=== PATIENT | male | born 1960 | race African-American/Black ===

== ENCOUNTER 2019-07-12 12:25 | Inpatient (IN) ==
[2019-07-12] MEDS ORDERED: NITROGLYCERIN 2% OINTMENT 30GM TUBE EXT STA (12:46)
[2019-07-12] MEDS ORDERED: ONDANSETRON INJ 2 MG/ML 2 ML VIAL IV STA (12:47)
[2019-07-12 12:57] LABS: Basophils # (auto) 0.01 K/uL (0-0.2); Basophils % (auto) 0.1 %; Eosinophils # (auto) 0.53 K/uL (0-0.5); Eosinophils % (auto) 6.2 %; Hematocrit (blood only) 38.7 % (42-52); Hemoglobin 12.6 g/dL (14.0-18.0); Immature Granulocytes # (auto) 0.02 K/uL (0.00-0.02); Immature Granulocytes % (auto) 0.2 %; Lymphocytes # (auto) 0.74 K/uL (1.2-3.4); Lymphocytes % (auto) 8.6 %; Mean Corpuscular Hemoglobin 26.5 pg (25-34); Mean Corpuscular Hgb Conc 32.6 g/dL (32-36); Mean Corpuscular Volume 81.5 fL (80-100); Monocytes # (auto) 0.36 K/uL (0.11-0.59); Monocytes % (auto) 4.2 %; Neutrophils # (auto) 6.94 K/uL (1.4-6.5); Neutrophils % (auto) 80.7 %; Platelet Count 187 K/uL (130-400); Red Blood Count 4.75 M/uL (4.7-6.1)
[2019-07-12] MEDS ORDERED: SODIUM CHLORIDE 0.9% 500 ML IV SCH (13:00)
--- NOTE | 2019-07-12 13:01 | XRay Report ---
SINGLE VIEW CHEST CLINICAL HISTORY: Atypical chest pain. FINDINGS: An AP, portable, semierect chest radiograph is obtained. No prior studies are available for comparison at the time of dictation. The examination is degraded by portable technique and patient r otation. The heart is enlarged. The pulmonary vasculature is noncongested. There is elevation of the right hemidiaphragm. No airspace consolidation or large pleural effusion is identified. No pneumothor ax is seen. The bony thorax is grossly intact. IMPRESSION: Cardiomegaly with no acute cardiopulmonary abnormality. ACT 112: Negative or not required by law. Electronically signed by: Iker Liu M.D. 07/12/2019 12:59 PM
[2019-07-12 13:07] LABS: Partial Thromboplastin Time 28.1 Seconds (21.0-31.0); Prothrombin Time 10.7 Seconds (9.0-12.0)
[2019-07-12 13:14] LABS: Albumin Level 3.5 gm/dl (3.4-5.0); BUN Creatinine Ratio 12.9 (10-20); Calcium 8.1 mg/dl (8.5-10.1); Creatinine Clr Calc Pharmacy 34.4 ml/min; Est GFR (African American) 23.2; Magnesium 2.2 mg/dl (1.8-2.4); Potassium 4.6 mmol/L (3.5-5.1)
[2019-07-12 13:19] LABS: Albumin Globulin Ratio 0.8 (0.9-2); Bilirubin,Total 0.4 mg/dl (0.2-1); Globulin 4.3 gm/dl (2.5-4.0); Total Protein 7.8 gm/dl (6.4-8.2); Troponin I 0.04 ng/ml (0-0.045)
[2019-07-12] MEDS ORDERED: SODIUM CHLORIDE 0.9% 1000ML 500 ML IV ONE (13:59)
[2019-07-12] MEDS ORDERED: DiphenhydrAMINE HCL 50 MG/ML VIAL IV STA (14:05)
--- NOTE | 2019-07-12 15:07 | History & Physical Report ---
Date of Service July 12, 2019 Assessment & Plan (1) Chest pain, precordial: - Concern for cardiac source due to history of myocardial infarctions; EKG showed T wave changes, Trop was 0.040. - Admit to telemetry for close monitoring. - Trend trop q6hr x 3; repeat EKG daily x 2. - Continue home ASA, Metoprolol, Amlodipine as prescribed; not currently on statin agent. - Limited 2D echo to evaluate for wall motion abnormalities. - Will need cardiology consult pending cardiac work up; no indication for NPO status after midnight as stress test will not be completed on a Sunday. (2) CAD (coronary artery disease): - H/o NV ~7 yrs ago and ~8-9 yrs ago, treated at [facility] in [place], [place]. - Continue Metoprolol, Amlodipine and ASA as prescribed. - Not currently on statin agent - fasting lipid panel in the AM along with hgb A1C. - Cardiac work up as noted above. (3) STEPHANIE (acute kidney injury): - Creatinine is 3.17 -- baseline renal function is not clear at this time but Cr is likely elevated. - Started LR at 80 cc/hr. - Renal US pending to rule out obstruction. - U/a and urine eosinophils also pending -- consider interstitial nephritis in setting of Bactrim therapy. - Repeat BMP in the morning; will require nephro consult if no improvement. (4) Metabolic acidosis: - Non anion gap metabolic acidosis - likely related to acute renal failure. - Sodium bicarb 650 mg BID. - LR at 80 cc/hr (avoid NS, may worsen metabolic acidosis) - Repeat BMP in the morning. (5) CKD (chronic kidney disease): - Baseline GFR is not available at this time, therefore cannot determine CKD staging. - Renally dose all meds. (6) Rash: - Likely drug induced -- on Bactrim for 10 days, developed rash on day 7 of course. - Discontinued Bactrim therapy; will need to be added to allergy list. - Hydroxyzine 25 mg BID and Zyrtec 10 mg daily. - Consider addition of steroids if indicated. (7) Medication reaction: - As noted above. (8) Otitis media: - Right sided otitis media; treated with Bactrim x 10 days, no improvement -- may be related to viral source. - Will start Azithromycin 250 mg x 4 days, evaluate for improvement. (9) Depression with anxiety: - Continue Paxil as prescribed. (10) Psychiatric diagnosis: - Continue Trazodone 150 mg qhs and Abiliby 10 mg qhs. (11) Hypertension: - Continue Amlodipine 10 mg daily, Metoprolol 25 mg BID. - Holding home HCTZ in setting of STEPHANIE. (12) DVT prophylaxis: - SCDs; Heparin q12hr. Dispo: Med/surg with tele for cardiac work up & treatment of acute renal failure. History of Present Illness Chief Complaint: Chest pain Primary Care Provider: EMILY Cole Mr. Elam is a 59 year old male with past medical history of CAD, CKD, Anxiety/Depression with other unspecified psychiatric disorders who [facility] with an [facility] reaction to Bactrim. He developed nasal congestion and right ear pain ~12 days ago. Pt. started a course of Bactrim PO ~10 days ago. He developed a mild erythematous rash on his arms/legs 3 days ago. Rash was mildly pruritic but he continued Bactrim as prescribed. He woke up this morning with a "bright red rash" and severe pruritus. He was evaluated by the provider at the [facility] and was referred to the ED for further evaluation. Pt. received Benadryl 25 mg IV in the ER but rash has persisted. He developed sternal chest pain following treatment of rash -- describes chest pain as a "pressure" or "someone sitting on my chest". He has a history of two NV's in the past, ~7 years ago and ~8-9 years ago. Both events were treated at [facility] in [place], [place]; he denies placement of stents or CABG and has not had a recent stress test/evaluation by cardiology. Denies radiation of pain to jaw or arm, nausea/vomiting, shortness of breath, LE edema, URI symptoms with exception of ongoing right ear pain, diarrhea or constipation, abd pain, dysuria or hematuria. ER course: Pt. received IV fluids and Benadryl 25 mg IV x 1 dose. Trop was 0.040, EKG showed T wave inversion in inferolateral leads following development of chest pain. Creatinine was 3.17 with associated anion gap metabolic acidosis (baseline renal function is not available at this time). Will admit for further evaluation of cardiac symptoms along with treatment of acute renal failure & allergic reaction. Allergies Allergy/AdvReac Type Severity Reaction Status Date / Time VIK Inhibitors Allergy Severe Rash and Verified 07/12/19 15:56 Itching Cephalosporins Allergy Severe Rash and Verified 07/12/19 15:56 Itching Penicillins Allergy Severe Rash and Verified 07/12/19 15:56 Itching sulfamethoxazole Allergy Severe Rash and Verified 07/12/19 15:56 [From Bactrim] Itching trimethoprim [From Bactrim] Allergy Severe Rash and Verified 07/12/19 15:55 Itching Home Medications Home Medications Medication Instructions Recorded Confirmed Type amlodipine [Norvasc] 10 mg PO DAILY 07/12/19 07/12/19 History aripiprazole [Abilify] 10 mg PO HS 07/12/19 07/12/19 History aspirin [Aspirin Low Dose] 81 mg PO DAILY 07/12/19 07/12/19 History azithromycin [Zithromax] See Rx Instructions .ROUTE .COMPLEX 07/12/19 07/12/19 History hydrochlorothiazide 25 mg PO DAILY 07/12/19 07/12/19 History hydroxyzine HCl 25 mg PO TID 07/12/19 07/12/19 History metoprolol tartrate 25 mg PO BID 07/12/19 07/12/19 History paroxetine HCl [Paxil] 40 mg PO HS 07/12/19 07/12/19 History prednisone 50 mg PO DAILY 07/12/19 07/12/19 History trazodone 150 mg PO HS 07/12/19 07/12/19 History Past Med/Surg History Medical History (Updated 07/12/19 @ 15:29 by Sasha Seo PA-C) CKD (chronic kidney disease) Depression with anxiety Hx of myocardial infarction Hypertension Psychiatric diagnosis Surgical History No pertinent past surgical history Family History Other No significant family history Social History Preferred Language: Bermudian Communication Ability: Effective [employer]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 Beliefs That Will Affect Care: None Current Living Situation: Other Current Living Situation Comment: Residential current occupational status: 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 Other Information That Helps Us Care for You: No Feels Safe at Home: Yes Safety Concerns: Feels Safe At This Time Smoking Status: Never smoker Do You Dip or Chew Tobacco: No ; Second Hand Exposure: No ; Tobacco Cessation Education Requested by Patient: No Hx Alcohol Use: No Hx Substance Use: No Review of Systems Review of Systems: All systems reviewed & are unremarkable except as noted in HPI & below Constitutional: no fever, no chills, no fatigue, no weakness and no anorexia Ear, Nose, Mouth, Throat: + ear pain; no nasal congestion, no nasal discharge, no post nasal drip, no facial pain, no sinus pain/pressure, no sore throat and no dysphagia Respiratory: no cough, no dyspnea, no dyspnea on exertion and no wheezing Cardiovascular: + chest pain; no radiating jaw, neck or arm pain, no palpitations, no lightheadedness, no syncope, no edema and no calf pain Gastrointestinal: no abdominal pain, no nausea, no vomiting, no constipation and no diarrhea/loose stools Genitourinary: no dysuria, no difficulty urinating and no hematuria Musculoskeletal: no back pain and no joint pain Integumentary: + rash, + erythema and + pruritus Physical Exam Physical Exam: General: Resting comfortably HEENT: NC/AT; PERRLA with EOMI; Tornado conjunctiva, MMM. No erythema of posterior pharynx Neck: Supple and nontender Cardiac: RRR Lungs: CTA bilaterally Abdomen: Bowel normoactive X 4; Nontender to palpation Rectal: Deferred : Deferred Back: NO spinous tenderness Extremities: Warm. Mild +1 non pitting bilat LE edema. Neuro: No focal weakness Skin: erythematous maculopapular rash noted on arms and legs. Results & Data Vital Signs (Past 12 Hours) Vital Signs Temp Pulse Resp BP Pulse Ox 07/12/19 14:01 71 20 07/12/19 14:00 70 18 137/84 07/12/19 13:31 67 20 146/85 H 94 07/12/19 13:30 75 27 H 94 07/12/19 13:01 70 24 127/63 91 07/12/19 13:00 71 16 96 07/12/19 12:42 36.8 C 78 20 136/64 96 07/12/19 12:39 71 93 07/12/19 12:34 69 136/64 95 Laboratory Results 07/12/19 07/12/19 07/12/19 Range/Units 12:45 12:45 12:45 WBC 8.60 (4.8-10.8) K/uL RBC 4.75 (4.7-6.1) M/uL Hgb 12.6 L (14.0-18.0) g/dL Hct 38.7 L (42-52) % MCV 81.5 (80-100) fL MCH 26.5 (25-34) pg MCHC 32.6 (32-36) g/dL RDW Std Deviation 51.0 H (36.4-46.3) fL RDW Coeff of Love 17.0 H (11.5-14.5) % Plt Count 187 (130-400) K/uL Immature Gran % (Auto) 0.2 % Neut % (Auto) 80.7 % Lymph % (Auto) 8.6 % Collier % (Auto) 4.2 % Eos % (Auto) 6.2 % Baso % (Auto) 0.1 % Immature Gran # (Auto) 0.02 (0.00-0.02) K/uL Neut # (Auto) 6.94 H (1.4-6.5) K/uL Lymph # (Auto) 0.74 L (1.2-3.4) K/uL Collier # (Auto) 0.36 (0.11-0.59) K/uL Eos # (Auto) 0.53 H (0-0.5) K/uL Baso # (Auto) 0.01 (0-0.2) K/uL PT 10.7 (9.0-12.0) Seconds INR 1.0 (0.9-1.1) APTT 28.1 (21.0-31.0) Seconds PTT Ratio 1.0 Sodium 136 (136-145) mmol/L Potassium 4.6 (3.5-5.1) mmol/L Chloride 109 H (98-107) mmol/L Carbon Dioxide 20 L (21-32) mmol/L Anion Gap 7.0 (3-11) BUN 41 H (7-18) mg/dl Creatinine 3.17 H (0.6-1.4) mg/dl Est Cr Clr Drug Dosing 34.4 ml/min Est GFR ( Amer) 23.2 Est GFR (Non-Af Amer) 20.0 BUN/Creatinine Ratio 12.9 (10-20) Glucose 115 H (70-99) mg/dl Calcium 8.1 L (8.5-10.1) mg/dl Magnesium 2.2 (1.8-2.4) mg/dl Total Bilirubin 0.4 (0.2-1) mg/dl AST 31 (15-37) U/L ALT 38 (12-78) U/L Alkaline Phosphatase 86 (45-117) U/L Troponin I 0.040 (0-0.045) ng/ml Total Protein 7.8 (6.4-8.2) gm/dl Albumin 3.5 (3.4-5.0) gm/dl Globulin 4.3 H (2.5-4.0) gm/dl Albumin/Globulin Ratio 0.8 L (0.9-2) Lipase 75 (73-393) U/L Code Status & VTE Plan Code Status FULL CODE VTE Prophylaxis Plan VTE Prophylaxis will be ordered: Yes Supervising Physician Co-Signing Physician Notes Patient seen and examined with Sasha LEGGETT. I agree with her exam findings, review of systems, assessment and plan. I personally reviewed the lab work and imaging as well. patient presented due to diffuse rash that developed while he was taking Bactrim did not present with chest pain/pressure, but he developed some pressure while here there were some TW inversions in lateral leads at the time of the chest pain, has CAD history also, Cr is 3, unsure of his baseline as there are no prior records - Chest pain, EKG changes will cycle troponin, check 2d echo, repeat EKG in the AM and as needed for pain continue aspirin and metoprolol - likely STEPHANIE on CKD patient knows he has some CKD but he is unaware of his baseline renal function certainly a Cr of 3 could represent an STEPHANIE, differential could be prerenal or perhaps AIN due to Bactrim use will check UA, urine eosinophils give some fluids and repeat BMP in the AM, follow UO - Diffuse drug rash reports history of similar appearing, erythematous, pruritic rash to PCN will continue antihistamine therapy no evidence of oral mucosa involvement so doubt that this is severe reaction PG Care Time/CCT Total # of Minutes Spent Total Time Spent with Patient: Total time spent is greater than 50% in coordination of care (as documented) at patient's floor/unit and/or counseling patient: Coding Level of Care Code 58380 OBS Care - Level 3 Diagnoses Chest pain, precordial R07.2 CAD (coronary artery disease) I25.10 STEPHANIE (acute kidney injury) N17.9 Metabolic acidosis E87.2 CKD (chronic kidney disease) N18.9 Rash R21 Medication reaction T50.905A Encounter type: initial encounter Otitis media H66.90 Depression with anxiety F41.8 Psychiatric diagnosis F99 Hypertension I10 DVT prophylaxis Z29.9 (1) Medication reaction Encounter type: initial encounter Qualified Code(s): T50.905A - Adverse effect of unspecified drugs, medicaments and biological substances, initial encounter
[2019-07-12] MEDS ORDERED: ACETAMINOPHEN 325 MG TAB PO PRN (15:49)
[2019-07-12] MEDS ORDERED: ONDANSETRON INJ 2 MG/ML 2 ML VIAL IV PRN (15:49)
[2019-07-12] MEDS ORDERED: NITROGLYCERIN SL 0.4 MG/TAB TAB SL PRN (15:49)
[2019-07-12] MEDS: LACTATED RINGER'S 1,000 ML IV SCH (16:06)
--- NOTE | 2019-07-12 16:22 | Emergency Department Note ---
Entered by Joseline Browning acting as a scribe for History of Present Illness General Chief complaint: Chest Pain Stated complaint: CHEST TIGHTNESS Time Seen by Provider: 07/12/19 12:38 Source: patient History of Present Illness Onset (ago): hour(s) 6 Location: chest Pain Consistency: + constant Maximum Pain Intensity: 7 Quality: + other (pressure) Exacerbated By: + medication (Benadryl) and + other (standing up) Associated symptoms: + nausea/vomiting (nausea), + rash and + shortness of breath; no diaphoresis The patient is a 59 year old male who presents to the Emergency Room with complaints of constant chest pain starting 6 hours ago. The patient states that when he woke up this morning he started having chest pain that felt like something was sitting on his chest. He states that it is right in the center of his chest, made him short of breath, and nauseous. The patient notes that he has been on Bactrim for 6 days for an ear infection and noticed a rash 3 days ago all over his body. He states that it is itchy so he went to Medical today. He reports that they gave him Benadryl, which didnt help, but notes that it made his chest pain feel worse. He states that he went back to Medical and they sent him here. The patient currently rates his pain as a 6/10 in severity. He notes that standing up makes the pain worse. The patient denies taking any Nitroglycerin, the pain feeling like his previous MIs, the pain radiating anywhere, and becoming diaphoretic. Home Medications Home Medications Medication Instructions Recorded Confirmed Type amlodipine [Norvasc] 10 mg PO DAILY 07/12/19 07/12/19 History aripiprazole [Abilify] 10 mg PO HS 07/12/19 07/12/19 History aspirin [Aspirin Low Dose] 81 mg PO DAILY 07/12/19 07/12/19 History azithromycin [Zithromax] See Rx Instructions .ROUTE .COMPLEX 07/12/19 07/12/19 History hydrochlorothiazide 25 mg PO DAILY 07/12/19 07/12/19 History hydroxyzine HCl 25 mg PO TID 07/12/19 07/12/19 History metoprolol tartrate 25 mg PO BID 07/12/19 07/12/19 History paroxetine HCl [Paxil] 40 mg PO HS 07/12/19 07/12/19 History prednisone 50 mg PO DAILY 07/12/19 07/12/19 History trazodone 150 mg PO HS 07/12/19 07/12/19 History Allergies Allergy/AdvReac Type Severity Reaction Status Date / Time VIK Inhibitors Allergy Severe Rash and Verified 07/12/19 15:56 Itching Cephalosporins Allergy Severe Rash and Verified 07/12/19 15:56 Itching Penicillins Allergy Severe Rash and Verified 07/12/19 15:56 Itching sulfamethoxazole Allergy Severe Rash and Verified 07/12/19 15:56 [From Bactrim] Itching trimethoprim [From Bactrim] Allergy Severe Rash and Verified 07/12/19 15:55 Itching Past Med/Surg History Medical History (Updated 07/12/19 @ 15:29 by Sasha Seo PA-C) CKD (chronic kidney disease) Depression with anxiety Hx of myocardial infarction Hypertension Psychiatric diagnosis Surgical History No pertinent past surgical history Family History Other No significant family history Social History Preferred Language: Amharic Communication Ability: Effective Linux 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 and A total of 10 systems reviewed and were otherwise negative Physical Exam Vital Signs Vital Signs - 24 hr 07/12/19 12:34 07/12/19 12:39 07/12/19 12:42 Temperature 36.8 C Temperature Source Oral Pulse Rate 69 71 78 Pulse Rate from SpO2 Sensor 67 66 Respiratory Rate 20 Respiratory Effort / Characteristics Non-Labored Spontaneous Respiratory Depth Normal Respiratory Pattern Regular Blood Pressure 136/64 136/64 Blood Pressure Mean 71 88 Pulse Oximetry 95 93 96 Oxygen Delivery Method Room Air Sepsis Recent Fever Within 48 Hours No Sepsis New/Unexplained Change in Mental Status No Sepsis Action Taken by Nursing No Action Required 07/12/19 13:00 07/12/19 13:01 07/12/19 13:30 Temperature Temperature Source Pulse Rate 71 70 75 Pulse Rate from SpO2 Sensor 70 73 70 Respiratory Rate 16 24 27 H Respiratory Effort / Characteristics Respiratory Depth Respiratory Pattern Blood Pressure 127/63 Blood Pressure Mean 89 Pulse Oximetry 96 91 94 Oxygen Delivery Method Sepsis Recent Fever Within 48 Hours Sepsis New/Unexplained Change in Mental Status Sepsis Action Taken by Nursing 07/12/19 13:31 07/12/19 14:00 07/12/19 14:01 Temperature Temperature Source Pulse Rate 67 70 71 Pulse Rate from SpO2 Sensor 67 Respiratory Rate 20 18 20 Respiratory Effort / Characteristics Respiratory Depth Respiratory Pattern Blood Pressure 146/85 H 137/84 Blood Pressure Mean 92 96 Pulse Oximetry 94 Oxygen Delivery Method Sepsis Recent Fever Within 48 Hours Sepsis New/Unexplained Change in Mental Status Sepsis Action Taken by Nursing 07/12/19 14:30 07/12/19 14:31 07/12/19 15:00 Temperature Temperature Source Pulse Rate 70 72 69 Pulse Rate from SpO2 Sensor 68 72 68 Respiratory Rate 20 16 22 Respiratory Effort / Characteristics Respiratory Depth Respiratory Pattern Blood Pressure 105/84 121/79 Blood Pressure Mean 97 93 Pulse Oximetry 96 97 95 Oxygen Delivery Method Sepsis Recent Fever Within 48 Hours Sepsis New/Unexplained Change in Mental Status Sepsis Action Taken by Nursing 07/12/19 15:01 Temperature Temperature Source Pulse Rate 61 Pulse Rate from SpO2 Sensor 61 Respiratory Rate 22 Respiratory Effort / Characteristics Respiratory Depth Respiratory Pattern Blood Pressure Blood Pressure Mean Pulse Oximetry 96 Oxygen Delivery Method Sepsis Recent Fever Within 48 Hours Sepsis New/Unexplained Change in Mental Status Sepsis Action Taken by Nursing GENERAL: Patient is in no acute distress. HEENT: No acute trauma, normocephalic atraumatic, mucous membranes moist, no nasal congestion, no scleral icterus. NECK: No stridor, no adenopathy, no meningismus, trachea is midline. LUNGS: Clear to auscultation bilaterally, no wheeze, no rhonchi, breath sounds equal. HEART: 2/6 systolic murmur. Irregular rhythm with a normal rate. CHEST: Some moderate tenderness to the mid sternal chest wall. ABDOMEN: Soft, nontender, bowel sounds positive, no hernias, no peritonitis. EXTREMITIES: No cyanosis, mild pedal edema, full range of motion of all the joints without pain or difficulty, no signs for acute trauma. NEUROLOGIC: Oriented x 3, no acute motor or sensory deficits, no focal weakness. SKIN: Slightly raised diffuse erythematous rash across the chest, back, and upper extremities. Course Course 1242: The patient was evaluated in room C2B. A complete history and physical exam was performed. 1358: I reviewed the patient's past records and his creatinine on 05/22/2019 was 2.06. 1404: I reevaluated the patient and he is feeling better after the Nitroglycerin. He asked from something to help with the itching. I discussed his test results and the treatment plan with him to keep him for a cardiac work up. He verbally agrees and understands. 1409: I discussed the patient's case with Dr. Goldberg [facility] Hospitalist. She will evaluate the patient for further management. Administered Medications Lactated Ringer's (Lr) 1,000 mls @ 80 mls/hr IV .[id number] GINNY Stop: 08/11/19 15:48 Last Admin: 07/12/19 16:06 Dose: 80 mls/hr Documented by: [id number] Discontinued Medications Diphenhydramine HCl (Benadryl) 25 mg IV NOW STA Stop: 07/12/19 14:06 Last Admin: 07/12/19 14:16 Dose: 25 mg Documented by: [id number] Sodium Chloride (Nss) 500 mls @ 999 mls/hr IV .Q31M GINNY Stop: 07/12/19 13:30 Last Infusion: 07/12/19 13:44 Dose: 0 mls/hr Documented by: [id number] Admin: 07/12/19 12:57 Dose: 999 mls/hr Documented by: [id number] Sodium Chloride (Nss 1000ml) 500 mls @ 999 mls/hr IV .Q31M ONE Stop: 07/12/19 14:29 Last Infusion: 07/12/19 14:57 Dose: 0 mls/hr Documented by: [id number] Admin: 07/12/19 14:16 Dose: 999 mls/hr Documented by: [id number] Nitroglycerin (Nitro-Bid 2%) 1 inch EXT NOW STA Stop: 07/12/19 12:47 Last Admin: 07/12/19 12:52 Dose: 1 inch Documented by: [id number] Ondansetron HCl (Zofran) 4 mg IV NOW STA Stop: 07/12/19 12:48 Last Admin: 07/12/19 12:52 Dose: 4 mg Documented by: [id number] Medical Decision Making Differential Diagnosis Differential diagnoses include allergic reaction, KY, angina, aortic dissection, PE, pneumonia, anemia, musculoskeletal pain. Medical Records Attestation: I reviewed the patient's medical records. Home Medications Current Medication List: was personally reviewed by me Laboratory Data Attestation: I reviewed the patient's lab results. Result diagrams: 07/12/19 12:45 07/12/19 12:45 Lab Results 07/12/19 07/12/19 07/12/19 Range/Units 12:45 12:45 12:45 WBC 8.60 (4.8-10.8) K/uL RBC 4.75 (4.7-6.1) M/uL Hgb 12.6 L (14.0-18.0) g/dL Hct 38.7 L (42-52) % MCV 81.5 (80-100) fL MCH 26.5 (25-34) pg MCHC 32.6 (32-36) g/dL RDW Std Deviation 51.0 H (36.4-46.3) fL RDW Coeff of Love 17.0 H (11.5-14.5) % Plt Count 187 (130-400) K/uL Immature Gran % (Auto) 0.2 % Neut % (Auto) 80.7 % Lymph % (Auto) 8.6 % [place] % (Auto) 4.2 % Eos % (Auto) 6.2 % Baso % (Auto) 0.1 % Immature Gran # (Auto) 0.02 (0.00-0.02) K/uL Neut # (Auto) 6.94 H (1.4-6.5) K/uL Lymph # (Auto) 0.74 L (1.2-3.4) K/uL P[place] # (Auto) 0.36 (0.11-0.59) K/uL Eos # (Auto) 0.53 H (0-0.5) K/uL Baso # (Auto) 0.01 (0-0.2) K/uL PT 10.7 (9.0-12.0) Seconds INR 1.0 (0.9-1.1) APTT 28.1 (21.0-31.0) Seconds PTT Ratio 1.0 Sodium 136 (136-145) mmol/L Potassium 4.6 (3.5-5.1) mmol/L Chloride 109 H (98-107) mmol/L Carbon Dioxide 20 L (21-32) mmol/L Anion Gap 7.0 (3-11) BUN 41 H (7-18) mg/dl Creatinine 3.17 H (0.6-1.4) mg/dl Est Cr Clr Drug Dosing 34.4 ml/min Est GFR ( Amer) 23.2 Est GFR (Non-Af Amer) 20.0 BUN/Creatinine Ratio 12.9 (10-20) Glucose 115 H (70-99) mg/dl Calcium 8.1 L (8.5-10.1) mg/dl Magnesium 2.2 (1.8-2.4) mg/dl Total Bilirubin 0.4 (0.2-1) mg/dl AST 31 (15-37) U/L ALT 38 (12-78) U/L Alkaline Phosphatase 86 (45-117) U/L Troponin I 0.040 (0-0.045) ng/ml Total Protein 7.8 (6.4-8.2) gm/dl Albumin 3.5 (3.4-5.0) gm/dl Globulin 4.3 H (2.5-4.0) gm/dl Albumin/Globulin Ratio 0.8 L (0.9-2) Lipase 75 (73-393) U/L Imaging Data Radiologist's Impression: Radiology results as stated below per my review and the radiologist's interpretation: SINGLE VIEW CHEST CLINICAL HISTORY: Atypical chest pain. FINDINGS: An AP, portable, semierect chest radiograph is obtained. No prior studies are available for comparison at the time of dictation. The examination is degraded by portable technique and patient rotation. The heart is enlarged. The pulmonary vasculature is noncongested. There is elevation of the right hemidiaphragm. No airspace consolidation or large pleural effusion is identified. No pneumothorax is seen. The bony thorax is grossly intact. IMPRESSION: Cardiomegaly with no acute cardiopulmonary abnormality. ACT 112: Negative or not required by law. Electronically signed by: Iker Liu M.D. 07/12/2019 12:59 PM ECG Data Attestation: I personally reviewed and interpreted this ECG as follows: Indication: + chest pain Rate (beats per minute): 70 Rhythm: + sinus rhythm ECG ST segments: + T-wave inversions (Lateral); no ST elevation ECG Findings: + PVCs (frequent) and + Other (old septal infarct, QT-c 421) Comparison ECG Date: no prior available Additional Comments: PRE-HOSPITAL EKG: Sinus rhythm at a rate of 64. No ST elevation. No PVCs. Inverted T waves in the inferior and lateral leads. QT-c 95. Blood Pressure Blood Pressure Findings: Elevated blood pressure Blood Pressure Disposition: further management by hospitalist [facility] Narrative There is no leukocytosis. The patient is mildly anemic with a hemoglobin of 12.6. Platelet count was normal. There was no coagulopathy. There was evidence for acute renal injury with a creatinine of 3.17. No liver enzyme elevation. No evidence for pancreatitis. EKG shows a sinus rhythm with PVCs, no evidence for acute [place]. Cardiac enzyme testing x1 does not show any evidence for acute cardiac injury. Chest film does not show pneumonia or CHF. No significant mediastinal widening. The patient received IV saline, he received 2/500 cc boluses. He was given IV Zofran for nausea, Nitropaste 1 inch, 25 mg of IV Benadryl. The patient has a rash, this is likely a reaction to the Bactrim. He also has some renal injury today which may also be from his Bactrim use. He presents today with some chest pain which does seem to be improved after nitroglycerin. He has a known coronary history. I do think a hospital stay for further cardiac work-up is warranted. I did speak to the patient and the guards. I spoke to case management. The on-call hospitalist was consulted. Continuous Cardiac Monitoring: An order was placed for continuous cardiac monitoring. The monitor shows a rate of 69 with sinus rhythm with PVCs. Impression & Plan Chest pain, precordial, STEPHANIE (acute kidney injury), Rash, Medication reaction Discharge Plan Visit Data *Final* Discharge Date/Time: 07/12/19 15:21 Chief Complaint: Chest Pain Stated Complaint: CHEST TIGHTNESS ED Provider: Ikre Abel Discharge Problem: Chest pain, precordial, STEPHANIE (acute kidney injury), Rash, Medication reaction Patient Disposition: Admitted As Inpatient Discharge Instructions Interventions: ED Discharge Assessment Last Done: 07/12/19 15:21 Discharge Problem: Medication reaction Qualifiers: Encounter type: initial encounter Qualified Code(s): T50.905A - Adverse effect of unspecified drugs, medicaments and biological substances, initial encounter The scribe's documentation has been prepared under my direction and personally reviewed by me in its entirety. I confirm that the note above accurately reflects all work, treatment, procedures, and medical decision making performed by me.
[2019-07-12 16:49] LABS: Appearance Urine Clear (Clear); Bacteria Urine Automated Negative (Negative); Bilirubin Urine Negative (Negative); Blood Urine Trace (Negative); Cast Urine Automated 0 /lpf (0-5); Color Urine Yellow; Epithelial Cell Urine Auto 0-5 /lpf (0-5); Glucose Urine UA Negative (Negative); Ketones Urine Negative (Negative); Leukocyte Esterase Urine Negative (Negative); Nitrite Urine Negative (Negative); Protein Urine Negative (Negative); RBC Urine Automated 0-4 /hpf (0-4); Urobilinogen Urine Negative (Negative); WBC Urine Automated 0 /hpf (0-5)
[2019-07-12] MEDS: AZITHROMYCIN 250 MG TAB PO SCH (19:00)
--- NOTE | 2019-07-12 19:00 | Ultrasound Report ---
ULTRASOUND KIDNEYS AND BLADDER CLINICAL HISTORY: Acute renal failure. COMPARISON STUDY: No priors. TECHNIQUE: Real-time, grayscale, and color flow sonography of the kidneys and bladder is performed. I mages are reviewed in the transverse and longitudinal planes. FINDINGS: Kidneys: The kidneys demonstrate cortical atrophy and slightly increased echotexture. The right kidne y measures 9.2 x 4.6 x 3.9 cm and the left kidney measures 7.9 x 5.5 x 4.4 cm. There is no hydroneph rosis. No shadowing renal calculi are identified. A 1.1 cm cyst is noted in the left lower pole. Ther e is no sonographic evidence of contour deforming renal mass lesion. No perinephric fluid is identifi ed. Bladder: The bladder is normal in appearance. Bilateral ureteral jets were seen. IMPRESSION: 1. The kidneys demonstrate cortical atrophy and there is evidence of medical renal disease. 2. No hydronephrosis is seen. 3. The bladder is normal as visualized. ACT 112: Negative or not required by law. Electronically signed by: Iker Liu M.D. 07/12/2019 6:59 PM
[2019-07-12] MEDS: PARoxetine HCL 20 MG TAB PO SCH (20:15)
[2019-07-12] MEDS: TRAZODONE HCL 50 MG TAB PO SCH (20:15)
[2019-07-12] MEDS: ARIPiprazole 10 MG TAB PO SCH (20:15)
[2019-07-12] MEDS: METOPROLOL TARTRATE 25 MG TAB PO SCH (20:16)
[2019-07-12] MEDS: HEPARIN SOD 5,000 UNIT/0.5 ML VIAL SQ SCH (20:16)
[2019-07-12] MEDS: SODIUM BICARBONATE 650 MG TAB PO SCH (20:17)
--- NOTE | 2019-07-12 20:20 | Electrocardiogram Report ---
Test Reason : Blood Pressure : / mmHG Vent. Rate : 070 BPM Atrial Rate : 070 BPM P-R Int : 194 ms QRS Dur : 104 ms QT Int : 390 ms P-R-T Axes : 034 032 218 degrees QTc Int : 421 ms Sinus rhythm with frequent Premature ventricular complexes T wave abnormality, consider inferolateral ischemia Abnormal ECG No previous ECGs available Confirmed by Luc Villegas ([id number]) on 07/12/2019 8:20:45 PM Referred By: Confirmed By:Elian Villegas
[2019-07-13] MEDS: LACTATED RINGER'S 1,000 ML IV SCH ×2 (03:11→15:50)
[2019-07-13 07:11] LABS: Basophils # (auto) 0.02 K/uL (0-0.2); Basophils % (auto) 0.3 %; Eosinophils # (auto) 0.44 K/uL (0-0.5); Eosinophils % (auto) 7.7 %; Hematocrit (blood only) 33.4 % (42-52); Hemoglobin 10.7 g/dL (14.0-18.0); Immature Granulocytes # (auto) 0.01 K/uL (0.00-0.02); Immature Granulocytes % (auto) 0.2 %; Lymphocytes # (auto) 1.15 K/uL (1.2-3.4); Lymphocytes % (auto) 20.1 %; Mean Corpuscular Hemoglobin 26.1 pg (25-34); Mean Corpuscular Volume 81.5 fL (80-100); Mean Platelet Volume 11.2 fL (7.4-10.4); Monocytes # (auto) 0.42 K/uL (0.11-0.59); Monocytes % (auto) 7.3 %; Neutrophils # (auto) 3.69 K/uL (1.4-6.5); Neutrophils % (auto) 64.4 %; Platelet Count 162 K/uL (130-400); RDW Coefficient of Variation 17.2 % (11.5-14.5); RDW Standard Deviation 52.2 fL (36.4-46.3); White Blood Count 5.73 K/uL (4.8-10.8)
[2019-07-13 07:39] LABS: BUN Creatinine Ratio 13.5 (10-20); Creatinine Clr Calc Pharmacy 37.9 ml/min; Est GFR (African American) 26.9; Est GFR (Non-African American) 23.2; Potassium 4.7 mmol/L (3.5-5.1)
[2019-07-13] MEDS: SODIUM BICARBONATE 650 MG TAB PO SCH ×2 (08:57→20:47)
[2019-07-13] MEDS: HEPARIN SOD 5,000 UNIT/0.5 ML VIAL SQ SCH ×2 (08:57→20:51)
[2019-07-13] MEDS: METOPROLOL TARTRATE 25 MG TAB PO SCH ×2 (08:58→20:50)
[2019-07-13] MEDS: CETIRIZINE HCL 10 MG TABLET PO SCH (08:58)
[2019-07-13] MEDS: AMLODIPINE BESYLATE 5 MG TAB PO SCH (08:58)
[2019-07-13] MEDS: ASPIRIN 81 MG ECTAB PO SCH (08:58)
[2019-07-13] MEDS: AZITHROMYCIN 250 MG TAB PO SCH (09:28)
--- NOTE | 2019-07-13 12:18 | Hospitalist Progress Note ---
Date of Service July 13, 2019 Assessment & Plan (1) Chest pain, precordial: - Concern for cardiac source due to history of myocardial infarctions; EKG showed minor T-wave changes, serial troponins negative. - Admitted to telemetry, in NSR on monitor. - Continue home ASA, Metoprolol, Amlodipine as prescribed; not currently on statin agent. - Limited 2D echo: moderate dilation of left atrium, moderate LVH, no wall motion abnormalities detected. - Will complete stress exercise echo on Sunday to evaluate for ischemia. (2) CAD (coronary artery disease): - H/o [place] ~7 yrs ago and ~8-9 yrs ago, treated at [facility] in [place], [place]. - Continue Metoprolol, Amlodipine and ASA as prescribed. - Not currently on statin agent - fasting lipid panel with LDL 57, Chol 118, HDL 41. - Cardiac work up as noted above. (3) STEPHANIE (acute kidney injury): - Creatinine increased to 3.17 on admission, baseline creatinine ~1.9-2.0 per records from [facility]. - Creatinine improved to 2.81; continue LR at 80 cc/hr. - Renal US negative for obstruction. - U/a negative; urine eosinophils pending -- consider interstitial nephritis in setting of Bactrim therapy. - Monitor BMP daily; consider nephro consult. (4) Metabolic acidosis: - Non anion gap metabolic acidosis - likely related to acute renal failure. CO2 improving after sodium bicarb therapy and IV fluids. - Sodium bicarb 650 mg BID. - LR at 80 cc/hr - Monitor BMP daily. (5) CKD (chronic kidney disease): - Baseline GFR is not available at this time, therefore cannot determine CKD staging. - Renally dose all meds. (6) Rash: - Likely drug induced -- on Bactrim for 10 days, developed rash on day 7 of course. - Discontinued Bactrim therapy; will need to be added to allergy list. - Hydroxyzine 25 mg BID and Zyrtec 10 mg daily. - Rash is resolved on exam. (7) Medication reaction: - As noted above. (8) Otitis media: - Right sided otitis media; treated with Bactrim x 10 days, no improvement -- may be related to viral source. - Azithromycin 250 mg x 4 days. (9) Depression with anxiety: - Continue Paxil as prescribed. (10) Psychiatric diagnosis: - Continue Trazodone 150 mg qhs and Abiliby 10 mg qhs. (11) Hypertension: - Continue Amlodipine 10 mg daily, Metoprolol 25 mg BID. - Hold home HCTZ in setting of STEPHANIE. (12) DVT prophylaxis: - SCDs; Heparin q12hr. Dispo: Med/surg with tele; cardiac work up & treatment of acute renal failure. Discharge likely over next 24-48 hours. Subjective Pt. c/o sternal chest pressure, rates pain as a 2/10 on pain scale. Trops negative, EKG with no significant changes this morning. Renal failure improving overall, will continue to monitor. Adequate urine output noted. Rash is resolving, denies pruritus. Review of Systems Review of Systems: All systems reviewed & are unremarkable except as noted in HPI & below Constitutional: no fever, no chills, no fatigue, no weakness and no anorexia Respiratory: no cough, no dyspnea and no dyspnea on exertion Cardiovascular: + chest pain; no radiating jaw, neck or arm pain, no palpitations, no lightheadedness, no syncope and no edema Gastrointestinal: no abdominal pain, no nausea, no vomiting and no constipation Genitourinary: no difficulty urinating and no decreased urination Musculoskeletal: no back pain and no joint pain Integumentary: + rash; no pruritus Physical Exam Physical Exam: General: Resting comfortably HEENT: NC/AT; PERRLA with EOMI; Lorraine conjunctiva, MMM. No erythema of posterior pharynx Neck: Supple and nontender Cardiac: RRR Lungs: CTA bilaterally Abdomen: Bowel normoactive X 4; Nontender to palpation Extremities: Warm. No LE edema noted. Neuro: No focal weakness Skin: erythematous rash now resolved. Results & Data Vital Signs (Past 12 Hours) Vital Signs Temp Pulse Pulse Resp BP BP Pulse Ox 07/13/19 11:36 36.7 C 50 L 20 115/68 93 07/13/19 07:31 36.4 C L 73 18 132/71 94 07/13/19 07:07 45 L 07/13/19 04:25 36.9 C 56 L 20 135/46 L 94 Laboratory Results 07/13/19 07/13/19 07/13/19 Range/Units 06:42 06:42 06:42 WBC (4.8-10.8) K/uL RBC (4.7-6.1) M/uL Hgb (14.0-18.0) g/dL Hct (42-52) % MCV (80-100) fL MCH (25-34) pg MCHC (32-36) g/dL RDW Std Deviation (36.4-46.3) fL RDW Coeff of Love (11.5-14.5) % Plt Count (130-400) K/uL MPV (7.4-10.4) fL Immature Gran % (Auto) % Neut % (Auto) % Lymph % (Auto) % Richardson % (Auto) % Eos % (Auto) % Baso % (Auto) % Immature Gran # (Auto) (0.00-0.02) K/uL Neut # (Auto) (1.4-6.5) K/uL Lymph # (Auto) (1.2-3.4) K/uL Richardson # (Auto) (0.11-0.59) K/uL Eos # (Auto) (0-0.5) K/uL Baso # (Auto) (0-0.2) K/uL PT (9.0-12.0) Seconds INR (0.9-1.1) APTT (21.0-31.0) Seconds PTT Ratio Sodium 139 (136-145) mmol/L Potassium 4.7 (3.5-5.1) mmol/L Chloride 111 H (98-107) mmol/L Carbon Dioxide 21 (21-32) mmol/L Anion Gap 7.0 (3-11) BUN 38 H (7-18) mg/dl Creatinine 2.81 H D (0.6-1.4) mg/dl Est Cr Clr Drug Dosing 37.9 ml/min Est GFR ( Amer) 26.9 Est GFR (Non-Af Amer) 23.2 BUN/Creatinine Ratio 13.5 (10-20) Glucose 104 H (70-99) mg/dl Estimat Average Glucose Pending Hemoglobin A1c Pending Calcium 8.0 L (8.5-10.1) mg/dl Magnesium 2.0 (1.8-2.4) mg/dl Total Bilirubin (0.2-1) mg/dl AST (15-37) U/L ALT (12-78) U/L Alkaline Phosphatase (45-117) U/L Troponin I 0.029 (0-0.045) ng/ml Total Protein (6.4-8.2) gm/dl Albumin (3.4-5.0) gm/dl Globulin (2.5-4.0) gm/dl Albumin/Globulin Ratio (0.9-2) Triglycerides 98 (0-150) mg/dl Cholesterol 118 (0-200) mg/dl LDL Cholesterol, Calc 57 mg/dl VLDL Cholesterol, Calc 20 mg/dl HDL Cholesterol 41 mg/dl Cholesterol/HDL Ratio 3 Lipase (73-393) U/L Urine Color Urine Appearance (Clear) Urine pH (4.5-7.5) Ur Specific [place] (1.000-1.030) Urine Protein (Negative) Urine Glucose (UA) (Negative) Urine Ketones (Negative) Urine Blood (Negative) Urine Nitrite (Negative) Urine Bilirubin (Negative) Urine Urobilinogen (Negative) Ur Leukocyte Esterase (Negative) Urine WBC (Auto) (0-5) /hpf Urine RBC (Auto) (0-4) /hpf U Hyaline Cast (Auto) (0-5) /lpf U Epithel Cells (Auto) (0-5) /lpf Urine Bacteria (Auto) (Negative) 07/13/19 07/13/19 07/12/19 Range/Units 06:42 00:16 18:12 WBC 5.73 (4.8-10.8) K/uL RBC 4.10 L (4.7-6.1) M/uL Hgb 10.7 L (14.0-18.0) g/dL Hct 33.4 L (42-52) % MCV 81.5 (80-100) fL MCH 26.1 (25-34) pg MCHC 32.0 (32-36) g/dL RDW Std Deviation 52.2 H (36.4-46.3) fL RDW Coeff of Love 17.2 H (11.5-14.5) % Plt Count 162 (130-400) K/uL MPV 11.2 H (7.4-10.4) fL Immature Gran % (Auto) 0.2 % Neut % (Auto) 64.4 % Lymph % (Auto) 20.1 % Richardson % (Auto) 7.3 % Eos % (Auto) 7.7 % Baso % (Auto) 0.3 % Immature Gran # (Auto) 0.01 (0.00-0.02) K/uL Neut # (Auto) 3.69 (1.4-6.5) K/uL Lymph # (Auto) 1.15 L (1.2-3.4) K/uL Richardson # (Auto) 0.42 (0.11-0.59) K/uL Eos # (Auto) 0.44 (0-0.5) K/uL Baso # (Auto) 0.02 (0-0.2) K/uL PT (9.0-12.0) Seconds INR (0.9-1.1) APTT (21.0-31.0) Seconds PTT Ratio Sodium (136-145) mmol/L Potassium (3.5-5.1) mmol/L Chloride (98-107) mmol/L Carbon Dioxide (21-32) mmol/L Anion Gap (3-11) BUN (7-18) mg/dl Creatinine (0.6-1.4) mg/dl Est Cr Clr Drug Dosing ml/min Est GFR ( Amer) Est GFR (Non-Af Amer) BUN/Creatinine Ratio (10-20) Glucose (70-99) mg/dl Estimat Average Glucose Hemoglobin A1c Calcium (8.5-10.1) mg/dl Magnesium (1.8-2.4) mg/dl Total Bilirubin (0.2-1) mg/dl AST (15-37) U/L ALT (12-78) U/L Alkaline Phosphatase (45-117) U/L Troponin I 0.040 0.033 (0-0.045) ng/ml Total Protein (6.4-8.2) gm/dl Albumin (3.4-5.0) gm/dl Globulin (2.5-4.0) gm/dl Albumin/Globulin Ratio (0.9-2) Triglycerides (0-150) mg/dl Cholesterol (0-200) mg/dl LDL Cholesterol, Calc mg/dl VLDL Cholesterol, Calc mg/dl HDL Cholesterol mg/dl Cholesterol/HDL Ratio Lipase (73-393) U/L Urine Color Urine Appearance (Clear) Urine pH (4.5-7.5) Ur Specific [place] (1.000-1.030) Urine Protein (Negative) Urine Glucose (UA) (Negative) Urine Ketones (Negative) Urine Blood (Negative) Urine Nitrite (Negative) Urine Bilirubin (Negative) Urine Urobilinogen (Negative) Ur Leukocyte Esterase (Negative) Urine WBC (Auto) (0-5) /hpf Urine RBC (Auto) (0-4) /hpf U Hyaline Cast (Auto) (0-5) /lpf U Epithel Cells (Auto) (0-5) /lpf Urine Bacteria (Auto) (Negative) 07/12/19 07/12/19 07/12/19 Range/Units 16:30 12:45 12:45 WBC (4.8-10.8) K/uL RBC (4.7-6.1) M/uL Hgb (14.0-18.0) g/dL Hct (42-52) % MCV (80-100) fL MCH (25-34) pg MCHC (32-36) g/dL RDW Std Deviation (36.4-46.3) fL RDW Coeff of Love (11.5-14.5) % Plt Count (130-400) K/uL MPV (7.4-10.4) fL Immature Gran % (Auto) % Neut % (Auto) % Lymph % (Auto) % Richardson % (Auto) % Eos % (Auto) % Baso % (Auto) % Immature Gran # (Auto) (0.00-0.02) K/uL Neut # (Auto) (1.4-6.5) K/uL Lymph # (Auto) (1.2-3.4) K/uL Richardson # (Auto) (0.11-0.59) K/uL Eos # (Auto) (0-0.5) K/uL Baso # (Auto) (0-0.2) K/uL PT 10.7 (9.0-12.0) Seconds INR 1.0 (0.9-1.1) APTT 28.1 (21.0-31.0) Seconds PTT Ratio 1.0 Sodium 136 (136-145) mmol/L Potassium 4.6 (3.5-5.1) mmol/L Chloride 109 H (98-107) mmol/L Carbon Dioxide 20 L (21-32) mmol/L Anion Gap 7.0 (3-11) BUN 41 H (7-18) mg/dl Creatinine 3.17 H (0.6-1.4) mg/dl Est Cr Clr Drug Dosing 34.4 ml/min Est GFR ( Amer) 23.2 Est GFR (Non-Af Amer) 20.0 BUN/Creatinine Ratio 12.9 (10-20) Glucose 115 H (70-99) mg/dl Estimat Average Glucose Hemoglobin A1c Calcium 8.1 L (8.5-10.1) mg/dl Magnesium 2.2 (1.8-2.4) mg/dl Total Bilirubin 0.4 (0.2-1) mg/dl AST 31 (15-37) U/L ALT 38 (12-78) U/L Alkaline Phosphatase 86 (45-117) U/L Troponin I 0.040 (0-0.045) ng/ml Total Protein 7.8 (6.4-8.2) gm/dl Albumin 3.5 (3.4-5.0) gm/dl Globulin 4.3 H (2.5-4.0) gm/dl Albumin/Globulin Ratio 0.8 L (0.9-2) Triglycerides (0-150) mg/dl Cholesterol (0-200) mg/dl LDL Cholesterol, Calc mg/dl VLDL Cholesterol, Calc mg/dl HDL Cholesterol mg/dl Cholesterol/HDL Ratio Lipase 75 (73-393) U/L Urine Color Yellow Urine Appearance Clear (Clear) Urine pH 5.0 (4.5-7.5) Ur Specific [place] 1.010 (1.000-1.030) Urine Protein Negative (Negative) Urine Glucose (UA) Negative (Negative) Urine Ketones Negative (Negative) Urine Blood Trace H (Negative) Urine Nitrite Negative (Negative) Urine Bilirubin Negative (Negative) Urine Urobilinogen Negative (Negative) Ur Leukocyte Esterase Negative (Negative) Urine WBC (Auto) 0 (0-5) /hpf Urine RBC (Auto) 0-4 (0-4) /hpf U Hyaline Cast (Auto) 0 (0-5) /lpf U Epithel Cells (Auto) 0-5 (0-5) /lpf Urine Bacteria (Auto) Negative (Negative) 07/12/19 Range/Units 12:45 WBC 8.60 (4.8-10.8) K/uL RBC 4.75 (4.7-6.1) M/uL Hgb 12.6 L (14.0-18.0) g/dL Hct 38.7 L (42-52) % MCV 81.5 (80-100) fL MCH 26.5 (25-34) pg MCHC 32.6 (32-36) g/dL RDW Std Deviation 51.0 H (36.4-46.3) fL RDW Coeff of Love 17.0 H (11.5-14.5) % Plt Count 187 (130-400) K/uL MPV (7.4-10.4) fL Immature Gran % (Auto) 0.2 % Neut % (Auto) 80.7 % Lymph % (Auto) 8.6 % Richardson % (Auto) 4.2 % Eos % (Auto) 6.2 % Baso % (Auto) 0.1 % Immature Gran # (Auto) 0.02 (0.00-0.02) K/uL Neut # (Auto) 6.94 H (1.4-6.5) K/uL Lymph # (Auto) 0.74 L (1.2-3.4) K/uL Richardson # (Auto) 0.36 (0.11-0.59) K/uL Eos # (Auto) 0.53 H (0-0.5) K/uL Baso # (Auto) 0.01 (0-0.2) K/uL PT (9.0-12.0) Seconds INR (0.9-1.1) APTT (21.0-31.0) Seconds PTT Ratio Sodium (136-145) mmol/L Potassium (3.5-5.1) mmol/L Chloride (98-107) mmol/L Carbon Dioxide (21-32) mmol/L Anion Gap (3-11) BUN (7-18) mg/dl Creatinine (0.6-1.4) mg/dl Est Cr Clr Drug Dosing ml/min Est GFR ( Amer) Est GFR (Non-Af Amer) BUN/Creatinine Ratio (10-20) Glucose (70-99) mg/dl Estimat Average Glucose Hemoglobin A1c Calcium (8.5-10.1) mg/dl Magnesium (1.8-2.4) mg/dl Total Bilirubin (0.2-1) mg/dl AST (15-37) U/L ALT (12-78) U/L Alkaline Phosphatase (45-117) U/L Troponin I (0-0.045) ng/ml Total Protein (6.4-8.2) gm/dl Albumin (3.4-5.0) gm/dl Globulin (2.5-4.0) gm/dl Albumin/Globulin Ratio (0.9-2) Triglycerides (0-150) mg/dl Cholesterol (0-200) mg/dl LDL Cholesterol, Calc mg/dl VLDL Cholesterol, Calc mg/dl HDL Cholesterol mg/dl Cholesterol/HDL Ratio Lipase (73-393) U/L Urine Color Urine Appearance (Clear) Urine pH (4.5-7.5) Ur Specific [place] (1.000-1.030) Urine Protein (Negative) Urine Glucose (UA) (Negative) Urine Ketones (Negative) Urine Blood (Negative) Urine Nitrite (Negative) Urine Bilirubin (Negative) Urine Urobilinogen (Negative) Ur Leukocyte Esterase (Negative) Urine WBC (Auto) (0-5) /hpf Urine RBC (Auto) (0-4) /hpf U Hyaline Cast (Auto) (0-5) /lpf U Epithel Cells (Auto) (0-5) /lpf Urine Bacteria (Auto) (Negative) PG Care Time/CCT Total # of Minutes Spent Total Time Spent with Patient: Total time spent is greater than 50% in coordination of care (as documented) at patient's floor/unit and/or counseling patient: Coding Level of Care Code 26284 Subseq Hosp Care Lvl 3 Diagnoses Chest pain, precordial R07.2 CAD (coronary artery disease) I25.10 STEPHANIE (acute kidney injury) N17.9 Metabolic acidosis E87.2 CKD (chronic kidney disease) N18.9 Rash R21 Medication reaction T50.905A Encounter type: initial encounter Otitis media H66.90 Depression with anxiety F41.8 Psychiatric diagnosis F99 Hypertension I10 DVT prophylaxis Z29.9 (1) Medication reaction Encounter type: initial encounter Qualified Code(s): T50.905A - Adverse effect of unspecified drugs, medicaments and biological substances, initial encounter
--- NOTE | 2019-07-13 18:10 | Electrocardiogram Report ---
Test Reason : Blood Pressure : / mmHG Vent. Rate : 054 BPM Atrial Rate : 054 BPM P-R Int : 198 ms QRS Dur : 112 ms QT Int : 434 ms P-R-T Axes : 039 067 -31 degrees QTc Int : 411 ms Sinus bradycardia Poor R wave progression, consider anterior IN vs. lead placement vs. LVH Abnormal ECG When compared with ECG of 12-JUL-2019 12:33, Premature ventricular complexes are no longer Present T wave inversion no longer evident in Lateral leads Confirmed by Luc Villegas ([id number]) on 07/13/2019 6:10:08 PM Referred By: REFERRED SELF Confirmed By:Elian Villegas
--- NOTE | 2019-07-13 18:13 | Electrocardiogram Report ---
Test Reason : Blood Pressure : / mmHG Vent. Rate : 050 BPM Atrial Rate : 050 BPM P-R Int : 198 ms QRS Dur : 110 ms QT Int : 454 ms P-R-T Axes : 051 069 -80 degrees QTc Int : 413 ms Sinus bradycardia Incomplete left bundle block Abnormal ECG When compared with ECG of 12-JUL-2019 23:05, (unconfirmed) Inverted T waves have replaced nonspecific T wave abnormality in Inferior leads Confirmed by Luc Villegas ([id number] on 07/13/2019 6:12:55 PM Referred By: REFERRED SELF Confirmed By:Elian Villegas
[2019-07-13] MEDS: PARoxetine HCL 20 MG TAB PO SCH (20:47)
[2019-07-13] MEDS: ARIPiprazole 10 MG TAB PO SCH (20:50)
[2019-07-13] MEDS: TRAZODONE HCL 50 MG TAB PO SCH (20:50)
[2019-07-14] MEDS: LACTATED RINGER'S 1,000 ML IV SCH (03:48)
[2019-07-14 06:00] LABS: Estimated Average Glucose 126 mg/dl
[2019-07-14 06:18] LABS: Hemoglobin 10.8 g/dL (14.0-18.0); Mean Corpuscular Hemoglobin 25.9 pg (25-34); Mean Corpuscular Hgb Conc 31.8 g/dL (32-36); Mean Corpuscular Volume 81.5 fL (80-100); Platelet Count 160 K/uL (130-400); RDW Coefficient of Variation 17.2 % (11.5-14.5); RDW Standard Deviation 51.7 fL (36.4-46.3); Red Blood Count 4.17 M/uL (4.7-6.1); White Blood Count 5.33 K/uL (4.8-10.8)
[2019-07-14 06:51] LABS: BUN Creatinine Ratio 14.1 (10-20); Creatinine Clr Calc Pharmacy 47.9 ml/min; Est GFR (Non-African American) 30.2; Potassium 4.5 mmol/L (3.5-5.1)
[2019-07-14] MEDS: SODIUM BICARBONATE 650 MG TAB PO SCH (08:08)
[2019-07-14] MEDS: CETIRIZINE HCL 10 MG TABLET PO SCH (08:09)
[2019-07-14] MEDS: AZITHROMYCIN 250 MG TAB PO SCH (11:04)
[2019-07-14] MEDS: AMLODIPINE BESYLATE 5 MG TAB PO SCH (11:04)
[2019-07-14] MEDS: METOPROLOL TARTRATE 25 MG TAB PO SCH ×2 (11:04→14:06)
[2019-07-14] MEDS: ASPIRIN 81 MG ECTAB PO SCH (11:05)
[2019-07-14] MEDS: HEPARIN SOD 5,000 UNIT/0.5 ML VIAL SQ SCH (11:10)
--- NOTE | 2019-07-14 15:10 | Discharge Summary ---
Date of Service July 14, 2019 Admission HPI Per Admitting Provider Mr. Elam is a 59 year old male with past medical history of CAD, CKD, Anxiety/Depression with other unspecified psychiatric disorders who [facility] initially with an allergic reaction to Bactrim. He developed nasal congestion and right ear pain ~12 days ago. Pt. started a course of Bactrim PO ~10 days ago. He developed a mild erythematous rash on his arms/legs 3 days ago. Rash was mildly pruritic but he continued Bactrim as prescribed. He woke up this morning with a "bright red rash" and severe pruritus. He was evaluated by the provider at the [facility] and was referred to the ED for further evaluation. Pt. received Benadryl 25 mg IV in the ER but rash has persisted. He developed sternal chest pain following treatment of rash -- describes chest pain as a "pressure" or "someone sitting on my chest". He has a history of two MA's in the past, ~7 years ago and ~8-9 years ago. Both events were treated at [facility] in [place], [place]; he denies placement of stents or CABG and has not had a recent stress test/evaluation by cardiology. Denies radiation of pain to jaw or arm, nausea/vomiting, shortness of breath, LE edema, URI symptoms with exception of ongoing right ear pain, diarrhea or constipation, abd pain, dysuria or hematuria. ER course: Pt. received IV fluids and Benadryl 25 mg IV x 1 dose. Trop was 0.040, EKG showed T wave inversion in inferolateral leads following development of chest pain. Creatinine was 3.17 with associated anion gap metabolic acidosis (baseline renal function is not available at this time). Will admit for further evaluation of cardiac symptoms along with treatment of acute renal failure & allergic reaction. Admission Exam Per Admitting Provider General: Resting comfortably HEENT: NC/AT; PERRLA with EOMI; [place] conjunctiva, MMM. No erythema of posterior pharynx Neck: Supple and nontender Cardiac: RRR Lungs: CTA bilaterally Abdomen: Bowel normoactive X 4; Nontender to palpation Rectal: Deferred : Deferred Back: NO spinous tenderness Extremities: Warm. Mild +1 non pitting bilat LE edema. Neuro: No focal weakness Skin: erythematous maculopapular rash noted on arms and legs. Principal Diagnosis Chest Pain, Acute Renal Failure Discharge Exam General: Resting comfortably HEENT: NC/AT; PERRLA with EOMI; Parkline conjunctiva, MMM. No erythema of posterior pharynx Neck: Supple and nontender Cardiac: RRR Lungs: CTA bilaterally Abdomen: Bowel normoactive X 4; Nontender to palpation Extremities: Warm. No LE edema noted. Neuro: No focal weakness Skin: erythematous rash resolved. Discharge Data Allergies Allergy/AdvReac Type Severity Reaction Status Date / Time VIK Inhibitors Allergy Severe Rash and Verified 07/12/19 15:56 Itching Cephalosporins Allergy Severe Rash and Verified 07/12/19 15:56 Itching Penicillins Allergy Severe Rash and Verified 07/12/19 15:56 Itching sulfamethoxazole Allergy Severe Rash and Verified 07/12/19 15:56 [From Bactrim] Itching trimethoprim [From Bactrim] Allergy Severe Rash and Verified 07/12/19 15:55 Itching Consultations 07/12/19 14:08 ED Decision to Admit Stat 07/12/19 15:49 Consult Case Management - Discharge Planning Routine Ordered Studies 07/12/19 15:49 US renal/blad retro comp Routine CXR Hospital Course (1) Chest pain, precordial: Concern for cardiac source due to history of myocardial infarctions; EKG showed minor T-wave changes, serial troponins negative. Remained in sinus bradycardia, HR 50's, on monitor. Continued home ASA, Metoprolol, Amlodipine as prescribed; not currently on statin agent. Limited 2D echo: moderate dilation of left atrium, moderate LVH, no wall motion abnormalities detected. Stress echo was negative this morning; did develop lightheadedness during procedure. (2) CAD (coronary artery disease): H/o MA ~7 yrs ago and ~8-9 yrs ago, treated at [facility] in [place], [place]. Continued Metoprolol, Amlodipine and ASA as prescribed. Not currently on statin agent - fasting lipid panel with LDL 57, Chol 118, HDL 41. Cardiac work up as noted above. (3) STEPHANIE (acute kidney injury): Creatinine increased to 3.17 on admission, baseline creatinine ~1.9-2.0 per records from [facility]. Creatinine improved to 2.2 with IV fluids. Renal US negative for obstruction. U/a negative; urine eosinophils pending -- consider interstitial nephritis in setting of Bactrim therapy. Recommend repeat labs this week to monitor renal function. (4) Metabolic acidosis: Non anion gap metabolic acidosis - likely related to acute renal failure. CO2 improved after sodium bicarb therapy and IV fluids. Sodium bicarb 650 mg BID - can d/c at discharge. (5) CKD (chronic kidney disease): Renally dosed all meds. (6) Rash: Likely drug induced -- on Bactrim for 10 days, developed rash on day 7 of course. Discontinued Bactrim therapy; added to allergy list. Hydroxyzine 25 mg BID and Zyrtec 10 mg daily. Rash now resolved. (7) Medication reaction: As noted above. (8) Otitis media: Right sided otitis media; treated with Bactrim x 10 days in [facility], no improvement. Azithromycin 250 mg x 4 days. Pain may be related to viral source, fluid congestion leading to increased pressure. Pt. complained of right sided hearing loss on day of discharge -- recommend to continue to monitor; will need ENT evaluation if no improvement in 2-4 weeks. (9) Depression with anxiety: Continued Paxil as prescribed. (10) Psychiatric diagnosis: Continued Trazodone 150 mg qhs and Abilify 10 mg qhs. (11) Hypertension: Continued Amlodipine 10 mg daily, Metoprolol 25 mg BID. Held home HCTZ in setting of STEPHANIE. Can resume diuretic if Cr improved to baseline. (12) DVT prophylaxis: SCDs; Heparin q12hr. Discharged to [facility] on 07/14/19. Total Time Total Time Spent Total Time Spent (In Minutes): >30 minutes Total Time Includes: Examination of the Patient, Discharge Planning, Medication Reconciliation, Communication With Other Providers and Other Discharge Plan Discharge Items Patient Disposition: [facility] Reason For Visit: CHEST PAIN Discharge Diagnosis: Chest Pain, Acute Renal Failure Condition on Discharge: Fair Goals: You have been hospitalized for an acute medical problem. During your stay at [facility], we have made an effort to correct the problem that brought you to the hospital while keeping you as comfortable as possible. Medications were used to bring your condition under control and your discharge instructions will include directions for any medications you should take after leaving the hospital. Please make sure you see your Primary Care Provider as part of your follow up plan. Activity: As commented below Exercise/Sports: Wait until after follow-up appointment Non-emergency contact: Primary Care Provider Call non-emergency contact if: you have any medication questions, your symptoms worsen and you have a fever Follow-up/Referrals: Kelsey DIAZ [Primary Care Provider] - Diet: Heart Healthy Addtl Attending Provider Instructions: 1. Chest Pain * Cardiac work up, including exercise stress echocardiogram, was negative. * Please continue cardiac meds as prescribed. 2. Acute kidney injury * Creatinine peaked at 3.17 on admission, level is now improving (currently close to baseline at 2.2) * Please continue to monitor frequent labs following discharge -- repeat BMP on Sunday07/16/19. * Continue to hold home HCTZ; diuretic can be resumed if Creatinine level returns to baseline. 3. URI/Right Otitis Media * Please continue Azithromycin 250 mg daily to complete a 4 day course (end date: 07/15/19) * May also be related to viral illness/congestion -- consider addition of Mucinex 1200 mg twice daily scheduled. 4. Please follow up with PCP in 1-2 weeks for re-evaluation. Pending Studies at Discharge: No Stand-Alone Forms: Call Back Authorization, [facility] Skilled Items Patient informed of condition?: Yes Discharge Level of Care: Other Communicable Disease: No Discharge Prognosis: Improving Lines: None Urinary Catheter: No Medications and DC Order Prescriptions: New guaifenesin [Mucinex] 600 mg Tablet Extended Release 12hr 1,200 mg PO Q12 Qty: 1 RF: 0 Continued aspirin [Aspirin Low Dose] 81 mg Tablet,Delayed Release (Dr/Ec) 81 mg PO DAILY RF: 0 amlodipine [Norvasc] 10 mg Tablet 10 mg PO DAILY RF: 0 trazodone 150 mg Tablet 150 mg PO HS RF: 0 paroxetine HCl [Paxil] 40 mg Tablet 40 mg PO HS RF: 0 aripiprazole [Abilify] 10 mg Tablet 10 mg PO HS RF: 0 metoprolol tartrate 25 mg Tablet 25 mg PO BID RF: 0 Changed azithromycin [Zithromax] 250 mg Tablet 250 mg PO DAILY Qty: 2 RF: 0 hydroxyzine HCl 25 mg Tablet 25 mg PO TID PRN (Reason: itching) Qty: 1 RF: 0 Discontinued prednisone 50 mg Tablet 50 mg PO DAILY RF: 0 hydrochlorothiazide 25 mg Tablet 25 mg PO DAILY RF: 0 Discharge Orders: Discharge Order (Routine); Ordered 07/14/19 Ordered By: Sasha Sam/Other Patient Handouts: Prediabetes, A1C Admission Data Admit Date/Time: 07/13/19 12:17 Attending Provider: Horacio Cisse Admit Provider: Ruy Mccarthy Primary Care Provider: Kelsey DIAZ Other Providers: Lucila Martinez Other Interventions: Discharge Summary Assessment (RN) Last Done: 07/14/19 16:03 DC Date/Time DO NOT enter until pt leaves facility: 07/14/19 20:28 Supervising Physician Co-Signing Physician Notes Patient seen and examined with Sasha LEGGETT. I agree with her exam findings, review of systems, assessment and plan. I personally reviewed the lab work and imaging as well. - Chest pain, EKG changes cardiac workup was negative. continue aspirin and metoprolol - Diffuse drug rash reports history of similar appearing, erythematous, pruritic rash to PCN improved with antihistamine therapy no evidence of oral mucosa involvement so doubt that this is severe reaction Patient can be discharged. Coding Level of Care Code D/C Day Management >30 mins Diagnoses Chest pain, precordial R07.2 CAD (coronary artery disease) I25.10 STEPHANIE (acute kidney injury) N17.9 Metabolic acidosis E87.2 CKD (chronic kidney disease) N18.9 Rash R21 Medication reaction T50.905A Encounter type: initial encounter Otitis media H66.90 Depression with anxiety F41.8 Psychiatric diagnosis F99 Hypertension I10 DVT prophylaxis Z29.9
[2019-07-14 15:42] VITALS: BP 162/82; TEMP 97.7; O2SAT 92
[2019-07-14 16:06] VITALS: PULSE 50
[2019-07-14] MEDS ORDERED: guaiFENesin 600 MG TABCR PO SCH (21:00)
--- NOTE | 2019-07-15 10:35 | XCELERA ---
[id number] \\[email or web address]\PDF_[id number]}___[id number]
--- NOTE | 2019-07-15 10:35 | XCELERA ---
[id number] \\[email or web address]\PDF_Reports\[id number]}___[id number]
== END 2019-07-14 20:28 | DRG 683 ==
LOC: 2W 12:25 → ED 12:25 → 2W 15:21 → SUATTDRO 07-13 12:17

== ENCOUNTER 2019-12-30 09:57 | Inpatient (IN) ==
--- NOTE | 2019-12-30 10:30 | Emergency Department Note ---
Impression & Plan Sepsis, Cellulitis, Dizziness, Acute dehydration, Fever ED Provider Note NAME: DINA [id number] FRAZIER AGE: 59 SEX: M : 1960 ARRIVES VIA: Walk-In INFORMANT: Patient, ED PROVIDER(S): Nate Davis MD Chief Complaint: Lightheadedness, fever, shortness of breath HPI: Patient states he has proximately had 2 to 3 days of some lightheadedness. The patient has had some associated fever of 100.6 per the calling report. The patient denies any chest pains but has had some exertional dyspnea and shortness of breath. The patient is also noticed worsening lower extremity swelling primarily his left lower extremity. The patient denies any recent travel. No known sick contacts. I did asked the guards as the patient is from [facility] and they currently have no active COVID cases. Patient states that getting up too quickly does make his lightheadedness worse. The patient believes his appetite is been appropriate. No tick bites no prolonged outdoor activity. Patient has not taken anything for his left lower extremity swelling does have some associated pain. The patient does relate that he has a prior history of stroke with no prior history of actual heart disease and does have some residual left-sided weakness. ROS: See HPI for pertinent positives and negatives. A total of 10 systems were reviewed and otherwise negative. Past medical history: See below Surgical history: See below Social history: See below Physical Exam: GENERAL: Glasses and a mask NAD, non-toxic. EYE EXAM: Normal conjunctiva. PERRL, no anisocoria and EOM's grossly intact w/o pain. NECK: Supple, no nuchal rigidity, no adenopathy, non-tender. No signs of meningismus. LUNGS: Clear to auscultation. Normal chest wall mechanics. HEART: NSR, no MRG. ABDOMEN: Abdomen soft, non-tender, normo-active bowel sounds, no masses, no rebound or guarding. BACK: No CVA TTP. SKIN: No rashes and no bruising. UPPER EXTREMITIES: Upper extremities are grossly normal. LOWER EXTREMITIES: Grossly normal, left greater than right lower extremity edema with associated redness without crepitus or fluctuance. Mild pain to the calf and left lower extremity, compartments are soft. NEURO EXAM: A&O x3, cranial nerves II-XII grossly intact, normal speech, moves all 4 extremities on command w/o issue. Differential diagnoses: Viral syndrome, otitis, pharyngitis, pneumonia, influenza, meningitis, urinary tract infection, sepsis, bacteremia, as well as other pathologies. Reactive airway disease, pneumonia, pneumothorax, COPD, CHF, infections, cardiac ischemia, pulmonary embolism, musculoskeletal, gastrointest inal, as well as other pathologies. Course: Patient was seen and evaluated the bedside. Full history physical exam was performed. EKG: Indication: Shortness of breath Sinus with PVCs pattern of bigeminy, ventricular rate of 68 prolonged NV borderline QTC, normal axis, no obvious ST changes for the normal sinus beat. Imaging Studies: Radiology results as stated below per my review in the radiologist's interpretation: XR chest 1V portable CLINICAL HISTORY: SEPSIS COMPARISON STUDY: 07/12/2019 FINDINGS: The heart is enlarged. There is no failure. There is no focal pulmonary consolidation. There are no pleural effusions. There is borderline elevation of the right hemidiaphragm.[ IMPRESSION: Mild cardiomegaly. No acute findings. ACT 112: Negative or not required by law. Electronically signed by: Nam Desai M.D. 12/30/2019 11:06 AM Dictated: 12/30/19 1106 Transcribed: 12/30/19 110 US venous doppler LE LT CLINICAL HISTORY: LLE swelling COMPARISON STUDY: No previous studies for comparison. FINDINGS: Real-time and color flow Doppler imaging were performed. Flow was seen within the femoral, popliteal and calf veins with no intraluminal thrombus demonstrated. The saphenous vein is patent. IMPRESSION: No evidence of deep venous thrombosis. ACT 112: Negative or not required by law. The above report was generated using voice recognition software. It may contain grammatical, syntax or spelling errors. Electronically signed by: Chuck Steve M.D. 12/30/2019 2:06 PM Dictated: 12/30/19 1404 Transcribed: 12/30/19 140 Cardiac monitoring: An order was placed for continuous cardiac monitoring. The monitor shows a rate of 68 with sinus rhythm. MDM: Patient was seen due to concern for fever and shortness of breath. The patient was placed under isolation precautions given the fact the patient is incarcerated and shortness of breath and associated fever. Coronavirus testing was completed along with blood work, EKG, blood and urine cultures and the patient was given empiric antibiotics for his left lower extremity redness. The patient did have a negative coronavirus test. Patient does have a white count of 18. EKG with PVCs no obvious ischemic change at this time. Bigeminy may be somewhat related to the patient's lightheadedness. Patient does have a worsening kidney dysfunction baseline creatinine 2.2 today is 3.2. Troponin is detectable but not elevated. Urinalysis did not show evidence of obvious infection. Calcium somewhat low which is ordered for repleted. The patient was ordered additional IV fluids patient did receive empiric antibiotics and was admitted to the medicine service. I did inform the patient. Patient was admitted to the podiatry physician group service for cellulitis. 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 Other Information That Helps Us Care for You: No Feels Safe at Home: Yes Safety Concerns: Feels Safe At This Time Smoking Status: Never smoker Second Hand Exposure: No ; Hx Alcohol Use: No Hx Substance Use: No Allergies Allergies Allergy/AdvReac Type Severity Reaction Status Date / Time VIK Inhibitors Allergy Severe Rash and Verified 12/30/19 14:11 Itching Cephalosporins Allergy Severe Rash and Verified 07/12/19 15:56 Itching Penicillins Allergy Severe Rash and Verified 07/12/19 15:56 Itching sulfamethoxazole Allergy Severe Rash and Verified 12/30/19 14:11 [From Bactrim] Itching trimethoprim [From Bactrim] Allergy Severe Rash and Verified 12/30/19 14:11 Itching Home Meds Home Medications Medication Instructions Recorded Confirmed amlodipine [Norvasc] 10 mg PO DAILY@0700 07/12/19 12/30/19 aripiprazole [Abilify] 10 mg PO DAILY@1900 07/12/19 07/14/20 aspirin [Aspirin Low Dose] 81 mg PO DAILY@69907/12/19 12/30/19 metoprolol tartrate 12.5 mg PO BID 07/12/19 12/30/19 trazodone 150 mg PO DAILY@189907/12/19 12/30/19 benztropine 1 mg PO DAILY@189912/30/19 12/30/19 furosemide 40 mg PO DAILY@69912/30/19 12/30/19 hydralazine 50 mg PO TID 12/30/19 12/30/19 losartan 100 mg PO DAILY@69912/30/19 12/30/19 sertraline 100 mg PO DAILY@189912/30/19 12/30/19 Results & Data (ED) Vital Signs Vital Signs - 24 hr 12/30/19 10:12 12/30/19 11:18 12/30/19 11:36 Temperature 37.1 C Temperature Source Oral Pulse Rate 68 61 Pulse Rate from SpO2 Sensor 62 Pulse Rhythm Regular Pulse Strength Normal Respiratory Rate 18 10 L Respiratory Effort / Characteristics Non-Labored Spontaneous Respiratory Depth Normal Blood Pressure 124/67 Blood Pressure Mean 86 Blood Pressure Position Sitting Pulse Oximetry 95 95 Oxygen Delivery Method Room Air Sepsis Recent Fever Within 48 Hours Yes Sepsis New/Unexplained Change in Mental Status No 12/30/19 11:40 12/30/19 11:48 12/30/19 11:50 Temperature Temperature Source Pulse Rate 65 64 Pulse Rate from SpO2 Sensor Pulse Rhythm Pulse Strength Respiratory Rate 27 H 27 H Respiratory Effort / Characteristics Respiratory Depth Blood Pressure Blood Pressure Mean Blood Pressure Position Pulse Oximetry Oxygen Delivery Method Room Air Sepsis Recent Fever Within 48 Hours Sepsis New/Unexplained Change in Mental Status 12/30/19 12:00 12/30/19 12:10 12/30/19 12:20 Temperature Temperature Source Pulse Rate 64 65 67 Pulse Rate from SpO2 Sensor Pulse Rhythm Pulse Strength Respiratory Rate 21 25 H 16 Respiratory Effort / Characteristics Respiratory Depth Blood Pressure Blood Pressure Mean Blood Pressure Position Pulse Oximetry Oxygen Delivery Method Sepsis Recent Fever Within 48 Hours Sepsis New/Unexplained Change in Mental Status 12/30/19 12:30 12/30/19 12:44 12/30/19 12:45 Temperature Temperature Source Pulse Rate 66 67 66 Pulse Rate from SpO2 Sensor 81 Pulse Rhythm Pulse Strength Respiratory Rate 27 H 26 H 19 Respiratory Effort / Characteristics Respiratory Depth Blood Pressure 166/85 H Blood Pressure Mean 118 Blood Pressure Position Pulse Oximetry 98 Oxygen Delivery Method Room Air Sepsis Recent Fever Within 48 Hours Sepsis New/Unexplained Change in Mental Status 12/30/19 12:46 12/30/19 12:47 12/30/19 13:00 Temperature Temperature Source Pulse Rate 75 66 Pulse Rate from SpO2 Sensor 46 L Pulse Rhythm Pulse Strength Respiratory Rate Respiratory Effort / Characteristics Non-Labored Spontaneous Respiratory Depth Blood Pressure Blood Pressure Mean Blood Pressure Position Pulse Oximetry 98 Oxygen Delivery Method Room Air Sepsis Recent Fever Within 48 Hours Sepsis New/Unexplained Change in Mental Status 12/30/19 13:30 12/30/19 14:05 12/30/19 14:30 Temperature Temperature Source Pulse Rate 68 80 70 Pulse Rate from SpO2 Sensor 62 74 Pulse Rhythm Pulse Strength Respiratory Rate 18 19 18 Respiratory Effort / Characteristics Respiratory Depth Blood Pressure Blood Pressure Mean Blood Pressure Position Pulse Oximetry 96 97 Oxygen Delivery Method Sepsis Recent Fever Within 48 Hours Sepsis New/Unexplained Change in Mental Status 12/30/19 15:00 12/30/19 15:06 Temperature Temperature Source Pulse Rate 78 74 Pulse Rate from SpO2 Sensor 81 76 Pulse Rhythm Pulse Strength Respiratory Rate 25 H Respiratory Effort / Characteristics Respiratory Depth Blood Pressure 155/99 H Blood Pressure Mean 122 Blood Pressure Position Pulse Oximetry 95 96 Oxygen Delivery Method Room Air Sepsis Recent Fever Within 48 Hours Sepsis New/Unexplained Change in Mental Status Home Medications Current Medication List: was personally reviewed by me Laboratory Data Attestation: I reviewed the patient's lab results. Result diagrams: 12/30/19 13:20 12/30/19 13:20 Lab Results 12/30/19 12/30/19 12/30/19 Range/Units 11:45 11:45 12:43 WBC (4.8-10.8) K/uL RBC (4.7-6.1) M/uL Hgb (14.0-18.0) g/dL Hct (42-52) % MCV (80-100) fL MCH (25-34) pg MCHC (32-36) g/dL RDW Std Deviation (36.4-46.3) fL RDW Coeff of Love (11.5-14.5) % Plt Count (130-400) K/uL Immature Gran % (Auto) % Neut % (Auto) % Lymph % (Auto) % [place] % (Auto) % Eos % (Auto) % Baso % (Auto) % Neut # (Auto) (1.4-6.5) K/uL Lymph # (Auto) (1.2-3.4) K/uL [place] # (Auto) (0.11-0.59) K/uL Eos # (Auto) (0-0.5) K/uL Baso # (Auto) (0-0.2) K/uL Immature Gran # (Auto) (0.00-0.02) K/uL PT (9.0-12.0) Seconds INR (0.9-1.1) APTT (21.0-31.0) Seconds PTT Ratio Sodium (136-145) mmol/L Potassium (3.5-5.1) mmol/L Chloride (98-107) mmol/L Carbon Dioxide (21-32) mmol/L Anion Gap (3-11) BUN (7-18) mg/dl Creatinine (0.6-1.4) mg/dl Est Cr Clr Drug Dosing ml/min Est GFR ( Amer) Est GFR (Non-Af Amer) BUN/Creatinine Ratio (10-20) Glucose (70-99) mg/dl Lactate (0.4-2.0) mmol/L Calcium (8.5-10.1) mg/dl Magnesium (1.8-2.4) mg/dl Total Bilirubin (0.2-1) mg/dl AST (15-37) U/L ALT (12-78) U/L Alkaline Phosphatase (45-117) U/L Troponin I (0-0.045) ng/ml Total Protein (6.4-8.2) gm/dl Albumin (3.4-5.0) gm/dl Globulin (2.5-4.0) gm/dl Albumin/Globulin Ratio (0.9-2) Procalcitonin (0-0.5) ng/ml Urine Color Yellow Urine Appearance Clear (Clear) Urine pH 5.0 (4.5-7.5) Ur Specific Terrell 1.017 (1.000-1.030) Urine Protein Trace H (Negative) Urine Glucose (UA) Negative (Negative) Urine Ketones Trace H (Negative) Urine Blood Negative (Negative) Urine Nitrite Negative (Negative) Urine Bilirubin Negative (Negative) Urine Urobilinogen Negative (Negative) Ur Leukocyte Esterase Negative (Negative) Urine WBC (Auto) 1-5 (0-5) /hpf Urine RBC (Auto) 5-10 H (0-4) /hpf U Hyaline Cast (Auto) 0 (0-5) /lpf U Epithel Cells (Auto) 10-20 H (0-5) /lpf Urine Bacteria (Auto) Negative (Negative) COVID-19 PCR NEGATIVE (Negative) SARS-CoV-2 RNA (RT-PCR) Cancelled 12/30/19 12/30/19 12/30/19 Range/Units 13:20 13:20 13:20 WBC 18.22 H (4.8-10.8) K/uL RBC 4.46 L (4.7-6.1) M/uL Hgb 11.5 L (14.0-18.0) g/dL Hct 36.0 L (42-52) % MCV 80.7 (80-100) fL MCH 25.8 (25-34) pg MCHC 31.9 L (32-36) g/dL RDW Std Deviation 58.2 H (36.4-46.3) fL RDW Coeff of Love 19.6 H (11.5-14.5) % Plt Count 178 (130-400) K/uL Immature Gran % (Auto) 0.3 % Neut % (Auto) 89.3 % Lymph % (Auto) 4.3 % [place] % (Auto) 5.9 % Eos % (Auto) 0.1 % Baso % (Auto) 0.1 % Neut # (Auto) 16.27 H (1.4-6.5) K/uL Lymph # (Auto) 0.79 L (1.2-3.4) K/uL [place] # (Auto) 1.07 H (0.11-0.59) K/uL Eos # (Auto) 0.01 (0-0.5) K/uL Baso # (Auto) 0.02 (0-0.2) K/uL Immature Gran # (Auto) 0.06 H (0.00-0.02) K/uL PT 11.9 (9.0-12.0) Seconds INR 1.1 (0.9-1.1) APTT 37.6 H (21.0-31.0) Seconds PTT Ratio 1.3 Sodium (136-145) mmol/L Potassium (3.5-5.1) mmol/L Chloride (98-107) mmol/L Carbon Dioxide (21-32) mmol/L Anion Gap (3-11) BUN (7-18) mg/dl Creatinine (0.6-1.4) mg/dl Est Cr Clr Drug Dosing ml/min Est GFR ( Amer) Est GFR (Non-Af Amer) BUN/Creatinine Ratio (10-20) Glucose (70-99) mg/dl Lactate (0.4-2.0) mmol/L Calcium (8.5-10.1) mg/dl Magnesium (1.8-2.4) mg/dl Total Bilirubin (0.2-1) mg/dl AST (15-37) U/L ALT (12-78) U/L Alkaline Phosphatase (45-117) U/L Troponin I (0-0.045) ng/ml Total Protein (6.4-8.2) gm/dl Albumin (3.4-5.0) gm/dl Globulin (2.5-4.0) gm/dl Albumin/Globulin Ratio (0.9-2) Procalcitonin 15.43 H (0-0.5) ng/ml Urine Color Urine Appearance (Clear) Urine pH (4.5-7.5) Ur Specific Terrell (1.000-1.030) Urine Protein (Negative) Urine Glucose (UA) (Negative) Urine Ketones (Negative) Urine Blood (Negative) Urine Nitrite (Negative) Urine Bilirubin (Negative) Urine Urobilinogen (Negative) Ur Leukocyte Esterase (Negative) Urine WBC (Auto) (0-5) /hpf Urine RBC (Auto) (0-4) /hpf U Hyaline Cast (Auto) (0-5) /lpf U Epithel Cells (Auto) (0-5) /lpf Urine Bacteria (Auto) (Negative) COVID-19 PCR (Negative) SARS-CoV-2 RNA (RT-PCR) 12/30/19 12/30/19 Range/Units 13:20 13:20 WBC (4.8-10.8) K/uL RBC (4.7-6.1) M/uL Hgb (14.0-18.0) g/dL Hct (42-52) % MCV (80-100) fL MCH (25-34) pg MCHC (32-36) g/dL RDW Std Deviation (36.4-46.3) fL RDW Coeff of Love (11.5-14.5) % Plt Count (130-400) K/uL Immature Gran % (Auto) % Neut % (Auto) % Lymph % (Auto) % [place] % (Auto) % Eos % (Auto) % Baso % (Auto) % Neut # (Auto) (1.4-6.5) K/uL Lymph # (Auto) (1.2-3.4) K/uL [place] # (Auto) (0.11-0.59) K/uL Eos # (Auto) (0-0.5) K/uL Baso # (Auto) (0-0.2) K/uL Immature Gran # (Auto) (0.00-0.02) K/uL PT (9.0-12.0) Seconds INR (0.9-1.1) APTT (21.0-31.0) Seconds PTT Ratio Sodium 139 (136-145) mmol/L Potassium 3.9 (3.5-5.1) mmol/L Chloride 108 H (98-107) mmol/L Carbon Dioxide 21 (21-32) mmol/L Anion Gap 10.0 (3-11) BUN 37 H (7-18) mg/dl Creatinine 3.28 H (0.6-1.4) mg/dl Est Cr Clr Drug Dosing 33.6 ml/min Est GFR ( Amer) 22.3 Est GFR (Non-Af Amer) 19.2 BUN/Creatinine Ratio 11.2 (10-20) Glucose 104 H (70-99) mg/dl Lactate 1.4 (0.4-2.0) mmol/L Calcium 8.0 L (8.5-10.1) mg/dl Magnesium 2.1 (1.8-2.4) mg/dl Total Bilirubin 0.9 (0.2-1) mg/dl AST 13 L (15-37) U/L ALT 24 (12-78) U/L Alkaline Phosphatase 74 (45-117) U/L Troponin I 0.042 (0-0.045) ng/ml Total Protein 8.0 (6.4-8.2) gm/dl Albumin 3.5 (3.4-5.0) gm/dl Globulin 4.5 H (2.5-4.0) gm/dl Albumin/Globulin Ratio 0.8 L (0.9-2) Procalcitonin (0-0.5) ng/ml Urine Color Urine Appearance (Clear) Urine pH (4.5-7.5) Ur Specific Terrell (1.000-1.030) Urine Protein (Negative) Urine Glucose (UA) (Negative) Urine Ketones (Negative) Urine Blood (Negative) Urine Nitrite (Negative) Urine Bilirubin (Negative) Urine Urobilinogen (Negative) Ur Leukocyte Esterase (Negative) Urine WBC (Auto) (0-5) /hpf Urine RBC (Auto) (0-4) /hpf U Hyaline Cast (Auto) (0-5) /lpf U Epithel Cells (Auto) (0-5) /lpf Urine Bacteria (Auto) (Negative) COVID-19 PCR (Negative) SARS-CoV-2 RNA (RT-PCR) Administered Medications Levofloxacin/Dextrose (Levaquin/D5w) 750 mg in 150 mls @ 100 mls/hr IV Q24H GINNY Stop: 01/01/20 10:44 Last Infusion: 12/30/19 15:09 Dose: 0 mls/hr Documented by: [id number] Admin: 12/30/19 13:30 Dose: 100 mls/hr Documented by: [id number] Discontinued Medications Vancomycin HCl 2,750 mg/ (Sodium Chloride) 555 mls @ 200 mls/hr IV NOW ONE Stop: 12/30/19 13:27 Last Admin: 12/30/19 13:30 Dose: 200 mls/hr Documented by: [id number] Discharge Plan Visit Data Chief Complaint: Shortness of Breath/Dyspnea Stated Complaint: SOB, LIGHT HEADED/DIZZY, L LEG PAIN ED Provider: Nate Davis Discharge Problem: Sepsis, Cellulitis, Dizziness, Acute dehydration, Fever Forms Stand Alone Forms: [facility] Prescriptions Prescriptions: No Action aspirin [Aspirin Low Dose] 81 mg Tablet,Delayed Release (Dr/Ec) 81 mg PO DAILY@0700 RF: 0 amlodipine [Norvasc] 10 mg Tablet 10 mg PO DAILY@0700 RF: 0 trazodone 150 mg Tablet 150 mg PO DAILY@1900 RF: 0 aripiprazole [Abilify] 10 mg Tablet 10 mg PO DAILY@1900 RF: 0 metoprolol tartrate 25 mg Tablet 12.5 mg PO BID RF: 0 furosemide 40 mg Tablet 40 mg PO DAILY@0700 RF: 0 sertraline 100 mg Tablet 100 mg PO DAILY@1900 RF: 0 benztropine 1 mg Tablet 1 mg PO DAILY@1900 RF: 0 hydralazine 50 mg Tablet 50 mg PO TID RF: 0 losartan 100 mg Tablet 100 mg PO DAILY@0700 RF: 0 Discharge Problem: Sepsis Qualifiers: Sepsis type: sepsis due to unspecified organism Sepsis acute organ dysfunction status: unspecified Qualified Code(s): A41.9 - Sepsis, unspecified organism Cellulitis Qualifiers: Site of cellulitis: extremity Site of cellulitis of extremity: lower extremity Laterality: left Qualified Code(s): L03.116 - Cellulitis of left lower limb Fever Qualifiers: Fever type: unspecified Qualified Code(s): R50.9 - Fever, unspecified
[2019-12-30] MEDS ORDERED: VANCOMYCIN HCL 2,750 MG in SODIUM CHLORIDE 0.9% 500 ML IV ONE (10:41)
[2019-12-30] MEDS ORDERED: VANCOMYCIN CONSULT ACTIVE PRN (10:41)
[2019-12-30] MEDS ORDERED: LEVOFLOXACIN/D5W 750 MG/150 ML BAG IV SCH (10:45)
--- NOTE | 2019-12-30 11:08 | XRay Report ---
XR chest 1V portable CLINICAL HISTORY: SEPSIS COMPARISON STUDY: 07/12/2019 FINDINGS: The heart is enlarged. There is no failure. There is no focal pulmonary consolidation. Ther e are no pleural effusions. There is borderline elevation of the right hemidiaphragm.[ IMPRESSION: Mild cardiomegaly. No acute findings. ACT 112: Negative or not required by law. Electronically signed by: Nam Desai M.D. 12/30/2019 11:06 AM
[2019-12-30 12:54] LABS: Appearance Urine Clear (Clear); Bacteria Urine Automated Negative (Negative); Bilirubin Urine Negative (Negative); Blood Urine Negative (Negative); Cast Urine Automated 0 /lpf (0-5); Color Urine Yellow; Glucose Urine UA Negative (Negative); Ketones Urine Trace (Negative); Leukocyte Esterase Urine Negative (Negative); Nitrite Urine Negative (Negative); Protein Urine Trace (Negative); Specific Gravity Urine 1.017 (1.000-1.030); Urobilinogen Urine Negative (Negative)
[2019-12-30 13:34] LABS: Basophils # (auto) 0.02 K/uL (0-0.2); Basophils % (auto) 0.1 %; Eosinophils # (auto) 0.01 K/uL (0-0.5); Eosinophils % (auto) 0.1 %; Hemoglobin 11.5 g/dL (14.0-18.0); Immature Granulocytes # (auto) 0.06 K/uL (0.00-0.02); Immature Granulocytes % (auto) 0.3 %; Lymphocytes # (auto) 0.79 K/uL (1.2-3.4); Lymphocytes % (auto) 4.3 %; Mean Corpuscular Hemoglobin 25.8 pg (25-34); Mean Corpuscular Hgb Conc 31.9 g/dL (32-36); Mean Corpuscular Volume 80.7 fL (80-100); Monocytes # (auto) 1.07 K/uL (0.11-0.59); Monocytes % (auto) 5.9 %; Neutrophils # (auto) 16.27 K/uL (1.4-6.5); Neutrophils % (auto) 89.3 %; Platelet Count 178 K/uL (130-400); RDW Coefficient of Variation 19.6 % (11.5-14.5); RDW Standard Deviation 58.2 fL (36.4-46.3); Red Blood Count 4.46 M/uL (4.7-6.1); White Blood Count 18.22 K/uL (4.8-10.8)
[2019-12-30 13:44] LABS: INR 1.1 (0.9-1.1); Partial Thromboplastin Ratio 1.3; Partial Thromboplastin Time 37.6 Seconds (21.0-31.0); Prothrombin Time 11.9 Seconds (9.0-12.0)
[2019-12-30 13:46] LABS: Albumin Level 3.5 gm/dl (3.4-5.0); BUN Creatinine Ratio 11.2 (10-20); Creatinine Clr Calc Pharmacy 33.6 ml/min; Est GFR (African American) 22.3; Est GFR (Non-African American) 19.2; Magnesium 2.1 mg/dl (1.8-2.4); Potassium 3.9 mmol/L (3.5-5.1)
[2019-12-30 13:51] LABS: Albumin Globulin Ratio 0.8 (0.9-2); Bilirubin,Total 0.9 mg/dl (0.2-1); Globulin 4.5 gm/dl (2.5-4.0); Troponin I 0.042 ng/ml (0-0.045)
--- NOTE | 2019-12-30 14:08 | Ultrasound Report ---
US venous doppler LE LT CLINICAL HISTORY: LLE swelling COMPARISON STUDY: No previous studies for comparison. FINDINGS: Real-time and color flow Doppler imaging were performed. Flow was seen within the femoral, popliteal and calf veins with no intraluminal thrombus demonstrated. The saphenous vein is patent. IMPRESSION: No evidence of deep venous thrombosis. ACT 112: Negative or not required by law. The above report was generated using voice recognition software. It may contain grammatical, syntax or spelling errors. Electronically signed by: Chuck Steve M.D. 12/30/2019 2:06 PM
--- NOTE | 2019-12-30 15:38 | Electrocardiogram Report ---
Test Reason : Blood Pressure : / mmHG Vent. Rate : 068 BPM Atrial Rate : 068 BPM P-R Int : 208 ms QRS Dur : 116 ms QT Int : 438 ms P-R-T Axes : 081 061 018 degrees QTc Int : 465 ms Sinus rhythm with frequent Premature ventricular complexes in a pattern of bigeminy Borderline ECG When compared with ECG of 13-JUL-2019 06:50, Premature ventricular complexes are now Present T wave inversion no longer evident in Inferior leads QT has lengthened Confirmed by Luc Villegas ([id number]) on 12/30/2019 3:37:40 PM Referred By: REFERRED SELF Confirmed By:Elian Villegas
--- NOTE | 2019-12-30 17:58 | History & Physical Report ---
Date of Service December 30, 2019 Assessment & Plan (1) Sepsis: Admit to PCU With leukocytosis, tachypnea, reported fever prior to arrival, and left lower extremity cellulitis, meets criteria for sepsis COVID-19 test was negative. Chest x-ray negative for pneumonia and urinalysis negative for infection. The source of infection is the left lower extremity cellulitis He is allergic to penicillins, cephalosporins, and Bactrim. He has no known history of MRSA -Continue treatment started in the ER with IV levofloxacin and IV vancomycin to cover for gram-negative's, Pseudomonas specifically, and gram-positive coverage -Check MRSA nasal swab -Start IV fluids with normal saline x2 L for volume resuscitation -Follow blood cultures -Tylenol as needed for fevers and chills (2) Cellulitis: As above, from the left dorsal foot to the proximal tibia circumferential With a history of what sounds like lower extremity edema/venous stasis likely due to obesity Doppler left lower extremity negative for DVT -Continue antibiotics as above (3) STEPHANIE (acute kidney injury): Creatinine up to 3.28 from baseline of 2.2, likely prerenal secondary to dehydration from fevers and sepsis -Start IV fluids normal saline x2 L -Hold home losartan and Lasix -Follow BMP in the morning (4) Dizziness: Likely due to dehydration, but also with bigeminy on ECG -Follow on telemetry -Hydrating (5) Acute dehydration: As above (6) CKD (chronic kidney disease): Baseline creatinine 2.2, with STEPHANIE as above -Avoid nephrotoxins -renally dose meds when appropriate -follow BMP (7) Chest pain, precordial: Constant x3 days, associated with chills and shortness of breath With left lower extremity edema but venous Doppler negative for DVT Not hypoxic, not tachycardic, but concerning for PE in the setting of family history of VTE Dyspnea could just be from sepsis and tachypnea. There is no evidence of pulmonary edema or other abnormality on chest x-ray Troponin here is mildly detectable but still within normal range at 0.04 ECG with sinus rhythm with bigeminy, but no ischemic changes -Start empiric heparin drip and order VQ scan for the morning to assess risk for PE as he cannot have a CT angiogram due to chronic kidney disease -Serial troponin Had exercise stress echo in 07/2019 which was nondiagnostic due to inability to achieve proper heart rate, however EF was normal at that time and there were no wall motion abnormalities at rest or with exercise (8) CAD (coronary artery disease): With a history of UT treated medically as per patient approximately 7-8 years ago at [facility]. Further details are not known -Continue metoprolol, aspirin -He is not on a statin (9) Hypertension: Blood pressures mildly elevated here -Continue home amlodipine, metoprolol, hydralazine -Holding home losartan for STEPHANIE as above -Monitor blood pressures (10) Lower extremity edema: Worse left greater than right currently with infection -Holding Lasix for acute kidney injury as above (11) Depression with anxiety: Stable Continue home medication with benztropine, Abilify, trazodone, and sertraline (12) DVT prophylaxis: Starting empiric heparin drip in case of PE as above Disposition-admit to PCU Full code History of Present Illness Chief Complaint: Chills, leg pain and swelling Primary Care Provider: EMILY Cole This patient is a 59-year-old male with a history of CAD, CKD, Anxiety/Depression with other unspecified psychiatric disorders, who presents from the [facility] with 3 days of chills, dyspnea, lightheadedness, and left lower extremity swelling and redness with pain. He reports his legs are frequently swollen but not as swollen as they are currently, and the left leg is always l ittle more swollen than the right leg. He also reports substernal chest pain that has been constant for the last 3 days since he has been having the chills. He did fall 3 times in his cell since he has been sick due to generalized weakness. At the halfway, he was noted to have a fever of 100.6. There are no reported cases of COVID at the halfway where he resides, and his COVID test in the ER was negative. In the ER, he was found to have a leukocytosis of 18 K, and mild acute kidney injury with creatinine 3.28 from baseline of 2.2, his procalcitonin was significantly elevated at 15.4, lactate was normal, urinalysis was negative, chest x-ray was negative, and a left lower extremity venous Doppler was negative for DVT. An ECG showed normal sinus rhythm and PVCs in the pattern of bigeminy. Blood cultures were drawn and he was given 1 dose of IV Levaquin and 1 dose of IV vancomycin for a left lower extremity cellulitis discovered on physical examination. He will be admitted for sepsis due to left lower extremity cellulitis Allergies Allergy/AdvReac Type Severity Reaction Status Date / Time VIK Inhibitors Allergy Severe Rash and Verified 12/30/19 14:11 Itching Cephalosporins Allergy Severe Rash and Verified 07/12/19 15:56 Itching Penicillins Allergy Severe Rash and Verified 07/12/19 15:56 Itching sulfamethoxazole Allergy Severe Rash and Verified 12/30/19 14:11 [From Bactrim] Itching trimethoprim [From Bactrim] Allergy Severe Rash and Verified 12/30/19 14:11 Itching Home Medications Home Medications Medication Instructions Recorded Confirmed Type amlodipine [Norvasc] 10 mg PO DAILY@69907/12/19 12/30/19 History aripiprazole [Abilify] 10 mg PO DAILY@189907/12/19 12/30/19 History aspirin [Aspirin Low Dose] 81 mg PO DAILY@69907/12/19 12/30/19 History metoprolol tartrate 12.5 mg PO BID 07/12/19 12/30/19 History trazodone 150 mg PO DAILY@189907/12/19 12/30/19 History benztropine 1 mg PO DAILY@189912/30/19 12/30/19 History furosemide 40 mg PO DAILY@69912/30/19 12/30/19 History hydralazine 50 mg PO TID 12/30/19 12/30/19 History losartan 100 mg PO DAILY@69912/30/19 12/30/19 History sertraline 100 mg PO DAILY@189912/30/19 12/30/19 History Past Med/Surg History Medical History (Updated 12/30/19 @ 17:53 by Pamela Garcia MD) CAD (coronary artery disease) CKD (chronic kidney disease) Depression with anxiety Hx of myocardial infarction Hypertension Lower extremity edema Psychiatric diagnosis Surgical History History of gastric bypass Family History (Updated 12/30/19 @ 17:55 by Pamela Garcia MD) Other No significant family history Pulmonary embolism Social History Preferred Language: Romansh Communication Ability: Effective 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 Beliefs That Will Affect Care: None marital status: Single Current Living Situation: Other Current Living Situation Comment: Longterm current occupational status: 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 Other Information That Helps Us Care for You: No Feels Safe at Home: Yes Safety Concerns: Feels Safe At This Time Smoking Status: Never smoker Second Hand Exposure: No ; Hx Alcohol Use: No Hx Substance Use: No Review of Systems Review of Systems: All systems reviewed & are unremarkable except as noted in HPI & below No nausea or vomiting, no diarrhea or abdominal pains No difficulty with urination Physical Exam Constitutional: WD/WN, vitals as above + ill appearing and + obese Eyes: PERRL, conjunctivae normal, anicteric sclerae ENMT: external ear and nose normal, oropharynx normal Neck: trachea midline, no thyromegaly Respiratory: normal respiratory effort, lungs clear to auscultation + tachypneic (Mild) Cardiovascular: Rate/Rhythm: regular rate and regular rhythm Heart Sounds: no murmur Extremities: + edema (2+ pitting edema of the right lower extremity to the thigh, 3+ pitting edema of the left lower extremity to the thigh) Chest (Breasts): Chest: normal inspection of chest Gastrointestinal (Abdomen): normal bowel sounds, soft, nontender, no hepatosplenomegaly Musculoskeletal: Extremities: no cyanosis and no clubbing Skin: + erythema (Left leg with circumferential erythema and warmth from the dorsal foot up to the proximal tibia, no wounds) Neurologic: moves all extremities and awake; no focal motor deficits Psychiatric: A+Ox3, euthymic affect Results & Data Results & Data ([facility]) Vital Signs (Past 12 Hours) Vital Signs Temp Pulse Resp BP Pulse Ox 12/30/19 15:06 74 25 H 155/99 H 96 12/30/19 15:00 78 95 12/30/19 14:30 70 18 97 12/30/19 14:05 80 19 96 12/30/19 13:30 68 18 12/30/19 13:00 66 12/30/19 12:46 75 98 12/30/19 12:45 66 19 166/85 H 98 12/30/19 12:44 67 26 H 12/30/19 12:30 66 27 H 12/30/19 12:20 67 16 12/30/19 12:10 65 25 H 12/30/19 12:00 64 21 12/30/19 11:50 64 27 H 12/30/19 11:40 65 27 H 12/30/19 11:36 61 10 L 12/30/19 11:18 95 12/30/19 10:12 37.1 C 68 18 124/67 95 Laboratory Results 12/30/19 12/30/19 12/30/19 Range/Units 13:20 13:20 13:20 WBC (4.8-10.8) K/uL RBC (4.7-6.1) M/uL Hgb (14.0-18.0) g/dL Hct (42-52) % MCV (80-100) fL MCH (25-34) pg MCHC (32-36) g/dL RDW Std Deviation (36.4-46.3) fL RDW Coeff of Love (11.5-14.5) % Plt Count (130-400) K/uL Immature Gran % (Auto) % Neut % (Auto) % Lymph % (Auto) % Davidson % (Auto) % Eos % (Auto) % Baso % (Auto) % Neut # (Auto) (1.4-6.5) K/uL Lymph # (Auto) (1.2-3.4) K/uL Davidson # (Auto) (0.11-0.59) K/uL Eos # (Auto) (0-0.5) K/uL Baso # (Auto) (0-0.2) K/uL Immature Gran # (Auto) (0.00-0.02) K/uL PT 11.9 (9.0-12.0) Seconds INR 1.1 (0.9-1.1) APTT 37.6 H (21.0-31.0) Seconds PTT Ratio 1.3 Sodium 139 (136-145) mmol/L Potassium 3.9 (3.5-5.1) mmol/L Chloride 108 H (98-107) mmol/L Carbon Dioxide 21 (21-32) mmol/L Anion Gap 10.0 (3-11) BUN 37 H (7-18) mg/dl Creatinine 3.28 H (0.6-1.4) mg/dl Est Cr Clr Drug Dosing 33.6 ml/min Est GFR ( Amer) 22.3 Est GFR (Non-Af Amer) 19.2 BUN/Creatinine Ratio 11.2 (10-20) Glucose 104 H (70-99) mg/dl Lactate 1.4 (0.4-2.0) mmol/L Calcium 8.0 L (8.5-10.1) mg/dl Magnesium 2.1 (1.8-2.4) mg/dl Total Bilirubin 0.9 (0.2-1) mg/dl AST 13 L (15-37) U/L ALT 24 (12-78) U/L Alkaline Phosphatase 74 (45-117) U/L Troponin I 0.042 (0-0.045) ng/ml Total Protein 8.0 (6.4-8.2) gm/dl Albumin 3.5 (3.4-5.0) gm/dl Globulin 4.5 H (2.5-4.0) gm/dl Albumin/Globulin Ratio 0.8 L (0.9-2) Procalcitonin (0-0.5) ng/ml Urine Color Urine Appearance (Clear) Urine pH (4.5-7.5) Ur Specific [place] (1.000-1.030) Urine Protein (Negative) Urine Glucose (UA) (Negative) Urine Ketones (Negative) Urine Blood (Negative) Urine Nitrite (Negative) Urine Bilirubin (Negative) Urine Urobilinogen (Negative) Ur Leukocyte Esterase (Negative) Urine WBC (Auto) (0-5) /hpf Urine RBC (Auto) (0-4) /hpf U Hyaline Cast (Auto) (0-5) /lpf U Epithel Cells (Auto) (0-5) /lpf Urine Bacteria (Auto) (Negative) COVID-19 PCR (Negative) SARS-CoV-2 RNA (RT-PCR) 12/30/19 12/30/19 12/30/19 Range/Units 13:20 13:20 12:43 WBC 18.22 H (4.8-10.8) K/uL RBC 4.46 L (4.7-6.1) M/uL Hgb 11.5 L (14.0-18.0) g/dL Hct 36.0 L (42-52) % MCV 80.7 (80-100) fL MCH 25.8 (25-34) pg MCHC 31.9 L (32-36) g/dL RDW Std Deviation 58.2 H (36.4-46.3) fL RDW Coeff of Love 19.6 H (11.5-14.5) % Plt Count 178 (130-400) K/uL Immature Gran % (Auto) 0.3 % Neut % (Auto) 89.3 % Lymph % (Auto) 4.3 % Davidson % (Auto) 5.9 % Eos % (Auto) 0.1 % Baso % (Auto) 0.1 % Neut # (Auto) 16.27 H (1.4-6.5) K/uL Lymph # (Auto) 0.79 L (1.2-3.4) K/uL Davidson # (Auto) 1.07 H (0.11-0.59) K/uL Eos # (Auto) 0.01 (0-0.5) K/uL Baso # (Auto) 0.02 (0-0.2) K/uL Immature Gran # (Auto) 0.06 H (0.00-0.02) K/uL PT (9.0-12.0) Seconds INR (0.9-1.1) APTT (21.0-31.0) Seconds PTT Ratio Sodium (136-145) mmol/L Potassium (3.5-5.1) mmol/L Chloride (98-107) mmol/L Carbon Dioxide (21-32) mmol/L Anion Gap (3-11) BUN (7-18) mg/dl Creatinine (0.6-1.4) mg/dl Est Cr Clr Drug Dosing ml/min Est GFR ( Amer) Est GFR (Non-Af Amer) BUN/Creatinine Ratio (10-20) Glucose (70-99) mg/dl Lactate (0.4-2.0) mmol/L Calcium (8.5-10.1) mg/dl Magnesium (1.8-2.4) mg/dl Total Bilirubin (0.2-1) mg/dl AST (15-37) U/L ALT (12-78) U/L Alkaline Phosphatase (45-117) U/L Troponin I (0-0.045) ng/ml Total Protein (6.4-8.2) gm/dl Albumin (3.4-5.0) gm/dl Globulin (2.5-4.0) gm/dl Albumin/Globulin Ratio (0.9-2) Procalcitonin 15.43 H (0-0.5) ng/ml Urine Color Yellow Urine Appearance Clear (Clear) Urine pH 5.0 (4.5-7.5) Ur Specific [place] 1.017 (1.000-1.030) Urine Protein Trace H (Negative) Urine Glucose (UA) Negative (Negative) Urine Ketones Trace H (Negative) Urine Blood Negative (Negative) Urine Nitrite Negative (Negative) Urine Bilirubin Negative (Negative) Urine Urobilinogen Negative (Negative) Ur Leukocyte Esterase Negative (Negative) Urine WBC (Auto) 1-5 (0-5) /hpf Urine RBC (Auto) 5-10 H (0-4) /hpf U Hyaline Cast (Auto) 0 (0-5) /lpf U Epithel Cells (Auto) 10-20 H (0-5) /lpf Urine Bacteria (Auto) Negative (Negative) COVID-19 PCR (Negative) SARS-CoV-2 RNA (RT-PCR) 12/30/19 12/30/19 Range/Units 11:45 11:45 WBC (4.8-10.8) K/uL RBC (4.7-6.1) M/uL Hgb (14.0-18.0) g/dL Hct (42-52) % MCV (80-100) fL MCH (25-34) pg MCHC (32-36) g/dL RDW Std Deviation (36.4-46.3) fL RDW Coeff of Love (11.5-14.5) % Plt Count (130-400) K/uL Immature Gran % (Auto) % Neut % (Auto) % Lymph % (Auto) % Davidson % (Auto) % Eos % (Auto) % Baso % (Auto) % Neut # (Auto) (1.4-6.5) K/uL Lymph # (Auto) (1.2-3.4) K/uL Davidson # (Auto) (0.11-0.59) K/uL Eos # (Auto) (0-0.5) K/uL Baso # (Auto) (0-0.2) K/uL Immature Gran # (Auto) (0.00-0.02) K/uL PT (9.0-12.0) Seconds INR (0.9-1.1) APTT (21.0-31.0) Seconds PTT Ratio Sodium (136-145) mmol/L Potassium (3.5-5.1) mmol/L Chloride (98-107) mmol/L Carbon Dioxide (21-32) mmol/L Anion Gap (3-11) BUN (7-18) mg/dl Creatinine (0.6-1.4) mg/dl Est Cr Clr Drug Dosing ml/min Est GFR ( Amer) Est GFR (Non-Af Amer) BUN/Creatinine Ratio (10-20) Glucose (70-99) mg/dl Lactate (0.4-2.0) mmol/L Calcium (8.5-10.1) mg/dl Magnesium (1.8-2.4) mg/dl Total Bilirubin (0.2-1) mg/dl AST (15-37) U/L ALT (12-78) U/L Alkaline Phosphatase (45-117) U/L Troponin I (0-0.045) ng/ml Total Protein (6.4-8.2) gm/dl Albumin (3.4-5.0) gm/dl Globulin (2.5-4.0) gm/dl Albumin/Globulin Ratio (0.9-2) Procalcitonin (0-0.5) ng/ml Urine Color Urine Appearance (Clear) Urine pH (4.5-7.5) Ur Specific [place] (1.000-1.030) Urine Protein (Negative) Urine Glucose (UA) (Negative) Urine Ketones (Negative) Urine Blood (Negative) Urine Nitrite (Negative) Urine Bilirubin (Negative) Urine Urobilinogen (Negative) Ur Leukocyte Esterase (Negative) Urine WBC (Auto) (0-5) /hpf Urine RBC (Auto) (0-4) /hpf U Hyaline Cast (Auto) (0-5) /lpf U Epithel Cells (Auto) (0-5) /lpf Urine Bacteria (Auto) (Negative) COVID-19 PCR NEGATIVE (Negative) SARS-CoV-2 RNA (RT-PCR) Cancelled Diagnostic Findings Chest x-ray image personally reviewed by me and agree with the following report: XR chest 1V portable CLINICAL HISTORY: SEPSIS COMPARISON STUDY: 07/12/2019 FINDINGS: The heart is enlarged. There is no failure. There is no focal pulmonary consolidation. There are no pleural effusions. There is borderline elevation of the right hemidiaphragm.[ IMPRESSION: Mild cardiomegaly. No acute findings. US venous doppler LE LT CLINICAL HISTORY: LLE swelling COMPARISON STUDY: No previous studies for comparison. FINDINGS: Real-time and color flow Doppler imaging were performed. Flow was seen within the femoral, popliteal and calf veins with no intraluminal thrombus demonstrated. The saphenous vein is patent. IMPRESSION: No evidence of deep venous thrombosis. Code Status & VTE Plan Code Status Full code VTE Prophylaxis Plan VTE Prophylaxis will be ordered: Yes PG Care Time/CCT Total # of Minutes Spent Total Time Spent with Patient: Total time spent is greater than 50% in coordination of care (as documented) at patient's floor/unit and/or counseling patient: Coding Level of Care Code 65835 Initial Inpt Care Lvl 3 Diagnoses Sepsis A41.9 Sepsis acute organ dysfunction status: unspecified Sepsis type: sepsis due to unspecified organism Cellulitis L03.116 Laterality: left Site of cellulitis: extremity Site of cellulitis of extremity: lower extremity STEPHANIE (acute kidney injury) N17.9 Dizziness R42 Acute dehydration E86.0 CKD (chronic kidney disease) N18.9 Chest pain, precordial R07.2 CAD (coronary artery disease) I25.10 Hypertension I10 Lower extremity edema R60.0 Depression with anxiety F41.8 DVT prophylaxis Z29.9 (1) Sepsis Sepsis acute organ dysfunction status: unspecified Sepsis type: sepsis due to unspecified organism Qualified Code(s): A41.9 - Sepsis, unspecified organism (2) Cellulitis Laterality: left Site of cellulitis: extremity Site of cellulitis of extremity: lower extremity Qualified Code(s): L03.116 - Cellulitis of left lower limb
[2019-12-30] MEDS: SODIUM CHLORIDE 0.9% 1000ML 1,000 ML IV SCH (18:05)
[2019-12-30] MEDS ORDERED: Heparin IV Standard *NO* Bolus IV ONE (18:11)
[2019-12-30 19:24] LABS: D Dimer 510 ug/L FEU (0-500)
[2019-12-30] MEDS ORDERED: ENOXAPARIN INJ 40 MG/0.4 ML SYR SQ SCH (19:46)
[2019-12-30] MEDS ORDERED: ONDANSETRON INJ 2 MG/ML 2 ML VIAL IV PRN (19:46)
[2019-12-30] MEDS: HEPARIN SODIUM/DEXTROSE 25,000 UNITS/500 ML BAG IV SCH (21:12)
[2019-12-30] MEDS: BENZTROPINE MESYLATE 1 MG TAB PO SCH (21:58)
[2019-12-30] MEDS: METOPROLOL TARTRATE 25 MG TAB PO SCH (21:58)
[2019-12-30] MEDS: SERTRALINE HCL 100 MG TABLET PO SCH (21:58)
[2019-12-30] MEDS: HydrALAZINE TAB 50 MG TAB PO SCH (21:59)
[2019-12-30] MEDS: ARIPiprazole 10 MG TAB PO SCH (22:00)
[2019-12-30] MEDS: TRAZODONE HCL 50 MG TAB PO SCH (22:00)
[2019-12-31] MEDS ORDERED: Nursing to Pharmacy Communication SCH (02:15)
[2019-12-31 04:14] LABS: Albumin Level 2.9 gm/dl (3.4-5.0); BUN Creatinine Ratio 11.2 (10-20); Calcium 7.3 mg/dl (8.5-10.1); Creatinine Clr Calc Pharmacy 36.1 ml/min; Est GFR (African American) 24.2; Est GFR (Non-African American) 20.8; Magnesium 2.1 mg/dl (1.8-2.4); Potassium 4.1 mmol/L (3.5-5.1)
[2019-12-31 04:17] LABS: Partial Thromboplastin Ratio 1.8
[2019-12-31 04:29] LABS: Albumin Globulin Ratio 0.9 (0.9-2); Bilirubin,Total 0.7 mg/dl (0.2-1); Globulin 3.4 gm/dl (2.5-4.0); Total Protein 6.3 gm/dl (6.4-8.2)
[2019-12-31 04:44] LABS: Partial Thromboplastin Time 49.8 Seconds (21.0-31.0)
[2019-12-31] MEDS: HydrALAZINE TAB 50 MG TAB PO SCH ×3 (05:12→20:42)
[2019-12-31] MEDS: AMLODIPINE BESYLATE 5 MG TAB PO SCH (06:11)
[2019-12-31] MEDS: ASPIRIN 81 MG ECTAB PO SCH (06:11)
[2019-12-31 06:55] LABS: Mean Corpuscular Hgb Conc 32.8 g/dL (32-36)
[2019-12-31 07:08] LABS: Hematocrit (blood only) 30.8 % (42-52); Hemoglobin 10.1 g/dL (14.0-18.0); Mean Corpuscular Hemoglobin 26.2 pg (25-34); RDW Coefficient of Variation 19.6 % (11.5-14.5); RDW Standard Deviation 57.3 fL (36.4-46.3); Red Blood Count 3.85 M/uL (4.7-6.1); White Blood Count 13.86 K/uL (4.8-10.8)
[2019-12-31 07:23] LABS: Platelet Count 118 K/uL (130-400)
[2019-12-31 07:24] LABS: Basophils # (auto) 0.01 K/uL (0-0.2); Basophils % (auto) 0.1 %; Echinocytes 1+; Eosinophils # (auto) 0.07 K/uL (0-0.5); Eosinophils % (auto) 0.5 %; Immature Granulocytes # (auto) 0.04 K/uL (0.00-0.02); Immature Granulocytes % (auto) 0.3 %; Lymphocytes # (auto) 1.15 K/uL (1.2-3.4); Lymphocytes % (auto) 8.3 %; Monocytes # (auto) 1.34 K/uL (0.11-0.59); Monocytes % (auto) 9.7 %; Neutrophils # (auto) 11.25 K/uL (1.4-6.5); Neutrophils % (auto) 81.1 %; Ovalocytes 1+; Platelet Estimate Decreased (Normal); Schistocytes 1+
[2019-12-31] MEDS: METOPROLOL TARTRATE 25 MG TAB PO SCH ×2 (07:25→20:44)
[2019-12-31] MEDS ORDERED: VANCOMYCIN HCL 1,750 MG in SODIUM CHLORIDE 0.9% 500 ML IV SCH (08:00)
--- NOTE | 2019-12-31 10:50 | Nuclear Medicine Report ---
NUCLEAR PULMONARY PERFUSION SCAN CLINICAL HISTORY: Dyspnea. Lower extremity edema. COMPARISON STUDY: Chest x-ray dated 12/30/2019. TECHNIQUE: Following the IV administration of 5.5 mCi of technetium 99m MAA. Images were acquired in the anterior, posterior, and oblique projections. FINDINGS: A chest x-ray performed 12/30/2019 shows cardiomegaly with no acute cardiopulmonary abnormality. No perfusion defects are identified on the perfusion imaging. IMPRESSION: No perfusion defects are identified to suggest pulmonary embolus. ACT 112: Negative or not required by law. Electronically signed by: Iker Liu M.D. 12/31/2019 10:48 AM
--- NOTE | 2019-12-31 11:46 | Pharmacy Report ---
Pharmacy Abx Initial Consult - Date of Service December 31, 2019 - Pharmacy Dosing Scope Date of Consult: 12/30/19 Consultation requested by: Dr. Garcia Pharmacy is consulted to initiate Vancomycin IV dosing therapy, order appropriate labs and adjust drug dose/frequency. - Subjective The patient is a 59 year old M admitted on 12/30/19 17:42. - Objective Height: 6 ft 2 in Weight: 130.1 kg Vital Signs (Past 12hrs): Vital Signs Temp Pulse Pulse Resp BP Pulse Ox 12/31/19 08:00 71 12/31/19 07:57 36.7 C 84 16 131/71 98 12/31/19 02:59 37.1 C 73 26 H 124/66 97 12/30/19 23:59 74 Lab Results (24hrs): Laboratory Tests (24 Hours) 12/31/19 12/31/19 12/31/19 06:33 03:29 03:29 WBC 13.86 H Neut # (Auto) 11.25 H Creatinine 3.07 H Est Cr Clr Drug Dosing 36.1 Procalcitonin 13.46 H Random Vancomycin 12/31/19 12/30/19 12/30/19 03:29 13:20 13:20 WBC 18.22 H Neut # (Auto) 16.27 H Creatinine 3.28 H Est Cr Clr Drug Dosing 33.6 Procalcitonin Random Vancomycin 18.1 12/30/19 13:20 WBC Neut # (Auto) Creatinine Est Cr Clr Drug Dosing Procalcitonin 15.43 H Random Vancomycin Micro Results: 12/30/19 12:00 Aerobic Blood Culture - Pending Blood Anaerobic Blood Culture - Pending 12/30/19 12:05 Aerobic Blood Culture - Pending Blood Anaerobic Blood Culture - Pending - Assessment & Plan Assessment 59 year old M started admitted for sepsis, possible source of infection LLE cellulitis. Patient is empirically started on Vancomycin and Levaquin. Patient with STEPHANIE on top of chronic kidney disease. Plan Vancomycin IV * Estimated PK Parameters: Vd 0.7 L/kg, Mark 0.027 hr-1, t1/2 26 hr * Loading dose: 2750 mg (21.3 mg/kg) x 1 dose given yesterday. * Since Scr elevated CrCl ~34, a random Vancomycin level was obtained this AM = 18.1. * Maintenance dose was started this AM at 1750 mg IV (13.5 mg/kg) every 24 hours. * Goal trough level for Cellulitis: ~15 mcg/mL * VANC THERAPY IS EMPIRIC, THEREFORE NO FURTHER TROUGH LEVELS ORDERED. If therapy extended, will order a trough level. * Currently, Vancomycin will d/c after dose tomorrow at 8 AM. Pharmacy will continue to follow and will adjust dose/frequency as necessary. Thank you.
[2019-12-31] MEDS: HEPARIN SODIUM/DEXTROSE 25,000 UNITS/500 ML BAG IV SCH (11:56)
[2019-12-31] MEDS: SODIUM CHLORIDE 0.9% 1000ML 1,000 ML IV SCH (13:31)
--- NOTE | 2019-12-31 13:57 | Hospitalist Progress Note ---
Date of Service December 31, 2019 Assessment & Plan (1) Sepsis: Much improved With leukocytosis, tachypnea, reported fever prior to arrival, and left lower extremity cellulitis, meets criteria for sepsis COVID-19 test was negative. Chest x-ray negative for pneumonia and urinalysis negative for infection. The source of infection is the left lower extremity cellulitis He is allergic to penicillins, cephalosporins, and Bactrim. He has no known history of MRSA Leukocytosis and PCT trending downward, no fevers here, tachypnea resolved -Continue IV levofloxacin to cover for gram-negative's, Pseudomonas specifically, and change to Dapto due to CKD (dc Vanc) for gram-positive coverage - MRSA nasal swab negative but allergic to PCN and cephalosporins so can't use those -cont IV fluids with 1 more L of NS for STEPHANIE -Follow blood cultures-NGTD -Tylenol as needed for fevers and chills (2) Cellulitis: As above, from the left dorsal foot to the proximal tibia circumferential With a history of what sounds like lower extremity edema/venous stasis likely due to obesity Doppler left lower extremity negative for DVT Improving -Continue antibiotics as above (3) STEPHANIE (acute kidney injury): Creatinine up to 3.28 on admission from baseline of 2.2, likely prerenal secondary to dehydration from fevers and sepsis Now improved down to 3.0 with IVFs -continue 1 more L of NS -continue to hold home losartan and Lasix -Follow BMP in the morning (4) Dizziness: Likely due to dehydration, but also with bigeminy on ECG Resolved -Follow on telemetry -Hydrating (5) Acute dehydration: As above (6) CKD (chronic kidney disease): Baseline creatinine 2.2, with STEPHANIE as above -Avoid nephrotoxins -renally dose meds when appropriate -follow BMP (7) Chest pain, precordial: Constant x3 days, associated with chills and shortness of breath With left lower extremity edema but venous Doppler negative for DVT Not hypoxic, not tachycardic, but concerning for PE in the setting of family history of VTE Dyspnea could just be from sepsis and tachypnea. There is no evidence of pulmonary edema or other abnormality on chest x-ray Troponin here is mildly elevated at 0.04/0.05 ECG with sinus rhythm with bigeminy, but no ischemic changes -Started empiric heparin drip while awaiting VQ scan to assess risk for PE as he cannot have a CT angiogram due to chronic kidney disease---> V/Q negative for PE -dc heparin gtt -Serial troponin-one more to ensure not increasing but likely myocardial demand ischemia in setting of sepsis Had exercise stress echo in 07/2019 which was nondiagnostic due to inability to achieve proper heart rate, however EF was normal at that time and there were no wall motion abnormalities at rest or with exercise (8) CAD (coronary artery disease): With a history of [place] treated medically as per patient approximately 7-8 years ago at [facility]. Further details are not known -Continue metoprolol, aspirin -He is not on a statin (9) Hypertension: Blood pressures were elevated here and now improved -Continue home amlodipine, metoprolol, hydralazine -Holding home losartan for STEPHANIE as above -Monitor blood pressures (10) Lower extremity edema: Worse left greater than right currently with infection -Holding Lasix for acute kidney injury as above (11) Depression with anxiety: Stable Continue home medication with benztropine, Abilify, trazodone, and sertraline (12) Numbness: Left leg only, could be from edema and compression of peroneal nerve, is peripheral work on reduction of edema with elevation, treatment of cellulitis Consult Neuro if not improving (13) DVT prophylaxis: heparin drip now stopped Start Lovenox 40mg SQ in AM Disposition-continued stay on tele Full code Admission and Anticipated Discharge Date Admission Date: December 30, 2019 Subjective Feeling better today. Left leg is less painful. Still some chest pain but improved. Not SOB anymore at rest. No abd pain, is making urine. Appetite still low but improved, ate half his lunch. No n/V Tele with NSR, PVCs, some bigeminy Also c/o not being able to feel well in the left lower leg Review of Systems Review of Systems: All systems reviewed & are unremarkable except as noted in HPI & below Physical Exam Constitutional: WD/WN, vitals as above + obese Eyes: + anicteric sclerae Neck: trachea midline, no thyromegaly Respiratory: normal respiratory effort, lungs clear to auscultation Cardiovascular: Rate/Rhythm: regular rate and regular rhythm Heart Sounds: + murmur (2/6 ALEJANDRA at apex) Extremities: + edema (2+ pitting edema of the right lower extremity to the thigh, 3+ pitting edema of the left lower extremity to the thigh) Chest (Breasts): Chest: normal inspection of chest Gastrointestinal (Abdomen): normal bowel sounds, soft, nontender, no hepatosplenomegaly Musculoskeletal: Extremities: no cyanosis and no clubbing Skin: + erythema (Left leg with circumferential erythema and warmth from the dorsal foot up to the proximal tibia) erythema of leg much improved and receding from previous Neurologic: moves all extremities and awake; no focal motor deficits (5/5 stength throughout LEs bilat) Motor/Sensory: + sensory deficit (decreased sensation to lt touch only left leg but intact in left thigh) Psychiatric: A+Ox3, euthymic affect Lymphatic: no lymphedema Results & Data Results & Data ([facility]) Vital Signs (Past 12 Hours) Vital Signs Temp Pulse Pulse Resp BP Pulse Ox 12/31/19 11:51 36.9 C 74 18 129/79 96 12/31/19 08:00 71 12/31/19 07:57 36.7 C 84 16 131/71 98 12/31/19 02:59 37.1 C 73 26 H 124/66 97 Laboratory Results 12/31/19 12/31/19 12/31/19 Range/Units 06:40 06:33 03:29 WBC 13.86 H (4.8-10.8) K/uL RBC 3.85 L (4.7-6.1) M/uL Hgb 10.1 L (14.0-18.0) g/dL Hct 30.8 L (42-52) % MCV 80.0 (80-100) fL MCH 26.2 (25-34) pg MCHC 32.8 (32-36) g/dL RDW Std Deviation 57.3 H (36.4-46.3) fL RDW Coeff of Love 19.6 H (11.5-14.5) % Plt Count 118 L (130-400) K/uL Immature Gran % (Auto) 0.3 % Neut % (Auto) 81.1 % Lymph % (Auto) 8.3 % Pitkin % (Auto) 9.7 % Eos % (Auto) 0.5 % Baso % (Auto) 0.1 % Neut # (Auto) 11.25 H (1.4-6.5) K/uL Lymph # (Auto) 1.15 L (1.2-3.4) K/uL Pitkin # (Auto) 1.34 H (0.11-0.59) K/uL Eos # (Auto) 0.07 (0-0.5) K/uL Baso # (Auto) 0.01 (0-0.2) K/uL Immature Gran # (Auto) 0.04 H (0.00-0.02) K/uL Platelet Estimate Decreased L (Normal) Ovalocytes 1+ Echinocytes 1+ Schistocytes 1+ APTT 49.8 H* (21.0-31.0) Seconds PTT Ratio 1.8 D-Dimer (0-500) ug/L FEU Sodium (136-145) mmol/L Potassium (3.5-5.1) mmol/L Chloride (98-107) mmol/L Carbon Dioxide (21-32) mmol/L Anion Gap (3-11) BUN (7-18) mg/dl Creatinine (0.6-1.4) mg/dl Est Cr Clr Drug Dosing ml/min Est GFR ( Amer) Est GFR (Non-Af Amer) BUN/Creatinine Ratio (10-20) Glucose (70-99) mg/dl Calcium (8.5-10.1) mg/dl Magnesium (1.8-2.4) mg/dl Total Bilirubin (0.2-1) mg/dl AST (15-37) U/L ALT (12-78) U/L Alkaline Phosphatase (45-117) U/L Troponin I 0.050 H* (0-0.045) ng/ml Total Protein (6.4-8.2) gm/dl Albumin (3.4-5.0) gm/dl Globulin (2.5-4.0) gm/dl Albumin/Globulin Ratio (0.9-2) Procalcitonin (0-0.5) ng/ml Nasal Screen MRSA (PCR) (Negative) Random Vancomycin mcg/ml 12/31/19 12/31/19 12/31/19 Range/Units 03:29 03:29 03:29 WBC (4.8-10.8) K/uL RBC (4.7-6.1) M/uL Hgb (14.0-18.0) g/dL Hct (42-52) % MCV (80-100) fL MCH (25-34) pg MCHC (32-36) g/dL RDW Std Deviation (36.4-46.3) fL RDW Coeff of Love (11.5-14.5) % Plt Count (130-400) K/uL Immature Gran % (Auto) % Neut % (Auto) % Lymph % (Auto) % Pitkin % (Auto) % Eos % (Auto) % Baso % (Auto) % Neut # (Auto) (1.4-6.5) K/uL Lymph # (Auto) (1.2-3.4) K/uL Pitkin # (Auto) (0.11-0.59) K/uL Eos # (Auto) (0-0.5) K/uL Baso # (Auto) (0-0.2) K/uL Immature Gran # (Auto) (0.00-0.02) K/uL Platelet Estimate (Normal) Ovalocytes Echinocytes Schistocytes APTT (21.0-31.0) Seconds PTT Ratio D-Dimer (0-500) ug/L FEU Sodium 141 (136-145) mmol/L Potassium 4.1 (3.5-5.1) mmol/L Chloride 111 H (98-107) mmol/L Carbon Dioxide 22 (21-32) mmol/L Anion Gap 8.0 (3-11) BUN 34 H (7-18) mg/dl Creatinine 3.07 H (0.6-1.4) mg/dl Est Cr Clr Drug Dosing 36.1 ml/min Est GFR ( Amer) 24.2 Est GFR (Non-Af Amer) 20.8 BUN/Creatinine Ratio 11.2 (10-20) Glucose 99 (70-99) mg/dl Calcium 7.3 L (8.5-10.1) mg/dl Magnesium 2.1 (1.8-2.4) mg/dl Total Bilirubin 0.7 (0.2-1) mg/dl AST 15 (15-37) U/L ALT 19 (12-78) U/L Alkaline Phosphatase 67 (45-117) U/L Troponin I Cancelled (0-0.045) ng/ml Total Protein 6.3 L D (6.4-8.2) gm/dl Albumin 2.9 L (3.4-5.0) gm/dl Globulin 3.4 (2.5-4.0) gm/dl Albumin/Globulin Ratio 0.9 (0.9-2) Procalcitonin 13.46 H (0-0.5) ng/ml Nasal Screen MRSA (PCR) (Negative) Random Vancomycin mcg/ml 12/31/19 12/30/19 12/30/19 Range/Units 03:29 23:10 19:02 WBC (4.8-10.8) K/uL RBC (4.7-6.1) M/uL Hgb (14.0-18.0) g/dL Hct (42-52) % MCV (80-100) fL MCH (25-34) pg MCHC (32-36) g/dL RDW Std Deviation (36.4-46.3) fL RDW Coeff of Love (11.5-14.5) % Plt Count (130-400) K/uL Immature Gran % (Auto) % Neut % (Auto) % Lymph % (Auto) % Pitkin % (Auto) % Eos % (Auto) % Baso % (Auto) % Neut # (Auto) (1.4-6.5) K/uL Lymph # (Auto) (1.2-3.4) K/uL Pitkin # (Auto) (0.11-0.59) K/uL Eos # (Auto) (0-0.5) K/uL Baso # (Auto) (0-0.2) K/uL Immature Gran # (Auto) (0.00-0.02) K/uL Platelet Estimate (Normal) Ovalocytes Echinocytes Schistocytes APTT (21.0-31.0) Seconds PTT Ratio D-Dimer 510 H* (0-500) ug/L FEU Sodium (136-145) mmol/L Potassium (3.5-5.1) mmol/L Chloride (98-107) mmol/L Carbon Dioxide (21-32) mmol/L Anion Gap (3-11) BUN (7-18) mg/dl Creatinine (0.6-1.4) mg/dl Est Cr Clr Drug Dosing ml/min Est GFR ( Amer) Est GFR (Non-Af Amer) BUN/Creatinine Ratio (10-20) Glucose (70-99) mg/dl Calcium (8.5-10.1) mg/dl Magnesium (1.8-2.4) mg/dl Total Bilirubin (0.2-1) mg/dl AST (15-37) U/L ALT (12-78) U/L Alkaline Phosphatase (45-117) U/L Troponin I (0-0.045) ng/ml Total Protein (6.4-8.2) gm/dl Albumin (3.4-5.0) gm/dl Globulin (2.5-4.0) gm/dl Albumin/Globulin Ratio (0.9-2) Procalcitonin (0-0.5) ng/ml Nasal Screen MRSA (PCR) Negative (Negative) Random Vancomycin 18.1 mcg/ml 12/30/19 12/30/19 Range/Units 19:02 13:20 WBC (4.8-10.8) K/uL RBC (4.7-6.1) M/uL Hgb (14.0-18.0) g/dL Hct (42-52) % MCV (80-100) fL MCH (25-34) pg MCHC (32-36) g/dL RDW Std Deviation (36.4-46.3) fL RDW Coeff of Love (11.5-14.5) % Plt Count (130-400) K/uL Immature Gran % (Auto) % Neut % (Auto) % Lymph % (Auto) % Pitkin % (Auto) % Eos % (Auto) % Baso % (Auto) % Neut # (Auto) (1.4-6.5) K/uL Lymph # (Auto) (1.2-3.4) K/uL Pitkin # (Auto) (0.11-0.59) K/uL Eos # (Auto) (0-0.5) K/uL Baso # (Auto) (0-0.2) K/uL Immature Gran # (Auto) (0.00-0.02) K/uL Platelet Estimate (Normal) Ovalocytes Echinocytes Schistocytes APTT (21.0-31.0) Seconds PTT Ratio D-Dimer (0-500) ug/L FEU Sodium (136-145) mmol/L Potassium (3.5-5.1) mmol/L Chloride (98-107) mmol/L Carbon Dioxide (21-32) mmol/L Anion Gap (3-11) BUN (7-18) mg/dl Creatinine (0.6-1.4) mg/dl Est Cr Clr Drug Dosing ml/min Est GFR ( Amer) Est GFR (Non-Af Amer) BUN/Creatinine Ratio (10-20) Glucose (70-99) mg/dl Calcium (8.5-10.1) mg/dl Magnesium (1.8-2.4) mg/dl Total Bilirubin (0.2-1) mg/dl AST (15-37) U/L ALT (12-78) U/L Alkaline Phosphatase (45-117) U/L Troponin I 0.046 H* (0-0.045) ng/ml Total Protein (6.4-8.2) gm/dl Albumin (3.4-5.0) gm/dl Globulin (2.5-4.0) gm/dl Albumin/Globulin Ratio (0.9-2) Procalcitonin 15.43 H (0-0.5) ng/ml Nasal Screen MRSA (PCR) (Negative) Random Vancomycin mcg/ml PG Care Time/CCT Total # of Minutes Spent Total Time Spent with Patient: Total time spent is greater than 50% in coordination of care (as documented) at patient's floor/unit and/or counseling patient: Coding Level of Care Code 16528 Subseq Hosp Care Lvl 3 Diagnoses Sepsis A41.9 Sepsis acute organ dysfunction status: unspecified Sepsis type: sepsis due to unspecified organism Cellulitis L03.116 Laterality: left Site of cellulitis: extremity Site of cellulitis of extremity: lower extremity STEPHANIE (acute kidney injury) N17.9 Dizziness R42 Acute dehydration E86.0 CKD (chronic kidney disease) N18.9 Chest pain, precordial R07.2 CAD (coronary artery disease) I25.10 Hypertension I10 Lower extremity edema R60.0 Depression with anxiety F41.8 Numbness R20.0 DVT prophylaxis Z29.9 (1) Sepsis Sepsis acute organ dysfunction status: unspecified Sepsis type: sepsis due to unspecified organism Qualified Code(s): A41.9 - Sepsis, unspecified organism (2) Cellulitis Laterality: left Site of cellulitis: extremity Site of cellulitis of extremity: lower extremity Qualified Code(s): L03.116 - Cellulitis of left lower limb
[2019-12-31] MEDS ORDERED: DAPTOMYCIN CONSULT ACTIVE PRN (13:58)
[2019-12-31] MEDS ORDERED: SODIUM CHLORIDE 0.9% 1000ML 1,000 ML IV SCH (14:00)
[2019-12-31] MEDS: DAPTOmycin 400 MG in SYRINGE 0 ML IV SCH (14:40)
[2019-12-31] MEDS: TRAZODONE HCL 50 MG TAB PO SCH (20:43)
[2019-12-31] MEDS: ARIPiprazole 10 MG TAB PO SCH (20:43)
[2019-12-31] MEDS: SERTRALINE HCL 100 MG TABLET PO SCH (20:43)
[2019-12-31] MEDS: BENZTROPINE MESYLATE 1 MG TAB PO SCH (20:43)
[2020-01-01] MEDS: HydrALAZINE TAB 50 MG TAB PO SCH ×3 (05:11→20:12)
[2020-01-01 06:13] LABS: Partial Thromboplastin Time 28.9 Seconds (21.0-31.0)
[2020-01-01] MEDS: AMLODIPINE BESYLATE 5 MG TAB PO SCH (06:16)
[2020-01-01] MEDS: ASPIRIN 81 MG ECTAB PO SCH (06:16)
[2020-01-01 06:21] LABS: Mean Corpuscular Hgb Conc 32.1 g/dL (32-36)
[2020-01-01 06:27] LABS: Hematocrit (blood only) 32.4 % (42-52); Hemoglobin 10.4 g/dL (14.0-18.0); Mean Corpuscular Hemoglobin 25.8 pg (25-34); Mean Corpuscular Volume 80.4 fL (80-100); RDW Coefficient of Variation 19.4 % (11.5-14.5); RDW Standard Deviation 57.7 fL (36.4-46.3); Red Blood Count 4.03 M/uL (4.7-6.1); White Blood Count 10.05 K/uL (4.8-10.8)
[2020-01-01 06:32] LABS: BUN Creatinine Ratio 11.4 (10-20); Calcium 7.7 mg/dl (8.5-10.1); Creatinine Clr Calc Pharmacy 38.3 ml/min; Est GFR (African American) 25.9; Est GFR (Non-African American) 22.3; Magnesium 2.2 mg/dl (1.8-2.4)
[2020-01-01 06:47] LABS: Platelet Count 142 K/uL (130-400)
[2020-01-01 06:51] LABS: Basophils # (auto) 0.02 K/uL (0-0.2); Basophils % (auto) 0.2 %; Echinocytes 1+; Eosinophils # (auto) 0.16 K/uL (0-0.5); Eosinophils % (auto) 1.6 %; Giant Platelets 1+; Immature Granulocytes # (auto) 0.04 K/uL (0.00-0.02); Immature Granulocytes % (auto) 0.4 %; Lymphocytes # (auto) 0.91 K/uL (1.2-3.4); Lymphocytes % (auto) 9.1 %; Monocytes # (auto) 1.07 K/uL (0.11-0.59); Monocytes % (auto) 10.6 %; Neutrophils # (auto) 7.85 K/uL (1.4-6.5); Neutrophils % (auto) 78.1 %; Ovalocytes 1+; Platelet Estimate Normal (Normal); Schistocytes Occasional
[2020-01-01] MEDS: METOPROLOL TARTRATE 25 MG TAB PO SCH ×2 (08:08→20:12)
[2020-01-01] MEDS: ENOXAPARIN INJ 40 MG/0.4 ML SYR SQ SCH (08:08)
--- NOTE | 2020-01-01 12:00 | Hospitalist Progress Note ---
Date of Service January 01, 2020 Assessment & Plan (1) Sepsis: Much improved With leukocytosis, tachypnea, reported fever prior to arrival, and left lower extremity cellulitis, meets criteria for sepsis COVID-19 test was negative. Chest x-ray negative for pneumonia and urinalysis negative for infection. The source of infection is the left lower extremity cellulitis He is allergic to penicillins, cephalosporins, and Bactrim. He has no known history of MRSA Leukocytosis and PCT trending downward, no fevers here, tachypnea resolved -no growth in BCxs, PCT trending downward, will de-escalate abx--> discontinue IV levofloxacin and will CONTINUE Dapto due to CKD (avoid Vanc) for gram-pos itive coverage - MRSA nasal swab negative but allergic to PCN and cephalosporins so can't use those -Follow blood cultures-NGTD -Tylenol as needed for fevers and chills (2) Cellulitis: As above, from the left dorsal foot to the proximal tibia circumferential--> significantly improved since admission With a history of what sounds like lower extremity edema/venous stasis likely due to obesity Doppler left lower extremity negative for DVT Improving -Continue antibiotics as above (3) STEPHANIE (acute kidney injury): Creatinine up to 3.28 on admission from baseline of 2.2, likely prerenal secondary to dehydration from fevers and sepsis Now improved down to 2.90 with IVFs -with persistent dyspnea but no hypoxia Making urine -continue to hold home losartan -restart lasix 40mg po daily for weight gain and dyspnea -Follow BMP in the morning (4) Dizziness: Likely due to dehydration, but also with bigeminy on ECG Resolved -Follow on telemetry -Hydrating (5) Acute dehydration: As above (6) CKD (chronic kidney disease): Baseline creatinine 2.2, with STEPHANIE as above -Avoid nephrotoxins -renally dose meds when appropriate -follow BMP (7) Chest pain, precordial: Constant x3 days prior to admission, associated with chills and shortness of breath With left lower extremity edema but venous Doppler negative for DVT Not hypoxic, not tachycardic, but concerning for PE in the setting of family history of VTE Dyspnea could just be from sepsis and tachypnea. There is no evidence of pulmonary edema or other abnormality on chest x-ray Troponin here is mildly elevated at 0.04/0.05 ECG with sinus rhythm with bigeminy, but no ischemic changes -Started empiric heparin drip while awaiting VQ scan to assess risk for PE as he cannot have a CT angiogram due to chronic kidney disease---> V/Q negative for PE -dcd heparin gtt -Serial troponin peaked at 0.05 and then back to normal Had exercise stress echo in 07/2019 which was nondiagnostic due to inability to achieve proper heart rate, however EF was normal at that time and there were no wall motion abnormalities at rest or with exercise (8) CAD (coronary artery disease): With a history of [place] treated medically as per patient approximately 7-8 years ago at [facility]. Further details are not known -Continue metoprolol, aspirin -He is not on a statin (9) Hypertension: Blood pressures were elevated here and now improved -Continue home amlodipine, metoprolol, hydralazine -Holding home losartan for STEPHANIE as above -Monitor blood pressures (10) Lower extremity edema: Worse left greater than right currently with infection -ok to restart Lasix as above (11) Depression with anxiety: Stable Continue home medication with benztropine, Abilify, trazodone, and sertraline (12) Numbness: Left leg only, now improving as edema is improved - could be from edema and compression of peroneal nerve, is peripheral work on reduction of edema with elevation, treatment of cellulitis (13) Bigeminy: Continues to have frequent bigeminy and PVCs -not sure if baseline or due to acue illness -continue metoprolol 12.5 bid, could try to titrate upwards but is with rate in 60s, not sure if would tolerate -follow on tele (14) DVT prophylaxis: Lovenox 40mg SQ daily Disposition-continued stay on tele Full code Admission and Anticipated Discharge Date Admission Date: December 30, 2019 Subjective Pt feels his left leg pain is much improved. He states he always has some degree of pain in his left leg. Still feels some SOB and some mild CP but it is improved. No N/V and appetite improved. Had two loose stools today, nonbloody Tele with frequent bigeminy, sinus rhythm with 1st degree AVB,, some conduction changes Review of Systems Review of Systems: All systems reviewed & are unremarkable except as noted in HPI & below Physical Exam Constitutional: WD/WN, vitals as above + obese Eyes: + anicteric sclerae Neck: trachea midline, no thyromegaly Respiratory: normal respiratory effort, lungs clear to auscultation Cardiovascular: Rate/Rhythm: regular rate and regular rhythm Heart Sounds: + murmur (2/6 ALEJANDRA at apex) Extremities: + edema (1+ pitting edema right leg an2+ LLE to knee, much improved) Chest (Breasts): Chest: normal inspection of chest Gastrointestinal (Abdomen): normal bowel sounds, soft, nontender, no hepatosplenomegaly Musculoskeletal: Extremities: no cyanosis and no clubbing Skin: + erythema (Left leg with much improved erythema barely visible) Neurologic: moves all extremities and awake; no focal motor deficits (5/5 stength throughout LEs bilat) Motor/Sensory: + sensory deficit (dec sensation left leg below knee only but improved from yesterday) Psychiatric: A+Ox3, euthymic affect Lymphatic: no lymphedema Results & Data Results & Data ([facility]) Vital Signs (Past 12 Hours) Vital Signs Temp Pulse Resp BP Pulse Ox 01/01/20 11:24 37.1 C 60 20 111/62 95 01/01/20 08:08 36.8 C 82 18 142/70 H 96 01/01/20 04:28 37 C 70 18 126/65 93 Laboratory Results 01/01/20 01/01/20 01/01/20 Range/Units 05:23 05:23 05:23 WBC (4.8-10.8) K/uL RBC (4.7-6.1) M/uL Hgb (14.0-18.0) g/dL Hct (42-52) % MCV (80-100) fL MCH (25-34) pg MCHC (32-36) g/dL RDW Std Deviation (36.4-46.3) fL RDW Coeff of Love (11.5-14.5) % Plt Count (130-400) K/uL Immature Gran % (Auto) % Neut % (Auto) % Lymph % (Auto) % Kane % (Auto) % Eos % (Auto) % Baso % (Auto) % Neut # (Auto) (1.4-6.5) K/uL Lymph # (Auto) (1.2-3.4) K/uL Kane # (Auto) (0.11-0.59) K/uL Eos # (Auto) (0-0.5) K/uL Baso # (Auto) (0-0.2) K/uL Immature Gran # (Auto) (0.00-0.02) K/uL Platelet Estimate (Normal) Giant Platelets Ovalocytes Echinocytes Schistocytes APTT 28.9 (21.0-31.0) Seconds PTT Ratio 1.0 Sodium 141 (136-145) mmol/L Potassium 4.0 (3.5-5.1) mmol/L Chloride 114 H (98-107) mmol/L Carbon Dioxide 21 (21-32) mmol/L Anion Gap 6.0 (3-11) BUN 33 H (7-18) mg/dl Creatinine 2.90 H (0.6-1.4) mg/dl Est Cr Clr Drug Dosing 38.3 ml/min Est GFR ( Amer) 25.9 Est GFR (Non-Af Amer) 22.3 BUN/Creatinine Ratio 11.4 (10-20) Glucose 96 (70-99) mg/dl Calcium 7.7 L (8.5-10.1) mg/dl Magnesium 2.2 (1.8-2.4) mg/dl Troponin I (0-0.045) ng/ml Procalcitonin 7.37 H (0-0.5) ng/ml 01/01/20 12/31/19 Range/Units 05:23 14:21 WBC 10.05 (4.8-10.8) K/uL RBC 4.03 L (4.7-6.1) M/uL Hgb 10.4 L (14.0-18.0) g/dL Hct 32.4 L (42-52) % MCV 80.4 (80-100) fL MCH 25.8 (25-34) pg MCHC 32.1 (32-36) g/dL RDW Std Deviation 57.7 H (36.4-46.3) fL RDW Coeff of Love 19.4 H (11.5-14.5) % Plt Count 142 (130-400) K/uL Immature Gran % (Auto) 0.4 % Neut % (Auto) 78.1 % Lymph % (Auto) 9.1 % Kane % (Auto) 10.6 % Eos % (Auto) 1.6 % Baso % (Auto) 0.2 % Neut # (Auto) 7.85 H (1.4-6.5) K/uL Lymph # (Auto) 0.91 L (1.2-3.4) K/uL Kane # (Auto) 1.07 H (0.11-0.59) K/uL Eos # (Auto) 0.16 (0-0.5) K/uL Baso # (Auto) 0.02 (0-0.2) K/uL Immature Gran # (Auto) 0.04 H (0.00-0.02) K/uL Platelet Estimate Normal (Normal) Giant Platelets 1+ Ovalocytes 1+ Echinocytes 1+ Schistocytes Occasional APTT (21.0-31.0) Seconds PTT Ratio Sodium (136-145) mmol/L Potassium (3.5-5.1) mmol/L Chloride (98-107) mmol/L Carbon Dioxide (21-32) mmol/L Anion Gap (3-11) BUN (7-18) mg/dl Creatinine (0.6-1.4) mg/dl Est Cr Clr Drug Dosing ml/min Est GFR ( Amer) Est GFR (Non-Af Amer) BUN/Creatinine Ratio (10-20) Glucose (70-99) mg/dl Calcium (8.5-10.1) mg/dl Magnesium (1.8-2.4) mg/dl Troponin I 0.028 (0-0.045) ng/ml Procalcitonin (0-0.5) ng/ml PG Care Time/CCT Total # of Minutes Spent Total Time Spent with Patient: Total time spent is greater than 50% in coordination of care (as documented) at patient's floor/unit and/or counseling patient: Coding Level of Care Code 07433 Subseq Hosp Care Lvl 3 Diagnoses Sepsis A41.9 Sepsis acute organ dysfunction status: unspecified Sepsis type: sepsis due to unspecified organism Cellulitis L03.116 Laterality: left Site of cellulitis: extremity Site of cellulitis of extremity: lower extremity STEPHANIE (acute kidney injury) N17.9 Dizziness R42 Acute dehydration E86.0 CKD (chronic kidney disease) N18.9 Chest pain, precordial R07.2 CAD (coronary artery disease) I25.10 Hypertension I10 Lower extremity edema R60.0 Depression with anxiety F41.8 Numbness R20.0 Bigeminy I49.9 DVT prophylaxis Z29.9 (1) Sepsis Sepsis acute organ dysfunction status: unspecified Sepsis type: sepsis due to unspecified organism Qualified Code(s): A41.9 - Sepsis, unspecified organism (2) Cellulitis Laterality: left Site of cellulitis: extremity Site of cellulitis of extremity: lower extremity Qualified Code(s): L03.116 - Cellulitis of left lower limb
[2020-01-01] MEDS ORDERED: LEVOFLOXACIN/D5W 750 MG/150 ML BAG IV SCH (13:30)
[2020-01-01] MEDS: DAPTOmycin 400 MG in SYRINGE 0 ML IV SCH (13:47)
[2020-01-01] MEDS: FUROSEMIDE 40 MG TAB PO SCH (13:47)
[2020-01-01] MEDS: TRAZODONE HCL 50 MG TAB PO SCH ×2 (20:11→22:12)
[2020-01-01] MEDS: ARIPiprazole 10 MG TAB PO SCH (20:12)
[2020-01-01] MEDS: BENZTROPINE MESYLATE 1 MG TAB PO SCH (20:12)
[2020-01-01] MEDS: SERTRALINE HCL 100 MG TABLET PO SCH (20:12)
[2020-01-02] MEDS: ACETAMINOPHEN 325 MG TAB PO PRN ×3 (00:05→16:08)
[2020-01-02] MEDS: HydrALAZINE TAB 50 MG TAB PO SCH ×3 (05:56→20:02)
[2020-01-02 06:48] LABS: Basophils # (auto) 0.02 K/uL (0-0.2); Basophils % (auto) 0.3 %; Eosinophils # (auto) 0.26 K/uL (0-0.5); Eosinophils % (auto) 3.7 %; Hematocrit (blood only) 34.3 % (42-52); Hemoglobin 11.2 g/dL (14.0-18.0); Immature Granulocytes # (auto) 0.05 K/uL (0.00-0.02); Immature Granulocytes % (auto) 0.7 %; Lymphocytes # (auto) 0.81 K/uL (1.2-3.4); Lymphocytes % (auto) 11.6 %; Mean Corpuscular Hemoglobin 26.2 pg (25-34); Mean Corpuscular Hgb Conc 32.7 g/dL (32-36); Mean Corpuscular Volume 80.3 fL (80-100); Monocytes # (auto) 0.89 K/uL (0.11-0.59); Monocytes % (auto) 12.8 %; Neutrophils # (auto) 4.93 K/uL (1.4-6.5); Neutrophils % (auto) 70.9 %; Platelet Count 165 K/uL (130-400); RDW Coefficient of Variation 19.4 % (11.5-14.5); RDW Standard Deviation 56.9 fL (36.4-46.3); Red Blood Count 4.27 M/uL (4.7-6.1); White Blood Count 6.96 K/uL (4.8-10.8)
[2020-01-02 07:16] LABS: BUN Creatinine Ratio 9.6 (10-20); Calcium 8.2 mg/dl (8.5-10.1); Creatinine Clr Calc Pharmacy 39.6 ml/min; Est GFR (African American) 26.9; Est GFR (Non-African American) 23.2; Magnesium 2.2 mg/dl (1.8-2.4)
[2020-01-02 07:18] LABS: Albumin Globulin Ratio 0.7 (0.9-2); Bilirubin,Total 0.6 mg/dl (0.2-1); Globulin 4.5 gm/dl (2.5-4.0); Total Protein 7.5 gm/dl (6.4-8.2)
[2020-01-02] MEDS: AMLODIPINE BESYLATE 5 MG TAB PO SCH (08:34)
[2020-01-02] MEDS: ENOXAPARIN INJ 40 MG/0.4 ML SYR SQ SCH (08:34)
[2020-01-02] MEDS: METOPROLOL TARTRATE 25 MG TAB PO SCH ×2 (08:35→20:02)
[2020-01-02] MEDS: FUROSEMIDE 40 MG TAB PO SCH (08:35)
[2020-01-02] MEDS: ASPIRIN 81 MG ECTAB PO SCH (08:36)
[2020-01-02] MEDS: DOXYCYCLINE HYCLATE 100 MG CAP PO SCH ×2 (12:38→20:03)
--- NOTE | 2020-01-02 13:58 | Hospitalist Progress Note ---
Date of Service January 02, 2020 Assessment & Plan (1) Sepsis: Much improved With leukocytosis, tachypnea, reported fever prior to arrival, and left lower extremity cellulitis, meets criteria for sepsis COVID-19 test was negative. Chest x-ray negative for pneumonia and urinalysis negative for infection. The source of infection is the left lower extremity cellulitis He is allergic to penicillins, cephalosporins, and Bactrim. He has no known history of MRSA however he has been covered for this since admission with daptomycin. Leukocytosis and PCT trending downward, no fevers here, tachypnea resolved -no growth in BCxs, PCT trending downward, will de-escalate abx--> discontinue IV levofloxacin yesterday, will switch to doxycycline alone today and as long as he is stable tomorrow he can likely be discharged on a course of doxycycline alone. Given severity of illness on admission and rapid de-escalation of antibiotics I would feel uncomfortable discharging him today, in addition his prior provider will be back tomorrow and will be better able to [facility] consultant restarting his outpatient BP meds. - MRSA nasal swab negative but allergic to PCN and cephalosporins so can't use those -Follow blood cultures-NGTD -Tylenol as needed for fevers and chills (2) Cellulitis: As above, from the left dorsal foot to the proximal tibia circumferential--> no significant cellulitis on exam today. With a history of what sounds like lower extremity edema/venous stasis likely due to obesity Doppler left lower extremity negative for DVT Appears mostly resolved at this time -Continue antibiotics as above (3) STEPHANIE (acute kidney injury): Creatinine up to 3.28 on admission from baseline of 2.2, likely prerenal secondary to dehydration from fevers and sepsis Now improved down to 2.90 with IVFs -with persistent dyspnea but no hypoxia Making urine -continue to hold home losartan -restart lasix 40mg po daily for weight gain and dyspnea -Follow BMP in the morning (4) Dizziness: Likely due to dehydration, but also with bigeminy on ECG Resolved -Follow on med/tele (5) Acute dehydration: As above, resolved (6) CKD (chronic kidney disease): Baseline creatinine 2.2, with STEPHANIE as above -Avoid nephrotoxins -renally dose meds when appropriate -follow BMP (7) Chest pain, precordial: Constant x3 days prior to admission, associated with chills and shortness of breath With left lower extremity edema but venous Doppler negative for DVT Not hypoxic, not tachycardic, but concerning for PE in the setting of family history of VTE Dyspnea could just be from sepsis and tachypnea. There is no evidence of pulmonary edema or other abnormality on chest x-ray Troponin here is mildly elevated at 0.04/0.05 ECG with sinus rhythm with bigeminy, but no ischemic changes -Started empiric heparin drip while awaiting VQ scan to assess risk for PE as he cannot have a CT angiogram due to chronic kidney disease---> V/Q negative for PE -dcd heparin gtt -Serial troponin peaked at 0.05 and then back to normal Had exercise stress echo in 07/2019 which was nondiagnostic due to inability to achieve proper heart rate, however EF was normal at that time and there were no wall motion abnormalities at rest or with exercise Substantial workup for this as above. Recommend outpatient follow up. (8) CAD (coronary artery disease): With a history of ND treated medically as per patient approximately 7-8 years ago at [facility]. Further details are not known -Continue metoprolol, aspirin -He is not on a statin (9) Hypertension: Blood pressures were elevated here and now improved -Continue home amlodipine, metoprolol, hydralazine -Holding home losartan for STEPHANIE as above -Monitor blood pressures (10) Lower extremity edema: Worse left greater than right currently with infection. Apparently going on for 2 years without a diagnosis. CKD would limit getting CT pelvis with venous IV contrast but could consider without contrast if not previously perfromed/. -ok to restart Lasix as above (11) Depression with anxiety: Stable Continue home medication with benztropine, Abilify, trazodone, and sertraline (12) Numbness: Left leg only, now improving as edema is improved - could be from edema and compression of peroneal nerve, is peripheral work on reduction of edema with elevation, treatment of cellulitis (13) Bigeminy: Continues to have frequent bigeminy and PVCs -not sure if baseline or due to acue illness -continue metoprolol 12.5 bid, could try to titrate upwards but is with rate in 60s, not sure if would tolerate -follow on tele (14) DVT prophylaxis: Lovenox 40mg SQ daily Disposition- stable to transfer to med/tele Full code Admission and Anticipated Discharge Date Admission Date: December 30, 2019 Anticipated date of discharge: 01/03/20 Subjective No concerns or questions today. Notes left leg swelling for the past 2 years. Unable to tell me whether his leg appears better today. No fevers/chills. Review of Systems Review of Systems: All systems reviewed & are unremarkable except as noted in HPI & below Physical Exam Constitutional: WD/WN, vitals as above + obese Eyes: + anicteric sclerae; normal pupil size ENMT: external ear and nose normal, oropharynx normal Respiratory: normal respiratory effort, lungs clear to auscultation Cardiovascular: Rate/Rhythm: regular rate and regular rhythm Heart Sounds: + murmur (2/6 ALEJANDRA loudest at LLSB) Extremities: + edema (1+ RLE < 2+ LLE to knees) Gastrointestinal (Abdomen): Inspection/Auscultation: normal bowel sounds Percussion/Palpation: abdomen soft; abdomen nontender, no guarding and abdomen not rigid Musculoskeletal: Extremities: no cyanosis and no clubbing Skin: + erythema (No LLE erythema visible, not previously seen by this provider however) Neurologic: moves all extremities and awake; no focal motor deficits (LLE 5/5 strength throughout) and not confused Psychiatric: Orientation: alert and oriented x 3 Affect: + flat affect Results & Data Results & Data ([facility]) Vital Signs (Past 12 Hours) Vital Signs Temp Pulse Resp BP Pulse Ox 01/02/20 08:05 36.6 C 78 19 149/84 H 95 01/02/20 03:56 36.5 C 79 23 142/92 H 93 PG Care Time/CCT Total # of Minutes Spent Total Time Spent with Patient: Total time spent is greater than 50% in coordination of care (as documented) at patient's floor/unit and/or counseling patient: Coding Level of Care Code 75287 Subseq Hosp Care Lvl 2 Diagnoses Sepsis A41.9 Sepsis acute organ dysfunction status: unspecified Sepsis type: sepsis due to unspecified organism Cellulitis L03.116 Laterality: left Site of cellulitis: extremity Site of cellulitis of extremity: lower extremity STEPHANIE (acute kidney injury) N17.9 Dizziness R42 Acute dehydration E86.0 CKD (chronic kidney disease) N18.9 Chest pain, precordial R07.2 CAD (coronary artery disease) I25.10 Hypertension I10 Lower extremity edema R60.0 Depression with anxiety F41.8 Numbness R20.0 Bigeminy I49.9 DVT prophylaxis Z29.9 (1) Sepsis Sepsis acute organ dysfunction status: unspecified Sepsis type: sepsis due to unspecified organism Qualified Code(s): A41.9 - Sepsis, unspecified organism (2) Cellulitis Laterality: left Site of cellulitis: extremity Site of cellulitis of extremity: lower extremity Qualified Code(s): L03.116 - Cellulitis of left lower limb
[2020-01-02] MEDS: TRAZODONE HCL 50 MG TAB PO SCH (20:03)
[2020-01-02] MEDS: ARIPiprazole 10 MG TAB PO SCH (20:03)
[2020-01-02] MEDS: SERTRALINE HCL 100 MG TABLET PO SCH (20:03)
[2020-01-02] MEDS: BENZTROPINE MESYLATE 1 MG TAB PO SCH (20:04)
[2020-01-03] MEDS: HydrALAZINE TAB 50 MG TAB PO SCH ×3 (05:03→20:42)
[2020-01-03] MEDS: AMLODIPINE BESYLATE 5 MG TAB PO SCH (06:14)
[2020-01-03] MEDS: FUROSEMIDE 40 MG TAB PO SCH (06:14)
[2020-01-03] MEDS: ASPIRIN 81 MG ECTAB PO SCH (06:15)
[2020-01-03] MEDS: ENOXAPARIN INJ 40 MG/0.4 ML SYR SQ SCH (07:45)
[2020-01-03] MEDS: METOPROLOL TARTRATE 25 MG TAB PO SCH ×2 (07:46→20:44)
[2020-01-03] MEDS: DOXYCYCLINE HYCLATE 100 MG CAP PO SCH ×2 (07:46→20:42)
[2020-01-03 09:28] LABS: Basophils # (auto) 0.03 K/uL (0-0.2); Basophils % (auto) 0.5 %; Eosinophils # (auto) 0.25 K/uL (0-0.5); Eosinophils % (auto) 3.8 %; Hematocrit (blood only) 33.1 % (42-52); Hemoglobin 10.5 g/dL (14.0-18.0); Immature Granulocytes # (auto) 0.08 K/uL (0.00-0.02); Immature Granulocytes % (auto) 1.2 %; Lymphocytes # (auto) 0.84 K/uL (1.2-3.4); Lymphocytes % (auto) 12.9 %; Mean Corpuscular Hemoglobin 25.5 pg (25-34); Mean Corpuscular Hgb Conc 31.7 g/dL (32-36); Mean Corpuscular Volume 80.3 fL (80-100); Monocytes # (auto) 0.85 K/uL (0.11-0.59); Monocytes % (auto) 13.1 %; Neutrophils # (auto) 4.45 K/uL (1.4-6.5); Neutrophils % (auto) 68.5 %; Platelet Count 172 K/uL (130-400); RDW Coefficient of Variation 19.2 % (11.5-14.5); RDW Standard Deviation 56.8 fL (36.4-46.3); Red Blood Count 4.12 M/uL (4.7-6.1)
[2020-01-03 09:41] LABS: BUN Creatinine Ratio 10.1 (10-20); Calcium 8.2 mg/dl (8.5-10.1); Creatinine Clr Calc Pharmacy 35.6 ml/min; Est GFR (African American) 24.2; Est GFR (Non-African American) 20.8; Potassium 3.5 mmol/L (3.5-5.1)
[2020-01-03 09:45] LABS: Ferritin 38.4 ng/ml (8-388)
[2020-01-03 10:26] LABS: Echinocytes 2+; Hypochromasia Present; Schistocytes Occasional; Spherocytes Occasional
--- NOTE | 2020-01-03 14:58 | Hospitalist Progress Note ---
Date of Service January 03, 2020 Assessment & Plan (1) Sepsis: Resolved With leukocytosis, tachypnea, reported fever prior to arrival, and left lower extremity cellulitis, meets criteria for sepsis COVID-19 test was negative. Chest x-ray negative for pneumonia and urinalysis negative for infection. The source of infection is the left lower extremity cellulitis He is allergic to penicillins, cephalosporins, and Bactrim. He has no known history of MRSA however he has been covered for this since admission with daptomycin. Leukocytosis and PCT trended downward, no fevers here, tachypnea resolved -no growth in BCxs, and have since de-escalated abx--> discontinued IV levofloxacin on 12/31 and his IV daptomycin was discontinued on 01/01 -Continue p.o. doxycycline alone times total 10-day course - MRSA nasal swab negative but allergic to PCN and cephalosporins so can't use those -Follow blood cultures-NGTD -Tylenol as needed for fevers and chills (2) Cellulitis: As above, from the left dorsal foot to the proximal tibia circumferential--> now completely resolved With a history of what sounds like lower extremity edema/venous stasis likely due to obesity Doppler left lower extremity negative for DVT -Continue antibiotics as above (3) STEPHANIE (acute kidney injury): Creatinine up to 3.28 on admission from baseline of 2.2, likely prerenal secondary to dehydration from fevers and sepsis Was improved down to 2.90 with IVFs, but now trending back upward to 3.07 with metabolic acidosis No further dyspnea and is making urine Renal ultrasound in 06/2019 with medical renal disease Has a history of HTN and prediabetes -continue to hold home losartan -Hold Lasix -Follow BMP in the morning -Consult nephrology-question if needs p.o. bicarbonate? -He will need long-term follow-up with nephrology given his CKD stage [id number] this with him at length today (4) Dizziness: Likely due to dehydration, but also with bigeminy on ECG Resolved (5) Acute dehydration: As above, resolved (6) CKD (chronic kidney disease): CKD stage III-IV Baseline creatinine 2.2, with STEPHANIE as above -Avoid nephrotoxins -renally dose meds when appropriate -follow BMP (7) Chest pain, precordial: Constant x3 days prior to admission, associated with chills and shortness of breath-now resolved With left lower extremity edema but venous Doppler negative for DVT Not hypoxic, not tachycardic, but concerning for PE in the setting of family history of VTE Dyspnea could just be from sepsis and tachypnea. There is no evidence of pulmonary edema or other abnormality on chest x-ray Troponin here is mildly elevated at 0.04/0.05 and then back to normal ECG with sinus rhythm with bigeminy, but no ischemic changes -Started empiric heparin drip while awaiting VQ scan to assess risk for PE as he cannot have a CT angiogram due to chronic kidney disease---> V/Q negative for PE -dcd heparin gtt Had exercise stress echo in 07/2019 which was nondiagnostic due to inability to achieve proper heart rate, however EF was normal at that time and there were no wall motion abnormalities at rest or with exercise Substantial workup for this as above. Recommend outpatient follow up. (8) CAD (coronary artery disease): With a history of [place] treated medically as per patient approximately 7-[address] [facility]. Further details are not known -Continue metoprolol, aspirin -He is not on a statin (9) Hypertension: Blood pressures were elevated here and now improved -Continue home amlodipine, metoprolol, hydralazine -Holding home losartan for STEPHANIE as above -Monitor blood pressures (10) Lower extremity edema: Worse left greater than right currently with infection. Apparently going on for 2 years without a diagnosis. CKD would limit getting CT pelvis with venous IV contrast but could consider without contrast if not previously performed (11) Depression with anxiety: Stable Continue home medication with benztropine, Abilify, trazodone, and sertraline (12) Numbness: Left leg only only up to the knee, somewhat improved as edema improved, but still remains - could be from edema and compression of peroneal nerve, is peripheral work on reduction of edema with elevation, treatment of cellulitis (13) Bigeminy: Continues to have frequent bigeminy and PVCs on telemetry and now on examination -not sure if baseline or due to acute illness -continue metoprolol 12.5 bid, could try to titrate upwards but is with rate in 60s, not sure if would tolerate (14) DVT prophylaxis: Lovenox 40mg SQ daily Disposition-continued stay for monitoring of renal function [facility] Full code Admission and Anticipated Discharge Date Admission Date: December 30, 2019 Subjective Patient feeling much better today. No pain in the leg but is still numb compared to the right. He is making plenty of urine and denies abdominal pain. Denies shortness of breath or chest pain. Remains afebrile. He has questions about his kidney function. He was never told that he had chronic kidney disease in the past that he is aware of. He does have a history of being admitted for what sounds like sepsis in the past prior to the time he is been in [facility], but has never needed dialysis. Review of Systems Review of Systems: All systems reviewed & are unremarkable except as noted in HPI & below Physical Exam Constitutional: WD/WN, vitals as above + obese Eyes: + anicteric sclerae ENMT: external ear and nose normal, oropharynx normal Neck: trachea midline, no thyromegaly Respiratory: normal respiratory effort, lungs clear to auscultation Cardiovascular: Rate/Rhythm: regular rate and regular rhythm Heart Sounds: + murmur (2/6 diastolic murmur at the right upper sternal border) Extremities: + edema (1+ pitting edema right leg an2+ LLE to knee, much improved) Chest (Breasts): Chest: normal inspection of chest Gastrointestinal (Abdomen): normal bowel sounds, soft, nontender, no hepatosplenomegaly Musculoskeletal: Extremities: no cyanosis and no clubbing Skin: no rashes, warm and dry + erythema (Left leg now with completely resolved erythema) Neurologic: moves all extremities and awake; no focal motor deficits (5/5 strength throughout LEs bilat) Motor/Sensory: + sensory deficit (dec sensation left leg below knee only similar to previous) Psychiatric: A+Ox3, euthymic affect Lymphatic: no lymphedema Results & Data Results & Data ([facility]) Vital Signs (Past 12 Hours) Vital Signs Temp Pulse Pulse Resp BP BP Pulse Ox 01/03/20 13:05 148/76 H 01/03/20 07:19 36.7 C 61 20 162/76 H 95 01/03/20 06:17 65 158/97 H 01/03/20 05:08 42 L 141/72 H Laboratory Results 01/03/20 01/03/20 01/03/20 Range/Units 08:55 08:55 08:55 WBC 6.50 (4.8-10.8) K/uL RBC 4.12 L (4.7-6.1) M/uL Hgb 10.5 L (14.0-18.0) g/dL Hct 33.1 L (42-52) % MCV 80.3 (80-100) fL MCH 25.5 (25-34) pg MCHC 31.7 L (32-36) g/dL RDW Std Deviation 56.8 H (36.4-46.3) fL RDW Coeff of Love 19.2 H (11.5-14.5) % Plt Count 172 (130-400) K/uL Immature Gran % (Auto) 1.2 % Neut % (Auto) 68.5 % Lymph % (Auto) 12.9 % Carbon % (Auto) 13.1 % Eos % (Auto) 3.8 % Baso % (Auto) 0.5 % Neut # (Auto) 4.45 (1.4-6.5) K/uL Lymph # (Auto) 0.84 L (1.2-3.4) K/uL Carbon # (Auto) 0.85 H (0.11-0.59) K/uL Eos # (Auto) 0.25 (0-0.5) K/uL Baso # (Auto) 0.03 (0-0.2) K/uL Immature Gran # (Auto) 0.08 H (0.00-0.02) K/uL Hypochromasia Present Spherocytes Occasional Echinocytes 2+ Schistocytes Occasional Sodium 139 Cancelled Potassium 3.5 Cancelled Chloride 111 H Cancelled Carbon Dioxide 20 L Cancelled Anion Gap 8.0 Cancelled BUN 31 H Cancelled Creatinine 3.07 H Cancelled Est Cr Clr Drug Dosing 35.6 Cancelled Est GFR ( Amer) 24.2 Cancelled Est GFR (Non-Af Amer) 20.8 Cancelled BUN/Creatinine Ratio 10.1 Cancelled Glucose 148 H Cancelled Calcium 8.2 L Cancelled Iron 29 L (35-175) mcg/dl Transferrin 222 (200-360) mg/dl Transferrin % Sat 9 L (20-50) % Ferritin 38.4 (8-388) ng/ml PG Care Time/CCT Total # of Minutes Spent Total Time Spent with Patient: Total time spent is greater than 50% in coordination of care (as documented) at patient's floor/unit and/or counseling patient: Coding Level of Care Code 52059 Subseq Hosp Care Lvl 3 Diagnoses Sepsis A41.9 Sepsis acute organ dysfunction status: unspecified Sepsis type: sepsis due to unspecified organism Cellulitis L03.116 Laterality: left Site of cellulitis: extremity Site of cellulitis of extremity: lower extremity STEPHANIE (acute kidney injury) N17.9 Dizziness R42 Acute dehydration E86.0 CKD (chronic kidney disease) N18.9 Chest pain, precordial R07.2 CAD (coronary artery disease) I25.10 Hypertension I10 Lower extremity edema R60.0 Depression with anxiety F41.8 Numbness R20.0 Bigeminy I49.9 DVT prophylaxis Z29.9 (1) Sepsis Sepsis acute organ dysfunction status: unspecified Sepsis type: sepsis due to unspecified organism Qualified Code(s): A41.9 - Sepsis, unspecified organism (2) Cellulitis Laterality: left Site of cellulitis: extremity Site of cellulitis of extremity: lower extremity Qualified Code(s): L03.116 - Cellulitis of left lower limb
[2020-01-03] MEDS: IRON SUCROSE 300 MG in SODIUM CHLORIDE 0.9% 250 ML IV SCH (15:36)
--- NOTE | 2020-01-03 16:57 | Nephrology Consultation ---
Date of Consultation January 03, 2020 Assessment & Plan (1) STEPHANIE (acute kidney injury): Non-oliguric. Consistent with dehydration and ATN. 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 Electrolytes are acceptable. NAGMA can be attributed to acute kidney injury and IV 0.9% NaCl. Oral NaHCO3 1300 mg twice daily has been ordered. Will repeat a metabolic profile and urine studies tomorrow morning. The classification and staging of STEPHANIE were discussed with the patient today. Risk factor modification reviewed. BP is acceptable. Losartan held. Euvolemic on exam. I have placed Furosemide on hold for now. Diuretics may be used PRN to maintain a net even fluid balance. Medications appropriate for kidney function. Garrick is notably on a number of QT prolonging medications which should be monitored. Limit Zofran use, I have placed this medication on hold. (2) CKD (chronic kidney disease): CKD stage III-IV A1. Baseline creatinine 2.0-2.2. Can be attributed to microvascular disease and hypertensive nephrosclerosis. Renal asymmetry may suggest underlying renovascular disease. No additional evaluation necessary at this time. KDIGO staging and classification were reviewed in addition to appropriate risk factor modification with the patient today. (3) Hypertension: Continue to hold losartan. Amlodipine likely partially contributing to Furosemide PRN to maintain relatively even fluid balance. BP has been acceptable. No changes at this time. History of Present Illness Reason for Consultation: STEPHANIE/CKD, acidosis Requesting Physician: Pamela Garcia MD Attending Physician: Pamela Garcia MD History of Present Illness Mr. Garrick Elam is a 59-year-old male with anxiety/depression, hypertension, history of CVA, and CKD. Documented baseline creatinine is 2.0-2.2 mg/dL. Garrick has never been previously evaluated by a fha underwriter. He was not aware of any problems with his kidneys before today. He states that he has several family members who have diabetes and kidney disease. His 38 year-old son has had problems with his kidneys. Garrick suffered an episode of STEPHANIE in June. He was admitted to [facility] at that time following an allergic reaction attributed to Bactrim. Following this hospitalization, he underwent cardiac evaluation including stress echocardiogram in July. TTE demonstrated normal LV size and systolic function. Creatinine improved to 2.2 mg/dL with supportive care. In June, renal US demonstrated a 9.2 cm right kidney and 7.9 cm left kidney. Mild to moderate symmetric cortical atrophy noted. This study was personally reviewed. A 1.1 cm cyst is seen in the left lower pole. There is no evidence of obstruction. UA was bland and acellular. Garrick presented to [facility] on December 29 with leg pain and chills. Creatinine was 3.28 mg/dL on admission. He was admitted with lower extremity cellulitis. Vancomycin and Levaquin administered on admission. Vancomycin then switched to daptomycin on hospital day #1. Antibiotic therapy is now oral doxycycline. Cellulitis has significantly improved. UA on admission demonstrated trace protein with acellular microscopy. Review of systems was notable for chest pain and dizziness, as well as multiple recent falls. EKG demonstrated multiple PVC's with evidence of AV bigeminy. QTc 465. Garrick was found to be volume depleted and received IV NSS throughout the first couple of days of hospitalization. On December 31, furosemide was restarted. Net fluid balance now -1 L. Garrick has been non- oliguric throughout. Creatinine improved to 2.8 mg/dL yesterday. Today, creatinine was found to be 3.0 mg/dL. Electrolytes are normal. HCO3 20. CXR reviewed on admission. VQ scan low probability PE. LE doppler negative for DVT. Edema has improved. Iron deficiency anemia noted. Venofer infusion of 300 mg provided today. Losartan has been held since admission. BP has been acceptable. Allergies Allergy/AdvReac Type Severity Reaction Status Date / Time VIK Inhibitors Allergy Severe Rash and Verified 12/30/19 14:11 Itching Cephalosporins Allergy Severe Rash and Verified 07/12/19 15:56 Itching Penicillins Allergy Severe Rash and Verified 07/12/19 15:56 Itching sulfamethoxazole Allergy Severe Rash and Verified 12/30/19 14:11 [From Bactrim] Itching trimethoprim [From Bactrim] Allergy Severe Rash and Verified 12/30/19 14:11 Itching Home Medications Home Medications Medication Instructions Recorded Confirmed Type amlodipine [Norvasc] 10 mg PO DAILY@0700 07/12/19 12/30/19 History aripiprazole [Abilify] 10 mg PO DAILY@1900 07/12/19 12/30/19 History aspirin [Aspirin Low Dose] 81 mg PO DAILY@0707/12/19 12/30/19 History metoprolol tartrate 12.5 mg PO BID 07/12/19 12/30/19 History trazodone 150 mg PO DAILY@1900 07/12/19 12/30/19 History benztropine 1 mg PO DAILY@1900 12/30/19 12/30/19 History furosemide 40 mg PO DAILY@0712/30/19 12/30/19 History hydralazine 50 mg PO TID 12/30/19 12/30/19 History losartan 100 mg PO DAILY@69912/30/19 12/30/19 History sertraline 100 mg PO DAILY@19012/30/19 12/30/19 History Patient History Medical History CAD (coronary artery disease) CKD (chronic kidney disease) Depression with anxiety Hx of myocardial infarction Hypertension Lower extremity edema Psychiatric diagnosis Surgical History History of gastric bypass Family History Other No significant family history Pulmonary embolism Social History Preferred Language: [place] Citizen Communication Ability: Effective 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: No Beliefs That Will Affect Care: None marital status: Single Current Living Situation: Other Current Living Situation Comment: Snf current occupational status: 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 Feels Safe at Home: Yes Smoking Status: Never smoker Second Hand Exposure: No ; Hx Alcohol Use: No Hx Substance Use: No Review of Systems Constitutional: no fever, no chills and no anorexia Eyes: no problem reported Ear, Nose, Mouth, Throat: no problem reported Respiratory: no cough and no dyspnea Cardiovascular: + edema; no chest pain, no dyspnea and no palpitations Gastrointestinal: no abdominal pain, no nausea, no vomiting and no problem reported Genitourinary: no dysuria, no hematuria and no flank pain Musculoskeletal: no problem reported Integumentary: no problem reported Neurologic: no problem reported Psychiatric: no problem reported Endocrine: no problem reported Physical Exam Constitutional: well developed; no acute distress Eyes: + anicteric sclerae; no corneal abnormality ENMT: Mouth: no oral mucosal abnormality and oral mucous membranes not dry Neck: normal visual inspection and trachea midline Respiratory: normal respiratory effort Auscultation: lungs clear to auscultation bilaterally; no rales Cardiovascular: Rate/Rhythm: regular rate Heart Sounds: normal S1 and normal S2 Vessels: no JVD Extremities: no edema Gastrointestinal (Abdomen): Percussion/Palpation: abdomen soft; abdomen nontender Musculoskeletal: Extremities: no cyanosis and no clubbing Skin: normal turgor; no lesions Neurologic: Motor/Sensory: no tremor and no asterixis Psychiatric: Orientation: alert and oriented x 3 Results & Data Vital Signs (Past 12 Hours) Vital Signs Temp Pulse Pulse Resp BP BP Pulse Ox 01/03/20 15:11 36.7 C 62 18 146/85 H 96 01/03/20 13:05 148/76 H 01/03/20 07:19 36.7 C 61 20 162/76 H 95 01/03/20 06:17 65 158/97 H 01/03/20 05:08 42 L 141/72 H Laboratory Results Laboratory Results - last 24 hr 01/03/20 01/03/20 01/03/20 08:55 08:55 08:55 WBC 6.50 RBC 4.12 L Hgb 10.5 L Hct 33.1 L MCV 80.3 MCH 25.5 MCHC 31.7 L RDW Std Deviation 56.8 H RDW Coeff of Love 19.2 H Plt Count 172 Immature Gran % (Auto) 1.2 Neut % (Auto) 68.5 Lymph % (Auto) 12.9 [place] % (Auto) 13.1 Eos % (Auto) 3.8 Baso % (Auto) 0.5 Neut # (Auto) 4.45 Lymph # (Auto) 0.84 L [place] # (Auto) 0.85 H Eos # (Auto) 0.25 Baso # (Auto) 0.03 Immature Gran # (Auto) 0.08 H Hypochromasia Present Spherocytes Occasional Echinocytes 2+ Schistocytes Occasional Sodium Cancelled 139 Potassium Cancelled 3.5 Chloride Cancelled 111 H Carbon Dioxide Cancelled 20 L Anion Gap Cancelled 8.0 BUN Cancelled 31 H Creatinine Cancelled 3.07 H Est Cr Clr Drug Dosing Cancelled 35.6 Est GFR ( Amer) Cancelled 24.2 Est GFR (Non-Af Amer) Cancelled 20.8 BUN/Creatinine Ratio Cancelled 10.1 Glucose Cancelled 148 H Calcium Cancelled 8.2 L Iron 29 L Transferrin 222 Transferrin % Sat 9 L Ferritin 38.4 PG Care Time/CCT Total # of Minutes Spent Total Time Spent with Patient: Total time spent is greater than 50% in coordination of care (as documented) at patient's floor/unit and/or counseling patient: Coding Level of Care Code 92901 Inpt Consult Level 4 Diagnoses STEPHANIE (acute kidney injury) N17.9 CKD (chronic kidney disease) N18.9 Hypertension I10
[2020-01-03] MEDS: ACETAMINOPHEN 325 MG TAB PO PRN (19:26)
[2020-01-03] MEDS: BENZTROPINE MESYLATE 1 MG TAB PO SCH (20:42)
[2020-01-03] MEDS: SERTRALINE HCL 100 MG TABLET PO SCH (20:43)
[2020-01-03] MEDS: ARIPiprazole 10 MG TAB PO SCH (20:43)
[2020-01-03] MEDS: TRAZODONE HCL 50 MG TAB PO SCH (22:01)
[2020-01-03] MEDS: SODIUM BICARBONATE 650 MG TAB PO SCH (22:02)
[2020-01-04] MEDS: HydrALAZINE TAB 50 MG TAB PO SCH ×3 (04:40→20:40)
[2020-01-04] MEDS: ENOXAPARIN INJ 40 MG/0.4 ML SYR SQ SCH (07:02)
[2020-01-04] MEDS: ASPIRIN 81 MG ECTAB PO SCH (07:03)
[2020-01-04] MEDS: AMLODIPINE BESYLATE 5 MG TAB PO SCH (07:03)
[2020-01-04] MEDS: IRON SUCROSE 300 MG in SODIUM CHLORIDE 0.9% 250 ML IV SCH (08:36)
[2020-01-04] MEDS: METOPROLOL TARTRATE 25 MG TAB PO SCH ×2 (08:36→20:39)
[2020-01-04] MEDS: SODIUM BICARBONATE 650 MG TAB PO SCH (08:36)
[2020-01-04] MEDS: DOXYCYCLINE HYCLATE 100 MG CAP PO SCH ×2 (08:36→20:42)
[2020-01-04 08:37] LABS: BUN Creatinine Ratio 11.7 (10-20); Calcium 8.4 mg/dl (8.5-10.1); Creatinine Clr Calc Pharmacy 38.5 ml/min; Est GFR (African American) 26.5; Est GFR (Non-African American) 22.9; Magnesium 2.1 mg/dl (1.8-2.4); Potassium 3.8 mmol/L (3.5-5.1)
[2020-01-04 08:48] LABS: Phosphorus 3.9 mg/dl (2.5-4.9); Thyroid Stimulating Hormone 1.64 uIu/ml (0.300-4.500)
[2020-01-04 08:56] LABS: Appearance Urine Clear (Clear); Bilirubin Urine Negative (Negative); Blood Urine Negative (Negative); Color Urine Yellow; Glucose Urine UA Negative (Negative); Ketones Urine Negative (Negative); Leukocyte Esterase Urine Negative (Negative); Nitrite Urine Negative (Negative); Protein Urine Negative (Negative); Specific Gravity Urine 1.012 (1.000-1.030); Urobilinogen Urine Negative (Negative)
[2020-01-04 10:14] LABS: Folate (Folic Acid) 11.42 ng/ml (>5.38)
--- NOTE | 2020-01-04 12:32 | Nephrology Progress Note ---
Date of Service January 04, 2020 Assessment & Plan (1) STEPHANIE (acute kidney injury): Non-oliguric. Consistent with dehydration and ATN. 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 Electrolytes are acceptable. NAGMA can be attributed to acute kidney injury and IV 0.9% NaCl. Oral NaHCO3 1300 mg x 2 doses with improvement. Medication has now been stopped. Will repeat a metabolic profile and urine studies tomorrow morning. BP is acceptable. Volume status controlled. Will plan to resume a low dose of furosemide 20 mg daily tomorrow AM. Losartan held. Medications appropriate for kidney function. (2) CKD (chronic kidney disease): CKD stage III-IV A1. Baseline creatinine 2.0-2.2. Can be attributed to microvascular disease and hypertensive nephrosclerosis. Renal asymmetry may suggest underlying renovascular disease. No additional evaluation necessary at this time. KDIGO staging and classification were reviewed. (3) Hypertension: Continue to hold losartan. Amlodipine likely partially contributing to LE edema. Furosemide to maintain relatively even fluid balance. Will restart furosemide 20 mg daily tomorrow. BP has been acceptable. No changes at this time. Admission and Anticipated Discharge Date Admission Date: December 30, 2019 Subjective No acute events overnight. Garrick feels well this morning. He is breathing comfortably. Appetite good. No edema. No pain. No fevers or chills. Review of Systems Review of Systems: All systems reviewed & are unremarkable except as noted in HPI & below Physical Exam Constitutional: well developed; no acute distress Eyes: + anicteric sclerae; no corneal abnormality ENMT: Mouth: no oral mucosal abnormality and oral mucous membranes not dry Neck: normal visual inspection and trachea midline Respiratory: normal respiratory effort Auscultation: lungs clear to auscultation bilaterally; no rales Cardiovascular: Rate/Rhythm: regular rate Heart Sounds: normal S1 and normal S2 Vessels: no JVD Extremities: no edema Gastrointestinal (Abdomen): Percussion/Palpation: abdomen soft; abdomen nontender Musculoskeletal: Extremities: no cyanosis and no clubbing Skin: normal turgor; no lesions Neurologic: Motor/Sensory: no tremor and no asterixis Psychiatric: Orientation: alert and oriented x 3 Results & Data ([facility]) Vital Signs (Past 12 Hours) Vital Signs Temp Pulse Resp BP Pulse Ox 01/04/20 07:26 36.6 C 56 L 18 154/85 H 95 01/04/20 04:39 63 151/80 H 95 Laboratory Results Laboratory Results - last 24 hr 01/04/20 01/04/20 01/04/20 07:48 07:48 07:48 Sodium 137 Potassium 3.8 Chloride 106 Carbon Dioxide 25 Anion Gap 6.0 BUN 33 H Creatinine 2.84 H Est Cr Clr Drug Dosing 38.5 Est GFR ( Amer) 26.5 Est GFR (Non-Af Amer) 22.9 BUN/Creatinine Ratio 11.7 Glucose 85 Estimat Average Glucose Pending Hemoglobin A1c Pending Calcium 8.4 L Phosphorus 3.9 Magnesium 2.1 Vitamin B12 150 L Folate 11.42 TSH 1.640 Urine Color Urine Appearance Urine pH Ur Specific Lawn Urine Protein Urine Glucose (UA) Urine Ketones Urine Blood Urine Nitrite Urine Bilirubin Urine Urobilinogen Ur Leukocyte Esterase 01/04/20 08:45 Sodium Potassium Chloride Carbon Dioxide Anion Gap BUN Creatinine Est Cr Clr Drug Dosing Est GFR ( Amer) Est GFR (Non-Af Amer) BUN/Creatinine Ratio Glucose Estimat Average Glucose Hemoglobin A1c Calcium Phosphorus Magnesium Vitamin B12 Folate TSH Urine Color Yellow Urine Appearance Clear Urine pH 7.0 Ur Specific Lawn 1.012 Urine Protein Negative Urine Glucose (UA) Negative Urine Ketones Negative Urine Blood Negative Urine Nitrite Negative Urine Bilirubin Negative Urine Urobilinogen Negative Ur Leukocyte Esterase Negative PG Care Time/CCT Total # of Minutes Spent Total Time Spent with Patient: Total time spent is greater than 50% in coordination of care (as documented) at patient's floor/unit and/or counseling patient: Coding Level of Care Code 90898 Subseq Hosp Care Lvl 3 Diagnoses STEPHANIE (acute kidney injury) N17.9 CKD (chronic kidney disease) N18.9 Hypertension I10
--- NOTE | 2020-01-04 17:29 | Hospitalist Progress Note ---
Date of Service January 04, 2020 Assessment & Plan (1) Sepsis: Resolved With leukocytosis, tachypnea, reported fever prior to arrival, and left lower extremity cellulitis, meets criteria for sepsis COVID-19 test was negative. Chest x-ray negative for pneumonia and urinalysis negative for infection. The source of infection is the left lower extremity cellulitis He is allergic to penicillins, cephalosporins, and Bactrim. He has no known history of MRSA however he has been covered for this since admission with daptomycin. Leukocytosis and PCT trended downward, no fevers here, tachypnea resolved -no growth in BCxs, and have since de-escalated abx--> discontinued IV levofloxacin on 12/31 and his IV daptomycin was discontinued on 01/01 -Continue p.o. doxycycline alone times total 10-day course-last dose will be on 01/07 - MRSA nasal swab negative -Follow blood cultures-NGTD -Tylenol as needed for fevers and chills (2) Cellulitis: As above, from the left dorsal foot to the proximal tibia circumferential--> now completely resolved With a history of what sounds like lower extremity edema/venous stasis likely due to obesity Doppler left lower extremity negative for DVT -Continue antibiotics as above (3) STEPHANIE (acute kidney injury): Creatinine up to 3.28 on admission from baseline of 2.2, likely prerenal secondary to dehydration from fevers and sepsis Was improved down to 2.90 with IVFs, but then trended back upward to 3.07 with metabolic acidosis Creatinine improved today down to 2.84 No further dyspnea and is making urine/nonoliguric Renal ultrasound in 06/2019 with medical renal disease Urinalysis is bland Has a history of HTN and prediabetes Appreciate nephrology consultation Received 1 day of sodium bicarbonate and metabolic acidosis is improved -continue to hold home losartan -Held Lasix and now nephrology would like to restart at 20 mg daily in the morning -Follow BMP in the morning -Consult nephrology-appreciated -He will need long-term follow-up with nephrology given his CKD stage III-IV If renal function stable from previous, okay for discharge (4) Dyspnea on exertion: Ongoing despite negative work-up thus far Dyspnea could just be from sepsis and tachypnea. There is no evidence of pulmonary edema or other abnormality on chest x-ray VQ scan without perfusion defects to suggest PE No history of smoking, no history of asthma or COPD. 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 once daily -Follow as an outpatient (7) Dizziness: Likely due to dehydration, but also with bigeminy on ECG Resolved (8) Acute dehydration: As above, resolved (9) CKD (chronic kidney disease): CKD stage III-IV as above Baseline creatinine 2.2, with STEPHANIE as above -Avoid nephrotoxins -renally dose meds when appropriate -follow BMP (10) Chest pain, precordial: Constant x3 days prior to admission, associated with chills and shortness of breath-now improved but still residual With left lower extremity edema but venous Doppler negative for DVT Not hypoxic, not tachycardic, but concerning for PE in the setting of family history of VTE Troponin here is mildly elevated at 0.04/0.05 and then back to normal ECG with sinus rhythm with bigeminy, but no ischemic changes -Started empiric heparin drip while awaiting VQ scan to assess risk for PE as he cannot have a CT angiogram due to chronic kidney disease---> V/Q negative for PE -dcd heparin gtt Had exercise stress echo in 07/2019 which was nondiagnostic due to inability to achieve proper heart rate, however EF was normal at that time and there were no wall motion abnormalities at rest or with exercise Substantial workup for this as above. Recommend outpatient follow up. -We will give trial of Pepcid 20 mg p.o. twice daily for GERD symptoms and also could have anastomotic ulcer from history of gastric bypass (11) CAD (coronary artery disease): With a history of UT treated medically as per patient approximately 7-8 years ago at [facility]. Further details are not known -Continue metoprolol, aspirin -He is not on a statin (12) Hypertension: Blood pressures were elevated here and now improved -Continue home amlodipine, metoprolol, hydralazine -Holding home losartan for STEPHANIE as above -Monitor blood pressures (13) Lower extremity edema: Worse left greater than right currently with infection. Apparently going on for 2 years without a diagnosis. Amlodipine could be contributing to edema Consider decreasing dose of amlodipine (14) Depression with anxiety: Stable Continue home medication with benztropine, Abilify, trazodone, and sertraline (15) Numbness: Left leg only only up to the knee, somewhat improved as edema improved, but still remains - could be from edema and compression of peroneal nerve, is peripheral work on reduction of edema with elevation, treatment of cellulitis (16) Bigeminy: Continued to have frequent bigeminy and PVCs on telemetry and now on examination since being off telemetry -not sure if baseline or due to acute illness -continue metoprolol 12.5 bid, could try to titrate upwards but is with rate in 60s, not sure if would tolerate (17) Anemia: With iron deficiency anemia as well as B12 deficiency anemia, likely secondary to gastric bypass surgery Giving IV Venofer 300 mg IV daily x3 days-last dose will be 01/04 -Giving IM B12 and then p.o. B12 as above -Follow CBC as an outpatient Also likely some component of anemia of chronic kidney disease contributing -Needs outpatient GI work-up with EGD/colonoscopy especially in the setting of history of gastric bypass-could have anastomotic ulcer -Hemoccult stool still pending as not collected (18) DVT prophylaxis: Lovenox 40mg SQ daily Disposition-continued stay for monitoring of renal function Back to residential on Sunday if renal function and electrolytes remain stable Full code Admission and Anticipated Discharge Date Admission Date: December 30, 2019 Subjective Patient feeling okay today. Still having constant mild chest pain. Still having dyspnea with exertion with walking across the room. His leg is back to his baseline chronic pain that he has had for over a year that goes from the hip down the anterior thigh and anterior leg to the foot. He denies any history of lung disease or dyspnea before the last 2 weeks. He reports his last colonoscopy was about 6 years ago and he was supposed to have one 5 years from that time. He had some blood that was maroon-colored in his stool for 3 days a few months back, but otherwise no bleeding rectally, no melena, no hematochezia. Review of Systems Review of Systems: All systems reviewed & are unremarkable except as noted in HPI & below Physical Exam Constitutional: WD/WN, vitals as above + obese Eyes: + anicteric sclerae Neck: trachea midline, no thyromegaly Respiratory: normal respiratory effort, lungs clear to auscultation Cardiovascular: Rate/Rhythm: regular rate and regular rhythm Heart Sounds: + murmur (2/6 diastolic murmur at the right upper sternal border) Extremities: + edema (1+ pitting edema right leg an2+ LLE to knee, much improved) Chest (Breasts): Chest: normal inspection of chest Gastrointestinal (Abdomen): normal bowel sounds, soft, nontender, no hepatosplenomegaly Musculoskeletal: Extremities: no cyanosis and no clubbing Skin: no rashes, warm and dry + erythema (Left leg now with completely resolved erythema) Neurologic: moves all extremities and awake; no focal motor deficits (5/5 strength throughout LEs bilat) Motor/Sensory: + sensory deficit (dec sensation left leg below knee only similar to previous) Psychiatric: A+Ox3, euthymic affect Lymphatic: no lymphedema Results & Data Results & Data ([facility]) Vital Signs (Past 12 Hours) Vital Signs Temp Pulse Pulse Resp BP Pulse Ox 01/04/20 15:19 36.7 C 64 17 137/82 93 01/04/20 13:24 76 119/68 01/04/20 07:26 36.6 C 56 L 18 154/85 H 95 Laboratory Results 01/04/20 01/04/20 01/04/20 Range/Units 08:45 07:48 07:48 Sodium (136-145) mmol/L Potassium (3.5-5.1) mmol/L Chloride (98-107) mmol/L Carbon Dioxide (21-32) mmol/L Anion Gap (3-11) BUN (7-18) mg/dl Creatinine (0.6-1.4) mg/dl Est Cr Clr Drug Dosing ml/min Est GFR ( Amer) Est GFR (Non-Af Amer) BUN/Creatinine Ratio (10-20) Glucose (70-99) mg/dl Estimat Average Glucose Pending Hemoglobin A1c Pending Calcium (8.5-10.1) mg/dl Phosphorus (2.5-4.9) mg/dl Magnesium (1.8-2.4) mg/dl Vitamin B12 150 L (211-911) pg/ml Folate 11.42 (>5.38) ng/ml TSH (0.300-4.500) uIu/ml Urine Color Yellow Urine Appearance Clear (Clear) Urine pH 7.0 (4.5-7.5) Ur Specific [place] 1.012 (1.000-1.030) Urine Protein Negative (Negative) Urine Glucose (UA) Negative (Negative) Urine Ketones Negative (Negative) Urine Blood Negative (Negative) Urine Nitrite Negative (Negative) Urine Bilirubin Negative (Negative) Urine Urobilinogen Negative (Negative) Ur Leukocyte Esterase Negative (Negative) 01/04/20 Range/Units 07:48 Sodium 137 (136-145) mmol/L Potassium 3.8 (3.5-5.1) mmol/L Chloride 106 (98-107) mmol/L Carbon Dioxide 25 (21-32) mmol/L Anion Gap 6.0 (3-11) BUN 33 H (7-18) mg/dl Creatinine 2.84 H (0.6-1.4) mg/dl Est Cr Clr Drug Dosing 38.5 ml/min Est GFR ( Amer) 26.5 Est GFR (Non-Af Amer) 22.9 BUN/Creatinine Ratio 11.7 (10-20) Glucose 85 (70-99) mg/dl Estimat Average Glucose Hemoglobin A1c Calcium 8.4 L (8.5-10.1) mg/dl Phosphorus 3.9 (2.5-4.9) mg/dl Magnesium 2.1 (1.8-2.4) mg/dl Vitamin B12 (211-911) pg/ml Folate (>5.38) ng/ml TSH 1.640 (0.300-4.500) uIu/ml Urine Color Urine Appearance (Clear) Urine pH (4.5-7.5) Ur Specific [place] (1.000-1.030) Urine Protein (Negative) Urine Glucose (UA) (Negative) Urine Ketones (Negative) Urine Blood (Negative) Urine Nitrite (Negative) Urine Bilirubin (Negative) Urine Urobilinogen (Negative) Ur Leukocyte Esterase (Negative) PG Care Time/CCT Total # of Minutes Spent Total Time Spent with Patient: Total time spent is greater than 50% in coordination of care (as documented) at patient's floor/unit and/or counseling patient: Coding Level of Care Code 78134 Subseq Hosp Care Lvl 3 Diagnoses Sepsis A41.9 Sepsis acute organ dysfunction status: unspecified Sepsis type: sepsis due to unspecified organism Cellulitis L03.116 Laterality: left Site of cellulitis: extremity Site of cellulitis of extremity: lower extremity STEPHANIE (acute kidney injury) N17.9 Dyspnea on exertion R06.00 Metabolic acidosis E87.2 B12 deficiency anemia D51.9 Dizziness R42 Acute dehydration E86.0 CKD (chronic kidney disease) N18.9 Chest pain, precordial R07.2 CAD (coronary artery disease) I25.10 Hypertension I10 Lower extremity edema R60.0 Depression with anxiety F41.8 Numbness R20.0 Bigeminy I49.9 Anemia D64.9 DVT prophylaxis Z29.9 (1) Cellulitis Laterality: left Site of cellulitis: extremity Site of cellulitis of extremity: lower extremity Qualified Code(s): L03.116 - Cellulitis of left lower limb (2) Sepsis Sepsis acute organ dysfunction status: unspecified Sepsis type: sepsis due to unspecified organism Qualified Code(s): A41.9 - Sepsis, unspecified organism
[2020-01-04] MEDS: CYANOCOBALAMIN 1000 MCG/ML VIAL IM SCH (17:38)
[2020-01-04] MEDS: FAMOTIDINE 20 MG TAB PO SCH (18:02)
[2020-01-04] MEDS: ARIPiprazole 10 MG TAB PO SCH (19:09)
[2020-01-04] MEDS: SERTRALINE HCL 100 MG TABLET PO SCH (19:09)
[2020-01-04] MEDS: BENZTROPINE MESYLATE 1 MG TAB PO SCH (19:09)
[2020-01-04] MEDS ORDERED: ONDANSETRON INJ 2 MG/ML 2 ML VIAL IV PRN (20:21)
[2020-01-04] MEDS: TRAZODONE HCL 50 MG TAB PO SCH ×2 (20:27→22:03)
[2020-01-05] MEDS: HydrALAZINE TAB 50 MG TAB PO SCH ×3 (04:51→21:03)
[2020-01-05 06:33] LABS: Hematocrit (blood only) 31.4 % (42-52); Hemoglobin 10.2 g/dL (14.0-18.0); Mean Corpuscular Hemoglobin 26.1 pg (25-34); Mean Corpuscular Hgb Conc 32.5 g/dL (32-36); Mean Corpuscular Volume 80.3 fL (80-100); Mean Platelet Volume 11.2 fL (7.4-10.4); Platelet Count 216 K/uL (130-400); RDW Coefficient of Variation 19.1 % (11.5-14.5); RDW Standard Deviation 56.4 fL (36.4-46.3); Red Blood Count 3.91 M/uL (4.7-6.1); White Blood Count 8.62 K/uL (4.8-10.8)
[2020-01-05] MEDS ORDERED: FUROSEMIDE 20 MG TAB PO SCH (07:00)
[2020-01-05 07:04] LABS: BUN Creatinine Ratio 13.2 (10-20); Creatinine Clr Calc Pharmacy 35.6 ml/min; Est GFR (African American) 24.2; Est GFR (Non-African American) 20.8; Potassium 4.2 mmol/L (3.5-5.1)
[2020-01-05 07:22] LABS: Basophils # (auto) 0.04 K/uL (0-0.2); Basophils % (auto) 0.5 %; Eosinophils # (auto) 0.24 K/uL (0-0.5); Eosinophils % (auto) 2.8 %; Immature Granulocytes # (auto) 0.41 K/uL (0.00-0.02); Immature Granulocytes % (auto) 4.8 %; Lymphocytes # (auto) 1.66 K/uL (1.2-3.4); Lymphocytes % (auto) 19.3 %; Monocytes # (auto) 0.96 K/uL (0.11-0.59); Monocytes % (auto) 11.1 %; Neutrophils # (auto) 5.31 K/uL (1.4-6.5); Neutrophils % (auto) 61.5 %
[2020-01-05] MEDS: DOXYCYCLINE HYCLATE 100 MG CAP PO SCH ×2 (07:51→21:05)
[2020-01-05] MEDS: AMLODIPINE BESYLATE 5 MG TAB PO SCH (07:51)
[2020-01-05] MEDS: FUROSEMIDE 20 MG TAB PO SCH (07:52)
[2020-01-05] MEDS: ASPIRIN 81 MG ECTAB PO SCH (07:52)
[2020-01-05] MEDS: ENOXAPARIN INJ 40 MG/0.4 ML SYR SQ SCH (07:52)
[2020-01-05] MEDS: FAMOTIDINE 20 MG TAB PO SCH ×2 (07:53→21:08)
[2020-01-05] MEDS: METOPROLOL TARTRATE 25 MG TAB PO SCH ×2 (07:53→21:05)
[2020-01-05] MEDS: CYANOCOBALAMIN 1000 MCG/ML VIAL IM SCH (07:55)
[2020-01-05] MEDS: IRON SUCROSE 300 MG in SODIUM CHLORIDE 0.9% 250 ML IV SCH (08:27)
[2020-01-05 09:16] LABS: Estimated Average Glucose 120 mg/dl; Hemoglobin A1C 5.8 % (4.5-5.6)
--- NOTE | 2020-01-05 10:20 | Nephrology Progress Note ---
Date of Service January 05, 2020 Assessment & Plan (1) STEPHANIE (acute kidney injury): Non-oliguric. Consistent with dehydration and ATN. No emergent indication for [employer]ATION[employer]. Electrolytes are acceptable. Creatinine stable at 3.0 mg/dL this AM. BP is acceptable. Volume status controlled. Low dose furosemide 20 mg daily resumed this AM. Losartan held. Medications appropriate for kidney function. (2) CKD (chronic kidney disease): CKD stage III-IV A1. Baseline creatinine 2.0-2.2. CKD can be attributed to microvascular disease and hypertensive nephrosclerosis. Renal asymmetry may suggest underlying renovascular disease. No additional evaluation necessary at this time. Importance of close outpatient follow up was stressed this morning. (3) Hypertension: Continue to hold losartan. Amlodipine likely partially contributing to LE edema. Furosemide to maintain relatively even fluid balance. BP has been acceptable. Close monitoring post discharge will be necessary. Admission and Anticipated Discharge Date Admission Date: December 30, 2019 Subjective No acute events overnight. Garrick feels well this morning. He is breathing comfortably. Appetite good. No edema. No pain. No fevers or chills. Reports some discomfort down the side of his right leg. Review of Systems Review of Systems: All systems reviewed & are unremarkable except as noted in HPI & below Physical Exam Constitutional: well developed; no acute distress Eyes: + anicteric sclerae; no corneal abnormality ENMT: Mouth: no oral mucosal abnormality and oral mucous membranes not dry Neck: normal visual inspection and trachea midline Respiratory: normal respiratory effort Auscultation: lungs clear to auscultation bilaterally; no rales Cardiovascular: Rate/Rhythm: regular rate Heart Sounds: normal S1 and normal S2 Vessels: no JVD Extremities: no edema Gastrointestinal (Abdomen): Percussion/Palpation: abdomen soft; abdomen nontender Musculoskeletal: Extremities: no cyanosis and no clubbing Skin: normal turgor; no lesions Neurologic: Motor/Sensory: no tremor and no asterixis Psychiatric: Orientation: alert and oriented x 3 Results & Data ([facility]) Vital Signs (Past 12 Hours) Vital Signs Temp Pulse Pulse Resp BP BP Pulse Ox 01/05/20 07:03 36.5 C 71 18 132/81 93 01/05/20 04:09 36.6 C 63 16 111/64 94 01/04/20 23:37 36.8 C 44 L 15 93/50 L 94 Laboratory Results Laboratory Results - last 24 hr 01/04/20 01/05/20 01/05/20 07:48 05:25 05:25 WBC 8.62 RBC 3.91 L Hgb 10.2 L Hct 31.4 L MCV 80.3 MCH 26.1 MCHC 32.5 RDW Std Deviation 56.4 H RDW Coeff of Love 19.1 H Plt Count 216 MPV 11.2 H Immature Gran % (Auto) 4.8 Neut % (Auto) 61.5 Lymph % (Auto) 19.3 [place] % (Auto) 11.1 Eos % (Auto) 2.8 Baso % (Auto) 0.5 Neut # (Auto) 5.31 Lymph # (Auto) 1.66 [place] # (Auto) 0.96 H Eos # (Auto) 0.24 Baso # (Auto) 0.04 Immature Gran # (Auto) 0.41 H Sodium 140 Potassium 4.2 Chloride 108 H Carbon Dioxide 24 Anion Gap 7.0 BUN 40 H Creatinine 3.07 H Est Cr Clr Drug Dosing 35.6 Est GFR ( Amer) 24.2 Est GFR (Non-Af Amer) 20.8 BUN/Creatinine Ratio 13.2 Glucose 80 Estimat Average Glucose 120 Hemoglobin A1c 5.8 H Calcium 8.0 L PG Care Time/CCT Total # of Minutes Spent Total Time Spent with Patient: Total time spent is greater than 50% in coordination of care (as documented) at patient's floor/unit and/or counseling patient: Coding Level of Care Code 15365 Subseq Hosp Care Lvl 3 Diagnoses STEPHANIE (acute kidney injury) N17.9 CKD (chronic kidney disease) N18.9 Hypertension I10
--- NOTE | 2020-01-05 15:03 | Electrocardiogram Report ---
Test Reason : Blood Pressure : / mmHG Vent. Rate : 073 BPM Atrial Rate : 073 BPM P-R Int : 194 ms QRS Dur : 116 ms QT Int : 404 ms P-R-T Axes : 046 060 -01 degrees QTc Int : 445 ms Sinus rhythm with frequent Premature ventricular complexes in a pattern of bigeminy Abnormal ECG When compared with ECG of 30-DEC-2019 11:37, No significant change was found Confirmed by Cuco Burk ([id number] on 01/05/2020 3:03:25 PM Referred By: REFERRED SELF Confirmed By:Cuco Burk
--- NOTE | 2020-01-05 16:34 | Hospitalist Progress Note ---
Date of Service January 05, 2020 Assessment & Plan (1) Sepsis: Resolved With leukocytosis, tachypnea, reported fever prior to arrival, and left lower extremity cellulitis, meets criteria for sepsis COVID-19 test was negative. Chest x-ray negative for pneumonia and urinalysis negative for infection. The source of infection is the left lower extremity cellulitis He is allergic to penicillins, cephalosporins, and Bactrim. He has no known history of MRSA however he has been covered for this since admission with daptomycin. Leukocytosis and PCT trended downward, no fevers here, tachypnea resolved WBC only 8k today, no redness in left leg -no growth in BCxs, and have since de-escalated abx--> discontinued IV levofloxacin on 12/31 and his IV daptomycin was discontinued on 01/01 -Continue p.o. doxycycline alone times total 10-day course-last dose will be on 01/07 - MRSA nasal swab negative -Follow blood cultures-NGTD -Tylenol as needed for fevers and chills plan to d/c tomorrow on Doxy (2) Cellulitis: As above, from the left dorsal foot to the proximal tibia circumferential--> now completely resolved With a history of what sounds like lower extremity edema/venous stasis likely due to obesity Doppler left lower extremity negative for DVT -Continue antibiotics as above, last dose 01/07 (3) STEPHANIE (acute kidney injury): Creatinine up to 3.28 on admission from baseline of 2.2, likely prerenal secondary to dehydration from fevers and sepsis Was improved down to 2.90 with IVFs, but then trended back upward to 3.07 with metabolic acidosis Creatinine improved again to 2.8 but now back up to 3.07 again, BUN is 40, electrolytes stable No further dyspnea and is making urine/nonoliguric Renal ultrasound in 06/2019 with medical renal disease Urinalysis is bland Has a history of HTN and prediabetes Appreciate nephrology consultation Received 1 day of sodium bicarbonate and metabolic acidosis is resolved -continue to hold home losartan -continue with Lasix 20mg daily for fluid balance -Follow BMP in the morning -Consult nephrology-appreciated -He will need long-term follow-up with nephrology given his CKD stage III-IV check BMP, likely for d/c tomorrow as long as Cr is stable (4) Dyspnea on exertion: Ongoing despite negative work-up thus far Dyspnea could just be from sepsis and tachypnea. There is no evidence of pulmonary edema or other abnormality on chest x-ray VQ scan without perfusion defects to suggest PE No history of smoking, no history of asthma or COPD. 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 once daily -Follow as an outpatient (7) Dizziness: Likely due to dehydration, but also with bigeminy on ECG Resolved (8) Acute dehydration: As above, resolved (9) CKD (chronic kidney disease): CKD stage III-IV as above Baseline creatinine 2.2, with STEPHANIE as above -Avoid nephrotoxins -renally dose meds when appropriate -follow BMP (10) Chest pain, precordial: Constant x3 days prior to admission, associated with chills and shortness of breath-now improved but still residual With left lower extremity edema but venous Doppler negative for DVT Not hypoxic, not tachycardic, but concerning for PE in the setting of family history of VTE Troponin here is mildly elevated at 0.04/0.05 and then back to normal ECG with sinus rhythm with bigeminy, but no ischemic changes -Started empiric heparin drip while awaiting VQ scan to assess risk for PE as he cannot have a CT angiogram due to chronic kidney disease---> V/Q negative for PE -dcd heparin gtt Had exercise stress echo in 07/2019 which was nondiagnostic due to inability to achieve proper heart rate, however EF was normal at that time and there were no wall motion abnormalities at rest or with exercise Substantial workup for this as above. Recommend outpatient follow up. -We will give trial of Pepcid 20 mg p.o. twice daily for GERD symptoms and also could have anastomotic ulcer from history of gastric bypass also, pain is reproducible, likely muscular (11) CAD (coronary artery disease): With a history of [place] treated medically as per patient approximately 7-8 years ago at [facility]. Further details are not known -Continue metoprolol, aspirin -He is not on a statin (12) Hypertension: Blood pressures were elevated here and now improved -Continue home amlodipine, metoprolol, hydralazine -Holding home losartan for STEPHANIE as above -Monitor blood pressures, stable today (13) Lower extremity edema: Worse left greater than right currently with infection. Apparently going on for 2 years without a diagnosis. Amlodipine could be contributing to edema Consider decreasing dose of amlodipine (14) Depression with anxiety: Stable Continue home medication with benztropine, Abilify, trazodone, and sertraline (15) Numbness: Left leg only only up to the knee, somewhat improved as edema improved, but still remains - could be from edema and compression of peroneal nerve, is peripheral work on reduction of edema with elevation, treatment of cellulitis (16) Bigeminy: Continued to have frequent bigeminy and PVCs on telemetry and now on examination since being off telemetry -not sure if baseline or due to acute illness -continue metoprolol 12.5 bid, could try to titrate upwards but is with rate in 60s, not sure if would tolerate (17) Anemia: With iron deficiency anemia as well as B12 deficiency anemia, likely secondary to gastric bypass surgery Giving IV Venofer 300 mg IV daily x3 days-last dose will be 01/04 -Giving IM B12 and then p.o. B12 as above -Follow CBC as an outpatient Also likely some component of anemia of chronic kidney disease contributing -Needs outpatient GI work-up with EGD/colonoscopy especially in the setting of history of gastric bypass-could have anastomotic ulcer -Hemoccult stool -- NEGATIVE (18) DVT prophylaxis: Lovenox 40mg SQ daily Disposition-continued stay for monitoring of renal function discharge to [facility] tomorrow if Cr is stable Full code Admission and Anticipated Discharge Date Admission Date: December 30, 2019 Subjective patient feeling well, says that his left foot feels better still gets some pains across left side of chest but it is reproducible he is picking at his food, eats okay, he had a BM today, making urine discussed with nephrology, appreciate their recommendations reviewed labs, Cr up again slightly at 3.07 plan to repeat tomorrow likely for d/c back to [facility] tomorrow as long as Cr remains stable, even if it is elevated Review of Systems Review of Systems: All systems reviewed & are unremarkable except as noted in HPI & below Respiratory: no cough and no dyspnea Cardiovascular: + chest pain (left sided, ribs tender); no dyspnea on exertion, no palpitations, no syncope and no edema Gastrointestinal: no abdominal pain, no nausea, no vomiting, no constipation and no diarrhea/loose stools Musculoskeletal: + joint pain (left foot) Physical Exam Constitutional: WD/WN, vitals as above Eyes: PERRL, conjunctivae normal, anicteric sclerae ENMT: external ear and nose normal, oropharynx normal Neck: trachea midline, no thyromegaly Respiratory: normal respiratory effort, lungs clear to auscultation Cardiovascular: RRR, no murmur, no edema Chest (Breasts): Chest: normal inspection of chest (left lower ribs tender to palpation) Gastrointestinal (Abdomen): normal bowel sounds, soft, nontender, no hepatosplenomegaly Musculoskeletal: no cyanosis or clubbing, extremities motor strength 5/5 Skin: no rashes, warm and dry Neurologic: patellar DTR's 2+ bilat, sensation intact and PERRL, EOMI, accommodation nl, no face palsy, no dysarthria Psychiatric: A+Ox3, euthymic affect Lymphatic: no cervical or axillary lymphadenopathy Results & Data Results & Data ([facility]) Vital Signs (Past 12 Hours) Vital Signs Temp Pulse Resp BP BP Pulse Ox 01/05/20 15:28 36.7 C 46 L 18 128/72 96 01/05/20 07:03 36.5 C 71 18 132/81 93 Laboratory Results Laboratory Results - last 24 hr 01/04/20 01/05/20 01/05/20 07:48 05:25 05:25 WBC 8.62 RBC 3.91 L Hgb 10.2 L Hct 31.4 L MCV 80.3 MCH 26.1 MCHC 32.5 RDW Std Deviation 56.4 H RDW Coeff of Love 19.1 H Plt Count 216 MPV 11.2 H Immature Gran % (Auto) 4.8 Neut % (Auto) 61.5 Lymph % (Auto) 19.3 Carlton % (Auto) 11.1 Eos % (Auto) 2.8 Baso % (Auto) 0.5 Neut # (Auto) 5.31 Lymph # (Auto) 1.66 Carlton # (Auto) 0.96 H Eos # (Auto) 0.24 Baso # (Auto) 0.04 Immature Gran # (Auto) 0.41 H Sodium 140 Potassium 4.2 Chloride 108 H Carbon Dioxide 24 Anion Gap 7.0 BUN 40 H Creatinine 3.07 H Est Cr Clr Drug Dosing 35.6 Est GFR ( Amer) 24.2 Est GFR (Non-Af Amer) 20.8 BUN/Creatinine Ratio 13.2 Glucose 80 Estimat Average Glucose 120 Hemoglobin A1c 5.8 H Calcium 8.0 L Stool Occult Bld Scrn 01/05/20 Unknown WBC RBC Hgb Hct MCV MCH MCHC RDW Std Deviation RDW Coeff of Love Plt Count MPV Immature Gran % (Auto) Neut % (Auto) Lymph % (Auto) Carlton % (Auto) Eos % (Auto) Baso % (Auto) Neut # (Auto) Lymph # (Auto) Carlton # (Auto) Eos # (Auto) Baso # (Auto) Immature Gran # (Auto) Sodium Potassium Chloride Carbon Dioxide Anion Gap BUN Creatinine Est Cr Clr Drug Dosing Est GFR ( Amer) Est GFR (Non-Af Amer) BUN/Creatinine Ratio Glucose Estimat Average Glucose Hemoglobin A1c Calcium Stool Occult Bld Scrn Negative Medications Administered Current Inpatient Medications Acetaminophen (Tylenol) 650 mg PO Q4H PRN PRN Reason: Pain or Fever Stop: 01/29/20 19:45 Last Admin: 01/03/20 19:26 Dose: 650 mg Documented by: Albuterol (Ventolin Hfa) 2 puffs INH Q6 PRN; Protocol PRN Reason: shortness of breath Stop: 02/03/20 17:59 Amlodipine Besylate (Norvasc) 10 mg PO DAILY@0700 [facility] Stop: 01/30/20 06:59 Last Admin: 01/05/20 07:51 Dose: 10 mg Documented by: Aripiprazole (Abilify) 10 mg PO DAILY@1900 [facility] Stop: 01/29/20 19:45 Last Admin: 01/04/20 19:09 Dose: 10 mg Documented by: Aspirin (Ecotrin Ectab) 81 mg PO DAILY@0700 [facility] Stop: 01/30/20 06:59 Last Admin: 01/05/20 07:52 Dose: 81 mg Documented by: Benztropine Mesylate (Cogentin) 1 mg PO DAILY@1900 [facility] Stop: 01/29/20 19:45 Last Admin: 01/04/20 19:09 Dose: 1 mg Documented by: Cyanocobalamin (Vitamin B-12) 500 mcg PO QAM [facility] Stop: 02/05/20 08:59 Doxycycline Hyclate (Vibramycin) 100 mg PO BID [facility] Stop: 01/07/20 11:59 Last Admin: 01/05/20 07:51 Dose: 100 mg Documented by: Enoxaparin Sodium (Lovenox) 40 mg SQ Q24H [facility] Stop: 01/31/20 07:59 Last Admin: 01/05/20 07:52 Dose: 40 mg Documented by: Famotidine (Pepcid) 20 mg PO BID [facility] Stop: 02/03/20 17:29 Last Admin: 01/05/20 07:53 Dose: 20 mg Documented by: Furosemide (Lasix) 20 mg PO DAILY@0700 [facility] Stop: 02/04/20 06:59 Last Admin: 01/05/20 07:52 Dose: 20 mg Documented by: Hydralazine HCl (Apresoline) 50 mg PO Q8H [facility] Stop: 01/29/20 20:59 Last Admin: 01/05/20 13:01 Dose: 50 mg Documented by: Iron Sucrose 300 mg/ Sodium (Chloride) 265 mls @ 176.667 mls/hr IV DAILY [facility] Stop: 01/06/20 15:14 Last Infusion: 01/05/20 10:01 Dose: Infused Documented by: Metoprolol Tartrate (Lopressor) 12.5 mg PO BID [facility] Stop: 01/29/20 20:59 Last Admin: 01/05/20 07:53 Dose: 12.5 mg Documented by: Ondansetron HCl (Zofran) 4 mg IV Q6H PRN PRN Reason: Nausea Stop: 02/03/20 20:20 Last Admin: 01/04/20 20:31 Dose: 4 mg Documented by: Sertraline HCl (Zoloft) 100 mg PO DAILY@1900 [facility] Stop: 01/29/20 19:45 Last Admin: 01/04/20 19:09 Dose: 100 mg Documented by: Trazodone HCl (Desyrel) 150 mg PO DAILY@2200 [facility] Stop: 02/03/20 21:59 Last Admin: 01/04/20 22:03 Dose: 150 mg Documented by: PG Care Time/CCT Total # of Minutes Spent Total Time Spent with Patient: Total time spent is greater than 50% in coordination of care (as documented) at patient's floor/unit and/or counseling patient: Coding Level of Care Code 11261 Subseq Hosp Care Lvl 2 Diagnoses Sepsis A41.9 Sepsis acute organ dysfunction status: unspecified Sepsis type: sepsis due to unspecified organism Cellulitis L03.116 Laterality: left Site of cellulitis: extremity Site of cellulitis of extremity: lower extremity STEPHANIE (acute kidney injury) N17.9 Dyspnea on exertion R06.00 Metabolic acidosis E87.2 B12 deficiency anemia D51.9 Dizziness R42 Acute dehydration E86.0 CKD (chronic kidney disease) N18.9 Chest pain, precordial R07.2 CAD (coronary artery disease) I25.10 Hypertension I10 Lower extremity edema R60.0 Depression with anxiety F41.8 Numbness R20.0 Bigeminy I49.9 Anemia D64.9 DVT prophylaxis Z29.9 (1) Cellulitis Laterality: left Site of cellulitis: extremity Site of cellulitis of extremity: lower extremity Qualified Code(s): L03.116 - Cellulitis of left lower limb (2) Sepsis Sepsis acute organ dysfunction status: unspecified Sepsis type: sepsis due to unspecified organism Qualified Code(s): A41.9 - Sepsis, unspecified organism
[2020-01-05] MEDS: ALBUTEROL HFA 8 GM INHALER INH PRN (18:25)
[2020-01-05] MEDS: ARIPiprazole 10 MG TAB PO SCH (18:48)
[2020-01-05] MEDS: BENZTROPINE MESYLATE 1 MG TAB PO SCH (18:48)
[2020-01-05] MEDS: SERTRALINE HCL 100 MG TABLET PO SCH (18:48)
[2020-01-05] MEDS: TRAZODONE HCL 50 MG TAB PO SCH (21:10)
[2020-01-06] MEDS: ACETAMINOPHEN 325 MG TAB PO PRN ×2 (05:12→09:41)
--- NOTE | 2020-01-06 05:36 | Communication Note ---
Date of Service: January 06, 2020 Notified by nursing that Garrick fell while getting out of bed, while he was still shackled to bed. Two guards both witnessed fall. He fell forward onto the red trash bin, which broke the fall, then rolled onto the floor onto his left shoulder. He did not hit his head. There was no scalp tenderness or visual signs of injury. He notes feeling at baseline. He notes a generalized headache but denies hitting his head or having any head/facial injury.
[2020-01-06] MEDS: HydrALAZINE TAB 50 MG TAB PO SCH ×2 (05:53→12:52)
[2020-01-06] MEDS: FUROSEMIDE 20 MG TAB PO SCH (05:54)
[2020-01-06] MEDS: AMLODIPINE BESYLATE 5 MG TAB PO SCH (05:54)
[2020-01-06] MEDS: ASPIRIN 81 MG ECTAB PO SCH (05:54)
[2020-01-06 06:21] LABS: BUN Creatinine Ratio 13.1 (10-20); Calcium 7.9 mg/dl (8.5-10.1); Creatinine Clr Calc Pharmacy 36.9 ml/min; Est GFR (African American) 25.2; Est GFR (Non-African American) 21.8; Potassium 4.5 mmol/L (3.5-5.1)
[2020-01-06 08:29] VITALS: TEMP 97.5
[2020-01-06] MEDS: ALBUTEROL HFA 8 GM INHALER INH PRN ×2 (08:40→16:21)
[2020-01-06] MEDS ORDERED: CYANOCOBALAMIN 500 MCG TABLET (VITAMIN B-12) PO SCH (09:00)
[2020-01-06] MEDS: DOXYCYCLINE HYCLATE 100 MG CAP PO SCH (09:36)
[2020-01-06] MEDS: ENOXAPARIN INJ 40 MG/0.4 ML SYR SQ SCH (09:37)
[2020-01-06] MEDS: METOPROLOL TARTRATE 25 MG TAB PO SCH (09:37)
[2020-01-06] MEDS: IRON SUCROSE 300 MG in SODIUM CHLORIDE 0.9% 250 ML IV SCH (09:38)
[2020-01-06] MEDS: FAMOTIDINE 20 MG TAB PO SCH (09:41)
[2020-01-06 10:21] VITALS: BP 125/77
--- NOTE | 2020-01-06 12:33 | Nephrology Progress Note ---
Date of Service January 06, 2020 Assessment & Plan (1) STEPHANIE (acute kidney injury): Non-oliguric. Consistent with dehydration and ATN. No emergent indication for CIGAR BANDER HAND. Electrolytes are acceptable. Creatinine stable at 3.0 mg/dL this AM. BP is acceptable. Volume status controlled. Continue low dose furosemide 20 mg daily. Losartan held. Medications appropriate for kidney function. Close outpatient follow up will be essential. Garrick is welcome to come to the clinic to see me post-discharge, unless another arrangement or telehealth service can be arranged through the alf (2) CKD (chronic kidney disease): CKD stage III-IV A1. Baseline creatinine 2.0-2.2. CKD can be attributed to microvascular disease and hypertensive nephrosclerosis. Renal asymmetry may suggest underlying renovascular disease. No additional evaluation necessary at this time. Importance of close outpatient follow up was stressed this morning. (3) Hypertension: Continue to hold losartan. Amlodipine likely partially contributing to LE edema. Furosemide to maintain relatively even fluid balance. BP has been acceptable. Close monitoring post discharge will be necessary. Admission and Anticipated Discharge Date Admission Date: December 30, 2019 Subjective Fall from bed noted overnight. Garrick was in the bathroom this morning. He denied any concerns but states that he still felt weak. Appetite is good. No fevers or chills. Review of Systems Review of Systems: All systems reviewed & are unremarkable except as noted in HPI & below Physical Exam Physical Exam: Deferred due to COVID 19 pandemic Results & Data ([facility] Vital Signs (Past 12 Hours) Vital Signs Temp Pulse Pulse Resp BP BP Pulse Ox 01/06/20 10:20 69 16 125/77 94 01/06/20 09:45 75 18 123/73 95 01/06/20 08:28 36.4 C L 54 L 17 127/79 96 01/06/20 05:08 36.7 C 54 L 16 146/86 H 94 01/06/20 04:35 36.7 C 59 L 16 158/84 H 97 Laboratory Results Laboratory Results - last 24 hr 01/06/20 05:35 Sodium 138 Potassium 4.5 Chloride 110 H Carbon Dioxide 20 L Anion Gap 8.0 BUN 39 H Creatinine 2.96 H Est Cr Clr Drug Dosing 36.9 Est GFR ( Amer) 25.2 Est GFR (Non-Af Amer) 21.8 BUN/Creatinine Ratio 13.1 Glucose 79 Calcium 7.9 L Specimen Hemolysis PG Care Time/CCT Total # of Minutes Spent Total Time Spent with Patient: Total time spent is greater than 50% in coordination of care (as documented) at patient's floor/unit and/or counseling patient: Coding Level of Care Code 40816 Subseq Hosp Care Lvl 3 Diagnoses STEPHANIE (acute kidney injury) N17.9 CKD (chronic kidney disease) N18.9 Hypertension I10
--- NOTE | 2020-01-06 14:09 | Discharge Summary ---
Date of Service January 06, 2020 Admission HPI Per Admitting Provider This patient is a 59-year-old male with a history of CAD, CKD, Anxiety/Depression with other unspecified psychiatric disorders, who presents from the shelter with 3 days of chills, dyspnea, lightheadedness, and left lower extremity swelling and redness with pain. He reports his legs are frequently swollen but not as swollen as they are currently, and the left leg is always little more swollen than the right leg. He also reports substernal chest pain that has been constant for the last 3 days since he has been having the chills. He did fall 3 times in his cell since he has been sick due to generalized weakness. At the shelter, he was noted to have a fever of 100.6. There are no reported cases of COVID at the shelter where he resides, and his COVID test in the ER was negative. In the ER, he was found to have a leukocytosis of 18 K, and mild acute kidney injury with creatinine 3.28 from baseline of 2.2, his procalcitonin was significantly elevated at 15.4, lactate was normal, urinalysis was negative, chest x-ray was negative, and a left lower extremity venous Doppler was negative for DVT. An ECG showed normal sinus rhythm and PVCs in the pattern of bigeminy. Blood cultures were drawn and he was given 1 dose of IV Levaquin and 1 dose of IV vancomycin for a left lower extremity cellulitis discovered on physical examination. He will be admitted for sepsis due to left lower extremity cellulitis Principal Diagnosis Sepsis due to cellulitis Discharge Exam Constitutional WD/WN, vitals as above Eyes PERRL, conjunctivae normal, anicteric sclerae ENMT external ear and nose normal, oropharynx normal Neck trachea midline, no thyromegaly Respiratory normal respiratory effort, lungs clear to auscultation Cardiovascular RRR, no murmur, no edema Chest (Breasts) Chest: normal inspection of chest (left lower ribs tender to palpation) Gastrointestinal (Abdomen) normal bowel sounds, soft, nontender, no hepatosplenomegaly Musculoskeletal no cyanosis or clubbing, extremities motor strength 5/5 Skin no rashes, warm and dry Neurologic patellar DTR's 2+ bilat, sensation intact and PERRL, EOMI, accommodation nl, no face palsy, no dysarthria Psychiatric A+Ox3, euthymic affect Lymphatic no cervical or axillary lymphadenopathy Discharge Data Allergies Allergy/AdvReac Type Severity Reaction Status Date / Time VIK Inhibitors Allergy Severe Rash and Verified 12/30/19 14:11 Itching Cephalosporins Allergy Severe Rash and Verified 07/12/19 15:56 Itching Penicillins Allergy Severe Rash and Verified 07/12/19 15:56 Itching sulfamethoxazole Allergy Severe Rash and Verified 12/30/19 14:11 [From Bactrim] Itching trimethoprim [From Bactrim] Allergy Severe Rash and Verified 12/30/19 14:11 Itching Consultations 12/30/19 15:09 ED Decision to Admit Stat 01/03/20 14:06 Consult Nephrology Routine Ordered Studies 12/30/19 10:39 US venous doppler LE Stat Hospital Course (1) Sepsis: Resolved With leukocytosis, tachypnea, reported fever prior to arrival, and left lower extremity cellulitis, meets criteria for sepsis COVID-19 test was negative. Chest x-ray negative for pneumonia and urinalysis negative for infection. The source of infection is the left lower extremity cellulitis He is allergic to penicillins, cephalosporins, and Bactrim. He has no known history of MRSA however he has been covered for this since admission with daptomycin. Leukocytosis and PCT trended downward, no fevers here, tachypnea resolved WBC only 8k, no redness in left leg -no growth in BCxs, and have since de-escalated abx--> discontinued IV levofloxacin on 12/31 and his IV daptomycin was discontinued on 01/01 -Continue p.o. doxycycline alone times total 10-day course-last dose will be on 01/07 - MRSA nasal swab negative -Follow blood cultures-NGTD -Tylenol as needed for fevers and chills d/c back to [facility], spoke with physician at [facility] prior to discharge (2) Cellulitis: As above, from the left dorsal foot to the proximal tibia circumferential--> now completely resolved With a history of what sounds like lower extremity edema/venous stasis likely due to obesity Doppler left lower extremity negative for DVT -Continue antibiotics as above, last dose 01/07 (3) STEPHANIE (acute kidney injury): Creatinine up to 3.28 on admission from baseline of 2.2, likely prerenal secondary to dehydration from fevers and sepsis Was improved down to 2.90 with IVFs, but then trended back upward to 3.07 with metabolic acidosis Creatinine has been between 2.8 and 3.07 the past four days No further dyspnea and is making urine/nonoliguric Renal ultrasound in 06/2019 with medical renal disease Urinalysis is bland Has a history of HTN and prediabetes Appreciate nephrology consultation Received 1 day of sodium bicarbonate and metabolic acidosis is resolved -continue to hold home losartan on discharge -continue with Lasix 20mg daily for fluid balance recommend repeat BMP later this week follow up with nephrology in 2 weeks physician at [facility] said that they can arrange for tele visit (4) Dyspnea on exertion: Ongoing despite negative work-up thus far Dyspnea could just be from sepsis and tachypnea. There is no evidence of pulmonary edema or other abnormality on chest x-ray VQ scan without perfusion defects to suggest PE No history of smoking, no history of asthma or COPD. 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 once daily -Follow as an outpatient (7) Dizziness: Likely due to dehydration, but also with bigeminy on ECG Resolved (8) Acute dehydration: As above, resolved (9) CKD (chronic kidney disease): CKD stage III-IV as above Baseline creatinine 2.2, with STEPHANIE as above -Avoid nephrotoxins -renally dose meds when appropriate -follow BMP (10) Chest pain, precordial: Constant x3 days prior to admission, associated with chills and shortness of breath-now improved but still residual With left lower extremity edema but venous Doppler negative for DVT Not hypoxic, not tachycardic, but concerning for PE in the setting of family history of VTE Troponin here is mildly elevated at 0.04/0.05 and then back to normal ECG with sinus rhythm with bigeminy, but no ischemic changes -Started empiric heparin drip while awaiting VQ scan to assess risk for PE as he cannot have a CT angiogram due to chronic kidney disease---> V/Q negative for PE -dcd heparin gtt Had exercise stress echo in 07/2019 which was nondiagnostic due to inability to achieve proper heart rate, however EF was normal at that time and there were no wall motion abnormalities at rest or with exercise Substantial workup for this as above. Recommend outpatient follow up. -We will give trial of Pepcid 20 mg p.o. twice daily for GERD symptoms and also could have anastomotic ulcer from history of gastric bypass also, pain is reproducible, likely muscular (11) CAD (coronary artery disease): With a history of [place] treated medically as per patient approximately 7-8 years ago at [facility]. Further details are not known -Continue metoprolol, aspirin -He is not on a statin (12) Hypertension: Blood pressures were elevated here and now improved -Continue home amlodipine, metoprolol, hydralazine -Holding home losartan for STEPHANIE as above -Monitor blood pressures, stable today (13) Lower extremity edema: Worse left greater than right currently with infection. Apparently going on for 2 years without a diagnosis. Amlodipine could be contributing to edema Consider decreasing dose of amlodipine (14) Depression with anxiety: Stable Continue home medication with benztropine, Abilify, trazodone, and sertraline (15) Numbness: Left leg only only up to the knee, somewhat improved as edema improved, but still remains - could be from edema and compression of peroneal nerve, is peripheral work on reduction of edema with elevation, treatment of cellulitis (16) Bigeminy: Continued to have frequent bigeminy and PVCs on telemetry and now on examination since being off telemetry -not sure if baseline or due to acute illness -continue metoprolol 12.5 bid, could try to titrate upwards but is with rate in 60s, not sure if would tolerate (17) Anemia: With iron deficiency anemia as well as B12 deficiency anemia, likely secondary to gastric bypass surgery Giving IV Venofer 300 mg IV daily x3 days-last dose will be 01/04 -Giving IM B12 and then p.o. B12 as above -Follow CBC as an outpatient Also likely some component of anemia of chronic kidney disease contributing -Needs outpatient GI work-up with EGD/colonoscopy especially in the setting of history of gastric bypass-could have anastomotic ulcer -Hemoccult stool -- NEGATIVE (18) DVT prophylaxis: Lovenox 40mg SQ daily Total Time Total Time Spent Total Time Spent (In Minutes): 32 minutes Total Time Includes: Examination of the Patient, Discharge Planning, Medication Reconciliation, Communication With Other Providers (Dr. Borja) and Other (spoke with accepting physician at [facility]) Discharge Plan Discharge Items [facility] Reason For Visit: SEPSIS,CELLULITIS Discharge Diagnosis: Cellulitis Acute kidney injury on CKD stage II Condition on Discharge: Good Goals: follow up closely with BMP at the end of the week and next week follow [place] [facility] [place] 2 [place] finish course of antibiotics for cellulitis Activity: Resume your previous activity Weightbearing: Full weightbearing Non-emergency contact: Primary Care Provider and General Purchasing Agent Call non-emergency contact if: you have any medication questions and your symptoms worsen Follow-up/Referrals: [place] Borja DO [Physician] - (2 weeks) [facility] [Primary Care Provider] - (one week) Diet: Heart Healthy Ambulatory Orders: Basic Metabolic Panel (Routine) Timeframe: 3 Days Location: Determined by Patient Ordered By: Ruy Siu Attending Provider Instructions: Medications: - LASIX: reduced to 20mg daily - DOXYCYCLINE: take for 5 more doses for treatment of cellulitis, next dose is due this evening - LOSARTAN: continue to HOLD this medication due to STEPHANIE, blood pressure has been stable off of it Cellulitis, sepsis improved with IV fluids and IV antibiotics redness completely resolved in left leg, vitals stable, no fever, WBC normal converted to Doxy 100mg BID a few days ago, will complete 10 days total, last day 01/07 Acute kidney injury on CKD stage III past four days Cr has ranged between 2.8 and 3.0, stable, making urine, electrolytes stable will need close follow up with nephrology in two weeks, Dr. Borja, call for appt check BMP on Sunday and send results to Dr. Borja, would check BMP again early next week continue to hold Losartan, dose of Lasix reduced to 20mg Chest pain, left side, reproducible no evidence of ACS V/Q scan done since CTA chest not possible with STEPHANIE, V/Q with no evidence of perfusion deficit, low probability of PE trial of Pepcid BID but no change in pain likely muscular as left ribs tender with palpation and pain is fairly constant Pending Studies at Discharge: No Stand-Alone Forms: My [facility] Skilled Items Patient informed of condition?: Yes Discharge Level of Care: Other Communicable Disease: No Discharge Prognosis: Stable Lines: None Urinary Catheter: No Medications and DC Order Prescriptions: New albuterol sulfate [Ventolin HFA] 90 mcg/actuation Hfa Aerosol Inhaler 2 puff inhalation Q6 PRN (Reason: shortness of breath or wheezing) 3 Days Qty: 8.5 RF: 1 cyanocobalamin (vitamin B-12) 500 mcg Tablet 500 mcg PO QAM 30 Days Qty: 30 RF: 3 furosemide 20 mg Tablet 20 mg PO DAILY@0700 30 Days Qty: 30 RF: 0 Continued aspirin [Aspirin Low Dose] 81 mg Tablet,Delayed Release (Dr/Ec) 81 mg PO DAILY@0700 RF: 0 amlodipine [Norvasc] 10 mg Tablet 10 mg PO DAILY@0700 RF: 0 trazodone 150 mg Tablet 150 mg PO DAILY@1900 RF: 0 aripiprazole [Abilify] 10 mg Tablet 10 mg PO DAILY@1900 RF: 0 metoprolol tartrate 25 mg Tablet 12.5 mg PO BID RF: 0 sertraline 100 mg Tablet 100 mg PO DAILY@1900 RF: 0 benztropine 1 mg Tablet 1 mg PO DAILY@1900 RF: 0 hydralazine 50 mg Tablet 50 mg PO TID RF: 0 Discontinued furosemide 40 mg Tablet 40 mg PO DAILY@0700 RF: 0 losartan 100 mg Tablet 100 mg PO DAILY@0700 RF: 0 Discharge Orders: Discharge Order (Routine); Ordered 01/06/20 Ordered By: Ruy Mccarthy Admission Data Admit Date/Time: 12/30/19 17:42 Attending Provider: Ruy Mccarthy Admit Provider: Pamela Garcia Primary Care Provider: Kelsey DIAZ Other Providers: Horacio Cisse Kevin C. Other Interventions: Discharge Summary Assessment (RN) Last Done: 01/06/20 10:31 DC Date/Time DO NOT enter until pt leaves facility: 01/06/20 16:55 Coding Level of Care Code D/C Day Management >30 mins Diagnoses Sepsis A41.9 Sepsis acute organ dysfunction status: unspecified Sepsis type: sepsis due to unspecified organism Cellulitis L03.116 Laterality: left Site of cellulitis: extremity Site of cellulitis of extremity: lower extremity STEPHANIE (acute kidney injury) N17.9 Dyspnea on exertion R06.00 Metabolic acidosis E87.2 B12 deficiency anemia D51.9 Dizziness R42 Acute dehydration E86.0 CKD (chronic kidney disease) N18.9 Chest pain, precordial R07.2 CAD (coronary artery disease) I25.10 Hypertension I10 Lower extremity edema R60.0 Depression with anxiety F41.8 Numbness R20.0 Bigeminy I49.9 Anemia D64.9 DVT prophylaxis Z29.9
[2020-01-06 16:22] VITALS: PULSE 75; O2SAT 95
== END 2020-01-06 16:55 | DRG 871 ==
LOC: ED 09:57 → SUATTDRO 17:42 → 2S 17:42 → 2N 01-02 13:37 → 3W 01-04 19:43
DX: W06.XXXA Fall from bed, initial encounter; A41.9 Sepsis, unspecified organism; Y92.230 Patient room in hospital as the place of occurrence of the external cause; I25.2 Old myocardial infarction; Z88.1 Allergy status to other antibiotic agents; Z86.73 Personal history of transient ischemic attack (TIA), and cerebral infarction without residual deficits; Z86.711 Personal history of pulmonary embolism; I25.10 Atherosclerotic heart disease of native coronary artery without angina pectoris; I12.9 Hypertensive chronic kidney disease with stage 1 through stage 4 chronic kidney disease, or unspecified chronic kidney disease; Z98.84 Bariatric surgery status; R07.2 Precordial pain; F41.9 Anxiety disorder, unspecified; N18.4 Chronic kidney disease, stage 4 (severe); F32.9 Major depressive disorder, single episode, unspecified; Z86.14 Personal history of Methicillin resistant Staphylococcus aureus infection; E86.0 Dehydration; E87.2 Acidosis; Z88.0 Allergy status to penicillin; L03.116 Cellulitis of left lower limb; N17.0 Acute kidney failure with tubular necrosis; D51.9 Vitamin B12 deficiency anemia, unspecified

== ENCOUNTER 2020-04-19 09:18 | Inpatient (IN) ==
[2020-04-19] MEDS ORDERED: SODIUM CHLORIDE 0.9% 500 ML IV SCH (09:45)
--- NOTE | 2020-04-19 09:52 | Emergency Department Note ---
Impression & Plan Symptomatic bradycardia, STEPHANIE (acute kidney injury), Breath shortness, Lightheaded ED Provider Note NAME: DINA [id number] FREDDIE AGE: 59 SEX: M : 1960 ARRIVES VIA: Ambulance INFORMANT: Patient ED PROVIDER(S): Cricket Mcarthur DO CHIEF COMPLAINT: Shortness of breath and lightheadedness HPI: Patient is a 59-year-old male who presents to the ER for shortness of breath and lightheadedness. Symptoms have been present for the past 3 weeks. He notes they are unchanged. He denies any headache or change in vision. No chest pain. Shortness of breath is worse with any kind of movement. He notes the lightheadedness is present with position changes and gets significantly worse. When he is up moving around he is still lightheaded but is not nearly as bad. He notes he got an EKG checked and was abnormal and was sent in. No changes in medications. He does take Lopressor 25 mg. ROS: See above HPI for pertinent positives & negatives. A total of 10 systems reviewed and were otherwise negative. PAST MEDICAL HISTORY:See Below PAST SURGICAL HISTORY:See Below FAMILY HISTORY:See Below SOCIAL HISTORY:See Below HOME MEDICATIONS:See Below ALLERGIES:See Below VITALS:See Below PHYSICAL EXAMINATION: GENERAL: Sitting up in bed, alert, ill-appearing, disheveled EYE EXAM: normal conjunctiva. OROPHARYNX: no exudate, no erythema, lips, buccal mucosa, and tongue normal and mucous membranes are moist NECK: supple, no nuchal rigidity, no adenopathy, non-tender LUNGS: Clear to auscultation. Normal chest wall mechanics HEART: no murmurs, S1 normal and S2 normal ABDOMEN: abdomen soft, non-tender, normo-active bowel sounds, no masses, no rebound or guarding. BACK: Back is symmetrical on inspection and there is no deformity, no midline tenderness, no CVA tenderness. SKIN: no rashes and no bruising UPPER EXTREMITIES: upper extremities are grossly normal. LOWER EXTREMITIES: No pitting edema. NEURO EXAM: Normal sensorium, cranial nerves II-XII intact, normal speech, no weakness of arms, no weakness of legs. [id number] intact. Rapid alternating movements intact. MEDICAL DECISION MAKING: Patient is a 59-year-old male who presents ER for shortness of breath and lightheadedness which have been present for the past 3 weeks. He is a prisoner. Obtained an EKG and referred him in. IV was established blood work was obtaine d. Labs show no significant leukocytosis or anemia. INR was unremarkable. D- dimer was low. BMP with a creatinine 3.6 up from a baseline of 2.8. LFTs bilirubin was unremarkable. Troponin was detectable but negative. Lipase was unremarkable. UA was clean. CT head was unremarkable. Chest x-ray unremarkable as well. EKG from the patient did show bigeminy with a significant bradycardia. Do favor this likely cause of his symptoms. Would hold metoprolol for 24 hours and watch him overnight here in the hospital. EKG here was unremarkable. Triage Nursing notes reviewed. Prior medical records reviewed Vital Signs: reviewed and remarkable for no significant abnormalities Differential diagnosis: Differential diagnosis includes etiologies such as benign positional vertigo, dehydration, hypovolemia, anemia, tumor, infection, hypoglycemia, electrolyte abnormalities, cardiac sources, intracerebral event, toxicologic, neurological, as well as others were entertained. ER treatment provided: See below Diagnostics interpreted by me: ECG: Sinus bradycardia rate of 51 First-degree AV block T WI V6 T WI lead III Normal QTC EKG #2 from [facility] with a sinus rhythm rate 30-40s Normal axis Nonspecific ST wave changes V6 and in the inferior leads Cardiac Monitoring: An order was placed for continuous cardiac monitoring. The monitor shows a rate of 48 with sinus rhythm. Laboratory studies: As stated above and show below. Imaging studies: See below Consultation(s): Discussed with the hospitalist for further evaluation ED COURSE: Procedures: none Critical Care: None Past Med/Surg History Medical History (Updated 04/19/20 @ 15:51 by Cricket Mcarthur DO) Anemia B12 deficiency anemia CAD (coronary artery disease) CKD (chronic kidney disease) Depression with anxiety Hx of myocardial infarction Hypertension Lower extremity edema Psychiatric diagnosis Surgical History History of gastric bypass Family History Other No significant family history Pulmonary embolism Social History Smoking Status: Never smoker Second Hand Exposure: No; Hx Alcohol Use: No Hx Substance Use: No Preferred Language: Mongolian Communication Ability: Effective Bulk Intake Worker Required: No Beliefs That Will Affect Care: None marital status: Single Current Living Situation: Other Current Living Situation Comment: Intermediate current occupational status: 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 Other Information That Helps Us Care for You: No Feels Safe at Home: Yes Safety Concerns: Feels Safe At This Time Assistive Devices: Cane Allergies Allergies Allergy/AdvReac Type Severity Reaction Status Date / Time VIK Inhibitors Allergy Severe Rash and Verified 04/19/20 10:59 Itching Cephalosporins Allergy Severe Rash and Verified 04/19/20 10:59 Itching Penicillins Allergy Severe Rash and Verified 04/19/20 10:59 Itching sulfamethoxazole Allergy Severe Rash and Verified 04/19/20 10:59 [From Bactrim] Itching trimethoprim [From Bactrim] Allergy Severe Rash and Verified 04/19/20 10:59 Itching Home Meds Home Medications Medication Instructions Recorded Confirmed amlodipine [Norvasc] 10 mg PO QAM 07/12/19 04/19/20 aripiprazole [Abilify] 10 mg PO QPM 07/12/19 04/19/20 aspirin [Aspirin Low Dose] 81 mg PO QAM 07/12/19 04/19/20 metoprolol tartrate 12.5 mg PO BID 07/12/19 04/19/20 trazodone 150 mg PO HS 07/12/19 04/19/20 benztropine 1 mg PO QPM 12/30/19 04/19/20 hydralazine 50 mg PO TID 12/30/19 04/19/20 sertraline 100 mg PO QPM 12/30/19 04/19/20 bumetanide 2 mg PO DAILY 04/19/20 04/19/20 calcium carbonate-vitamin D3 1 tab PO DAILY 04/19/20 04/19/20 [Calcium 600 + D(3)] carbamazepine 100 mg PO BID 04/19/20 04/19/20 cyanocobalamin (vitamin B-12) 500 mcg PO DAILY 04/19/20 04/19/20 [Vitamin B-12] ferrous sulfate 325 mg PO BID 04/19/20 04/19/20 hydrochlorothiazide 25 mg PO DAILY 04/19/20 04/19/20 Results & Data (ED) Vital Signs Vital Signs - 24 hr 04/19/20 09:31 04/19/20 09:41 04/19/20 09:46 Temperature 36.9 C Temperature Source Oral Pulse Rate 53 L 54 L 50 L Pulse Rate from SpO2 Sensor 48 L 49 L Respiratory Rate 20 20 22 Respiratory Effort / Characteristics Non-Labored Spontaneous Respiratory Depth Normal Respiratory Pattern Regular Blood Pressure 129/70 129/70 Blood Pressure Mean 89 78 Pulse Oximetry 95 97 96 Oxygen Delivery Method Room Air Sepsis Recent Fever Within 48 Hours No Sepsis New/Unexplained Change in Mental Status No Sepsis Action Taken by Nursing No Action Required 04/19/20 09:50 04/19/20 10:00 04/19/20 10:30 Temperature Temperature Source Pulse Rate 58 L 51 L 48 L Pulse Rate from SpO2 Sensor 52 L 48 L Respiratory Rate 20 16 18 Respiratory Effort / Characteristics Respiratory Depth Respiratory Pattern Blood Pressure 144/77 H Blood Pressure Mean 97 Pulse Oximetry 97 97 97 Oxygen Delivery Method Room Air Sepsis Recent Fever Within 48 Hours Sepsis New/Unexplained Change in Mental Status Sepsis Action Taken by Nursing 04/19/20 11:00 04/19/20 11:30 04/19/20 11:31 Temperature Temperature Source Pulse Rate 51 L 51 L Pulse Rate from SpO2 Sensor 49 L 48 L 51 L Respiratory Rate 16 22 Respiratory Effort / Characteristics Respiratory Depth Respiratory Pattern Blood Pressure 146/81 H Blood Pressure Mean 90 Pulse Oximetry 96 97 98 Oxygen Delivery Method Sepsis Recent Fever Within 48 Hours Sepsis New/Unexplained Change in Mental Status Sepsis Action Taken by Nursing 04/19/20 11:55 04/19/20 12:00 04/19/20 12:30 Temperature Temperature Source Pulse Rate 52 L 53 L 49 L Pulse Rate from SpO2 Sensor 51 L 45 L 49 L Respiratory Rate 15 22 22 Respiratory Effort / Characteristics Respiratory Depth Respiratory Pattern Blood Pressure 148/92 H 136/80 123/79 Blood Pressure Mean 103 95 88 Pulse Oximetry 96 98 96 Oxygen Delivery Method Sepsis Recent Fever Within 48 Hours Sepsis New/Unexplained Change in Mental Status Sepsis Action Taken by Nursing 04/19/20 13:00 Temperature Temperature Source Pulse Rate 50 L Pulse Rate from SpO2 Sensor 49 L Respiratory Rate 13 Respiratory Effort / Characteristics Respiratory Depth Respiratory Pattern Blood Pressure Blood Pressure Mean Pulse Oximetry 96 Oxygen Delivery Method Sepsis Recent Fever Within 48 Hours Sepsis New/Unexplained Change in Mental Status Sepsis Action Taken by Nursing Laboratory Data Result diagrams: 04/19/20 10:36 04/19/20 10:36 Lab Results 04/19/20 04/19/2020 Range/Units 10:36 10:36 10:36 WBC 7.27 (4.8-10.8) K/uL RBC 4.24 L (4.7-6.1) M/uL Hgb 12.8 L (14.0-18.0) g/dL Hct 38.8 L (42-52) % MCV 91.5 (80-100) fL MCH 30.2 (25-34) pg MCHC 33.0 (32-36) g/dL RDW Std Deviation 45.9 (36.4-46.3) fL RDW Coeff of Love 14.0 (11.5-14.5) % Plt Count 206 (130-400) K/uL MPV 12.7 H (7.4-10.4) fL Immature Gran % (Auto) 0.3 % Neut % (Auto) 74.9 % Lymph % (Auto) 14.7 % [place] % (Auto) 7.6 % Eos % (Auto) 2.2 % Baso % (Auto) 0.3 % Neut # (Auto) 5.45 (1.4-6.5) K/uL Lymph # (Auto) 1.07 L (1.2-3.4) K/uL [place] # (Auto) 0.55 (0.11-0.59) K/uL Eos # (Auto) 0.16 (0-0.5) K/uL Baso # (Auto) 0.02 (0-0.2) K/uL Immature Gran # (Auto) 0.02 (0.00-0.02) K/uL PT 10.5 (9.0-12.0) Seconds INR 1.0 (0.9-1.1) APTT 23.2 (21.0-31.0) Seconds PTT Ratio 0.8 D-Dimer 240 (0-500) ug/L FEU Sodium 141 (136-145) mmol/L Potassium 4.0 (3.5-5.1) mmol/L Chloride 103 (98-107) mmol/L Carbon Dioxide 30 (21-32) mmol/L Anion Gap 8.0 (3-11) BUN 52 H (7-18) mg/dl Creatinine 3.62 H (0.6-1.4) mg/dl Est Cr Clr Drug Dosing 29.7 ml/min Est GFR ( Amer) 19.8 Est GFR (Non-Af Amer) 17.1 BUN/Creatinine Ratio 14.3 (10-20) Glucose 89 (70-99) mg/dl Calcium 8.6 (8.5-10.1) mg/dl Total Bilirubin 0.5 (0.2-1) mg/dl AST 24 (15-37) U/L ALT 58 (12-78) U/L Alkaline Phosphatase 96 (45-117) U/L Troponin I 0.023 (0-0.045) ng/ml Total Protein 8.0 (6.4-8.2) gm/dl Albumin 3.7 (3.4-5.0) gm/dl Globulin 4.3 H (2.5-4.0) gm/dl Albumin/Globulin Ratio 0.9 (0.9-2) Lipase 105 (73-393) U/L Specimen Hemolysis Urine Color Urine Appearance (Clear) Urine pH (4.5-7.5) Ur Specific [place] (1.000-1.030) Urine Protein (Negative) Urine Glucose (UA) (Negative) Urine Ketones (Negative) Urine Blood (Negative) Urine Nitrite (Negative) Urine Bilirubin (Negative) Urine Urobilinogen (Negative) Ur Leukocyte Esterase (Negative) Hepatitis C Ab Screen (Neg) 04/19/20 04/19/20 Range/Units 10:41 11:31 WBC (4.8-10.8) K/uL RBC (4.7-6.1) M/uL Hgb (14.0-18.0) g/dL Hct (42-52) % MCV (80-100) fL MCH (25-34) pg MCHC (32-36) g/dL RDW Std Deviation (36.4-46.3) fL RDW Coeff of Love (11.5-14.5) % Plt Count (130-400) K/uL MPV (7.4-10.4) fL Immature Gran % (Auto) % Neut % (Auto) % Lymph % (Auto) % [place] % (Auto) % Eos % (Auto) % Baso % (Auto) % Neut # (Auto) (1.4-6.5) K/uL Lymph # (Auto) (1.2-3.4) K/uL [place] # (Auto) (0.11-0.59) K/uL Eos # (Auto) (0-0.5) K/uL Baso # (Auto) (0-0.2) K/uL Immature Gran # (Auto) (0.00-0.02) K/uL PT (9.0-12.0) Seconds INR (0.9-1.1) APTT (21.0-31.0) Seconds PTT Ratio D-Dimer (0-500) ug/L FEU Sodium (136-145) mmol/L Potassium (3.5-5.1) mmol/L Chloride (98-107) mmol/L Carbon Dioxide (21-32) mmol/L Anion Gap (3-11) BUN (7-18) mg/dl Creatinine (0.6-1.4) mg/dl Est Cr Clr Drug Dosing ml/min Est GFR ( Amer) Est GFR (Non-Af Amer) BUN/Creatinine Ratio (10-20) Glucose (70-99) mg/dl Calcium (8.5-10.1) mg/dl Total Bilirubin (0.2-1) mg/dl AST (15-37) U/L ALT (12-78) U/L Alkaline Phosphatase (45-117) U/L Troponin I (0-0.045) ng/ml Total Protein (6.4-8.2) gm/dl Albumin (3.4-5.0) gm/dl Globulin (2.5-4.0) gm/dl Albumin/Globulin Ratio (0.9-2) Lipase (73-393) U/L Specimen Hemolysis Urine Color Yellow Urine Appearance Clear (Clear) Urine pH 5.5 (4.5-7.5) Ur Specific [place] 1.013 (1.000-1.030) Urine Protein Negative (Negative) Urine Glucose (UA) Negative (Negative) Urine Ketones Negative (Negative) Urine Blood Negative (Negative) Urine Nitrite Negative (Negative) Urine Bilirubin Negative (Negative) Urine Urobilinogen Negative (Negative) Ur Leukocyte Esterase Negative (Negative) Hepatitis C Ab Screen Neg (Neg) Administered Medications Discontinued Medications Sodium Chloride (Nss) 500 mls @ 999 mls/hr IV .Q31M GINNY Stop: 04/19/20 10:15 Last Infusion: 04/19/20 11:59 Dose: 0 mls/hr Documented by: [id number] Admin: 04/19/20 11:27 Dose: 999 mls/hr Documented by: [id number] Discharge Plan Visit Data Chief Complaint: Dizziness ED Provider: Cricket Mcarthur Discharge Problem: Symptomatic bradycardia, STEPHANIE (acute kidney injury), Breath shortness, Lightheaded Patient Disposition: Admitted As Inpatient Discharge Instructions Interventions: ED Discharge Assessment Last Done: 04/19/20 15:19
--- NOTE | 2020-04-19 10:13 | XRay Report ---
SINGLE VIEW CHEST CLINICAL HISTORY: Atypical chest pain. FINDINGS: An AP, portable, upright chest radiograph is compared to study dated 12/30/2019. The heart i s enlarged. The pulmonary vasculature is noncongested. Mild elevation of the right hemidiaphragm is s imilar to previous. There is dependent atelectasis. No airspace consolidation or large pleural effusi on is seen. No pneumothorax is identified. The bony thorax is grossly intact. IMPRESSION: Cardiac enlargement with no active disease in the chest. ACT 112: Negative or not required by law. Electronically signed by: Iker Liu M.D. 04/19/2020 10:11 AM
[2020-04-19 10:51] LABS: Basophils # (auto) 0.02 K/uL (0-0.2); Basophils % (auto) 0.3 %; Eosinophils # (auto) 0.16 K/uL (0-0.5); Eosinophils % (auto) 2.2 %; Hematocrit (blood only) 38.8 % (42-52); Hemoglobin 12.8 g/dL (14.0-18.0); Immature Granulocytes # (auto) 0.02 K/uL (0.00-0.02); Immature Granulocytes % (auto) 0.3 %; Lymphocytes # (auto) 1.07 K/uL (1.2-3.4); Lymphocytes % (auto) 14.7 %; Mean Corpuscular Hemoglobin 30.2 pg (25-34); Mean Corpuscular Volume 91.5 fL (80-100); Mean Platelet Volume 12.7 fL (7.4-10.4); Monocytes # (auto) 0.55 K/uL (0.11-0.59); Monocytes % (auto) 7.6 %; Neutrophils # (auto) 5.45 K/uL (1.4-6.5); Neutrophils % (auto) 74.9 %; Platelet Count 206 K/uL (130-400); RDW Standard Deviation 45.9 fL (36.4-46.3); Red Blood Count 4.24 M/uL (4.7-6.1); White Blood Count 7.27 K/uL (4.8-10.8)
[2020-04-19 11:06] LABS: D Dimer 240 ug/L FEU (0-500); Partial Thromboplastin Ratio 0.8; Partial Thromboplastin Time 23.2 Seconds (21.0-31.0); Prothrombin Time 10.5 Seconds (9.0-12.0)
--- NOTE | 2020-04-19 11:17 | Electrocardiogram Report ---
Test Reason : Blood Pressure : / mmHG Vent. Rate : 051 BPM Atrial Rate : 051 BPM P-R Int : 226 ms QRS Dur : 124 ms QT Int : 434 ms P-R-T Axes : 032 043 -08 degrees QTc Int : 400 ms Sinus bradycardia with 1st degree A-V block Non-specific intra-ventricular conduction delay Nonspecific T wave abnormality Abnormal ECG When compared with ECG of 04-JAN-2020 20:31, Premature ventricular complexes are no longer Present IN interval has increased Confirmed by Luc Villegas ([id number]) on 04/19/2020 11:17:34 AM Referred By: REFERRED SELF Confirmed By:Elian Villegas
[2020-04-19 11:29] LABS: Albumin Globulin Ratio 0.9 (0.9-2); Albumin Level 3.7 gm/dl (3.4-5.0); BUN Creatinine Ratio 14.3 (10-20); Bilirubin,Total 0.5 mg/dl (0.2-1); Calcium 8.6 mg/dl (8.5-10.1); Creatinine Clr Calc Pharmacy 29.7 ml/min; Est GFR (African American) 19.8; Est GFR (Non-African American) 17.1; Globulin 4.3 gm/dl (2.5-4.0); Troponin I 0.023 ng/ml (0-0.045)
[2020-04-19 11:39] LABS: Appearance Urine Clear (Clear); Bilirubin Urine Negative (Negative); Blood Urine Negative (Negative); Color Urine Yellow; Glucose Urine UA Negative (Negative); Ketones Urine Negative (Negative); Leukocyte Esterase Urine Negative (Negative); Nitrite Urine Negative (Negative); Protein Urine Negative (Negative); Specific Gravity Urine 1.013 (1.000-1.030); Urobilinogen Urine Negative (Negative); pH Urine 5.5 (4.5-7.5)
--- NOTE | 2020-04-19 12:09 | CT Scan Report ---
CT SCAN OF THE BRAIN WITHOUT IV CONTRAST CLINICAL HISTORY: Dizziness. COMPARISON STUDY: No priors. TECHNIQUE: Unenhanced axial CT scan of the brain is performed from the vertex to the skull base. A do se lowering technique was utilized adhering to the principles of ALARA. CT DOSE: 1706.77 mGy.cm FINDINGS: Brain parenchyma: Small foci of right frontal and left cerebellar encephalomalacia are consistent wit h remote infarcts. There are age-related involutional changes noting mild subcortical and periventri cular microangiopathic change. There is no hemorrhage, mass effect, or evidence of acute territorial ischemia by CT criteria. Curry-white matter differentiation is preserved. No extra-axial fluid collect ion is seen. Ventricles, sulci, cisterns: Prominent secondary to involutional change. Intracranial vasculature: There is atherosclerotic calcification of the cavernous carotid arteries. Calvarium: Unremarkable. Sinuses and mastoids: The visualized paranasal sinuses are clear. There is a small left mastoid effus ion. The right mastoid air cells are well pneumatized. Orbits: The bony orbits are grossly intact. IMPRESSION: There is no hemorrhage, mass effect, or evidence of acute territorial ischemia by CT topher [place]. ACT 112: Negative or not required by law. Electronically signed by: Iker Liu M.D. 04/19/2020 12:07 PM
[2020-04-19] MEDS ORDERED: ONDANSETRON INJ 2 MG/ML 2 ML VIAL IV PRN (15:43)
[2020-04-19] MEDS: hydrALAZINE HCL 25 MG TAB PO SCH ×2 (16:53→20:09)
--- NOTE | 2020-04-19 17:12 | History & Physical Report ---
Date of Service April 19, 2020 Assessment & Plan (1) Symptomatic bradycardia: Seems very convincing for symptomatic bradycardia with worsening symptoms with exertion, but not CHF symptoms. Unfortunately, due to him being restrained to the bed, it's not really easy to try to have him increase his HR. Luckily, at rest, his BP is stable. - Cardiology consulted (2) STEPHANIE (acute kidney injury): Baseline Cr ~3.0, eGFR ~20. - On presentation, Cr 3.6, reflecting only a fairly small drop in true renal function. - Holding Bumex & HCTZ - Holding further IV fluids as he got about 500 mL in the ED and doesn't seem hypovolemic. (3) CAD (coronary artery disease): No chest pain at present. EKG doesn't appear acutely ischemic. - Continue ASA, restart beta-clive when able - Cardiology consulted (4) CKD (chronic kidney disease): As above, baseline Cr ~3.0. CKD Stage IV. - As above (5) Hypertension: BP was 140/80 in the ED. - Lowered hydralazine and amlodipine while concern for bradycardia - Can adjust as needed - Holding bumetanide and HCTZ (6) Depression with anxiety: Expressed no SI/HI on interview. - Continue sertraline, trazodone, carbamazepine, and aripiprazole (7) DVT prophylaxis: SCDs - Holding heparin in case of need for pacemaker Admission and Anticipated Discharge Date Admission Date: April 19, 2020 History of Present Illness Primary Care Provider: EMILY Cole 59yo M w/ hx of HTN, CKD who presents with lightheadedness, dizziness, and pre- syncope. He reports that since his last discharge, he has just felt this way. He was discharged on Lasix and has been on it since that time. He reports that when he gets up and walks he feels more dizzy, lightheaded, and feels like he will pass out. He must sit down and rest. When he sits down and rests, he then feels slightly better. He also reports significant shortness of breath as well. At [facility], he was seen in the [facility] and an EKG showed a ventricular rate of 31 bpm. He denies CHF symptoms such as orthopnea, PND, lower extremity swelling. Allergies Allergy/AdvReac Type Severity Reaction Status Date / Time VIK Inhibitors Allergy Severe Rash and Verified 04/19/20 10:59 Itching Cephalosporins Allergy Severe Rash and Verified 04/19/20 10:59 Itching Penicillins Allergy Severe Rash and Verified 04/19/20 10:59 Itching sulfamethoxazole Allergy Severe Rash and Verified 04/19/20 10:59 [From Bactrim] Itching trimethoprim [From Bactrim] Allergy Severe Rash and Verified 04/19/20 10:59 Itching Home Medications Home Medications Medication Instructions Recorded Confirmed Type amlodipine [Norvasc] 10 mg PO QAM 07/12/19 04/19/20 History aripiprazole [Abilify] 10 mg PO QPM 07/12/19 04/19/20 History aspirin [Aspirin Low Dose] 81 mg PO QAM 07/12/19 04/19/20 History metoprolol tartrate 12.5 mg PO BID 07/12/19 04/19/20 History trazodone 150 mg PO HS 07/12/19 04/19/20 History benztropine 1 mg PO QPM 12/30/19 04/19/20 History hydralazine 50 mg PO TID 12/30/19 04/19/20 History sertraline 100 mg PO QPM 12/30/19 04/19/20 History bumetanide 2 mg PO DAILY 04/19/20 04/19/20 History calcium carbonate-vitamin D3 1 tab PO DAILY 04/19/20 04/19/20 History [Calcium 600 + D(3)] carbamazepine 100 mg PO BID 04/19/20 04/19/20 History cyanocobalamin (vitamin B-12) 500 mcg PO DAILY 04/19/20 04/19/20 History [Vitamin B-12] ferrous sulfate 325 mg PO BID 04/19/20 04/19/20 History hydrochlorothiazide 25 mg PO DAILY 04/19/20 04/19/20 History Past Med/Surg History Medical History Anemia B12 deficiency anemia CAD (coronary artery disease) CKD (chronic kidney disease) Depression with anxiety Hx of myocardial infarction Hypertension Lower extremity edema Psychiatric diagnosis Surgical History History of gastric bypass Family History Other No significant family history Pulmonary embolism Social History Smoking Status: Never smoker Second Hand Exposure: No; Hx Alcohol Use: No Hx Substance Use: No Preferred Language: Luxembourgish Communication Ability: Effective Process Environmental Technician Required: No Beliefs That Will Affect Care: None marital status: Single Current Living Situation: Other Current Living Situation Comment: Long-Term current occupational status: 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 Other Information That Helps Us Care for You: No Feels Safe at Home: Yes Safety Concerns: Feels Safe At This Time Assistive Devices: Cane Review of Systems Review of Systems: All systems reviewed & are unremarkable except as noted in HPI & below Physical Exam Constitutional: WD/WN, vitals as above Eyes: EOM intact bilaterally; no conjunctival abnormality ENMT: external ear and nose normal, oropharynx normal Neck: trachea midline, no thyromegaly normal visual inspection Respiratory: normal respiratory effort, lungs clear to auscultation no respiratory distress Cardiovascular: RRR, no murmur, no edema Gastrointestinal (Abdomen): Inspection/Auscultation: abdomen normal to inspection; abdomen not distended Musculoskeletal: no cyanosis or clubbing, extremities motor strength 5/5 Skin: no rashes, warm and dry Neurologic: moves all extremities and awake Psychiatric: Orientation: alert, oriented to person and cooperative Results & Data Results & Data ([facility]) Vital Signs (Past 12 Hours) Vital Signs Temp Pulse Pulse Resp BP BP Pulse Ox 04/19/20 16:00 36.7 C 66 16 140/78 98 04/19/20 15:00 47 L 15 130/77 95 04/19/20 14:30 49 L 13 144/90 H 94 04/19/20 14:00 48 L 20 147/84 H 95 04/19/20 13:30 51 L 15 138/83 93 04/19/20 13:00 50 L 13 96 04/19/20 12:30 49 L 22 123/79 96 04/19/20 12:00 53 L 22 136/80 98 04/19/20 11:55 52 L 15 148/92 H 96 04/19/20 11:31 51 L 22 146/81 H 98 04/19/20 11:30 97 04/19/20 11:00 51 L 16 96 04/19/20 10:30 48 L 18 97 04/19/20 10:00 51 L 16 144/77 H 97 04/19/20 09:50 58 L 20 97 04/19/20 09:46 50 L 22 129/70 96 04/19/20 09:41 36.9 C 54 L 20 129/70 97 04/19/20 09:31 53 L 20 95 Code Status & VTE Plan VTE Prophylaxis Plan VTE Prophylaxis will be ordered: Yes PG Care Time/CCT Total # of Minutes Spent Total Time Spent with Patient: Total time spent is greater than 50% in coordination of care (as documented) at patient's floor/unit and/or counseling patient: Coding Level of Care Code 62676 Initial Inpt Care Lvl 3 Diagnoses Symptomatic bradycardia R00.1 STEPHANIE (acute kidney injury) N17.9 CAD (coronary artery disease) I25.10 CKD (chronic kidney disease) N18.9 Hypertension I10 Depression with anxiety F41.8 DVT prophylaxis Z29.9
--- NOTE | 2020-04-19 17:29 | Cardiology Consultation ---
Date of Consultation April 19, 2020 Assessment & Plan (1) Lightheaded: The patient appears to have a nearly constant sensation of lightheadedness. There is a positional component suggesting an element of orthostasis. Overall his bradycardia or frequent PVCs placed in the symptoms is not entirely clear. It is hard for me to imagine that his dizziness while supine is caused by a heart rate in the 50s without ventricular ectopy. This was the situation when he was interviewed today. He does have an element of bradycardia and likely an element of chronotropic incompetence. This was manifest on his exercise stress test performed in July of this year. He was unable to achieve target heart rate despite exercise and the development of symptoms such as dizziness and dyspnea. Some of his exertional symptoms could be related to chronotropic incompetence. I think tomorrow morning will need to have him ambulate around the meek to monitor his heart rate response and symptoms. I will also order an echocardiogram. Should have a better understanding of the relationship between his heart rhythm and symptoms by tomorrow afternoon in [facility] discuss the need for device therapy at that time. (2) Frequent PVCs: He has periods of bigeminy. He also has times where there is no ventricular ectopy. The morphology of the PVCs is not perfect for an outflow tract source, but close. It is possible that he is symptomatic with frequent PVCs due to poor perfusion with these beats. However, this would be difficult to prove. I would like to better understand the relationship between his symptoms and the arrhythmia. I would also like to see these are more common with exercise or at rest. When he had his exercise echocardiogram performed in July of this year he did not have any PVCs during exercise. Curiously, he has had frequent PVCs for some time. In fact, I would suspect his rhythm has not changed much since his admission in December of this year. If his symptoms truly only started 3-4 weeks ago there was a dubious relationship between both bradycardia and PVCs. Based on the frequent nature and potential relationship to structural heart disease will obtain an echocardiogram as noted above. (3) CAD (coronary artery disease): This is by report. No regional wall motion abnormalities on imaging earlier this year. No current symptoms suggestive of coronary ischemia. With a history of coronary disease he should be started on high-dose statin therapy. He should continue 81 mg of aspirin daily and we will consider continuation of metoprolol as well. History of Present Illness Reason for Consultation: Dizziness, bradycardia Requesting Physician: Ryan Attending Physician: Vance Davis MD History of Present Illness The patient is a 59-year-old gentleman with a reported history of coronary disease and prior myocardial infarction who is currently incarcerated. He was transferred from his facility for evaluation of dizziness and an abnormal EKG. Patient states that for 3-4 weeks he has had symptoms of dizziness. This is a nearly constant sensation which appears to be worse with changes in position such as moving from a supine to seated or standing position. The patient has had difficulty with ambulation and activities due to dizziness and an element of dyspnea. He does not recall any episodes of syncope. He has reported some rece nt falls. 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 He has avoided eating some meals as he is required to walk to get his meal. He is afraid of falling when walking for his meal. Again, his symptoms include dizziness a sense of presyncope and dyspnea with walking. He has not report any symptoms currently of chest pain. He occasionally feels his heart pounding, but did not report any recent irregularity in his heartbeat. He is currently lying supine in bed and states that he has an element of dizziness which is mild. He did not report any other current symptoms such as abdominal pain, difficulty with urination or fevers and chills. He does have left lower extremity lymphedema which is chronic. He also reports constipation. Allergies Allergy/AdvReac Type Severity Reaction Status Date / Time VIK Inhibitors Allergy Severe Rash and Verified 04/19/20 10:59 Itching Cephalosporins Allergy Severe Rash and Verified 04/19/20 10:59 Itching Penicillins Allergy Severe Rash and Verified 04/19/20 10:59 Itching sulfamethoxazole Allergy Severe Rash and Verified 04/19/20 10:59 [From Bactrim] Itching trimethoprim [From Bactrim] Allergy Severe Rash and Verified 04/19/20 10:59 Itching Home Medications Home Medications Medication Instructions Recorded Confirmed Type amlodipine [Norvasc] 10 mg PO QAM 07/12/19 04/19/20 History aripiprazole [Abilify] 10 mg PO QPM 07/12/19 04/19/20 History aspirin [Aspirin Low Dose] 81 mg PO QAM 07/12/19 04/19/20 History metoprolol tartrate 12.5 mg PO BID 07/12/19 04/19/20 History trazodone 150 mg PO HS 07/12/19 04/19/20 History benztropine 1 mg PO QPM 12/30/19 04/19/20 History hydralazine 50 mg PO TID 12/30/19 04/19/20 History sertraline 100 mg PO QPM 12/30/19 04/19/20 History bumetanide 2 mg PO DAILY 04/19/20 04/19/20 History calcium carbonate-vitamin D3 1 tab PO DAILY 04/19/20 04/19/20 History [Calcium 600 + D(3)] carbamazepine 100 mg PO BID 04/19/20 04/19/20 History cyanocobalamin (vitamin B-12) 500 mcg PO DAILY 04/19/20 04/19/20 History [Vitamin B-12] ferrous sulfate 325 mg PO BID 04/19/20 04/19/20 History hydrochlorothiazide 25 mg PO DAILY 04/19/20 04/19/20 History Patient History Medical History Anemia B12 deficiency anemia CAD (coronary artery disease) CKD (chronic kidney disease) Depression with anxiety Hx of myocardial infarction Hypertension Lower extremity edema Psychiatric diagnosis Surgical History History of gastric bypass Family History Other No significant family history Pulmonary embolism Social History Smoking Status: Never smoker Second Hand Exposure: No; Hx Alcohol Use: No Hx Substance Use: No Preferred Language: Setswana Communication Ability: Effective Database Marketing Analyst Required: No Beliefs That Will Affect Care: None marital status: Single Current Living Situation: Other Current Living Situation Comment: Assisted current occupational status: 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 Mood and affect appeared normal. He answered all questions appropriately. HEENT: Pupils are equal and reactive to light and accommodation. Extraocular movements are intact. The sclerae are anicteric. Neuro: Cranial nerves intact Neck: Patient's neck is supple. He has palpable carotid pulses bilaterally without bruits on auscultation. There is no evidence of jugular venous distention. The thyroid is not enlarged. Lungs: Clear to auscultation bilaterally. He has good air movement without use of accessory muscles. No rales wheezes or rhonchi. Cardiac: Heart demonstrates a regular rate and rhythm. Normal S1 and S2. Systolic ejection murmur. Pulses: The patient has palpable radial pulses bilaterally that are equal in intensity Extremities: There was no evidence of hypoperfusion. There is no cyanosis or clubbing. Left leg has brawny edema, mild right lower extremity edema. Skin: I did not appreciate any rashes on examination today. Results & Data ([facility]) Vital Signs (Past 12 Hours) Vital Signs Temp Pulse Pulse Resp BP BP Pulse Ox 04/19/20 16:00 36.7 C 66 16 140/78 98 04/19/20 15:00 47 L 15 130/77 95 04/19/20 14:30 49 L 13 144/90 H 94 04/19/20 14:00 48 L 20 147/84 H 95 04/19/20 13:30 51 L 15 138/83 93 04/19/20 13:00 50 L 13 96 04/19/20 12:30 49 L 22 123/79 96 04/19/20 12:00 53 L 22 136/80 98 04/19/20 11:55 52 L 15 148/92 H 96 04/19/20 11:31 51 L 22 146/81 H 98 04/19/20 11:30 97 04/19/20 11:00 51 L 16 96 04/19/20 10:30 48 L 18 97 04/19/20 10:00 51 L 16 144/77 H 97 04/19/20 09:50 58 L 20 97 04/19/20 09:46 50 L 22 129/70 96 04/19/20 09:41 36.9 C 54 L 20 129/70 97 04/19/20 09:31 53 L 20 95 Laboratory Results Abnormal Lab Results 04/19/20 04/19/20 04/19/20 10:36 10:36 10:36 WBC 7.27 RBC 4.24 L Hgb 12.8 L Hct 38.8 L MCV 91.5 MCH 30.2 MCHC 33.0 RDW Std Deviation 45.9 RDW Coeff of Love 14.0 Plt Count 206 MPV 12.7 H Immature Gran % (Auto) 0.3 Neut % (Auto) 74.9 Lymph % (Auto) 14.7 [place] % (Auto) 7.6 Eos % (Auto) 2.2 Baso % (Auto) 0.3 Neut # (Auto) 5.45 Lymph # (Auto) 1.07 L [place] # (Auto) 0.55 Eos # (Auto) 0.16 Baso # (Auto) 0.02 Immature Gran # (Auto) 0.02 PT 10.5 INR 1.0 APTT 23.2 PTT Ratio 0.8 D-Dimer 240 Sodium 141 Potassium 4.0 Chloride 103 Carbon Dioxide 30 Anion Gap 8.0 BUN 52 H Creatinine 3.62 H Est Cr Clr Drug Dosing 29.7 Est GFR ( Amer) 19.8 Est GFR (Non-Af Amer) 17.1 BUN/Creatinine Ratio 14.3 Glucose 89 Calcium 8.6 Total Bilirubin 0.5 AST 24 ALT 58 Alkaline Phosphatase 96 Troponin I 0.023 Total Protein 8.0 Albumin 3.7 Globulin 4.3 H Albumin/Globulin Ratio 0.9 Lipase 105 Specimen Hemolysis Urine Color Urine Appearance Urine pH Ur Specific [place] Urine Protein Urine Glucose (UA) Urine Ketones Urine Blood Urine Nitrite Urine Bilirubin Urine Urobilinogen Ur Leukocyte Esterase Hepatitis C Ab Screen 04/19/20 04/19/20 10:41 11:31 WBC RBC Hgb Hct MCV MCH MCHC RDW Std Deviation RDW Coeff of Love Plt Count MPV Immature Gran % (Auto) Neut % (Auto) Lymph % (Auto) [place] % (Auto) Eos % (Auto) Baso % (Auto) Neut # (Auto) Lymph # (Auto) [place] # (Auto) Eos # (Auto) Baso # (Auto) Immature Gran # (Auto) PT INR APTT PTT Ratio D-Dimer Sodium Potassium Chloride Carbon Dioxide Anion Gap BUN Creatinine Est Cr Clr Drug Dosing Est GFR ( Amer) Est GFR (Non-Af Amer) BUN/Creatinine Ratio Glucose Calcium Total Bilirubin AST ALT Alkaline Phosphatase Troponin I Total Protein Albumin Globulin Albumin/Globulin Ratio Lipase Specimen Hemolysis Urine Color Yellow Urine Appearance Clear Urine pH 5.5 Ur Specific [place] 1.013 Urine Protein Negative Urine Glucose (UA) Negative Urine Ketones Negative Urine Blood Negative Urine Nitrite Negative Urine Bilirubin Negative Urine Urobilinogen Negative Ur Leukocyte Esterase Negative Hepatitis C Ab Screen Neg Diagnostic Findings Echocardiogram obtained 07/13/2019: Borderline left ventricular dilation with moderate left ventricular hypertrophy. Normal LV systolic function. Moderate left atrial dilation. Mild aortic regurgitation. Performed 07/21/2019: Nondiagnostic due to inability to achieve target heart rate. No evidence of ischemia at the workload achieved. CXR At the time of admission revealed cardiomegaly. No other abnormalities Head CT obtained at the time of admission did not reveal any acute intracranial pathology PG Care Time/CCT Total # of Minutes Spent Total Time Spent with Patient: Total time spent is greater than 50% in coordination of care (as documented) at patient's floor/unit and/or counseling p atient: Coding Level of Care Code 11954 Inpt Consult Level 4 Diagnoses Lightheaded R42 Frequent PVCs I49.3 CAD (coronary artery disease) I25.10
[2020-04-19] MEDS: traZODone HCL 50 MG TAB PO SCH (20:07)
[2020-04-19] MEDS: ARIPiprazole 10 MG TAB PO SCH (20:07)
[2020-04-19] MEDS: BENZTROPINE MESYLATE 1 MG TAB PO SCH (20:08)
[2020-04-19] MEDS: FERROUS SULFATE 325 MG TAB PO SCH (20:13)
[2020-04-19] MEDS: carBAMazepine 100 MG CHEW TAB PO SCH (20:13)
[2020-04-19] MEDS: SERTRALINE HCL 100 MG TABLET PO SCH (20:14)
[2020-04-20] MEDS: FERROUS SULFATE 325 MG TAB PO SCH ×2 (07:58→20:47)
[2020-04-20] MEDS: carBAMazepine 100 MG CHEW TAB PO SCH ×2 (07:58→20:46)
[2020-04-20] MEDS: hydrALAZINE HCL 25 MG TAB PO SCH ×3 (07:58→20:47)
[2020-04-20] MEDS: amLODIPine BESYLATE 5 MG TAB PO SCH (07:58)
[2020-04-20 09:03] LABS: Hematocrit (blood only) 35.3 % (42-52); Hemoglobin 11.5 g/dL (14.0-18.0); Mean Corpuscular Hemoglobin 29.6 pg (25-34); Mean Corpuscular Volume 90.7 fL (80-100); Mean Platelet Volume 12.6 fL (7.4-10.4); Platelet Count 196 K/uL (130-400); RDW Coefficient of Variation 13.7 % (11.5-14.5); RDW Standard Deviation 45.4 fL (36.4-46.3); Red Blood Count 3.89 M/uL (4.7-6.1); White Blood Count 6.82 K/uL (4.8-10.8)
[2020-04-20 09:04] LABS: BUN Creatinine Ratio 14.8 (10-20); Calcium 8.1 mg/dl (8.5-10.1); Est GFR (African American) 22.5; Est GFR (Non-African American) 19.5; Magnesium 2.5 mg/dl (1.8-2.4); Potassium 3.4 mmol/L (3.5-5.1)
[2020-04-20 09:25] LABS: Mean Corpuscular Hgb Conc 32.6 g/dL (32-36)
--- NOTE | 2020-04-20 11:15 | XCELERA ---
[id number]
[2020-04-20] MEDS ORDERED: POTASSIUM CHLORIDE 10 MEQ TABCR PO STA (11:25)
--- NOTE | 2020-04-20 15:46 | Cardiology Progress Note ---
Date of Service April 20, 2020 Assessment & Plan (1) Lightheaded: I do not think his persistent lightheadedness is related to bradycardia while lying in bed watching television his heart rate was approximately 60 beats per minute. He reported persistent dizziness. As such, this is unlikely to improve with a pacemaker. However, with ambulation he had very little change in his heart rate. His symptoms certainly got worse and may have an element of exercise intolerance due to low heart rates. This was certainly manifest on his exercise testing performed in June of this year. I do believe he may benefit from a permanent pacemaker for chronotropic incompetence. I did mention this diagnosis and described the implant procedure. He wishes to think about the procedure before making a commitment. (2) Frequent PVCs: These appear to be worse with activity. He appeared to go into bigeminy with ambulation. It is unclear if this plays a role in his dizziness. Ideally he would be on higher doses of beta-blockade, but this would likely result in slower heart rates at other times. If he is agreeable to a permanent pacemaker we can be more aggressive with treating the PVCs. The morphology is not identical to typical right ventricular outflow tract PVCs. However, in the absence of improvement with more aggressive medical therapy he might be a candidate for PVC ablation she will be feel this is related to symptoms. Fortunately, his LV function is normal there is not appear to be an indication for more aggressive therapy on the basis of a cardiomyopathy. (3) CAD (coronary artery disease): This is by report. No regional wall motion abnormalities on imaging earlier this year. No current symptoms suggestive of coronary ischemia. With a history of coronary disease he should be started on high-dose statin therapy. He should continue 81 mg of aspirin daily and we will consider continuation of metoprolol as well. Admission and Anticipated Discharge Date Admission Date: April 19, 2020 Subjective He reported feeling worse with ambulation. He reported feeling somewhat presyncopal at times. He is not appear to be aware of any palpitations. This afternoon the patient claims to be feeling well with the exception of persistent dizziness. This was present even while lying in bed eating dinner and watching TV. Review of Systems Review of Systems: Per HPI Physical Exam Physical Exam: The patient is alert and oriented. Mood and affect appeared normal. He answered all questions appropriately. HEENT: Pupils are equal and reactive to light and accommodation. Extraocular movements are intact. The sclerae are anicteric. Neuro: Cranial nerves intact Neck: Patient's neck is supple. He has palpable carotid pulses bilaterally without bruits on auscultation. There is no evidence of jugular venous distention. The thyroid is not enlarged. Lungs: Clear to auscultation bilaterally. He has good air movement without use of accessory muscles. No rales wheezes or rhonchi. Cardiac: Heart demonstrates a regular rate and rhythm. Normal S1 and S2. Systolic ejection murmur. Pulses: The patient has palpable radial pulses bilaterally that are equal in intensity Extremities: There was no evidence of hypoperfusion. There is no cyanosis or clubbing. Left leg has brawny edema, mild right lower extremity edema. Skin: I did not appreciate any rashes on examination today. Results & Data ([facility]) Vital Signs (Past 12 Hours) Vital Signs Temp Pulse Resp BP Pulse Ox 04/20/20 15:29 36.5 C 45 L 20 95 04/20/20 13:00 36.6 C 32 L 18 133/65 97 04/20/20 07:39 36.6 C 49 L 18 158/86 H 92 Laboratory Results Abnormal Lab Results 04/19/20 04/19/20 04/20/20 17:30 17:30 08:05 WBC Cancelled RBC Cancelled Hgb Cancelled Hct Cancelled MCV Cancelled MCH Cancelled MCHC Cancelled RDW Std Deviation Cancelled RDW Coeff of Love Cancelled Plt Count Cancelled MPV Cancelled Absolute Nucleated RBC Cancelled Nucleated RBC % (auto) Cancelled Platelet Estimate Cancelled Sodium Potassium Chloride Carbon Dioxide Anion Gap BUN Creatinine Est Cr Clr Drug Dosing Est GFR ( Amer) Est GFR (Non-Af Amer) BUN/Creatinine Ratio Glucose Calcium Magnesium COVID-19 Eval Order Covid19 IDNow at[facility]IC SARS-CoV-2, RNA, NAAT NEGATIVE 04/20/20 04/20/20 08:05 08:35 WBC 6.82 RBC 3.89 L Hgb 11.5 L Hct 35.3 L MCV 90.7 MCH 29.6 MCHC 32.6 RDW Std Deviation 45.4 RDW Coeff of Love 13.7 Plt Count 196 MPV 12.6 H Absolute Nucleated RBC Nucleated RBC % (auto) Platelet Estimate Sodium 139 Potassium 3.4 L Chloride 107 Carbon Dioxide 27 Anion Gap 6.0 BUN 48 H Creatinine 3.25 H D Est Cr Clr Drug Dosing 33.0 Est GFR ( Amer) 22.5 Est GFR (Non-Af Amer) 19.5 BUN/Creatinine Ratio 14.8 Glucose 89 Calcium 8.1 L Magnesium 2.5 H COVID-19 Eval Order SARS-CoV-2, RNA, NAAT Diagnostic Findings Echocardiogram performed today revealed preserved LV systolic functionLVH. Mild aortic regurgitation.. PG Care Time/CCT Total # of Minutes Spent Total Time Spent with Patient: Total time spent is greater than 50% in coordination of care (as documented) at patient's floor/unit and/or counseling patient: Coding Level of Care Code 41852 Subseq Hosp Care Lvl 3 Diagnoses Lightheaded R42 Frequent PVCs I49.3 CAD (coronary artery disease) I25.10
--- NOTE | 2020-04-20 19:03 | Hospitalist Progress Note ---
Date of Service April 20, 2020 Assessment & Plan (1) Symptomatic bradycardia: Definitely with chronotropic incompetence both here and earlier this year with max heart rate obtained in the 90s on a stress test. He ambulated here in halls today and could only get HR up to the 60s from resting HR 40s. SInus, no high degree blocks Appreciate Cardiology consult-recommends possible pacmaker, but not sure of this will help his dizziness as he has dizziness almost constantly. ECHO preserved EF, mod LVH, mild Pulm HTN -check orthostatics in AM follow on tele -holding home metoprolol (2) STEPHANIE (acute kidney injury): Baseline Cr ~3.0, eGFR ~20. - On presentation, Cr 3.6, reflecting only a fairly small drop in true renal function. 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 follow BMP (3) CAD (coronary artery disease): No chest pain at present. EKG doesn't appear acutely ischemic. - Continue ASA, not able to restart beta-clive given bradycardia - Cardiology consulted -should be on a statin (4) CKD (chronic kidney disease): As above, baseline Cr ~3.0. CKD Stage IV. - As above -Avoid nephrotoxins -renally dose meds when appropriate -follow BMP (5) Hypertension: BP mildly elevated - Lowered hydralazine and amlodipine doses from home doses while concern for bradycardia - Can adjust as needed - Holding bumetanide and HCTZ (6) Depression with anxiety: Expressed no SI/HI on interview. - Continue sertraline, trazodone, carbamazepine, and aripiprazole (7) Frequent PVCs: could be cause of his dizziness if gets pacer, can increase beta clive therapy to suppress (8) B12 deficiency anemia: received IM B12 last admission has a h/o gastric bypass surgery and poor absorption continues on po B12 hgb mildly low at 11.5 (9) Anemia: also with a h/o Fe def anemia and B12 as above 2/2 gastric bypass surgery continue ferrous sulfate (10) Lower extremity edema: L>R chronic lymphedema follow no diuretics at this time needed no CHF on exam except mild Pulm HTN earth science technical officer increased as above due to overdiuresis (11) DVT prophylaxis: SCDs - Holding heparin in case of need for pacemaker Dispo-continued stay on med-tele Admission and Anticipated Discharge Date Admission Date: April 19, 2020 Subjective Patient reports still feels dizziness even at rest. He ambulated the halls after I saw him today and heart rates did get up into the 60s. He did feel like he was working pretty hard at the time when his heart rate went to the 60s. Denies chest pain or shortness of breath. He always has left lower extremity swelling for many years. Otherwise has no complaints. Telemetry with sinus bradycardia with rates in the 40s, first-degree AV block, PVCs, rates into the 60s with ambulation I discussed the case with center customer service associate. Review of Systems Review of Systems: All systems reviewed & are unremarkable except as noted in HPI & below Physical Exam Constitutional: WD/WN, vitals as above Eyes: + anicteric sclerae Neck: trachea midline, no thyromegaly Respiratory: normal respiratory effort, lungs clear to auscultation Cardiovascular: Rate/Rhythm: regular rate and + bradycardic (With ectopy) Heart Sounds: no murmur Extremities: no edema Chest (Breasts): Chest: normal inspection of chest Gastrointestinal (Abdomen): normal bowel sounds, soft, nontender, no hepatosplenomegaly Musculoskeletal: Extremities: no cyanosis and no clubbing Skin: no rashes, warm and dry Neurologic: moves all extremities and awake; no focal motor deficits Psychiatric: A+Ox3, euthymic affect Lymphatic: + lymphedema (Left lower extremity) Results & Data Results & Data ([facility]) Vital Signs (Past 12 Hours) Vital Signs Temp Pulse Pulse Resp BP Pulse Ox 04/20/20 17:19 65 04/20/20 15:29 36.5 C 45 L 20 170/97 H 95 04/20/20 13:00 36.6 C 32 L 18 133/65 97 04/20/20 07:39 36.6 C 49 L 18 158/86 H 92 Laboratory Results 04/20/20 04/20/20 04/20/20 Range/Units 08:35 08:05 08:05 WBC 6.82 Cancelled RBC 3.89 L Cancelled Hgb 11.5 L Cancelled Hct 35.3 L Cancelled MCV 90.7 Cancelled MCH 29.6 Cancelled MCHC 32.6 Cancelled RDW Std Deviation 45.4 Cancelled RDW Coeff of Love 13.7 Cancelled Plt Count 196 Cancelled MPV 12.6 H Cancelled Absolute Nucleated RBC Cancelled Nucleated RBC % (auto) Cancelled Platelet Estimate Cancelled Sodium 139 (136-145) mmol/L Potassium 3.4 L (3.5-5.1) mmol/L Chloride 107 (98-107) mmol/L Carbon Dioxide 27 (21-32) mmol/L Anion Gap 6.0 (3-11) BUN 48 H (7-18) mg/dl Creatinine 3.25 H D (0.6-1.4) mg/dl Est Cr Clr Drug Dosing 33.0 ml/min Est GFR ( Amer) 22.5 Est GFR (Non-Af Amer) 19.5 BUN/Creatinine Ratio 14.8 (10-20) Glucose 89 (70-99) mg/dl Calcium 8.1 L (8.5-10.1) mg/dl Magnesium 2.5 H (1.8-2.4) mg/dl PG Care Time/CCT Total # of Minutes Spent Total Time Spent with Patient: Total time spent is greater than 50% in coordination of care (as documented) at patient's floor/unit and/or counseling patient: Coding Level of Care Code 55024 Subseq Hosp Care Lvl 3 Diagnoses Symptomatic bradycardia R00.1 STEPHANIE (acute kidney injury) N17.9 CAD (coronary artery disease) I25.10 CKD (chronic kidney disease) N18.9 Hypertension I10 Depression with anxiety F41.8 Frequent PVCs I49.3 B12 deficiency anemia D51.9 Anemia D64.9 Lower extremity edema R60.0 DVT prophylaxis Z29.9
[2020-04-20] MEDS: ARIPiprazole 10 MG TAB PO SCH (20:46)
[2020-04-20] MEDS: SERTRALINE HCL 100 MG TABLET PO SCH (20:47)
[2020-04-20] MEDS: BENZTROPINE MESYLATE 1 MG TAB PO SCH (20:47)
[2020-04-20] MEDS: traZODone HCL 50 MG TAB PO SCH (20:47)
[2020-04-20] MEDS ORDERED: SODIUM CHLORIDE 0.9% 1000ML 1,000 ML IV SCH (23:45)
[2020-04-21] MEDS: ACETAMINOPHEN 325 MG TAB PO PRN ×2 (03:33→14:23)
[2020-04-21 07:17] LABS: BUN Creatinine Ratio 16.4 (10-20); Calcium 7.9 mg/dl (8.5-10.1); Creatinine Clr Calc Pharmacy 34.9 ml/min; Est GFR (African American) 24.1; Est GFR (Non-African American) 20.8; Magnesium 2.6 mg/dl (1.8-2.4); Potassium 3.6 mmol/L (3.5-5.1)
[2020-04-21] MEDS: amLODIPine BESYLATE 5 MG TAB PO SCH (08:27)
[2020-04-21] MEDS: FERROUS SULFATE 325 MG TAB PO SCH ×2 (08:27→20:44)
[2020-04-21] MEDS: hydrALAZINE HCL 25 MG TAB PO SCH ×3 (08:27→20:44)
[2020-04-21] MEDS: CYANOCOBALAMIN 500 MCG TABLET (VITAMIN B-12) PO SCH (08:27)
[2020-04-21] MEDS: carBAMazepine 100 MG CHEW TAB PO SCH ×2 (08:27→20:43)
[2020-04-21] MEDS: ASPIRIN 81 MG ECTAB PO SCH (08:27)
--- NOTE | 2020-04-21 08:35 | Cardiology Progress Note ---
Date of Service April 21, 2020 Assessment & Plan (1) Lightheaded: I do not think his persistent lightheadedness is related to bradycardia while lying in bed watching television his heart rate was approximately 60 beats per minute. He reported persistent dizziness. As such, this is unlikely to improve with a pacemaker. Possibly related to orthostasis medications. (2) Frequent PVCs: These appear to be worse with activity. He appeared to go into bigeminy with ambulation. It is unclear if this plays a role in his dizziness. Once his pacemaker is known to be functioning normally we can increase his beta-blockade in the hopes of reducing PVCs. Dizzy with exercise on his symptoms. (3) CAD (coronary artery disease): This is by report. No regional wall motion abnormalities on imaging earlier this year. No current symptoms suggestive of coronary ischemia. With a history of coronary disease he should be started on high-dose statin therapy. He should continue 81 mg of aspirin daily and we will consider continuation of metoprolol as well. Admission and Anticipated Discharge Date Admission Date: April 19, 2020 Subjective This morning the patient continues to complain of dizziness. He states that it was somewhat better than yesterday. He did undergo orthostatic blood pressure measurements. Review of Systems Review of Systems: Per HPI Physical Exam Physical Exam: The patient is alert and oriented. Mood and affect appeared normal. He answered all questions appropriately. HEENT: Pupils are equal and reactive to light and accommodation. Extraocular movements are intact. The sclerae are anicteric. Neuro: Cranial nerves intact Neck: Patient's neck is supple. He has palpable carotid pulses bilaterally without bruits on auscultation. There is no evidence of jugular venous distention. The thyroid is not enlarged. Lungs: Clear to auscultation bilaterally. He has good air movement without use of accessory muscles. No rales wheezes or rhonchi. Cardiac: Heart demonstrates a regular rate and rhythm. Normal S1 and S2. Systolic ejection murmur. Pulses: The patient has palpable radial pulses bilaterally that are equal in intensity Extremities: There was no evidence of hypoperfusion. There is no cyanosis or clubbing. Left leg has brawny edema, mild right lower extremity edema. Skin: I did not appreciate any rashes on examination today. ENMT: Mallampati Class: IV Respiratory: normal respiratory effort Cardiovascular: Rate/Rhythm: regular rate and + bradycardic Results & Data ([facility]) Vital Signs (Past 12 Hours) Vital Signs Temp Pulse Pulse Pulse Resp BP BP 04/21/20 07:00 36.3 C L 60 18 144/73 H 04/21/20 04:10 36.4 C L 57 L 16 160/87 H 04/21/20 03:26 54 L 20 160/90 H 04/20/20 23:58 36.7 C 58 L 16 137/78 04/20/20 23:24 62 04/20/20 20:53 53 L 18 152/80 H Pulse Ox 04/21/20 07:00 95 04/21/20 04:10 97 04/21/20 03:26 94 04/20/20 23:58 95 04/20/20 23:24 04/20/20 20:53 94 Laboratory Results Abnormal Lab Results 04/21/20 06:30 Sodium 142 Potassium 3.6 Chloride 110 H Carbon Dioxide 27 Anion Gap 5.0 BUN 50 H Creatinine 3.08 H Est Cr Clr Drug Dosing 34.9 Est GFR ( Amer) 24.1 Est GFR (Non-Af Amer) 20.8 BUN/Creatinine Ratio 16.4 Glucose 89 Calcium 7.9 L Magnesium 2.6 H PG Care Time/CCT Total # of Minutes Spent Total Time Spent with Patient: Total time spent is greater than 50% in coordination of care (as documented) at patient's floor/unit and/or counseling patient: Coding Level of Care Code 41309 Subseq Hosp Care Lvl 2 Diagnoses Lightheaded R42 Frequent PVCs I49.3 CAD (coronary artery disease) I25.10
[2020-04-21] MEDS ORDERED: LIDOCAINE HCL 1% 20 ML VIAL ONE (10:30)
[2020-04-21] MEDS ORDERED: fentaNYL citrate 100 MCG/2 ML VIAL ONE ×2 (10:31→11:30)
[2020-04-21] MEDS ORDERED: BUPIVACAINE 0.25% 30 ML VIAL ONE (10:31)
[2020-04-21] MEDS ORDERED: MIDAZOLAM HCL 5 MG/ML 1 ML VIAL ONE ×2 (10:31→11:44)
[2020-04-21] MEDS ORDERED: BACITRACIN INJ 50,000 UNIT VIAL ONE (10:32)
[2020-04-21] MEDS ORDERED: CLINDAMYCIN PHOS 300 MG/2 ML VIAL ONE (10:51)
--- NOTE | 2020-04-21 10:51 | Pre Anesthesia Assessment ---
Date of Service April 21, 2020 Pre Sedation Assessment Vital Signs Temp Pulse Pulse Pulse Resp BP BP 04/21/20 07:00 36.3 C L 60 18 144/73 H 04/21/20 04:10 36.4 C L 57 L 16 160/87 H 04/21/20 03:26 54 L 20 160/90 H 04/20/20 23:58 36.7 C 58 L 16 137/78 04/20/20 23:24 62 04/20/20 20:53 53 L 18 152/80 H 04/20/20 19:26 36.3 C L 72 18 127/67 04/20/20 17:19 65 04/20/20 15:29 36.5 C 45 L 20 170/97 H 04/20/20 13:00 36.6 C 32 L 18 133/65 Pulse Ox 04/21/20 07:00 95 04/21/20 04:10 97 04/21/20 03:26 94 04/20/20 23:58 95 04/20/20 23:24 04/20/20 20:53 94 04/20/20 19:26 93 04/20/20 17:19 04/20/20 15:29 95 04/20/20 13:00 97 Cardiovascular + regular rate and + bradycardic Respiratory + respiratory effort normal Pre-Sedation Airway Assessment Smoking Status: Never smoker Hx Sleep Apnea: Yes Hx Difficult Intubation: No Short, Thick Neck: No Thyromental Distance: > or= 3.5 Finger Breadths Oral Cavity: + WNL Mallampati Class: IV ASA: ASA3 NPO Status Date of Last Intake of Fluids: 04/21/20 Time of Last Intake of Fluids: 08:00 Last Oral Intake of Fluids Comment: sip with meds Date of Last Intake of Solid Food: 04/20/20 Time of Last Intake of Solid Foods: 18:00 Procedure Planning Contraindications for Sedation: none Current Medications Reviewed: Yes Notes The planned sedation has been discussed with the patient. Informed Consent was obtained. I have identified the patient, determined the appropriateness of sedation and have assessed the patient immediately prior to the procedure. All medicine(s) and interventions are by my order.
--- NOTE | 2020-04-21 12:53 | Electrophysiology Report ---
Date of Service April 21, 2020 Electrophysiology Procedure Electrophysiology Procedure Report Procedure performed: Implantation of dual-chamber pacemaker Staff music theory teacher: Luc Villegas MD Indication: The patient is a 59-year-old gentleman with a history of exercise intolerance. Previous exercise testing revealed poor heart rate response. Based on the results of this test he was felt to have chronotropic incompetence and be a good candidate for dual-chamber permanent pacemaker due to symptomatic nonreversible sinus node dysfunction. Dual-chamber device was selected as the patient is currently in sinus rhythm and wish to maintain AV synchrony. Procedure in detail: The patient was informed of the risks benefits and alternatives to the intended procedure and she wished to proceed. He was taken to the electrophysiology suite in a fasting state. A preoperative antibiotic had been administered. The patient was monitored electrocardiographically throughout today's procedure and conscious sedation was administered per protocol. The left upper pectoral area is prepped and draped in usual sterile fashion. This area was anesthetized using subcutaneous administration of a xylocaine solution. An incision was made at this site and carried down to the prepectoralis fascia using sharp dissection. Electrocautery was also employed for dissection as well as for hemostasis. A device pocket was fashioned tissues above the pectoralis muscle. Subsequent to this maneuver the left axillary vein was accessed using modified Seldinger technique. Sheaths were placed over guidewires at this site and used to facilitate passage of the pacing leads to the respective chambers under fluoroscopic guidance. This included right atrial and right ventricular leads. The right ventricular lead was actually delivered via a catheter and screwed into the interventricular septum. It was used to capture the left bundle branch. Adequate sensing and threshold parameters were obtained prior to Active fixation of the leads to the endocardial surface. The proximal portion leads were then sutured the prepectoral fascia using nonabsorbable suture. The device pocket was irrigated with antibiotic solution. The leads were then attached to the device. The device and leads were then placed in the pocket and pocket was closed in 3 layers of absorbable suture. Steri-Strips and sterile dressing were applied. The device was tested noninvasively prior to conclusion the procedure. The patient tolerated procedure well there no immediate complications. Equipment used: New pulse generator: Laboratory Apparatus Glass [employer]. Model number: [id number] serial number [id number] Right atrial lead: Laboratory Apparatus Glass [employer]. Model number: [id number] serial number [id number] Right ventricular lead: Laboratory Apparatus Glass Blower [employer]. Model number: 3830 serial number [id number] Measured data: Right atrial lead: P wave measured 3 mV. Pacing threshold 0.5 V at 0.4 ms with a pacing impedance of 491 ohms Right ventricular lead: R waves measured 19 mV. Pacing threshold 0.75 V 0.4 ms with a pacing impedance of 874 ohms Impression: Successful implantation of dual-chamber permanent pacemaker with left bundle group leader wafer polishing [facility] Electrophysiology codes Pacing Procedure 1: Pacin Insert/Replace Pacer A & V PG Moderate Sedation Codes Moderate Sedation Codes Procedure 1: Sedation/Anesthesia: 01443 Mod Sedation by the same physician;Init15 Min Child Age 5 & Up Procedure 2: Sedation/Anesthesia: 35088 Mod Sedation by the same physician; Ea [id number] Minutes
--- NOTE | 2020-04-21 12:53 | Post Anesthesia Assessment ---
Date of Service April 21, 2020 Post Sedation Assessment Vital Signs Temp Pulse Pulse Pulse Resp BP BP 04/21/20 07:00 36.3 C L 60 18 144/73 H 04/21/20 04:10 36.4 C L 57 L 16 160/87 H 04/21/20 03:26 54 L 20 160/90 H 04/20/20 23:58 36.7 C 58 L 16 137/78 04/20/20 23:24 62 04/20/20 20:53 53 L 18 152/80 H 04/20/20 19:26 36.3 C L 72 18 127/67 04/20/20 17:19 65 04/20/20 15:29 36.5 C 45 L 20 170/97 H 04/20/20 13:00 36.6 C 32 L 18 133/65 Pulse Ox 04/21/20 07:00 95 04/21/20 04:10 97 04/21/20 03:26 94 04/20/20 23:58 95 04/20/20 23:24 04/20/20 20:53 94 04/20/20 19:26 93 04/20/20 17:19 04/20/20 15:29 95 04/20/20 13:00 97 Recovery Score Activity: Moves 4 extremities Respiration: Deep Breath/Cough Circulation: +/-20% PreAnes Value Consciousness: Fully Awake Oxygen Saturation: > 92% On Room Air Discharge Sedation Level of Care: Fast Track Phase II Post Sedation Plan On clinical assessment, the patient appears to have tolerated the sedation without complications. Patient is recovering as anticipated. Patient will continue to be monitored by nursing and may be discharged when sedation discharge criteria are met per below protocol. Upon Completions of procedure up to 15 minutes continue every 5 minute vital signs and the P.A.R. score; then discharge to a Phase I or Fast Track to Phase II per the following guidelines: * Discharge Patient to appropriate Phase II area if PAR is 8 or greater or return to pre- procedure baseline. The post - procedure orders will be as directed. * If PAR score is less than 8 or not return to pre-procedure baseline then patient will follow Phase I monitoring till PAR is reached for Phase II. The Phase I may be done in procedure room or may call to secure a Phase I area. * If naloxone or flumazenil are used for reversal, hold in Phase I for continued monitoring from when last reversal dose was given for a minimum of 60 minutes or longer pending the nurse and/or physician discretion of patient condition before discharge to Phase II. Please call the Sedation Physician to re-evaluate and complete post-note for discharge to Phase II area. Do NOT discharge from procedure sedation or Phase 1 until post- sedation evaluation note is complete by procedure /sedation MD Sedation Discharge Instructions to be given to the patient at discharge to home.
--- NOTE | 2020-04-21 14:17 | Electrocardiogram Report ---
Test Reason : Blood Pressure : / mmHG Vent. Rate : 054 BPM Atrial Rate : 054 BPM P-R Int : 226 ms QRS Dur : 130 ms QT Int : 448 ms P-R-T Axes : 028 063 013 degrees QTc Int : 424 ms Sinus bradycardia with 1st degree A-V block Non-specific intra-ventricular conduction block Abnormal ECG When compared with ECG of 19-APR-2020 09:26, No significant change was found Confirmed by Luc Villegas ([id number]) on 04/21/2020 2:16:51 PM Referred By: REFERRED SELF Confirmed By:Elian Villegas
--- NOTE | 2020-04-21 14:30 | Hospitalist Progress Note ---
Date of Service April 21, 2020 Assessment & Plan (1) Symptomatic bradycardia: Definitely with chronotropic incompetence both here and earlier this year with max heart rate obtained in the 90s on a stress test. He ambulated here in halls and could only get HR up to the 60s from resting HR 40s. Telemetry with sinus bradycardia, no high degree blocks Appreciate Cardiology consult-recommends pacemaker placement, but not sure if this will help his dizziness as he has dizziness almost constantly. At a minimum, we will be able to maximize beta-clive therapy to suppress his frequent bigeminy and see if this helps his dizziness ECHO preserved EF, mod LVH, mild Pulm HTN Orthostatics are negative Continue to follow on tele -holding home metoprolol but can likely start tomorrow now that pacers placed (2) STEPHANIE (acute kidney injury): Baseline Cr ~3.0, eGFR ~20. - On presentation, Cr 3.6, reflecting only a fairly small drop in true renal function. - emergency dept tech now improved down to his baseline of 3.0 -continue Holding Bumex & HCTZ -Gave gentle IV fluids while n.p.o. for procedure, can DC IV fluids once taking p.o. today follow BMP (3) CAD (coronary artery disease): No chest pain at present. EKG doesn't appear acutely ischemic. No records on the history of this but apparently he had an [place] 7 or 8 years ago that was medically managed - Continue ASA, not able to restart beta-clive yet given bradycardia but likely tomorrow as above - Cardiology consulted -should be on a statin-we will start this prior to discharge (4) CKD (chronic kidney disease): As above, baseline Cr ~3.0. CKD Stage IV. - As above -Avoid nephrotoxins -renally dose meds when appropriate -follow BMP (5) Hypertension: BP mildly elevated but has reduced doses of his home hydralazine and amlodipine upon admission -Continued reduced doses of hydralazine and amlodipine for now and will consider significantly increasing metoprolol to suppress bigeminy -Continue holding bumetanide and HCTZ for acute kidney injury as above (6) Depression with anxiety: Stable - Continue sertraline, trazodone, carbamazepine, and aripiprazole, and Cogentin (7) Frequent PVCs: could be cause of his dizziness if gets pacer, can increase beta clive therapy to suppress (8) B12 deficiency anemia: received IM B12 last admission has a h/o gastric bypass surgery and poor absorption continues on po B12 hgb mildly low at 11.5 (9) Anemia: also with a h/o Fe def anemia and B12 as above 2/2 gastric bypass surgery continue ferrous sulfate (10) Lower extremity edema: L>R chronic lymphedema follow no diuretics at this time needed no CHF on exam except mild Pulm HTN emergency dept tech increased as above due to overdiuresis (11) DVT prophylaxis: SCDs - Holding heparin for pacemaker placement-can hopefully restart tomorrow Dispo-continued stay on PCU, hopefully can discharge back to assisted tomorrow as long as pacemaker is functioning properly Admission and Anticipated Discharge Date Admission Date: April 19, 2020 Anticipated date of discharge: 04/22/20 Subjective Patient had pacemaker placed today and I saw him shortly afterwards and he was still drowsy from receiving fentanyl. He is having some throbbing pain at the pacer site, but otherwise denied any issues. I discussed his case with cardiology. Telemetry with normal sinus rhythm and PVCs, bigeminy, conduction changes, rates in the 50s to 60s prior to pacer placement. Review of Systems Review of Systems: All systems reviewed & are unremarkable except as noted in HPI & below Physical Exam Constitutional: WD/WN, vitals as above + lethargic (But would wake up and answer questions) Eyes: + anicteric sclerae Neck: trachea midline, no thyromegaly Respiratory: normal respiratory effort, lungs clear to auscultation Cardiovascular: Rate/Rhythm: regular rate and regular rhythm Heart Sounds: no murmur Extremities: no edema Chest (Breasts): Chest: + pacemaker (Left anterior chest wall with dressing clean dry and intact) Gastrointestinal (Abdomen): normal bowel sounds, soft, nontender, no hepatosplenomegaly Musculoskeletal: Extremities: no cyanosis and no clubbing Skin: no rashes, warm and dry Neurologic: moves all extremities; no focal motor deficits Lymphatic: + lymphedema (Left lower extremity) Results & Data Results & Data ([facility]) Vital Signs (Past 12 Hours) Vital Signs Temp Pulse Pulse Resp BP BP Pulse Ox 04/21/20 13:33 36.9 C 70 18 158/99 H 97 04/21/20 13:05 74 16 147/89 H 96 04/21/20 12:50 74 16 158/93 H 96 04/21/20 07:00 36.3 C L 60 18 144/73 H 95 04/21/20 04:10 36.4 C L 57 L 16 160/87 H 97 04/21/20 03:26 54 L 20 160/90 H 94 Laboratory Results 04/21/20 Range/Units 06:30 Sodium 142 (136-145) mmol/L Potassium 3.6 (3.5-5.1) mmol/L Chloride 110 H (98-107) mmol/L Carbon Dioxide 27 (21-32) mmol/L Anion Gap 5.0 (3-11) BUN 50 H (7-18) mg/dl Creatinine 3.08 H (0.6-1.4) mg/dl Est Cr Clr Drug Dosing 34.9 ml/min Est GFR ( Amer) 24.1 Est GFR (Non-Af Amer) 20.8 BUN/Creatinine Ratio 16.4 (10-20) Glucose 89 (70-99) mg/dl Calcium 7.9 L (8.5-10.1) mg/dl Magnesium 2.6 H (1.8-2.4) mg/dl PG Care Time/CCT Total # of Minutes Spent Total Time Spent with Patient: Total time spent is greater than 50% in coordination of care (as documented) at patient's floor/unit and/or counseling patient: Coding Level of Care Code 09521 Subseq Hosp Care Lvl 3 Diagnoses Symptomatic bradycardia R00.1 STEPHANIE (acute kidney injury) N17.9 CAD (coronary artery disease) I25.10 CKD (chronic kidney disease) N18.9 Hypertension I10 Depression with anxiety F41.8 Frequent PVCs I49.3 B12 deficiency anemia D51.9 Anemia D64.9 Lower extremity edema R60.0 DVT prophylaxis Z29.9
[2020-04-21] MEDS: oxyCODONE HCL IR 5 MG TAB (IMMEDIATE RELEASE) PO PRN ×2 (18:25→23:19)
[2020-04-21] MEDS: CLINDAMYCIN 600 MG in DEXTROSE 5% 50 ML IV SCH (20:41)
[2020-04-21] MEDS: ARIPiprazole 10 MG TAB PO SCH (20:43)
[2020-04-21] MEDS: traZODone HCL 50 MG TAB PO SCH (20:43)
[2020-04-21] MEDS: BENZTROPINE MESYLATE 1 MG TAB PO SCH (20:44)
[2020-04-21] MEDS: SERTRALINE HCL 100 MG TABLET PO SCH (20:45)
[2020-04-22] MEDS: CLINDAMYCIN 600 MG in DEXTROSE 5% 50 ML IV SCH ×2 (04:54→13:10)
[2020-04-22 07:45] LABS: Eosinophils # (auto) 0.21 K/uL (0-0.5); Eosinophils % (auto) 1.5 %; Hematocrit (blood only) 42.5 % (42-52); Immature Granulocytes # (auto) 0.02 K/uL (0.00-0.02); Immature Granulocytes % (auto) 0.1 %; Lymphocytes # (auto) 0.35 K/uL (1.2-3.4); Lymphocytes % (auto) 2.5 %; Mean Corpuscular Hemoglobin 29.9 pg (25-34); Mean Corpuscular Hgb Conc 32.9 g/dL (32-36); Mean Corpuscular Volume 90.6 fL (80-100); Mean Platelet Volume 13.1 fL (7.4-10.4); Monocytes # (auto) 0.34 K/uL (0.11-0.59); Monocytes % (auto) 2.4 %; Neutrophils # (auto) 13.23 K/uL (1.4-6.5); Neutrophils % (auto) 93.5 %; Platelet Count 202 K/uL (130-400); RDW Coefficient of Variation 13.7 % (11.5-14.5); RDW Standard Deviation 45.2 fL (36.4-46.3); Red Blood Count 4.69 M/uL (4.7-6.1); White Blood Count 14.15 K/uL (4.8-10.8)
[2020-04-22 08:09] LABS: Calcium 7.9 mg/dl (8.5-10.1); Creatinine Clr Calc Pharmacy 37.7 ml/min; Est GFR (African American) 26.6; Magnesium 2.2 mg/dl (1.8-2.4); Potassium 3.7 mmol/L (3.5-5.1)
--- NOTE | 2020-04-22 09:11 | XRay Report ---
TWO VIEW CHEST CLINICAL HISTORY: Cardiac pacemaker implantation. FINDINGS: PA and lateral chest radiographs are compared to study dated 04/19/2020. A 2-lead cardiac pa cemaker has been placed. Leads project over the right atrial appendage and the right ventricle. The h eart is enlarged noting atherosclerotic calcification of the thoracic aorta. The pulmonary vasculatur e is noncongested. There is persistent elevation of the right hemidiaphragm and bibasilar atelectasis . The lungs and pleural spaces are otherwise clear. There is no pneumothorax. The bony thorax appears intact. IMPRESSION: 1. A 2-lead cardiac pacemaker has been placed as above. No pneumothorax is seen post procedure. 2. Cardiac enlargement without radiographic evidence of congestive failure. 3. No airspace consolidation or pleural effusion is identified. ACT 112: Negative or not required by law. Electronically signed by: Iker Liu M.D. 04/22/2020 9:09 AM
[2020-04-22] MEDS: amLODIPine BESYLATE 5 MG TAB PO SCH (09:28)
[2020-04-22] MEDS: ASPIRIN 81 MG ECTAB PO SCH (09:28)
[2020-04-22] MEDS: FERROUS SULFATE 325 MG TAB PO SCH ×2 (09:28→19:51)
[2020-04-22] MEDS: CYANOCOBALAMIN 500 MCG TABLET (VITAMIN B-12) PO SCH (09:28)
[2020-04-22] MEDS: hydrALAZINE HCL 25 MG TAB PO SCH ×3 (09:29→19:51)
[2020-04-22] MEDS: carBAMazepine 100 MG CHEW TAB PO SCH ×2 (09:29→19:51)
[2020-04-22] MEDS: ACETAMINOPHEN 325 MG TAB PO PRN ×2 (09:32→19:49)
[2020-04-22] MEDS ORDERED: LIDOCAINE HCL 1% 20 ML VIAL ONE (11:43)
[2020-04-22] MEDS ORDERED: BACITRACIN INJ 50,000 UNIT VIAL ONE (11:43)
[2020-04-22] MEDS ORDERED: BUPIVACAINE 0.25% 30 ML VIAL ONE (11:43)
[2020-04-22] MEDS ORDERED: CLINDAMYCIN PHOS 300 MG/2 ML VIAL ONE (13:27)
[2020-04-22] MEDS ORDERED: fentaNYL citrate 100 MCG/2 ML VIAL ONE ×2 (13:29→14:19)
[2020-04-22] MEDS ORDERED: MIDAZOLAM HCL 5 MG/ML 1 ML VIAL ONE (13:29)
--- NOTE | 2020-04-22 13:57 | Hospitalist Progress Note ---
Date of Service April 22, 2020 Assessment & Plan (1) Symptomatic bradycardia: Definitely with chronotropic incompetence both here and earlier this year with max heart rate obtained in the 90s on a stress test. He ambulated here in halls and could only get HR up to the 60s from resting HR 40s. Telemetry with sinus bradycardia, no high degree blocks Appreciate Cardiology consult-recommends pacemaker placement, but not sure if this will help his dizziness as he has dizziness almost constantly. At a minimum, we will be able to maximize beta-clive therapy to suppress his frequent bigeminy and see if this helps his dizziness ECHO preserved EF, mod LVH, mild Pulm HTN Orthostatics are negative Status post permanent pacemaker placement on 04/21. Returned for revision of right ventricular pacing lead that was dislodged on 04/22. Continue to follow on tele -continue holding home metoprolol but can likely start tomorrow if pacer is properly functioning -Given possible allergic reaction to clindamycin for perioperative prophylactic antibiotic, will give 1 dose of IV vancomycin instead this evening (2) STEPHANIE (acute kidney injury): Baseline Cr ~3.0, eGFR ~20. - On presentation, Cr 3.6, reflecting only a fairly small drop in true renal function. - short piece handler now improved below his baseline at 2.83 after receiving some small amounts of gentle IV fluids -continue Holding Bumex & HCTZ follow BMP (3) Hives: Developed hives after receiving several doses of clindamycin the last 24 hours. He has a history of multiple other antibiotic allergies Stop clindamycin and added to allergy list Start IV Solu-Medrol with loading dose and then 60 mg IV every 8 hours -Start Pepcid 20 mg IV every 12 hours, Zyrtec 10 mg p.o. nightly Benadryl 25 mg IV x1 now and then every 6 hours as needed rash and itching after that -Monitor for worsening of allergic reaction and can give epinephrine if develops evidence of anaphylaxis (4) CAD (coronary artery disease): No chest pain at present. EKG doesn't appear acutely ischemic. No records on the history of this but apparently he had an VT 7 or 8 years ago that was medically managed - Continue ASA, not able to restart beta-clive yet given bradycardia but likely tomorrow as above - Cardiology consulted -should be on a statin-we will start this prior to discharge (5) CKD (chronic kidney disease): As above, baseline Cr ~3.0. CKD Stage IV. - As above -Avoid nephrotoxins -renally dose meds when appropriate -follow BMP (6) Hypertension: BP mildly elevated but has reduced doses of his home hydralazine and amlodipine upon admission -Continued reduced doses of hydralazine and amlodipine for now and will consider significantly increasing metoprolol to suppress bigeminy -Continue holding bumetanide and HCTZ for acute kidney injury as above (7) Depression with anxiety: Stable - Continue sertraline, trazodone, carbamazepine, and aripiprazole, and Cogentin (8) Frequent PVCs: could be cause of his dizziness Now that he has a pacer, can increase beta clive therapy to suppress (9) B12 deficiency anemia: received IM B12 last admission has a h/o gastric bypass surgery and poor absorption continues on po B12 hgb within normal limits (10) Anemia: also with a h/o Fe def anemia and B12 as above 2/2 gastric bypass surgery continue ferrous sulfate (11) Lower extremity edema: L>R chronic lymphedema follow no diuretics at this time needed no CHF on exam except mild Pulm HTN short piece handler increased as above due to overdiuresis (12) DVT prophylaxis: SCDs - Holding heparin for pacemaker revision today-can hopefully restart tomorrow Dispo-continued stay on PCU, hopefully can discharge back to shelter tomorrow as long as pacemaker is functioning properly and allergic reaction is resolving Admission and Anticipated Discharge Date Admission Date: April 19, 2020 Subjective Patient was found to not have his pacemaker functioning properly and was taken back down for a redo with electrophysiology today for a revision of the right ventricular pacing lead. I discussed the case with cardiology. I saw him when he returned from his procedure and he was quite drowsy from sedation but denied any problems. A few hours later, the nurse paged me and reported that the patient had broken out in hives and was itchy everywhere. He was not having any wheezing or shor tness of breath. Solu-Medrol, Benadryl, Pepcid, and Zyrtec were ordered. Review of Systems Review of Systems: Unobtainable due to reduced consciousness Physical Exam Constitutional: WD/WN, vitals as above + lethargic (But would wake up and answer questions) Eyes: + anicteric sclerae Neck: trachea midline, no thyromegaly Respiratory: normal respiratory effort, lungs clear to auscultation Cardiovascular: Rate/Rhythm: regular rate and regular rhythm Heart Sounds: no murmur Extremities: no edema Chest (Breasts): Chest: + pacemaker (Left anterior chest wall with dressing clean dry and intact) Gastrointestinal (Abdomen): normal bowel sounds, soft, nontender, no hepatosplenomegaly Musculoskeletal: Extremities: no cyanosis and no clubbing Skin: no rashes, warm and dry Lymphatic: + lymphedema (Left lower extremity) Results & Data Results & Data ([facility]) Vital Signs (Past 12 Hours) Vital Signs Temp Pulse Pulse Resp BP BP Pulse Ox 04/22/20 13:45 72 18 130/71 97 04/22/20 11:14 37.4 C 71 18 115/72 95 04/22/20 07:26 36.6 C 70 17 128/77 96 04/22/20 04:10 36.7 C 75 13 122/66 97 Laboratory Results 04/22/20 04/22/20 Range/Units 07:08 07:08 WBC 14.15 H (4.8-10.8) K/uL RBC 4.69 L (4.7-6.1) M/uL Hgb 14.0 (14.0-18.0) g/dL Hct 42.5 (42-52) % MCV 90.6 (80-100) fL MCH 29.9 (25-34) pg MCHC 32.9 (32-36) g/dL RDW Std Deviation 45.2 (36.4-46.3) fL RDW Coeff of Love 13.7 (11.5-14.5) % Plt Count 202 (130-400) K/uL MPV 13.1 H (7.4-10.4) fL Immature Gran % (Auto) 0.1 % Neut % (Auto) 93.5 % Lymph % (Auto) 2.5 % [place] % (Auto) 2.4 % Eos % (Auto) 1.5 % Baso % (Auto) 0.0 % Neut # (Auto) 13.23 H (1.4-6.5) K/uL Lymph # (Auto) 0.35 L (1.2-3.4) K/uL [place] # (Auto) 0.34 (0.11-0.59) K/uL Eos # (Auto) 0.21 (0-0.5) K/uL Baso # (Auto) 0.00 (0-0.2) K/uL Immature Gran # (Auto) 0.02 (0.00-0.02) K/uL Sodium 139 (136-145) mmol/L Potassium 3.7 (3.5-5.1) mmol/L Chloride 109 H (98-107) mmol/L Carbon Dioxide 22 (21-32) mmol/L Anion Gap 8.0 (3-11) BUN 43 H (7-18) mg/dl Creatinine 2.83 H (0.6-1.4) mg/dl Est Cr Clr Drug Dosing 37.7 ml/min Est GFR ( Amer) 26.6 Est GFR (Non-Af Amer) 23.0 BUN/Creatinine Ratio 15.0 (10-20) Glucose 107 H (70-99) mg/dl Calcium 7.9 L (8.5-10.1) mg/dl Magnesium 2.2 (1.8-2.4) mg/dl PG Care Time/CCT Total # of Minutes Spent Total Time Spent with Patient: Total time spent is greater than 50% in coordination of care (as documented) at patient's floor/unit and/or counseling patient: Coding Level of Care Code 54836 Subseq Hosp Care Lvl 3 Diagnoses Symptomatic bradycardia R00.1 STEPHANIE (acute kidney injury) N17.9 Hives L50.9 CAD (coronary artery disease) I25.10 CKD (chronic kidney disease) N18.9 Hypertension I10 Depression with anxiety F41.8 Frequent PVCs I49.3 B12 deficiency anemia D51.9 Anemia D64.9 Lower extremity edema R60.0 DVT prophylaxis Z29.9
--- NOTE | 2020-04-22 14:01 | Pre Anesthesia Assessment ---
Date of Service April 22, 2020 Pre Sedation Assessment Vital Signs Temp Pulse Pulse Pulse Resp BP BP 04/22/20 13:45 72 18 130/71 04/22/20 11:14 37.4 C 71 18 115/72 04/22/20 07:26 36.6 C 70 17 128/77 04/22/20 04:10 36.7 C 75 13 122/66 04/21/20 23:26 36.5 C 70 13 169/92 H 04/21/20 20:01 36.6 C 22 144/95 H 04/21/20 16:00 72 04/21/20 15:54 36.6 C 73 14 148/88 H 04/21/20 15:08 71 15 150/91 H 04/21/20 14:38 75 15 128/95 04/21/20 14:08 75 19 157/86 H Pulse Ox 04/22/20 13:45 97 04/22/20 11:14 95 04/22/20 07:26 96 04/22/20 04:10 97 04/21/20 23:26 96 04/21/20 20:01 96 04/21/20 16:00 04/21/20 15:54 96 04/21/20 15:08 95 04/21/20 14:38 97 04/21/20 14:08 93 Cardiovascular + regular rate Respiratory + respiratory effort normal Pre-Sedation Airway Assessment Smoking Status: Never smoker Hx Sleep Apnea: Yes Hx Difficult Intubation: No Short, Thick Neck: No Thyromental Distance: > or= 3.5 Finger Breadths Oral Cavity: + WNL Mallampati Class: IV ASA: ASA3 NPO Status Date of Last Intake of Fluids: 04/22/20 Time of Last Intake of Fluids: 07:00 Last Oral Intake of Fluids Comment: sip with meds Date of Last Intake of Solid Food: 04/22/20 Time of Last Intake of Solid Foods: 07:00 Procedure Planning Contraindications for Sedation: none Current Medications Reviewed: Yes Notes The planned sedation has been discussed with the patient. Informed Consent was obtained. I have identified the patient, determined the appropriateness of sedation and have assessed the patient immediately prior to the procedure. All medicine(s) and interventions are by my order.
[2020-04-22] MEDS ORDERED: ONDANSETRON INJ 2 MG/ML 2 ML VIAL ONE (14:32)
--- NOTE | 2020-04-22 14:41 | Electrophysiology Report ---
Date of Service April 22, 2020 Electrophysiology Procedure Electrophysiology Procedure Report Procedure performed: Right ventricular lead revision stent licensed land surveyor: Luc Villegas MD indication: Patient is a 59-year-old gentleman who underwent implantation of dual-chamber permanent pacemaker 1 day prior. He was noted to have poor function the right ventricular pacing lead with evidence of micro dislodgement. He is felt to be a good candidate for returned to the EP lab for right ventricular lead revision. Procedure detail: Patient was in his benefits and alternatives to the intended procedure. He understood such which proceed. He was taken to the electrophysiology suite fasting state. Conscious sedation was administered per protocol and patient was monitored electrocardiographically throughout today's procedure. The left upper pectoral area was prepped and draped in usual sterile fashion. Area over the previously implanted device was then anesthetized using subcutaneous menstruation lidocaine and Marcaine solution. The previously made incision was then opened and carried down to the previously implanted device and leads using sharp dissection. Device and leads were removed from the pocket. Pocket was irrigated. Left axillary vein was accessed using modified Seldinger technique and sheath was placed over guidewire this site. The sheath was used facilitate passage of a pacing lead to the right ventricular apex under fluoroscopic guidan ce. Adequate sensing and threshold parameters were obtained prior to Active fixation of this lead to the endocardial surface. proximal portion lead was sutured to the prepectoralis fascia using nonabsorbable suture. The previously implanted right ventricular lead was subsequently removed. Pocket was irrigated with antibiotic solution. Leads were attached to the device. The device and leads were then placed back in pocket the pocket was closed with 3 layers of absorbable suture. Steri-Strips and sterile dressing were applied. The device was tested noninvasively prior conclusion the procedure. Patient tolerated procedure well. There were no immediate complications. Equipment used: Retained pulse generator: Puff Ironer MedGridium. Model number W1DR01 serial number [id number] H retained right atrial lead: Puff Ironer Medtronic. Model 5. 076 serial number [id number] removed right ventricular lead: Puff Ironer Medtronic model 3. 830 serial number [id number] V new right ventricular lead: Puff Ironer Medtronic model 5. 076 serial number [id number] measured data: right atrial lead: P-waves measured 4 mV. Pacing threshold 0.5 volts at 0.4 milliseconds with a pacing impedance of 418 Ohms Right ventricular lead: R-waves measured 15.1 mV. Pacing threshold 0.5 volts at 0.4 milliseconds with a pacing impedance of 741 Ohms impression: Successful revision of right ventricular pacing lead. [facility] Electrophysiology codes Pacing Procedure 1: Pacin Insert permanent lead, single PG Moderate Sedation Codes Moderate Sedation Codes Procedure 1: Sedation/Anesthesia: 03433 Mod Sedation by the same physician;Init15 Min Child Age 5 & Up
--- NOTE | 2020-04-22 14:41 | Post Anesthesia Assessment ---
Date of Service April 22, 2020 Post Sedation Assessment Vital Signs Temp Pulse Pulse Pulse Resp BP BP 04/22/20 13:45 72 18 130/71 04/22/20 11:14 37.4 C 71 18 115/72 04/22/20 07:26 36.6 C 70 17 128/77 04/22/20 04:10 36.7 C 75 13 122/66 04/21/20 23:26 36.5 C 70 13 169/92 H 04/21/20 20:01 36.6 C 22 144/95 H 04/21/20 16:00 72 04/21/20 15:54 36.6 C 73 14 148/88 H 04/21/20 15:08 71 15 150/91 H Pulse Ox 04/22/20 13:45 97 04/22/20 11:14 95 04/22/20 07:26 96 04/22/20 04:10 97 04/21/20 23:26 96 04/21/20 20:01 96 04/21/20 16:00 04/21/20 15:54 96 04/21/20 15:08 95 Recovery Score Activity: Moves 4 extremities Respiration: Deep Breath/Cough Circulation: +/-20% PreAnes Value Consciousness: Fully Awake Oxygen Saturation: > 92% On Room Air Post Anesthesia Score: 10 Discharge Sedation Level of Care: Fast Track Phase II Post Sedation Plan On clinical assessment, the patient appears to have tolerated the sedation without complications. Patient is recovering as anticipated. Patient will continue to be monitored by nursing and may be discharged when sedation discharge criteria are met per below protocol. Upon Completions of procedure up to 15 minutes continue every 5 minute vital signs and the P.A.R. score; then discharge to a Phase I or Fast Track to Phase II per the following guidelines: * Discharge Patient to appropriate Phase II area if PAR is 8 or greater or return to pre- procedure baseline. The post - procedure orders will be as directed. * If PAR score is less than 8 or not return to pre-procedure baseline then patient will follow Phase I monitoring till PAR is reached for Phase II. The Phase I may be done in procedure room or may call to secure a Phase I area. * If naloxone or flumazenil are used for reversal, hold in Phase I for continued monitoring from when last reversal dose was given for a minimum of 60 minutes or longer pending the nurse and/or physician discretion of patient condition before discharge to Phase II. Please call the Sedation Physician to re-evaluate and complete post-note for discharge to Phase II area. Do NOT discharge from procedure sedation or Phase 1 until post- sedation evaluation note is complete by procedure /sedation MD Sedation Discharge Instructions to be given to the patient at discharge to home.
[2020-04-22] MEDS ORDERED: diphenhydrAMINE 50 MG/ML VIAL IV STA (17:56)
[2020-04-22] MEDS ORDERED: methylPREDNISolone 125 MG in SYRINGE 0 ML IV ONE (18:15)
[2020-04-22] MEDS ORDERED: VANCOMYCIN CONSULT ACTIVE PRN (19:23)
[2020-04-22] MEDS: CETIRIZINE HCL 10 MG TABLET PO SCH (19:50)
[2020-04-22] MEDS: SERTRALINE HCL 100 MG TABLET PO SCH (19:51)
[2020-04-22] MEDS: ARIPiprazole 10 MG TAB PO SCH (19:51)
[2020-04-22] MEDS: BENZTROPINE MESYLATE 1 MG TAB PO SCH (19:51)
[2020-04-22] MEDS: FAMOTIDINE 20 MG in SYRINGE 3 ML IV SCH (19:51)
[2020-04-22] MEDS: traZODone HCL 50 MG TAB PO SCH (19:56)
[2020-04-22] MEDS ORDERED: VANCOMYCIN HCL 1,000 MG/270 ML BAG IV ONE (21:00)
[2020-04-22] MEDS ORDERED: CLINDAMYCIN 600 MG in DEXTROSE 5% 50 ML IV SCH (21:45)
[2020-04-23] MEDS: methylPREDNISolone 60 MG in SYRINGE 0 ML IV SCH ×3 (01:53→18:16)
[2020-04-23] MEDS: oxyCODONE HCL IR 5 MG TAB (IMMEDIATE RELEASE) PO PRN (05:26)
[2020-04-23] MEDS: diphenhydrAMINE 50 MG/ML VIAL IV PRN ×2 (05:27→18:16)
[2020-04-23 06:19] LABS: Eosinophils # (auto) 0.02 K/uL (0-0.5); Eosinophils % (auto) 0.1 %; Hematocrit (blood only) 39.1 % (42-52); Immature Granulocytes # (auto) 0.05 K/uL (0.00-0.02); Immature Granulocytes % (auto) 0.3 %; Lymphocytes # (auto) 0.38 K/uL (1.2-3.4); Mean Corpuscular Hemoglobin 30.5 pg (25-34); Mean Corpuscular Hgb Conc 33.2 g/dL (32-36); Mean Corpuscular Volume 91.8 fL (80-100); Mean Platelet Volume 12.6 fL (7.4-10.4); Monocytes # (auto) 0.44 K/uL (0.11-0.59); Monocytes % (auto) 2.3 %; Neutrophils # (auto) 18.27 K/uL (1.4-6.5); Neutrophils % (auto) 95.3 %; Platelet Count 181 K/uL (130-400); RDW Coefficient of Variation 13.9 % (11.5-14.5); RDW Standard Deviation 45.7 fL (36.4-46.3); Red Blood Count 4.26 M/uL (4.7-6.1); White Blood Count 19.16 K/uL (4.8-10.8)
[2020-04-23 07:00] LABS: BUN Creatinine Ratio 12.9 (10-20); Calcium 7.9 mg/dl (8.5-10.1); Creatinine Clr Calc Pharmacy 24.2 ml/min; Est GFR (African American) 15.7; Est GFR (Non-African American) 13.6; Magnesium 2.2 mg/dl (1.8-2.4); Potassium 4.4 mmol/L (3.5-5.1)
[2020-04-23] MEDS: FAMOTIDINE 20 MG in SYRINGE 3 ML IV SCH ×2 (07:44→18:16)
[2020-04-23] MEDS: FERROUS SULFATE 325 MG TAB PO SCH ×2 (07:44→20:14)
[2020-04-23] MEDS: carBAMazepine 100 MG CHEW TAB PO SCH ×2 (07:44→20:14)
[2020-04-23] MEDS: hydrALAZINE HCL 25 MG TAB PO SCH ×3 (07:45→20:14)
[2020-04-23] MEDS: CYANOCOBALAMIN 500 MCG TABLET (VITAMIN B-12) PO SCH (07:45)
[2020-04-23] MEDS: ASPIRIN 81 MG ECTAB PO SCH (07:45)
[2020-04-23] MEDS: amLODIPine BESYLATE 5 MG TAB PO SCH (07:45)
--- NOTE | 2020-04-23 08:49 | XRay Report ---
XR chest 2V PA/lateral CLINICAL HISTORY: Chest x-ray status post pacemaker placement. COMPARISON STUDY: 04/22/2020 FINDINGS: There is a left subclavian dual-chamber central venous pacemaker present. Electrode positio n is unremarkable. The superior most wire of the pacemaker generator has no connection. No pneumothor ax is visualized. There is no failure. There are no pleural effusions. Minimal increased markings the right lung base are likely atelectatic.[ IMPRESSION: No pneumothorax identified. ACT 112: Negative or not required by law. Electronically signed by: Nam Desai M.D. 04/23/2020 8:47 AM
--- NOTE | 2020-04-23 09:57 | Cardiology Progress Note ---
Date of Service April 23, 2020 Assessment & Plan (1) Lightheaded: Improved. Unclear if this was related to low heart rates. (2) Frequent PVCs: Also improved. Will restart his metoprolol at a higher dose now that his pacemaker is functioning normally. (3) CAD (coronary artery disease): This is by report. No regional wall motion abnormalities on imaging earlier this year. No current symptoms suggestive of coronary ischemia. With a history of coronary disease he should be started on high-dose statin therapy. He should continue 81 mg of aspirin daily. Admission and Anticipated Discharge Date Admission Date: April 19, 2020 Subjective This morning patient states that his dizziness is improved by 90%. His itching is improved as well. He did report some left upper arm discomfort when bearing weight on the left upper arm. It is not painful at rest. Review of Systems Review of Systems: Per HPI Physical Exam Physical Exam: Lungs appear clear with good air movement. Evaluation the device implant site reveals no drainage. No hematoma or erythema No swelling in the arms. Results & Data ([facility]) Vital Signs (Past 12 Hours) Vital Signs Temp Pulse Pulse Pulse Resp BP Pulse Ox 04/23/20 07:41 36.5 C 85 18 116/73 93 04/23/20 03:42 37 C 73 16 120/72 93 04/23/20 00:02 37.2 C 72 16 95/56 L 93 04/22/20 23:43 75 Laboratory Results Chest x-ray demonstrated stable lead position. No pneumothorax. The un connected wire noted on the x-ray report is the device antenna caught in cross- section. Leads are adequately secured. I performed a full device interrogation which revealed good sensing and threshold parameters on both leads. Normal device function.
[2020-04-23] MEDS: SODIUM CHLORIDE 0.9% 1000ML 1,000 ML IV SCH ×2 (10:00→18:00)
[2020-04-23] MEDS: METOPROLOL TARTRATE 25 MG TAB PO SCH ×2 (11:17→20:14)
--- NOTE | 2020-04-23 15:37 | Hospitalist Progress Note ---
Date of Service April 23, 2020 Assessment & Plan (1) Symptomatic bradycardia: Definitely with chronotropic incompetence both here and earlier this year with max heart rate obtained in the 90s on a stress test. He ambulated here in halls and could only get HR up to the 60s from resting HR 40s. Telemetry with sinus bradycardia, no high degree blocks Appreciate Cardiology consult-recommends pacemaker placement, but not sure if this will help his dizziness as he has dizziness almost constantly. At a minimum, would be able to maximize beta-clive therapy to suppress his frequent bigeminy and see if this helps his dizziness ECHO preserved EF, mod LVH, mild Pulm HTN Orthostatics are negative Status post permanent pacemaker placement on 04/21. Returned for revision of right ventricular pacing lead that was dislodged on 04/22. Now doing well, pacer functioning appropriately. Dizziness is almost completely resolved, rates in the 70s Continue to follow on tele -restarted home metoprolol 25mg po bid Stable from Cardiology perspective for discharge -LUE precautions (2) STEPHANIE (acute kidney injury): Baseline Cr ~3.0, eGFR ~20. - On presentation, Cr 3.6, reflecting only a fairly small drop in true renal function. - lime mixer then improved below his baseline at 2.83 after receiving some small amounts of gentle IV fluids However, lime mixer worsened to 4.38 on day after repeat pacer procedure, likely prerenal from dehydration--> he did not eat or drink much at all after procedure due to excessive sedation -continue Holding Bumex & HCTZ -give NS at 125mLhr x 2L follow BMP (3) Hives: Developed hives after receiving several doses of clindamycin He has a history of multiple other antibiotic allergies Stopped clindamycin and added to allergy list Improving today but remains with pruritus and rash -continue IV Solu-Medrol 60 mg IV every 8 hours -cont Pepcid 20 mg IV every 12 hours -continue Zyrtec 10 mg p.o. nightly -continue Benadryl 25 mg IV every 6 hours as needed for rash and itching -Monitor for worsening of allergic reaction and can give epinephrine if develops evidence of anaphylaxis (4) CAD (coronary artery disease): No chest pain at present. EKG doesn't appear acutely ischemic. No records on the history of this but apparently he had an UT 7 or 8 years ago that was medically managed - Continue ASA, metoprolol - Cardiology consulted -should be on a statin-we will start this prior to discharge (5) CKD (chronic kidney disease): As above, baseline Cr ~3.0. CKD Stage IV. - As above -Avoid nephrotoxins -renally dose meds when appropriate -follow BMP (6) Hypertension: BP mildly elevated but has reduced doses of his home hydralazine and amlodipine upon admission -Continued reduced doses of hydralazine and amlodipine for now and will consider significantly increasing metoprolol to suppress bigeminy -Continue holding bumetanide and HCTZ for acute kidney injury as above (7) Depression with anxiety: Stable - Continue sertraline, trazodone, carbamazepine, and aripiprazole, and Cogentin (8) Frequent PVCs: could be cause of his dizziness Now that he has a pacer, can increase beta clive therapy to suppress -restarted metoprolol (9) B12 deficiency anemia: received IM B12 last admission has a h/o gastric bypass surgery and poor absorption continues on po B12 hgb within normal limits (10) Anemia: also with a h/o Fe def anemia and B12 as above 2/2 gastric bypass surgery continue ferrous sulfate (11) Lower extremity edema: L>R chronic lymphedema follow no diuretics at this time needed no CHF on exam except mild Pulm HTN lime mixer increased as above (12) DVT prophylaxis: SCDs Dispo-continued stay on PCU for STEPHANIE, allergic reaction Admission and Anticipated Discharge Date Admission Date: April 19, 2020 Subjective Feeling itchy all over but improved somewhat from yesterday. Rash is improving but remains. Denies CP or SOB. Reports his dizziness is now down to a "1/10." Is anjelica po, no N/V. I discussed his care with Cardiology and pony edger with NSR, rates 70s, PVCs, bigeminy Review of Systems Review of Systems: All systems reviewed & are unremarkable except as noted in HPI & below Physical Exam Constitutional: WD/WN, vitals as above Eyes: + anicteric sclerae Neck: trachea midline, no thyromegaly Respiratory: normal respiratory effort, lungs clear to auscultation Cardiovascular: Rate/Rhythm: regular rate and regular rhythm Heart Sounds: no murmur Extremities: no edema Chest (Breasts): Chest: + pacemaker (Left anterior chest wall with dressing clean dry and intact) Gastrointestinal (Abdomen): normal bowel sounds, soft, nontender, no hepatosplenomegaly Musculoskeletal: Extremities: no cyanosis and no clubbing Skin: + rash (diffuse macular erythematous rash on trunk and prox extremities) Neurologic: moves all extremities; no focal motor deficits Psychiatric: A+Ox3, euthymic affect Lymphatic: + lymphedema (Left lower extremity) Results & Data Results & Data ([facility]) Vital Signs (Past 12 Hours) Vital Signs Temp Pulse Pulse Pulse Resp BP Pulse Ox 04/23/20 15:14 36.8 C 75 18 133/77 90 04/23/20 08:00 73 04/23/20 07:41 36.5 C 85 18 116/73 93 04/23/20 03:42 37 C 73 16 120/72 93 Laboratory Results 04/23/20 04/23/20 Range/Units 05:58 05:58 WBC 19.16 H (4.8-10.8) K/uL RBC 4.26 L (4.7-6.1) M/uL Hgb 13.0 L (14.0-18.0) g/dL Hct 39.1 L (42-52) % MCV 91.8 (80-100) fL MCH 30.5 (25-34) pg MCHC 33.2 (32-36) g/dL RDW Std Deviation 45.7 (36.4-46.3) fL RDW Coeff of Love 13.9 (11.5-14.5) % Plt Count 181 (130-400) K/uL MPV 12.6 H (7.4-10.4) fL Immature Gran % (Auto) 0.3 % Neut % (Auto) 95.3 % Lymph % (Auto) 2.0 % [place] % (Auto) 2.3 % Eos % (Auto) 0.1 % Baso % (Auto) 0.0 % Neut # (Auto) 18.27 H (1.4-6.5) K/uL Lymph # (Auto) 0.38 L (1.2-3.4) K/uL [place] # (Auto) 0.44 (0.11-0.59) K/uL Eos # (Auto) 0.02 (0-0.5) K/uL Baso # (Auto) 0.00 (0-0.2) K/uL Immature Gran # (Auto) 0.05 H (0.00-0.02) K/uL Sodium 139 (136-145) mmol/L Potassium 4.4 D (3.5-5.1) mmol/L Chloride 108 H (98-107) mmol/L Carbon Dioxide 21 (21-32) mmol/L Anion Gap 10.0 (3-11) BUN 57 H (7-18) mg/dl Creatinine 4.38 H D (0.6-1.4) mg/dl Est Cr Clr Drug Dosing 24.2 ml/min Est GFR ( Amer) 15.7 Est GFR (Non-Af Amer) 13.6 BUN/Creatinine Ratio 12.9 (10-20) Glucose 157 H (70-99) mg/dl Calcium 7.9 L (8.5-10.1) mg/dl Magnesium 2.2 (1.8-2.4) mg/dl PG Care Time/CCT Total # of Minutes Spent Total Time Spent with Patient: Total time spent is greater than 50% in coordination of care (as documented) at patient's floor/unit and/or counseling patient: Coding Level of Care Code 55451 Subseq Hosp Care Lvl 3 Diagnoses Symptomatic bradycardia R00.1 STEPHANIE (acute kidney injury) N17.9 Hives L50.9 CAD (coronary artery disease) I25.10 CKD (chronic kidney disease) N18.9 Hypertension I10 Depression with anxiety F41.8 Frequent PVCs I49.3 B12 deficiency anemia D51.9 Anemia D64.9 Lower extremity edema R60.0 DVT prophylaxis Z29.9
[2020-04-23] MEDS: BENZTROPINE MESYLATE 1 MG TAB PO SCH (20:14)
[2020-04-23] MEDS: SERTRALINE HCL 100 MG TABLET PO SCH (20:14)
[2020-04-23] MEDS: ARIPiprazole 10 MG TAB PO SCH (20:14)
[2020-04-23] MEDS: CETIRIZINE HCL 10 MG TABLET PO SCH (20:14)
[2020-04-23] MEDS ORDERED: VANCOMYCIN HCL 1,000 MG/270 ML BAG IV ONE (21:00)
[2020-04-23] MEDS: traZODone HCL 50 MG TAB PO SCH (21:01)
[2020-04-24] MEDS: methylPREDNISolone 60 MG in SYRINGE 0 ML IV SCH ×3 (01:19→17:54)
[2020-04-24] MEDS: diphenhydrAMINE 50 MG/ML VIAL IV PRN (05:11)
[2020-04-24] MEDS: FAMOTIDINE 20 MG in SYRINGE 3 ML IV SCH ×2 (05:16→17:55)
[2020-04-24 07:46] LABS: BUN Creatinine Ratio 16.7 (10-20); Calcium 8.1 mg/dl (8.5-10.1); Creatinine Clr Calc Pharmacy 26.9 ml/min; Est GFR (African American) 17.9; Est GFR (Non-African American) 15.4; Potassium 4.6 mmol/L (3.5-5.1)
[2020-04-24] MEDS: hydrALAZINE HCL 25 MG TAB PO SCH ×3 (09:06→21:16)
[2020-04-24] MEDS: ASPIRIN 81 MG ECTAB PO SCH (09:06)
[2020-04-24] MEDS: FERROUS SULFATE 325 MG TAB PO SCH ×2 (09:07→21:17)
[2020-04-24] MEDS: carBAMazepine 100 MG CHEW TAB PO SCH ×2 (09:07→21:17)
[2020-04-24] MEDS: METOPROLOL TARTRATE 25 MG TAB PO SCH ×2 (09:07→21:16)
[2020-04-24] MEDS: amLODIPine BESYLATE 5 MG TAB PO SCH (09:07)
[2020-04-24] MEDS: CYANOCOBALAMIN 500 MCG TABLET (VITAMIN B-12) PO SCH (09:07)
[2020-04-24] MEDS ORDERED: METOPROLOL TARTRATE 25 MG TAB PO STA (11:07)
--- NOTE | 2020-04-24 11:16 | Hospitalist Progress Note ---
Date of Service April 24, 2020 Assessment & Plan (1) Symptomatic bradycardia: Definitely with chronotropic incompetence both here and earlier this year with max heart rate obtained in the 90s on a stress test. He ambulated here in halls and could only get HR up to the 60s from resting HR 40s. Telemetry initially with sinus bradycardia, no high degree blocks Appreciate Cardiology consult-recommended pacemaker placement, but not sure if this will help his dizziness as he has dizziness almost constantly. At a minimum, would be able to maximize beta-clive therapy to suppress his frequent bigeminy and see if this helps his dizziness ECHO preserved EF, mod LVH, mild Pulm HTN Orthostatics were negative Status post permanent pacemaker placement on 04/21. Returned for revision of right ventricular pacing lead that was dislodged on 04/22. Now doing well, pacer functioning appropriately. Dizziness is almost completely resolved, rates in the 70s. Continues with bigeminy Continue to follow on tele -increase metoprolol to 37.5mg po bid, give an extra 25mg po x 1 now Stable from Cardiology perspective for discharge -LUE precautions (2) STEPHANIE (acute kidney injury): Baseline Cr ~3.0, eGFR ~20. - On presentation, Cr 3.6, reflecting only a fairly small drop in true renal function. - repacker then improved below his baseline at 2.83 after receiving some small amounts of gentle IV fluids However, repacker worsened to 4.38 on day after repeat pacer procedure, likely prerenal from dehydration--> he did not eat or drink much at all after procedure due to excessive sedation. However, also with rash all over, but no fever. Question if could be AIN? 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 No further IVFs to be given, encouraged po intake of fluids -continue Holding Bumex & HCTZ follow BMP -check urine eosinophils (3) Hives: Developed hives after receiving several doses of clindamycin He has a history of multiple other antibiotic allergies Stopped clindamycin and added to allergy list Rash and pruritus remain today, not much improved from yesterday -continue IV Solu-Medrol 60 mg IV every 8 hours -cont Pepcid 20 mg IV every 12 hours -continue Zyrtec and increase to 10 mg p.o. bid -continue Benadryl 25 mg IV every 6 hours as needed for rash and itching -dcd oxycodone unless was from that as well (4) CAD (coronary artery disease): No chest pain. EKG doesn't appear acutely ischemic. No records on the history of this but apparently he had an TN 7 or 8 years ago that was medically managed - Continue ASA, metoprolol - Cardiology consulted -should be on a statin-we will start this prior to discharge (5) CKD (chronic kidney disease): As above, baseline Cr ~3.0. CKD Stage IV. - As above -Avoid nephrotoxins -renally dose meds when appropriate -follow BMP (6) Hypertension: BP remains mildly elevated but has reduced doses of his home hydralazine and amlodipine upon admission -Continued reduced doses of hydralazine and amlodipine for now as titrating up metoprolol to suppress bigeminy -increase metoprolol to 37.5mg po bid -Continue holding bumetanide and HCTZ for acute kidney injury as above (7) Depression with anxiety: Stable - Continue sertraline, trazodone, carbamazepine, and aripiprazole, and Cogentin (8) Frequent PVCs: could be cause of his dizziness Now that he has a pacer, can increase beta clive therapy to suppress Continues having bigemniny -increasing metoprolol as above (9) B12 deficiency anemia: received IM B12 last admission has a h/o gastric bypass surgery and poor absorption continues on po B12 hgb within normal limits (10) Anemia: also with a h/o Fe def anemia and B12 as above 2/2 gastric bypass surgery continue ferrous sulfate (11) Lower extremity edema: L>R chronic lymphedema follow no diuretics at this time needed no CHF on exam except mild Pulm HTN repacker increased as above (12) DVT prophylaxis: SCDs Dispo-continued stay on PCU for STEPHANIE, allergic reaction Admission and Anticipated Discharge Date Admission Date: April 19, 2020 Subjective Pt still feeling itchy all over, asks for something more for itch. Otherwise is drinking and eating, moved his bowels today for the first time in five days Tele with paced rhythm, sinus rhythm, PVCs and bigeminy, rates in 70s Review of Systems Review of Systems: All systems reviewed & are unremarkable except as noted in HPI & below Physical Exam Constitutional: WD/WN, vitals as above Eyes: + anicteric sclerae Neck: trachea midline, no thyromegaly Respiratory: normal respiratory effort, lungs clear to auscultation Cardiovascular: Rate/Rhythm: regular rate and regular rhythm Heart Sounds: no murmur Extremities: no edema Chest (Breasts): Chest: + pacemaker (Left anterior chest wall with dressing clean dry and intact) Gastrointestinal (Abdomen): normal bowel sounds, soft, nontender, no hepatosplenomegaly Musculoskeletal: Extremities: no cyanosis and no clubbing Skin: no rashes, warm and dry + rash (diffuse macular erythematous rash on trunk and prox extremities) Neurologic: moves all extremities; no focal motor deficits Psychiatric: A+Ox3, euthymic affect Lymphatic: + lymphedema (Left lower extremity) Results & Data Results & Data ([facility]) Vital Signs (Past 12 Hours) Vital Signs Temp Pulse Pulse Pulse Resp BP Pulse Ox 04/24/20 07:57 36.5 C 79 19 147/67 H 93 04/24/20 03:34 37.0 C 70 19 143/73 H 93 04/24/20 00:12 62 04/23/20 23:52 36.7 C 67 18 101/75 91 Laboratory Results 04/24/20 Range/Units 06:56 Sodium 138 (136-145) mmol/L Potassium 4.6 (3.5-5.1) mmol/L Chloride 110 H (98-107) mmol/L Carbon Dioxide 20 L (21-32) mmol/L Anion Gap 8.0 (3-11) BUN 66 H (7-18) mg/dl Creatinine 3.94 H D (0.6-1.4) mg/dl Est Cr Clr Drug Dosing 26.9 ml/min Est GFR ( Amer) 17.9 Est GFR (Non-Af Amer) 15.4 BUN/Creatinine Ratio 16.7 (10-20) Glucose 122 H (70-99) mg/dl Calcium 8.1 L (8.5-10.1) mg/dl PG Care Time/CCT Total # of Minutes Spent Total Time Spent with Patient: Total time spent is greater than 50% in coordination of care (as documented) at patient's floor/unit and/or counseling patient: Coding Level of Care Code 96388 Subseq Hosp Care Lvl 3 Diagnoses Symptomatic bradycardia R00.1 STEPHANIE (acute kidney injury) N17.9 Hives L50.9 CAD (coronary artery disease) I25.10 CKD (chronic kidney disease) N18.9 Hypertension I10 Depression with anxiety F41.8 Frequent PVCs I49.3 B12 deficiency anemia D51.9 Anemia D64.9 Lower extremity edema R60.0 DVT prophylaxis Z29.9
[2020-04-24] MEDS: CETIRIZINE HCL 10 MG TABLET PO SCH ×2 (12:21→21:16)
[2020-04-24] MEDS: ARIPiprazole 10 MG TAB PO SCH (21:17)
[2020-04-24] MEDS: BENZTROPINE MESYLATE 1 MG TAB PO SCH (21:17)
[2020-04-24] MEDS: traZODone HCL 50 MG TAB PO SCH (21:17)
[2020-04-24] MEDS: SERTRALINE HCL 100 MG TABLET PO SCH (21:17)
[2020-04-25] MEDS: methylPREDNISolone 60 MG in SYRINGE 0 ML IV SCH ×3 (01:28→15:42)
[2020-04-25] MEDS: FAMOTIDINE 20 MG in SYRINGE 3 ML IV SCH (05:24)
[2020-04-25] MEDS: carBAMazepine 100 MG CHEW TAB PO SCH (07:50)
[2020-04-25] MEDS: METOPROLOL TARTRATE 25 MG TAB PO SCH (07:50)
[2020-04-25] MEDS: FERROUS SULFATE 325 MG TAB PO SCH (07:50)
[2020-04-25] MEDS: amLODIPine BESYLATE 5 MG TAB PO SCH (07:51)
[2020-04-25] MEDS: CYANOCOBALAMIN 500 MCG TABLET (VITAMIN B-12) PO SCH (07:51)
[2020-04-25] MEDS: CETIRIZINE HCL 10 MG TABLET PO SCH (07:51)
[2020-04-25] MEDS: ASPIRIN 81 MG ECTAB PO SCH (07:51)
[2020-04-25] MEDS: hydrALAZINE HCL 25 MG TAB PO SCH ×2 (07:51→15:41)
[2020-04-25 09:03] LABS: BUN Creatinine Ratio 17.9 (10-20); Calcium 8.4 mg/dl (8.5-10.1); Creatinine Clr Calc Pharmacy 31.1 ml/min; Est GFR (African American) 20.8; Potassium 4.6 mmol/L (3.5-5.1)
--- NOTE | 2020-04-25 13:15 | Discharge Summary ---
Date of Service April 25, 2020 Admission HPI Per Admitting Provider 59yo M w/ hx of HTN, CKD who presents with lightheadedness, dizziness, and pre- syncope. He reports that since his last discharge, he has just felt this way. He was discharged on Lasix and has been on it since that time. He reports that when he gets up and walks he feels more dizzy, lightheaded, and feels like he will pass out. He must sit down and rest. When he sits down and rests, he then feels slightly better. He also reports significant shortness of breath as well. At care home, he was seen in the [facility] and an EKG showed a ventricular rate of 31 bpm. He denies CHF symptoms such as orthopnea, PND, lower extremity swelling. Principal Diagnosis Symptomatic bradycardia, Permanent pacemaker placement, STEPHANIE, Allergic reaction Discharge Exam Constitutional WD/WN, vitals as above Eyes + anicteric sclerae Neck trachea midline, no thyromegaly Respiratory normal respiratory effort, lungs clear to auscultation Cardiovascular Rate/Rhythm: regular rate and regular rhythm Heart Sounds: no murmur Extremities: no edema Chest (Breasts) Chest: + pacemaker (Left anterior chest wall with dressing clean dry and intact) Gastrointestinal (Abdomen) normal bowel sounds, soft, nontender, no hepatosplenomegaly Musculoskeletal Extremities: no cyanosis and no clubbing Skin + rash (erythematous rash much improved on trunk) Neurologic moves all extremities; no focal motor deficits Psychiatric A+Ox3, euthymic affect Lymphatic + lymphedema (Left lower extremity) Discharge Data Allergies Allergy/AdvReac Type Severity Reaction Status Date / Time VIK Inhibitors Allergy Severe Rash and Verified 04/19/20 10:59 Itching Cephalosporins Allergy Severe Rash and Verified 04/19/20 10:59 Itching Penicillins Allergy Severe Rash and Verified 04/19/20 10:59 Itching sulfamethoxazole Allergy Severe Rash and Verified 04/19/20 10:59 [From Bactrim] Itching trimethoprim [From Bactrim] Allergy Severe Rash and Verified 04/19/20 10:59 Itching clindamycin Allergy Intermediate Hives Verified 04/22/20 19:23 Consultations 04/19/20 12:27 ED Decision to Admit Stat 04/19/20 15:43 Consult Cardiology Routine Procedures Performed Operation Date: 04/21/20 10:30 Actual Procedures p Pacer with A/V Leads (Dual) - Tanner Villegas MD s Bundle of his Recording - Tanner Villegas MD Operation Date: 04/22/20 14:00 Actual Procedures p Lead Reposition RA/RV - Tanner Villegas MD Ordered Studies 04/19/20 09:45 CT head/brain wo con Stat 04/21/20 10:21 CL Cath Imgs for PACS use only Routine 04/21/20 10:45 EP Lab Images for PACS ONCE 04/22/20 13:45 EP Lab Images for PACS ONCE CXR x 3 ECHO Hospital Course (1) Symptomatic bradycardia: Definitely with chronotropic incompetence both here and earlier this year with max heart rate obtained in the 90s on a stress test. He ambulated here in halls and could only get HR up to the 60s from resting HR 40s. Telemetry initially with sinus bradycardia, no high degree blocks Appreciate Cardiology consult-recommended pacemaker placement, but not sure if this will help his dizziness as he has dizziness almost constantly. At a minimum, would be able to maximize beta-clive therapy to suppress his frequent bigeminy and see if this helps his dizziness ECHO preserved EF, mod LVH, mild Pulm HTN Orthostatics were negative Status post permanent pacemaker placement on 04/21. Returned for revision of right ventricular pacing lead that was dislodged on 04/22. Now doing well, pacer functioning appropriately. Dizziness is almost completely resolved, rates in the 70s. Continued with bigeminy which then resolved with increasing dose of metoprolol -increased metoprolol to 37.5mg po bid Stable from Cardiology perspective for discharge -LUE precautions f/u with Cardio in 1 week (2) STEPHANIE (acute kidney injury): Baseline Cr ~3.0, eGFR ~20. - On presentation, Cr 3.6, reflecting only a fairly small drop in true renal function. - inorganic chemist then improved below his baseline at 2.83 after receiving some small amounts of gentle IV fluids However, inorganic chemist worsened to 4.38 on day after repeat pacer procedure, likely prerenal from dehydration--> he did not eat or drink much at all after procedure due to excessive sedation. However, also with rash all over, but no fever. Question if could be AIN? Less likely Dam Tender Assistant now improved to 3.4 with IVFs. -encouraged po intake of fluids -continue Holding Bumex & HCTZ on discharge and would only restart Bumex as needed for edema follow BMP in 2-3 days at care home -check urine eosinophils-pending at time of discharge (3) Hives: Developed hives after receiving several doses of clindamycin He has a history of multiple other antibiotic allergies Stopped clindamycin and added to allergy list Rash and pruritus now much improved -received IV Solu-Medrol 60 mg IV every 8 hours and sienna convert to prednisone 40mg daily x 5 more days -cont Pepcid 20 mg po every 12 hours x 5 more days -continue Zyrtec 10 mg p.o. bid x 5 more days -continue Benadryl 25 mg po every 6 hours as needed for rash and itching (4) CAD (coronary artery disease): No chest pain. EKG doesn't appear acutely ischemic. No records on the history of this but apparently he had an MT 7 or 8 years ago that was medically managed - Continue ASA, metoprolol - Cardiology consulted -should be on a statin-start this as outpatient after allergic reaction resolved (5) CKD (chronic kidney disease): As above, baseline Cr ~3.0. CKD Stage IV. - As above -Avoid nephrotoxins -renally dose meds when appropriate -follow BMP as outpt (6) Hypertension: BP remains mildly elevated but has reduced doses of his home hydralazine and amlodipine upon admission -Continued reduced dose of hydralazine 25mg po tid, but increase back to home dose of amlodipine 10mg daily -increased metoprolol to 37.5mg po bid -Continue holding bumetanide and HCTZ for acute kidney injury as above (7) Depression with anxiety: Stable - Continue sertraline, trazodone, carbamazepine, and aripiprazole, and Cogentin (8) Frequent PVCs: could be cause of his dizziness, now resolved with increased metoprolol dose Now that he has a pacer, can increase beta clive therapy to suppress (9) B12 deficiency anemia: received IM B12 last admission has a h/o gastric bypass surgery and poor absorption continues on po B12 hgb within normal limits (10) Anemia: also with a h/o Fe def anemia and B12 as above 2/2 gastric bypass surgery continue ferrous sulfate (11) Lower extremity edema: L>R chronic lymphedema follow no diuretics at this time needed no CHF on exam except mild Pulm HTN inorganic chemist increased as above (12) DVT prophylaxis: SCDs Dispo-stable for dc to care home I discussed his care with the OLEKSANDR Headley from the care home today on phone who is in agreement with plan Total Time Total Time Spent Total Time Spent (In Minutes): 35 min Total Time Includes: Examination of the Patient, Discharge Planning, Medication Reconciliation and Communication With Other Providers Discharge Plan Discharge Items Patient Disposition: [facility] Reason For Visit: SYMPTOMATIC BRADYCARDIA Discharge Diagnosis: Symptomatic bradycardia, Acute kidney injury, Allergic reaction to clindamycin Condition on Discharge: Good Activity: As commented below Bathing: Keep incision dry Exercise/Sports: Gradually increase as tolerated Non-emergency contact: Primary Care Provider and Data Warehousing Engineer Call non-emergency contact if: you have any medication questions and your symptoms worsen Follow-up/Referrals: Kelsey DIAZ [Primary Care Provider] - Diet: Heart Healthy Addtl Attending Provider Instructions: A pacemaker was placed for symptomatic bradycardia. Please refrain from using your left arm to reach above the level of your heart x 2 weeks. You will need follow up with the Data Warehousing Engineer in one week. The steri strips can stay on until they fall off in about one week. For your acute kidney injury, please repeat a BMP in 2-3 days to ensure creatinine is back to baseline. Continue to HOLD HCTZ and Bumex. Would likely only restart bumex at a low dose to be used prn leg swelling once renal function improves to baseline. You had an allergic reaction to clindamycin and will need to finish out prednisone taper along with pepcid, zyrtec, and benadryl as needed. Pending Studies at Discharge: No Stand-Alone Forms: My [facility] Skilled Items Patient informed of condition?: Yes Discharge Level of Care: Other Communicable Disease: No Discharge Prognosis: Improving Lines: None Urinary Catheter: No Medications and DC Order Prescriptions: New cetirizine 10 mg Tablet 10 mg PO BID Qty: 10 RF: 0 hydralazine 25 mg Tablet 25 mg PO TID Qty: 90 RF: 0 prednisone 20 mg tablet 40 mg PO DAILY 5 Days Qty: 10 RF: 0 diphenhydramine HCl [Benadryl Allergy] 25 mg tablet 25 mg PO Q6H PRN (Reason: itching) Qty: 30 RF: 0 famotidine [Pepcid] 20 mg tablet 20 mg PO BID Qty: 10 RF: 0 Continued aspirin [Aspirin Low Dose] 81 mg Tablet,Delayed Release (Dr/Ec) 81 mg PO QAM RF: 0 amlodipine [Norvasc] 10 mg Tablet 10 mg PO QAM RF: 0 trazodone 150 mg Tablet 150 mg PO HS RF: 0 aripiprazole [Abilify] 10 mg Tablet 10 mg PO QPM RF: 0 cyanocobalamin (vitamin B-12) [Vitamin B-12] 500 mcg Tablet 500 mcg PO DAILY RF: 0 ferrous sulfate 325 mg (65 mg iron) Tablet 325 mg PO BID RF: 0 carbamazepine 100 mg Tablet,Chewable 100 mg PO BID RF: 0 calcium carbonate-vitamin D3 [Calcium 600 + D(3)] 600 mg(1,500mg) -400 unit Tablet 1 tab PO DAILY RF: 0 sertraline 100 mg Tablet 100 mg PO QPM RF: 0 benztropine 1 mg Tablet 1 mg PO QPM RF: 0 Changed metoprolol tartrate 25 mg Tablet 37.5 mg PO BID Qty: 0 RF: 0 Discontinued bumetanide 2 mg Tablet 2 mg PO DAILY RF: 0 hydrochlorothiazide 25 mg Tablet 25 mg PO DAILY RF: 0 hydralazine 50 mg Tablet 50 mg PO TID RF: 0 Discharge Orders: Discharge Order (Routine); Ordered 04/25/20 Ordered By: Pamela Garcia Admission Data Admit Date/Time: 04/19/20 13:08 Attending Provider: Pamela Garcia Admit Provider: Vance Davis Primary Care Provider: Kelsey DIAZ Other Providers: Vance Davis ; Tanner Villegas ; Mare DIAZ Coding Level of Care Code D/C Day Management >30 mins Diagnoses Symptomatic bradycardia R00.1 STEPHANIE (acute kidney injury) N17.9 Hives L50.9 CAD (coronary artery disease) I25.10 CKD (chronic kidney disease) N18.9 Hypertension I10 Depression with anxiety F41.8 Frequent PVCs I49.3 B12 deficiency anemia D51.9 Anemia D64.9 Lower extremity edema R60.0 DVT prophylaxis Z29.9
== END 2020-04-25 17:45 | DRG 243 ==
LOC: ED 09:18 → SUATTDRO 13:08 → 2N 13:08 → 2E 04-21 13:37

== ENCOUNTER 2021-05-12 03:25 | Inpatient (IN) ==
[2021-05-12] MEDS: LACTATED RINGER'S 1,000 ML IV SCH (05:17)
--- NOTE | 2021-05-12 05:56 | Emergency Department Note ---
History of Present Illness General Chief complaint: Seizure Stated complaint: SEIZURE Time Seen by Provider: 05/12/21 03:57 Source: patient Mode of arrival: EMS Limitations: no limitations History of Present Illness Provider complaint: syncope This is a 60-year-old male brought in by EMS with group home guards accompanying due to concern for syncope versus seizure. Patient states he got up to use the restroom, felt very lightheaded and dizzy and felt as though he was going to pass out. Patient states he tried to sit down but ended up blacking out in his and floor. Patient believes he struck his head on the floor. He is uncertain how long he may have been unconscious. Patient denies concern for injury. Maris ent recently diagnosed with Covid. States he has had a lot of nausea and vomiting difficulty keeping down food and drink. He states he has a cough, and gets winded with exertion. Denies chest pain, abdominal pain, or diarrhea. Denies any prior history of asthma. Patient does have cardiac history and does have a pacemaker. Patient denies any pain or bruising to his tongue following this event or any incontinence. Patient states he has previously had episodes of passing out. Pt seen during a time of high acuity and national emergency pandemic while wearing PPE. Home Medications Medication Instructions Recorded Confirmed Type amlodipine 10 mg tablet (Norvasc) 10 mg PO QAM 07/12/19 05/12/21 History aspirin 81 mg tablet,delayed 81 mg PO QAM 07/12/19 05/12/21 History release (Aspirin Low Dose) sertraline 100 mg tablet 100 mg PO QPM 12/30/19 05/12/21 History calcium carbonate 600 mg (1,500 1 tab PO DAILY 04/19/20 05/12/21 History mg)-vitamin D3 400 unit tablet (Calcium 600 + D(3)) carbamazepine 100 mg chewable 100 mg PO BID 04/19/20 05/12/21 History tablet metoprolol tartrate 25 mg tablet 37.5 mg PO BID #0 tab 04/25/20 05/12/21 Rx bumetanide 2 mg tablet 2 mg PO DAILY 07/21/20 05/12/21 History atorvastatin 40 mg tablet 40 mg PO DAILY 11/01/20 05/12/21 History hydrochlorothiazide 25 mg tablet 25 mg PO DAILY 11/01/20 05/12/21 History mirtazapine 15 mg tablet 15 mg PO HS 11/01/20 05/12/21 History acetaminophen 500 mg tablet 500 mg PO TID PRN 05/12/21 05/12/21 History (Tylenol Extra Strength) finasteride 5 mg tablet 5 mg PO DAILY 05/12/21 05/12/21 History guaifenesin 400 mg tablet (Mucosa) 400 mg PO TID PRN 05/12/21 05/12/21 History levofloxacin 250 mg tablet 250 mg PO DAILY 05/12/21 05/12/21 History losartan 100 mg tablet 100 mg PO DAILY 05/12/21 05/12/21 History ondansetron 4 mg disintegrating 4 mg PO TID PRN 05/12/21 05/12/21 History tablet zinc sulfate 50 mg zinc (220 mg) 50 mg PO DAILY 05/12/21 05/12/21 History capsule (Orazinc) Allergies Allergy/AdvReac Type Severity Reaction Status Date / Time VIK Inhibitors Allergy Severe Rash and Verified 05/12/21 08:38 Itching Cephalosporins Allergy Severe Rash and Verified 05/12/21 08:38 Itching Penicillins Allergy Severe Rash and Verified 05/12/21 08:38 Itching sulfamethoxazole Allergy Severe Rash and Verified 05/12/21 08:38 [From Bactrim] Itching trimethoprim [From Bactrim] Allergy Severe Rash and Verified 05/12/21 08:38 Itching clindamycin Allergy Intermediate Hives Verified 05/12/21 08:38 Past Med/Surg History Medical History Anemia B12 deficiency anemia CAD (coronary artery disease) CKD (chronic kidney disease) Depression with anxiety Hx of myocardial infarction Hypertension Lower extremity edema Psychiatric diagnosis Surgical History History of gastric bypass Family History Other No significant family history Pulmonary embolism Social History Smoking Status: Unknown if ever smoked Second Hand Exposure: No; Hx Alcohol Use: No Hx Substance Use: No Preferred Language: Nepali Communication Ability: Effective Automatic Car Wash Attendant Required: No Beliefs That Will Affect Care: None marital status: Single Current Living Situation: Other Current Living Situation Comment: Correction current occupational status: 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 Feels Safe at Home: Yes Assistive Devices: None Review of Systems A total of 10 systems reviewed and were otherwise negative All systems reviewed & are unremarkable except as noted in HPI & below Physical Exam Vital Signs Vital Signs - 24 hr 05/12/21 06:20 05/12/21 06:30 05/12/21 06:40 Pulse Rate 70 70 70 Pulse Rate [Left Apical] 70 Pulse Rate from SpO2 Sensor 70 69 70 Respiratory Rate 22 24 21 Respiratory Effort / Characteristics Non-Labored Spontaneous Respiratory Depth Normal Blood Pressure 136/87 Blood Pressure [Right Arm] 141/94 H Blood Pressure Mean 103 Blood Pressure Mean [Right Arm] 109 Pulse Oximetry 88 L 89 L 88 L Oxygen Delivery Method Room Air 05/12/21 06:50 05/12/21 07:00 05/12/21 07:10 Pulse Rate 70 73 75 Pulse Rate [Left Apical] Pulse Rate from SpO2 Sensor 70 67 38 L Respiratory Rate 28 H 23 27 H Respiratory Effort / Characteristics Respiratory Depth Blood Pressure Blood Pressure [Right Arm] Blood Pressure Mean Blood Pressure Mean [Right Arm] Pulse Oximetry 88 L 86 L 91 Oxygen Delivery Method 05/12/21 07:20 05/12/21 07:30 05/12/21 07:40 Pulse Rate 78 72 73 Pulse Rate [Left Apical] Pulse Rate from SpO2 Sensor 65 58 L 74 Respiratory Rate 29 H 23 25 H Respiratory Effort / Characteristics Respiratory Depth Blood Pressure Blood Pressure [Right Arm] Blood Pressure Mean Blood Pressure Mean [Right Arm] Pulse Oximetry 76 L 83 L 90 Oxygen Delivery Method 05/12/21 07:50 05/12/21 08:00 05/12/21 08:10 Pulse Rate 71 71 70 Pulse Rate [Left Apical] Pulse Rate from SpO2 Sensor 72 71 70 Respiratory Rate 25 H 23 22 Respiratory Effort / Characteristics Respiratory Depth Blood Pressure Blood Pressure [Right Arm] Blood Pressure Mean Blood Pressure Mean [Right Arm] Pulse Oximetry 92 91 92 Oxygen Delivery Method 05/12/21 08:20 05/12/21 08:30 Pulse Rate 70 70 Pulse Rate [Left Apical] Pulse Rate from SpO2 Sensor 62 70 Respiratory Rate 23 23 Respiratory Effort / Characteristics Respiratory Depth Blood Pressure Blood Pressure [Right Arm] Blood Pressure Mean Blood Pressure Mean [Right Arm] Pulse Oximetry 94 93 Oxygen Delivery Method GENERAL: alert, ill appearing, well nourished, no distress, non-toxic EYE EXAM: normal conjunctiva, PERRL and EOM's grossly intact OROPHARYNX: no exudate, no erythema, lips, buccal mucosa, and tongue normal and mucous membranes are dry NECK: supple, no nuchal rigidity, no adenopathy, non-tender LUNGS: Clear to auscultation. Normal chest wall mechanics, no w/r/r HEART: no murmurs, S1 normal and S2 normal, pacemaker palpable with well-healed incision left anterior superior chest wall ABDOMEN: abdomen soft, non-tender, normo-active bowel sounds, no masses, no rebound or guarding. BACK: Back is symmetrical on inspection and there is no deformity, no midline tenderness, no CVA tenderness. SKIN: no rashes and no bruising UPPER EXTREMITIES: upper extremities are grossly normal. FROM, nml pulses b/l. LOWER EXTREMITIES: No pitting edema. FROM, nml pulses b/l. NEURO EXAM: Normal sensorium, cranial nerves II-XII grossly intact, normal speech, no gross weakness of arms, no gross weakness of legs. Gross sensation intact. Course Course 08: Pt updated on results. VS stable. Nurse spoke with [employer] rep. Pacer interrogated - no recent events since March. They will fax report. 5030: Discussed with Dr. Rivera. Administered Medications Acetaminophen (Acetaminophen 325 Mg Tab) 650 mg PO Q4H PRN PRN Reason: Pain or Fever Stop: 06/11/21 18:21 Last Admin: 05/12/21 19:23 Dose: 650 mg Documented by: [id number] Amlodipine Besylate (Amlodipine Besylate 5 Mg Tab) 10 mg PO QAM GINNY Stop: 06/11/21 18:21 Last Admin: 05/12/21 19:24 Dose: 10 mg Documented by: [id number] Aripiprazole (Aripiprazole 10 Mg Tab) 10 mg PO QPM GINNY Stop: 06/11/21 20:59 Last Admin: 05/12/21 21:17 Dose: 10 mg Documented by: [id number] Aspirin (Aspirin 81 Mg Ectab) 81 mg PO QAM GINNY Stop: 06/11/21 18:21 Last Admin: 05/12/21 19:24 Dose: 81 mg Documented by: [id number] Atorvastatin Calcium (Atorvastatin 40 Mg Tab) 40 mg PO DAILY [facility] Stop: 06/11/21 18:21 Last Admin: 05/12/21 19:27 Dose: 40 mg Documented by: [id number] Benztropine Mesylate (Benztropine Mesylate 1 Mg Tab) 1 mg PO QPM GINNY Stop: 06/11/21 20:59 Last Admin: 05/12/21 21:17 Dose: 1 mg Documented by: [id number] Carbamazepine (Carbamazepine 100 Mg Chew Tab) 100 mg PO BID GINNY Stop: 06/11/21 18:21 Last Admin: 05/12/21 19:25 Dose: 100 mg Documented by: [id number] Cyanocobalamin (Cyanocobalamin 500 Mcg Tablet (Vitamin B-12)) 500 mcg PO DAILY GINNY Stop: 06/11/21 18:21 Last Admin: 05/12/21 19:25 Dose: 500 mcg Documented by: [id number] Ferrous Sulfate (Ferrous Sulfate 325 Mg Tab) 325 mg PO BIDM GINNY Stop: 06/11/21 18:21 Last Admin: 05/12/21 19:25 Dose: 325 mg Documented by: [id number] Guaifenesin (Guaifenesin 600 Mg Tabcr) 1,200 mg PO BID GINNY Stop: 06/11/21 20:59 Last Admin: 05/12/21 21:17 Dose: 1,200 mg Documented by: [id number] Heparin Sodium (Porcine) (Heparin Sod 5,000 Unit/0.5 Ml Vial) 5,000 units SQ Q12 GINNY Stop: 06/11/21 20:59 Last Admin: 05/12/21 21:17 Dose: 5,000 units Documented by: [id number] Hydralazine HCl (Hydralazine Hcl 25 Mg Tab) 25 mg PO TID GINNY Stop: 06/11/21 18:21 Last Admin: 05/12/21 21:10 Dose: Not Given Documented by: [id number] Admin: 05/12/21 19:26 Dose: 25 mg Documented by: [id number] Dexamethasone 6 mg/ Syringe 1.5 mls @ 1 mls/min IV Q24H GINNY Stop: 06/11/21 17:59 Last Admin: 05/12/21 19:27 Dose: 1 mls/min Documented by: [id number] Metoprolol Tartrate (Metoprolol Tartrate 25 Mg Tab) 37.5 mg PO BID GINNY Stop: 06/11/21 18:21 Last Admin: 11/25/21 21:10 Dose: Not Given Documented by: [id number] Admin: 05/12/21 19:26 Dose: 37.5 mg Documented by: [id number] Mirtazapine (Mirtazapine Tab 15 Mg Tab) 15 mg PO DAILY GINNY Stop: 06/11/21 18:21 Last Admin: 05/12/21 19:23 Dose: 15 mg Documented by: [id number] Multivitamins/Minerals (Calcium 600mg + Vit D 400 Iu Tab) 1 tab PO DAILY GINNY Stop: 06/11/21 18:21 Last Admin: 05/12/21 19:23 Dose: 1 tab Documented by: [id number] Sertraline HCl (Sertraline Hcl 100 Mg Tablet) 100 mg PO QPM GINNY Stop: 06/11/21 20:59 Last Admin: 05/12/21 21:16 Dose: 100 mg Documented by: [id number] Discontinued Medications Lactated Ringer's (Lr) 1,000 mls @ 500 mls/hr IV .Q2H GINNY Stop: 06/11/21 04:14 Last Infusion: 05/12/21 18:28 Dose: 0 mls/hr Documented by: [id number] Admin: 05/12/21 05:17 Dose: 500 mls/hr Documented by: [id number] Medical Decision Making Differential Diagnosis Differential diagnosis includes etiologies such as vasovagal event, infection, hypoglycemia, electrolyte abnormalities, cardiac sources, intracerebral event, toxicologic, neurologic, as well as others were entertained. Medical Records Attestation: I reviewed the patient's medical records. Home Medications Current Medication List: was personally reviewed by me Laboratory Data Attestation: I reviewed the patient's lab results. Result diagrams: 05/12/21 05:33 05/12/21 05:41 Lab Results 05/12/21 05/12/21 Range/Units 05:33 05:41 WBC 9.54 (4.8-10.8) K/uL RBC 4.69 L (4.7-6.1) M/uL Hgb 14.0 (14.0-18.0) g/dL Hct 41.3 L (42-52) % MCV 88.1 (80-100) fL MCH 29.9 (25-34) pg MCHC 33.9 (32-36) g/dL RDW Std Deviation 45.8 (36.4-46.3) fL RDW Coeff of Love 14.1 (11.5-14.5) % Plt Count 163 (130-400) K/uL MPV 12.9 H (7.4-10.4) fL Immature Gran % (Auto) 0.9 % Neut % (Auto) 88.1 % Lymph % (Auto) 4.7 % Webb % (Auto) 6.2 % Eos % (Auto) 0.0 % Baso % (Auto) 0.1 % Neut # (Auto) 8.40 H (1.4-6.5) K/uL Lymph # (Auto) 0.45 L (1.2-3.4) K/uL Webb # (Auto) 0.59 (0.11-0.59) K/uL Eos # (Auto) 0.00 (0-0.5) K/uL Baso # (Auto) 0.01 (0-0.2) K/uL Immature Gran # (Auto) 0.09 H (0.00-0.02) K/uL Sodium 139 (136-145) mmol/L Potassium 3.8 (3.5-5.1) mmol/L Chloride 106 (98-107) mmol/L Carbon Dioxide 22 (21-32) mmol/L Anion Gap 11.0 (3-11) BUN 61 H (7-18) mg/dl Creatinine 4.31 H (0.6-1.4) mg/dl Est Cr Clr Drug Dosing Not Reportable Est GFR ( Amer) 15.9 ml/min Est GFR (Non-Af Amer) 13.7 ml/min BUN/Creatinine Ratio 14.2 (10-20) Glucose 122 H (70-99) mg/dl Calcium 7.1 L (8.5-10.1) mg/dl Magnesium 2.1 (1.8-2.4) mg/dl Total Bilirubin 0.3 (0.2-1) mg/dl AST 39 H (15-37) U/L ALT 29 (12-78) U/L Alkaline Phosphatase 69 (45-117) U/L Troponin I 0.275 H* (0-0.045) ng/ml NT-Pro-B Natriuret Pep 1098 H (0-900) pg/ml Total Protein 7.3 (6.4-8.2) gm/dl Albumin 2.7 L (3.4-5.0) gm/dl Globulin 4.6 H (2.5-4.0) gm/dl Albumin/Globulin Ratio 0.6 L (0.9-2) Lipase 193 (73-393) U/L TSH 0.487 (0.300-4.500) uIu/ml Imaging Data My Impression: X-ray: I interpreted the following studies. Chest: A single view study of the chest was reviewed and was negative for cardiomegaly, or wide mediastinum. Pacemaker noted. Scattered pulmonary edema versus infiltrates consistent with likely Covid infection. Radiologist's Impression: CT head: No ICH, mass-effect or edema. No evidence of acute cortical stroke or significant alteration from the examination 04/19/2020. Trace right mastoid effusions, stable. The paranasal sinuses and mastoid air cells are otherwise unremarkable. Radiologist: Xavi Prince MD ECG Data Attestation: I personally reviewed and interpreted this ECG as follows: Indication: + syncope Rate (beats per minute): paced Rhythm: + other (paced) ECG Intervals/blocks: + First degree AV block, + IVCD and + Normal QT ECG [place]: + Normal ECG ST segments: + Nonspecific ST abnormalities MDM Narrative This is a 60-year-old male who presents with group home guards at bedside due to concern for syncopal event in the setting of known COVID-19 infection. Patient was significant prior cardiac history. Patient does appear clinically dehydrated and admits to vomiting during the course of his illness. Labs drawn and sent, chest x-ray performed. Patient's x-ray consistent with known Covid infection. Labs showed STEPHANIE and elevated troponin. Patient was rehydrated. I suspect his dehydration led to the STEPHANIE which likely led to the elevated troponin. Patient's EKG paced. He had no complaints of chest pain. I am less suspicious of ACS. Patient did feel improved with oxygen via nasal cannula. Patient's pacer was interrogated [employer] rep spoke to the nurse reported no recent events. He did have an episode of VT in March. Case discussed with hospitalist for additional management. It was noted on the patient's accompanying reports states that he is taking Levaquin right now. When patient was asked about this he states he does not know why. An order was placed for continuous cardiac monitoring. The monitor shows a rate of _70__ with _paced__ rhythm. Impression & Plan Syncope, STEPHANIE (acute kidney injury), Dehydration, Elevated troponin Discharge Plan Visit Data Chief Complaint: Seizure Stated Complaint: SEIZURE ED Provider: Mary Ellen Arceo Discharge Problem: Syncope, STEPHANIE (acute kidney injury), Dehydration, Elevated troponin Patient Disposition: Admitted As Inpatient Discharge Instructions Interventions: ED Discharge Assessment Last Done: 05/12/21 12:38 Discharge Problem: Syncope Qualifiers: Syncope type: unspecified Qualified Code(s): R55 - Syncope and collapse
[2021-05-12 06:29] LABS: Alanine Aminotransferase 29 U/L (12-78); Albumin Level 2.7 gm/dl (3.4-5.0); Aspartate Aminotransferase 39 U/L (15-37); BUN Creatinine Ratio 14.2 (10-20); Blood Urea Nitrogen 61 mg/dl (7-18); Calcium 7.1 mg/dl (8.5-10.1); Carbon Dioxide 22 mmol/L (21-32); Chloride 106 mmol/L (98-107); Est GFR (African American) 15.9 ml/min; Est GFR (Non-African American) 13.7 ml/min; Glucose 122 mg/dl (70-99); Lipase 193 U/L (73-393); Magnesium 2.1 mg/dl (1.8-2.4); Potassium 3.8 mmol/L (3.5-5.1); Sodium 139 mmol/L (136-145)
[2021-05-12 06:47] LABS: Basophils # (auto) 0.01 K/uL (0-0.2); Basophils % (auto) 0.1 %; Hematocrit (blood only) 41.3 % (42-52); Immature Granulocytes # (auto) 0.09 K/uL (0.00-0.02); Immature Granulocytes % (auto) 0.9 %; Lymphocytes # (auto) 0.45 K/uL (1.2-3.4); Lymphocytes % (auto) 4.7 %; Mean Corpuscular Hemoglobin 29.9 pg (25-34); Mean Corpuscular Hgb Conc 33.9 g/dL (32-36); Mean Corpuscular Volume 88.1 fL (80-100); Mean Platelet Volume 12.9 fL (7.4-10.4); Monocytes # (auto) 0.59 K/uL (0.11-0.59); Monocytes % (auto) 6.2 %; Neutrophils % (auto) 88.1 %; Platelet Count 163 K/uL (130-400); RDW Coefficient of Variation 14.1 % (11.5-14.5); RDW Standard Deviation 45.8 fL (36.4-46.3); Red Blood Count 4.69 M/uL (4.7-6.1); White Blood Count 9.54 K/uL (4.8-10.8)
[2021-05-12 06:57] LABS: Albumin Globulin Ratio 0.6 (0.9-2); Alkaline Phosphatase 69 U/L (45-117); Bilirubin,Total 0.3 mg/dl (0.2-1); Globulin 4.6 gm/dl (2.5-4.0); NT Pro B Type Natriuretic Pept 1098 pg/ml (0-900); Thyroid Stimulating Hormone 0.487 uIu/ml (0.300-4.500); Total Protein 7.3 gm/dl (6.4-8.2); Troponin I 0.275 ng/ml (0-0.045)
--- NOTE | 2021-05-12 08:41 | History & Physical Report ---
Date of Service May 12, 2021 Assessment & Plan (1) CKD (chronic kidney disease): Plan: Patient with acute kidney injury history of chronic kidney disease stage III he was given hydration and earlier part of his hospital stay certainly this could be Covid effects on his renal function. We will continue to have him on a potassium sparing diet stopping hydration following renal function (2) Pneumonia due to COVID-19 virus: Plan: Patient with recent diagnosis of Covid positivity oxygen saturations are below 94% but above 90%. He will be started on dexamethasone the emergency department. Renal function precludes him from having remdesivir. CRP will be checked in the morning although he may not be a candidate for baricitinib or tocilizumab we will continue to follow his respiratory progress at this point time (3) CAD (coronary artery disease): Plan: Patient had his pacemaker checked continues on aspirin atorvastatin Norvasc continues as well as his metoprolol his bumetanide and hydrochlorothiazide are held (4) Depression with anxiety: Plan: Patient remains on mirtazapine and sertraline (5) Seizure disorder: Plan: Patient is on Tegretol level will be checked (6) DVT prophylaxis: Plan: Patient will be on Covid DVT prevention but because of renal function will be transition to heparin History of Present Illness Primary Care Provider: EMILY Cole 60-year-old male brought in by EMS with fpc guards accompanying due to concern for syncope versus seizure. Patient states he got up to use the restroom, felt very lightheaded and dizzy and felt as though he was going to pass out. Patient states he tried to sit down but ended up blacking out in his and floor. Patient believes he struck his head on the floor. He is uncertain how long he may have been unconscious. Patient denies concern for injury. Patient recently diagnosed with Covid, diagnosis confirmed here at [facility],. He states he has a cough, and gets winded with exertion. Is not hypoxic but has oxygen saturations <94% on room air. Patient does have cardiac history and does have a pacemaker. Pacemaker was interrogated in the ER and was felt to be ok . cxr looks wet but renal funciton up, clincally dry and syncope, was give ivf for first 12 hours of hospital stay Allergies Allergy/AdvReac Type Severity Reaction Status Date / Time VIK Inhibitors Allergy Severe Rash and Verified 05/12/21 08:38 Itching Cephalosporins Allergy Severe Rash and Verified 05/12/21 08:38 Itching Penicillins Allergy Severe Rash and Verified 05/12/21 08:38 Itching sulfamethoxazole Allergy Severe Rash and Verified 05/12/21 08:38 [From Bactrim] Itching trimethoprim [From Bactrim] Allergy Severe Rash and Verified 05/12/21 08:38 Itching clindamycin Allergy Intermediate Hives Verified 05/12/21 08:38 Home Medications Medication Instructions Recorded Confirmed Type amlodipine 10 mg tablet (Norvasc) 10 mg PO QAM 07/12/19 05/12/21 History aspirin 81 mg tablet,delayed 81 mg PO QAM 07/12/19 05/12/21 History release (Aspirin Low Dose) sertraline 100 mg tablet 100 mg PO QPM 12/30/19 05/12/21 History calcium carbonate 600 mg (1,500 1 tab PO DAILY 04/19/20 05/12/21 History mg)-vitamin D3 400 unit tablet (Calcium 600 + D(3)) carbamazepine 100 mg chewable 100 mg PO BID 04/19/20 05/12/21 History tablet metoprolol tartrate 25 mg tablet 37.5 mg PO BID #0 tab 04/25/20 05/12/21 Rx bumetanide 2 mg tablet 2 mg PO DAILY 07/21/20 05/12/21 History atorvastatin 40 mg tablet 40 mg PO DAILY 11/01/20 05/12/21 History hydrochlorothiazide 25 mg tablet 25 mg PO DAILY 11/01/20 05/12/21 History mirtazapine 15 mg tablet 15 mg PO HS 11/01/20 05/12/21 History acetaminophen 500 mg tablet 500 mg PO TID PRN 05/12/21 05/12/21 History (Tylenol Extra Strength) finasteride 5 mg tablet 5 mg PO DAILY 05/12/21 05/12/21 History guaifenesin 400 mg tablet (Mucosa) 400 mg PO TID PRN 05/12/21 05/12/21 History levofloxacin 250 mg tablet 250 mg PO DAILY 05/12/21 05/12/21 History losartan 100 mg tablet 100 mg PO DAILY 05/12/21 05/12/21 History ondansetron 4 mg disintegrating 4 mg PO TID PRN 05/12/21 05/12/21 History tablet zinc sulfate 50 mg zinc (220 mg) 50 mg PO DAILY 05/12/21 05/12/21 History capsule (Orazinc) Past Med/Surg History Medical History Anemia B12 deficiency anemia CAD (coronary artery disease) CKD (chronic kidney disease) Depression with anxiety Hx of myocardial infarction Hypertension Lower extremity edema Psychiatric diagnosis Surgical History History of gastric bypass Family History Other No significant family history Pulmonary embolism Social History Smoking Status: Unknown if ever smoked Second Hand Exposure: No; Hx Alcohol Use: No Hx Substance Use: No Preferred Language: Tunisian Communication Ability: Effective Oil Well Engineer Required: No Beliefs That Will Affect Care: None marital status: Single Current Living Situation: Other Current Living Situation Comment: Long Term 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 Physical Exam Physical Exam: The patient appeared well nourished and normally developed. Vital signs as documented. Head exam is normocephalic atraumatic Neck is without JVD, thyromegaly, or carotid bruits. Lungs are coarse bilaterally Cardiac exam, Rhythm is regular.. No murmurs, rubs or gallops. Abdominal exam reveals normal bowel sounds, soft non tender, no masses Extremities are chronically edematous and both pedal pulses are present Neurologic exam is alert and oriented, no focal loss of strength or sensation Skin is without bruises or rashes Psychologically is without concerns for anxiety or depression.. Results & Data Results & Data ([facility]) Vital Signs (Past 12 Hours) Vital Signs Temp Pulse Pulse Resp BP BP Pulse Ox 05/12/21 06:20 70 14 141/94 H 90 05/12/21 03:39 97.5 F L 73 20 126/[address] head is unremarkable for intracranial bleed infarction or other acute change Chest x-ray performed 05/12/2021 shows hazy bibasilar changes questionable his tory of Covid infection ECG Additional Comments: EKG shows atrially paced rhythm Code Status & VTE Plan VTE Prophylaxis Plan VTE Prophylaxis will be ordered: Yes PG Care Time/CCT Total # of Minutes Spent Total Time Spent with Patient: Total time spent is greater than 50% in coordination of care (as documented) at patient's floor/unit and/or counseling patient: Coding Level of Care Code 50679 Initial Inpt Care Lvl 3 Diagnoses CAD (coronary artery disease) I25.10 Associated angina: without angina Coronary Disease-Associated Artery/Lesion type: [place] artery [place] vs. transplanted heart: [place] heart DVT prophylaxis Z29.9 CKD (chronic kidney disease) N18.9 Depression with anxiety F41.8 Pneumonia due to COVID-19 virus U07.1; J12.82 Seizure disorder G40.909 (1) CAD (coronary artery disease) Associated angina: without angina Coronary Disease-Associated Artery/Lesion type: [place] artery [place] vs. transplanted heart: [place] heart Qualified Code(s): I25.10 - Atherosclerotic heart disease of [place] coronary artery without angina pectoris
--- NOTE | 2021-05-12 10:18 | CT Scan Report ---
HEAD CT NONCONTRAST CT DOSE: 729.78 mGycm HISTORY: syncope TECHNIQUE: Multiaxial CT images of the head were performed without the use of intravenous contrast. A utomated exposure control was utilized for this study. A dose lowering technique was utilized adheri ng to the principles of ALARA. Comparison: Head CT 04/19/2020. Findings: The paranasal sinuses and left mastoid air cells are clear. Trace right mastoid effusion, u nchanged. The calvarium and skull base are intact. There is no mass, hematoma, midline shift, acute i nfarct. White matter hypodensity is nonspecific but suggestive of microvascular ischemic change. The ventricles and sulci demonstrate mild age-related involutional changes. 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 These remain unchanged. Impression: No significant change compared to the prior study. No acute intracranial abnormality. ACT 112: Negative or not required by law. Electronically signed by: Jose Angle Rea M.D. 05/12/2021 10:17 AM
--- NOTE | 2021-05-12 10:33 | XRay Report ---
XR chest 1V portable CLINICAL HISTORY: cough, covid+ COMPARISON STUDY: Chest radiograph April 23, 2020. FINDINGS: Dual lead left subclavian pacemaker is in place. There is moderate cardiomegaly without jr dence for pulmonary edema. There is no pneumothorax or pleural effusion. Moderate left and mild right lung airspace opacities are present. IMPRESSION: Bilateral airspace opacities, greater within the left lung. The findings favor viral pne umonia. Radiographic follow-up to ensure resolution is recommended. ACT 112: Negative or not required by law. Electronically signed by: William Ayala M.D. 05/12/2021 10:32 AM
--- NOTE | 2021-05-12 12:23 | XCELERA ---
[id number]
--- NOTE | 2021-05-12 12:29 | Electrocardiogram Report ---
Test Reason : Blood Pressure : / mmHG Vent. Rate : 070 BPM Atrial Rate : 070 BPM P-R Int : 248 ms QRS Dur : 120 ms QT Int : 434 ms P-R-T Axes : 023 045 -41 degrees QTc Int : 468 ms Atrial-paced rhythm with prolonged AV conduction with occasional ventricular-paced complexes T wave abnormality, consider inferior ischemia Abnormal ECG When compared with ECG of 21-APR-2020 03:22, Electronic ventricular pacemaker has replaced Sinus rhythm Confirmed by Luc Villegas ([id number]) on 05/12/2021 12:29:21 PM Referred By: Kelsey SCI Confirmed By:Elian Villegas
[2021-05-12] MEDS ORDERED: amLODIPine BESYLATE 5 MG TAB PO SCH (18:22)
[2021-05-12] MEDS ORDERED: diphenhydrAMINE Capsule 25 MG CAP PO PRN (18:22)
[2021-05-12] MEDS ORDERED: ALUMINUM/MAGNESIUM SUSP 30 ML UDC PO PRN (18:22)
[2021-05-12] MEDS ORDERED: ZOLPIDEM TARTRATE 5 MG TAB PO PRN (18:22)
[2021-05-12] MEDS: ACETAMINOPHEN 325 MG TAB PO PRN (19:23)
[2021-05-12] MEDS: MIRTAZAPINE TAB 15 MG TAB PO SCH (19:23)
[2021-05-12] MEDS: CALCIUM 600MG + VIT D 400 IU TAB PO SCH (19:23)
[2021-05-12] MEDS: ASPIRIN 81 MG ECTAB PO SCH (19:24)
[2021-05-12] MEDS: carBAMazepine 100 MG CHEW TAB PO SCH (19:25)
[2021-05-12] MEDS: CYANOCOBALAMIN 500 MCG TABLET (VITAMIN B-12) PO SCH (19:25)
[2021-05-12] MEDS: FERROUS SULFATE 325 MG TAB PO SCH (19:25)
[2021-05-12] MEDS: METOPROLOL TARTRATE 25 MG TAB PO SCH ×2 (19:26→21:10)
[2021-05-12] MEDS: hydrALAZINE HCL 25 MG TAB PO SCH ×2 (19:26→21:10)
[2021-05-12] MEDS: dexAMETHasone 6 MG in SYRINGE 0 ML IV SCH (19:27)
[2021-05-12] MEDS: ATORVASTATIN 40 MG TAB PO SCH (19:27)
[2021-05-12 20:09] LABS: Appearance Urine Cloudy (Clear); Bacteria Urine Automated Negative (Negative); Bilirubin Urine Negative (Negative); Blood Urine 1+ (Negative); Color Urine Yellow; Glucose Urine UA Negative (Negative); Ketones Urine Trace (Negative); Leukocyte Esterase Urine Negative (Negative); Nitrite Urine Negative (Negative); Protein Urine 2+ (Negative); RBC Urine Automated 0-4 /hpf (0-4); Specific Gravity Urine 1.014 (1.000-1.030); Urobilinogen Urine Negative (Negative)
[2021-05-12] MEDS: SERTRALINE HCL 100 MG TABLET PO SCH (21:16)
[2021-05-12] MEDS: BENZTROPINE MESYLATE 1 MG TAB PO SCH (21:17)
[2021-05-12] MEDS: HEPARIN SOD 5,000 UNIT/0.5 ML VIAL SQ SCH (21:17)
[2021-05-12] MEDS: ARIPiprazole 10 MG TAB PO SCH (21:17)
[2021-05-12] MEDS: guaiFENesin 600 MG TABCR PO SCH (21:17)
[2021-05-13 08:09] LABS: BUN Creatinine Ratio 15.3 (10-20); Blood Urea Nitrogen 56 mg/dl (7-18); Calcium 7.3 mg/dl (8.5-10.1); Carbon Dioxide 20 mmol/L (21-32); Chloride 110 mmol/L (98-107); Est GFR (African American) 19.4 ml/min; Est GFR (Non-African American) 16.7 ml/min; Glucose 118 mg/dl (70-99); Sodium 140 mmol/L (136-145)
[2021-05-13] MEDS: HEPARIN SOD 5,000 UNIT/0.5 ML VIAL SQ SCH ×2 (09:54→21:04)
[2021-05-13] MEDS: ASPIRIN 81 MG ECTAB PO SCH (09:55)
[2021-05-13] MEDS: guaiFENesin 600 MG TABCR PO SCH ×2 (09:55→21:11)
[2021-05-13] MEDS: CALCIUM 600MG + VIT D 400 IU TAB PO SCH (09:55)
[2021-05-13] MEDS: carBAMazepine 100 MG CHEW TAB PO SCH ×2 (09:56→21:14)
[2021-05-13] MEDS: ZINC SULFATE 220 MG CAPSULE PO SCH (09:56)
[2021-05-13] MEDS: FERROUS SULFATE 325 MG TAB PO SCH ×2 (09:56→18:12)
[2021-05-13] MEDS: ATORVASTATIN 40 MG TAB PO SCH (09:56)
[2021-05-13] MEDS: METOPROLOL TARTRATE 25 MG TAB PO SCH ×2 (09:57→21:08)
[2021-05-13] MEDS: hydrALAZINE HCL 25 MG TAB PO SCH ×3 (09:57→21:13)
[2021-05-13] MEDS: MIRTAZAPINE TAB 15 MG TAB PO SCH (09:58)
[2021-05-13] MEDS: FINASTERIDE 5 MG TAB PO SCH (10:02)
[2021-05-13 10:34] LABS: Potassium 3.8 mmol/L (3.5-5.1)
[2021-05-13] MEDS: LACTATED RINGER'S 1,000 ML IV SCH ×2 (10:34→10:35)
[2021-05-13 10:36] LABS: Magnesium 2.3 mg/dl (1.8-2.4)
--- NOTE | 2021-05-13 13:27 | Hospitalist Progress Note ---
Date of Service May 13, 2021 Assessment & Plan (1) CKD (chronic kidney disease): Plan: Patient with acute kidney injury history of chronic kidney disease stage III, certainly this could be Covid effects on his renal function. We will continue to have him on a potassium sparing diet some renal function improved but still not in range to have remdesivir (2) Pneumonia due to COVID-19 virus: Plan: Patient with recent diagnosis of Covid positivity oxygen saturations are below 94% but above 90%. He will be started on dexamethasone the emergency department. Renal function precludes him from having remdesivir. CRP will be checked in the morning although he may not be a candidate for baricitinib or tocilizumab we will continue to follow his respiratory progress at this point time (3) CAD (coronary artery disease): Plan: Patient had his pacemaker checked continues on aspirin atorvastatin Norvasc continues as well as his metoprolol did have elevation of troponin, no upward trend, ecg now is paced with some t wave changes but no corroboarting sx or chest pain, no new ECHO changes, suspect is demand ischemia also influenced by renal function his bumetanide and hydrochlorothiazide continue to be held (4) Depression with anxiety: Plan: Patient remains on mirtazapine and sertraline (5) Seizure disorder: Plan: Patient is on Tegretol level therapeutic (6) DVT prophylaxis: Plan: Patient will be on Covid DVT prevention but because of renal function will be transition to heparin Admission and Anticipated Discharge Date Admission Date: May 12, 2021 Subjective this pt is weakened and tired some tachypnea but not worsened hypoxia. no diarrhea, no appetite but no loss of taste and smell Review of Systems Review of Systems: moderate distress and fatigue no headache, no visual changes no speech or swallowing issues no chest pain, pressure or palpitations mild shortness of breath, non productive cough or wheezes no abdominal pain, nausea or vomiting, diarrhea or constipation no dysuria, hematuria or frequency no focal joint pain or swelling no back pain, CVA tenderness or radicular pain no bruising, bleeding or rashes no focal signs of weakness or numbness or altered sensation no complaints of anxiety or depression.. Physical Exam Physical Exam: The patient appeared well nourished and normally developed. Vital signs as documented. Head exam is normocephalic atraumatic Neck is without JVD, thyromegaly, or carotid bruits. Lungs diminished at bases mild rales to examination Cardiac exam, Rhythm is regular.. No murmurs, rubs or gallops. Abdominal exam reveals normal bowel sounds, soft non tender, no masses Extremities are chronically trace edematous bilaterally and both pedal pulses are present Neurologic exam is alert and oriented, no focal loss of strength or sensation Skin is without bruises or rashes Psychologically is without concerns for anxiety or depression.. PG Care Time/CCT Total # of Minutes Spent Total Time Spent with Patient: Total time spent is greater than 50% in coordination of care (as documented) at patient's floor/unit and/or counseling patient: Coding Level of Care Code 12151 Subseq Hosp Care Lvl 3 Diagnoses CKD (chronic kidney disease) N18.9 Pneumonia due to COVID-19 virus U07.1; J12.82 CAD (coronary artery disease) I25.10 Coronary Disease-Associated Artery/Lesion type: [place] artery [place] vs. transplanted heart: [place] heart Associated angina: without angina Depression with anxiety F41.8 Seizure disorder G40.909 DVT prophylaxis Z29.9 (1) CAD (coronary artery disease) Coronary Disease-Associated Artery/Lesion type: [place] artery [place] vs. transplanted heart: [place] heart Associated angina: without angina Qualified Code(s): I25.10 - Atherosclerotic heart disease of [place] coronary artery without angina pectoris
[2021-05-13] MEDS: CYANOCOBALAMIN 500 MCG TABLET (VITAMIN B-12) PO SCH (15:33)
[2021-05-13] MEDS: dexAMETHasone 6 MG in SYRINGE 0 ML IV SCH (18:12)
[2021-05-13] MEDS: SERTRALINE HCL 100 MG TABLET PO SCH (21:12)
[2021-05-13] MEDS: BENZTROPINE MESYLATE 1 MG TAB PO SCH (21:15)
[2021-05-13] MEDS: ARIPiprazole 10 MG TAB PO SCH (21:16)
[2021-05-14 09:52] LABS: Hematocrit (blood only) 39.1 % (42-52); Mean Corpuscular Hemoglobin 29.6 pg (25-34); Mean Corpuscular Hgb Conc 33.2 g/dL (32-36); Mean Corpuscular Volume 89.1 fL (80-100); Mean Platelet Volume 11.7 fL (7.4-10.4); Platelet Count 232 K/uL (130-400); RDW Standard Deviation 45.8 fL (36.4-46.3); Red Blood Count 4.39 M/uL (4.7-6.1); White Blood Count 10.86 K/uL (4.8-10.8)
[2021-05-14] MEDS: FERROUS SULFATE 325 MG TAB PO SCH ×2 (09:56→18:50)
[2021-05-14] MEDS: ASPIRIN 81 MG ECTAB PO SCH (09:56)
[2021-05-14] MEDS: ATORVASTATIN 40 MG TAB PO SCH (09:56)
[2021-05-14] MEDS: CYANOCOBALAMIN 500 MCG TABLET (VITAMIN B-12) PO SCH (09:57)
[2021-05-14] MEDS: FINASTERIDE 5 MG TAB PO SCH (09:57)
[2021-05-14] MEDS: carBAMazepine 100 MG CHEW TAB PO SCH ×2 (09:57→21:03)
[2021-05-14] MEDS: CALCIUM 600MG + VIT D 400 IU TAB PO SCH (09:57)
[2021-05-14] MEDS: guaiFENesin 600 MG TABCR PO SCH ×2 (09:58→21:03)
[2021-05-14] MEDS: METOPROLOL TARTRATE 25 MG TAB PO SCH ×2 (09:58→21:09)
[2021-05-14] MEDS: hydrALAZINE HCL 25 MG TAB PO SCH ×3 (09:58→21:09)
[2021-05-14] MEDS: MIRTAZAPINE TAB 15 MG TAB PO SCH (09:59)
[2021-05-14] MEDS: ZINC SULFATE 220 MG CAPSULE PO SCH (09:59)
[2021-05-14] MEDS: HEPARIN SOD 5,000 UNIT/0.5 ML VIAL SQ SCH ×2 (09:59→21:08)
[2021-05-14 10:10] LABS: BUN Creatinine Ratio 15.4 (10-20); C Reactive Protein 9.87 mg/dl (0-0.29); Calcium 7.4 mg/dl (8.5-10.1); Est GFR (African American) 20.6 ml/min; Est GFR (Non-African American) 17.8 ml/min; Magnesium 2.2 mg/dl (1.8-2.4); Potassium 3.5 mmol/L (3.5-5.1)
[2021-05-14] MEDS ORDERED: PROMETHAZINE HCL 12.5 MG in SODIUM CHLORIDE 0.9% 50 ML IV PRN (11:30)
[2021-05-14] MEDS ORDERED: ONDANSETRON INJ 2 MG/ML 2 ML VIAL ONE (11:45)
[2021-05-14] MEDS: ONDANSETRON INJ 2 MG/ML 2 ML VIAL IV PRN (11:55)
[2021-05-14] MEDS: dexAMETHasone 6 MG in SYRINGE 0 ML IV SCH (18:50)
[2021-05-14] MEDS: ARIPiprazole 10 MG TAB PO SCH (21:01)
[2021-05-14] MEDS: BENZTROPINE MESYLATE 1 MG TAB PO SCH (21:02)
[2021-05-14] MEDS: SERTRALINE HCL 100 MG TABLET PO SCH (21:04)
--- NOTE | 2021-05-14 22:01 | Hospitalist Progress Note ---
Date of Service May 14, 2021 Assessment & Plan (1) CKD (chronic kidney disease): Plan: Cr is 3.48, improved from 4.3 on admission still not eating or drinking very well, gentle hydration repeat labs in AM (2) Pneumonia due to COVID-19 virus: Plan: mild hypoxemia, was on room air but also requiring up to 4L continue dexamethasone wean oxygen as tolerated incentive spirometer, flutter valve (3) CAD (coronary artery disease): Plan: Patient had his pacemaker checked continues on aspirin atorvastatin Norvasc continues as well as his metoprolol did have elevation of troponin, no upward trend, ecg now is paced with some t wave changes but no corroboarting sx or chest pain, no new ECHO changes, suspect is demand ischemia also influenced by renal function his bumetanide and hydrochlorothiazide continue to be held due to STEPHANIE (4) Depression with anxiety: Plan: Patient remains on mirtazapine and sertraline (5) Seizure disorder: Plan: Patient is on Tegretol level therapeutic (6) DVT prophylaxis: Plan: Patient will be on Covid DVT prevention but because of renal function will be transition to heparin Admission and Anticipated Discharge Date Admission Date: May 12, 2021 Subjective patient stable on low flow oxygen this morning when I saw him he was actually off his oxygen, stable on room air, asked RN to watch closely he is not eating great, has some nausea, will try Zofran reviewed chart and labs confirmed he is vaccinated with J&J in the spring 2020 Review of Systems Review of Systems: All systems reviewed & are unremarkable except as noted in Subjective Constitutional: + fatigue and + weakness Respiratory: + cough and + dyspnea Physical Exam Physical Exam: General: well developed, well nourished, ill appearing, male, no distress Neck: supple, trachea midline, normal thyroid Lungs: clear to auscultation bilaterally, normal respiratory effort, no accessory muscle use, no distress Heart: regular S1 and S2, no murmur, peripheral pulses normal, capillary refill normal, no edema Abdomen: soft, NT, ND, + BS, no hepatomegaly, normal to percussion Extremities: normal in appearance, no cyanosis, no petechiae, strength is 5/5 bilaterally Neuro: awake, cooperative, moves all extremities, no focal motor deficits, CN II-XII intact, sensation in extremities intact, normal speech Skin: warm, dry, no rash, normal turgor Psych: Awake, alert oriented x 3, euthymic affect Results & Data Results & Data ([facility]) Vital Signs (Past 12 Hours) Vital Signs Temp Pulse Resp BP Pulse Ox Pulse Ox 05/14/21 18:00 36.6 C 74 16 130/71 96 95 05/14/21 15:00 71 18 119/70 93 05/14/21 13:00 70 20 134/88 94 05/14/21 12:08 71 24 141/83 H 92 05/14/21 10:03 80 30 H 116/55 L 90 Laboratory Results Laboratory Results - last 24 hr 05/14/21 05/14/21 09:36 09:36 WBC 10.86 H RBC 4.39 L Hgb 13.0 L Hct 39.1 L MCV 89.1 MCH 29.6 MCHC 33.2 RDW Std Deviation 45.8 RDW Coeff of Love 14.0 Plt Count 232 MPV 11.7 H Sodium 141 Potassium 3.5 Chloride 110 H Carbon Dioxide 21 Anion Gap 10.0 BUN 54 H Creatinine 3.48 H Est Cr Clr Drug Dosing 29.0 Est GFR ( Amer) 20.6 Est GFR (Non-Af Amer) 17.8 BUN/Creatinine Ratio 15.4 Glucose 118 H Calcium 7.4 L Magnesium 2.2 C-Reactive Protein 9.87 H Medications Administered Current Inpatient Medications Acetaminophen (Acetaminophen 325 Mg Tab) 650 mg PO Q4H PRN PRN Reason: Pain or Fever Stop: 06/11/21 18:21 Last Admin: 05/12/21 19:23 Dose: 650 mg Documented by: Al Hydrox/Mg Hydrox/Simethicone (Aluminum/Magnesium Susp 30 Ml Udc) 15 ml PO Q4H PRN PRN Reason: Dyspepsia Stop: 06/11/21 18:21 Last Admin: 05/14/21 07:52 Dose: 15 ml Documented by: Aripiprazole (Aripiprazole 10 Mg Tab) 10 mg PO QPM [facility] Stop: 06/11/21 20:59 Last Admin: 05/14/21 21:01 Dose: 10 mg Documented by: Aspirin (Aspirin 81 Mg Ectab) 81 mg PO QAM [facility] Stop: 06/11/21 18:21 Last Admin: 05/14/21 09:56 Dose: 81 mg Documented by: Atorvastatin Calcium (Atorvastatin 40 Mg Tab) 40 mg PO DAILY [facility] Stop: 06/11/21 18:21 Last Admin: 05/14/21 09:56 Dose: 40 mg Documented by: Benztropine Mesylate (Benztropine Mesylate 1 Mg Tab) 1 mg PO QPM [facility] Stop: 06/11/21 20:59 Last Admin: 05/14/21 21:02 Dose: 1 mg Documented by: Carbamazepine (Carbamazepine 100 Mg Chew Tab) 100 mg PO BID GINNY Stop: 06/11/21 18:21 Last Admin: 05/14/21 21:03 Dose: 100 mg Documented by: Cyanocobalamin (Cyanocobalamin 500 Mcg Tablet (Vitamin B-12)) 500 mcg PO DAILY GINNY Stop: 06/11/21 18:21 Last Admin: 05/14/21 09:57 Dose: 500 mcg Documented by: Diphenhydramine HCl (Diphenhydramine Capsule 25 Mg Cap) 25 mg PO Q6H PRN PRN Reason: itching Stop: 06/11/21 18:21 Ferrous Sulfate (Ferrous Sulfate 325 Mg Tab) 325 mg PO BIDM [facility] Stop: 06/11/21 18:21 Last Admin: 05/14/21 18:50 Dose: 325 mg Documented by: Finasteride (Finasteride 5 Mg Tab) 5 mg PO DAILY GINNY Stop: 06/12/21 08:59 Last Admin: 05/14/21 09:57 Dose: 5 mg Documented by: Guaifenesin (Guaifenesin 600 Mg Tabcr) 1,200 mg PO BID GINNY Stop: 06/11/21 20:59 Last Admin: 05/14/21 21:03 Dose: 1,200 mg Documented by: Heparin Sodium (Porcine) (Heparin Sod 5,000 Unit/0.5 Ml Vial) 5,000 units SQ Q12 [facility] Stop: 06/11/21 20:59 Last Admin: 05/14/21 21:08 Dose: 5,000 units Documented by: Hydralazine HCl (Hydralazine Hcl 25 Mg Tab) 25 mg PO TID [facility] Stop: 06/11/21 18:21 Last Admin: 05/14/21 21:09 Dose: Not Given Documented by: Dexamethasone 6 mg/ Syringe 1.5 mls @ 1 mls/min IV Q24H [facility] Stop: 06/11/21 17:59 Last Admin: 05/14/21 18:50 Dose: 1 mls/min Documented by: Promethazine HCl 12.5 mg/ (Sodium Chloride) 50.5 mls @ 202 mls/hr IV Q6H PRN PRN Reason: Nausea And Vomiting Stop: 06/13/21 11:29 Metoprolol Tartrate (Metoprolol Tartrate 25 Mg Tab) 12.5 mg PO BID GINNY Stop: 06/12/21 08:59 Last Admin: 05/14/21 21:09 Dose: Not Given Documented by: Mirtazapine (Mirtazapine Tab 15 Mg Tab) 15 mg PO DAILY GINNY Stop: 06/11/21 18:21 Last Admin: 05/14/21 09:59 Dose: 15 mg Documented by: Multivitamins/Minerals (Calcium 600mg + Vit D 400 Iu Tab) 1 tab PO DAILY GINNY Stop: 06/11/21 18:21 Last Admin: 05/14/21 09:57 Dose: 1 tab Documented by: Ondansetron HCl (Ondansetron Inj 2 Mg/Ml 2 Ml Vial) 4 mg IV Q4H PRN PRN Reason: Nausea Stop: 06/13/21 11:29 Last Admin: 05/14/21 11:55 Dose: 4 mg Documented by: Sertraline HCl (Sertraline Hcl 100 Mg Tablet) 100 mg PO QPM [facility] Stop: 06/11/21 20:59 Last Admin: 05/14/21 21:04 Dose: 100 mg Documented by: Zinc Sulfate (Zinc Sulfate 220 Mg Capsule) 220 mg PO DAILY GINNY Stop: 06/12/21 08:59 Last Admin: 05/14/21 09:59 Dose: 220 mg Documented by: Zolpidem Tartrate (Zolpidem Tartrate 5 Mg Tab) 5 mg PO HS PRN PRN Reason: Sleep Stop: 06/11/21 18:21 PG Care Time/CCT Total # of Minutes Spent Total Time Spent with Patient: Total time spent is greater than 50% in coordination of care (as documented) at patient's floor/unit and/or counseling patient: Coding Level of Care Code 02098 Subseq Hosp Care Lvl 2 Diagnoses CKD (chronic kidney disease) N18.9 Pneumonia due to COVID-19 virus U07.1; J12.82 CAD (coronary artery disease) I25.10 Coronary Disease-Associated Artery/Lesion type: [place] artery [place] vs. transplanted heart: [place] heart Associated angina: without angina Depression with anxiety F41.8 Seizure disorder G40.909 DVT prophylaxis Z29.9 (1) CAD (coronary artery disease) Coronary Disease-Associated Artery/Lesion type: [place] artery [place] vs. transplanted heart: [place] heart Associated angina: without angina Qualified Code(s): I25.10 - Atherosclerotic heart disease of [place] coronary artery without angina pectoris
[2021-05-15] MEDS ORDERED: ALBUT/IPRATROP 3MG/0.5MG NEB 3 ML VIAL ONE (05:03)
[2021-05-15] MEDS: ALBUT/IPRATROP 3MG/0.5MG NEB 3 ML VIAL NEB SCH ×2 (05:08→07:22)
[2021-05-15] MEDS ORDERED: ALBUT/IPRATROP 3MG/0.5MG NEB 3 ML VIAL NEB SCH (07:00)
[2021-05-15 08:24] LABS: BUN Creatinine Ratio 16.8 (10-20); C Reactive Protein 9.4 mg/dl (0-0.29); Calcium 8.1 mg/dl (8.5-10.1); Creatinine Clr Calc Pharmacy 34.1 ml/min; Est GFR (African American) 25.1 ml/min; Est GFR (Non-African American) 21.6 ml/min; Magnesium 2.2 mg/dl (1.8-2.4); Potassium 3.8 mmol/L (3.5-5.1)
--- NOTE | 2021-05-15 08:37 | XRay Report ---
XR chest 1V portable CLINICAL HISTORY: hypoxia, COVID. COMPARISON STUDY: 05/12/2021 TECHNIQUE: 1 view of the chest FINDINGS: Single frontal view of the chest demonstrates the cardiomediastinal silhouette to be within normal li mits. Compared to the previous examination, patchy interstitial and alveolar opacities are again pres ent bilaterally. The findings are most characteristic of a viral type pneumonitis. Covid 19 pneumonia should be excluded. There is no evidence for pleural effusion. There is no evidence for vascular con gestion. There is no acute osseous pathology. IMPRESSION: Compared to the previous examination, patchy interstitial and alveolar opacities are agai n present bilaterally. The findings are most characteristic of a viral type pneumonitis. Covid 19 pne umonia should be excluded. ACT 112: Negative or not required by law. Electronically signed by: Merlin James M.D. 05/15/2021 8:36 AM
[2021-05-15] MEDS: FERROUS SULFATE 325 MG TAB PO SCH ×2 (09:06→21:09)
[2021-05-15] MEDS: ASPIRIN 81 MG ECTAB PO SCH (09:07)
[2021-05-15] MEDS: ATORVASTATIN 40 MG TAB PO SCH (09:07)
[2021-05-15] MEDS: CALCIUM 600MG + VIT D 400 IU TAB PO SCH (09:08)
[2021-05-15] MEDS: carBAMazepine 100 MG CHEW TAB PO SCH ×2 (09:09→21:10)
[2021-05-15] MEDS: CYANOCOBALAMIN 500 MCG TABLET (VITAMIN B-12) PO SCH (09:10)
[2021-05-15] MEDS: guaiFENesin 600 MG TABCR PO SCH ×2 (09:11→21:10)
[2021-05-15] MEDS: FINASTERIDE 5 MG TAB PO SCH (09:11)
[2021-05-15] MEDS: ZINC SULFATE 220 MG CAPSULE PO SCH (09:12)
[2021-05-15] MEDS: hydrALAZINE HCL 25 MG TAB PO SCH ×3 (09:12→21:10)
[2021-05-15] MEDS: MIRTAZAPINE TAB 15 MG TAB PO SCH (09:13)
[2021-05-15] MEDS: METOPROLOL TARTRATE 25 MG TAB PO SCH ×2 (09:13→21:10)
[2021-05-15] MEDS: HEPARIN SOD 5,000 UNIT/0.5 ML VIAL SQ SCH ×2 (09:15→21:15)
--- NOTE | 2021-05-15 14:25 | Hospitalist Progress Note ---
Date of Service May 15, 2021 Assessment & Plan (1) CKD (chronic kidney disease): Plan: Acute kidney injury on CKD Cr is 2.9, improved from 4.3 on admission still not eating or drinking very well, gentle hydration for one more day repeat labs in AM (2) Pneumonia due to COVID-19 virus: Plan: mild hypoxemia, he is on 6L mask, no distress Codeine PRN for cough continue dexamethasone wean oxygen as tolerated incentive spirometer, flutter valve stop fluids after today, would want to keep lungs on dry side resume Bumex tomorrow (3) CAD (coronary artery disease): Plan: Patient had his pacemaker checked continues on aspirin atorvastatin Norvasc continues as well as his metoprolol did have elevation of troponin, no upward trend, ecg now is paced with some t wave changes but no corroboarting sx or chest pain, no new ECHO changes, suspect is demand ischemia also influenced by renal function likely resume Bumex tomorrow (4) Depression with anxiety: Plan: Patient remains on mirtazapine and sertraline (5) Seizure disorder: Plan: Patient is on Tegretol level therapeutic (6) DVT prophylaxis: Plan: Patient will be on Covid DVT prevention but because of renal function will be transition to heparin Admission and Anticipated Discharge Date Admission Date: May 12, 2021 Subjective patient doing okay, coughing a lot, no sputum production he is not hungry, just drinking some liquids he is on 6L mask, no distress Cr is improving, down to 2.9, electrolytes stable will add some Codeine PRN for the cough Review of Systems Review of Systems: All systems reviewed & are unremarkable except as noted in Subjective Constitutional: + fatigue and + weakness; no fever Respiratory: + cough, + dyspnea and + dyspnea on exertion Cardiovascular: no chest pain Gastrointestinal: + nausea; no abdominal pain, no vomiting, no constipation and no diarrhea/loose stools Physical Exam Physical Exam: General: well developed, well nourished, ill appearing, male, no distress Neck: supple, trachea midline, normal thyroid Lungs: clear to auscultation bilaterally, normal respiratory effort, no accessory muscle use, no distress Heart: regular S1 and S2, no murmur, peripheral pulses normal, capillary refill normal, no edema Abdomen: soft, NT, ND, + BS, no hepatomegaly, normal to percussion Extremities: normal in appearance, no cyanosis, no petechiae, strength is 5/5 bilaterally Neuro: awake, cooperative, moves all extremities, no focal motor deficits, CN II-XII intact, sensation in extremities intact, normal speech Skin: warm, dry, no rash, normal turgor Psych: Awake, alert oriented x 3, euthymic affect Results & Data Results & Data ([facility]) Vital Signs (Past 12 Hours) Vital Signs Pulse Resp BP Pulse Ox 05/15/21 07:23 76 16 96 05/15/21 05:08 74 16 84 L 05/15/21 04:45 93 05/15/21 04:00 79 20 129/81 93 Laboratory Results Laboratory Results - last 24 hr 05/15/21 07:35 Sodium 140 Potassium 3.8 Chloride 109 H Carbon Dioxide 20 L Anion Gap 11.0 BUN 50 H Creatinine 2.96 H D Est Cr Clr Drug Dosing 34.1 Est GFR ( Amer) 25.1 Est GFR (Non-Af Amer) 21.6 BUN/Creatinine Ratio 16.8 Glucose 101 H Calcium 8.1 L Magnesium 2.2 C-Reactive Protein 9.40 H Medications Administered Current Inpatient Medications Acetaminophen (Acetaminophen 325 Mg Tab) 650 mg PO Q4H PRN PRN Reason: Pain or Fever Stop: 06/11/21 18:21 Last Admin: 05/12/21 19:23 Dose: 650 mg Documented by: Al Hydrox/Mg Hydrox/Simethicone (Aluminum/Magnesium Susp 30 Ml Udc) 15 ml PO Q4H PRN PRN Reason: Dyspepsia Stop: 06/11/21 18:21 Last Admin: 05/14/21 07:52 Dose: 15 ml Documented by: Albuterol (Albut/Ipratrop 3mg/0.5mg Neb 3 Ml Vial) 3 ml NEB Q4R PRN PRN Reason: Wheezing Stop: 06/14/21 04:49 Aripiprazole (Aripiprazole 10 Mg Tab) 10 mg PO QPM [facility] Stop: 06/11/21 20:59 Last Admin: 05/14/21 21:01 Dose: 10 mg Documented by: Aspirin (Aspirin 81 Mg Ectab) 81 mg PO QAM [facility] Stop: 06/11/21 18:21 Last Admin: 05/15/21 09:07 Dose: 81 mg Documented by: Atorvastatin Calcium (Atorvastatin 40 Mg Tab) 40 mg PO DAILY GINNY Stop: 06/11/21 18:21 Last Admin: 05/15/21 09:07 Dose: 40 mg Documented by: Benztropine Mesylate (Benztropine Mesylate 1 Mg Tab) 1 mg PO QPM [facility] Stop: 06/11/21 20:59 Last Admin: 05/14/21 21:02 Dose: 1 mg Documented by: Carbamazepine (Carbamazepine 100 Mg Chew Tab) 100 mg PO BID GINNY Stop: 06/11/21 18:21 Last Admin: 05/15/21 09:09 Dose: 100 mg Documented by: Cyanocobalamin (Cyanocobalamin 500 Mcg Tablet (Vitamin B-12)) 500 mcg PO DAILY GINNY Stop: 06/11/21 18:21 Last Admin: 05/15/21 09:10 Dose: 500 mcg Documented by: Diphenhydramine HCl (Diphenhydramine Capsule 25 Mg Cap) 25 mg PO Q6H PRN PRN Reason: itching Stop: 06/11/21 18:21 Ferrous Sulfate (Ferrous Sulfate 325 Mg Tab) 325 mg PO BIDM [facility]IN[facility] Stop: 06/11/21 18:21 Last Admin: 05/15/21 09:06 Dose: 325 mg Documented by: Finasteride (Finasteride 5 Mg Tab) 5 mg PO DAILY GINNY Stop: 06/12/21 08:59 Last Admin: 05/15/21 09:11 Dose: 5 mg Documented by: Guaifenesin (Guaifenesin 600 Mg Tabcr) 1,200 mg PO BID GINNY Stop: 06/11/21 20:59 Last Admin: 05/15/21 09:11 Dose: 1,200 mg Documented by: Guaifenesin/Codeine Phosphate (Guaifenesin/Codeine 200mg/20mg 10ml Udc) 10 ml PO Q6H PRN PRN Reason: Cough Stop: 06/14/21 14:19 Heparin Sodium (Porcine) (Heparin Sod 5,000 Unit/0.5 Ml Vial) 5,000 units SQ Q12 GINNY Stop: 06/11/21 20:59 Last Admin: 05/15/21 09:15 Dose: 5,000 units Documented by: Hydralazine HCl (Hydralazine Hcl 25 Mg Tab) 25 mg PO TID GINNY Stop: 06/11/21 18:21 Last Admin: 05/15/21 09:12 Dose: 25 mg Documented by: Dexamethasone 6 mg/ Syringe 1.5 mls @ 1 mls/min IV Q24H GIN[facility] Stop: 06/11/21 17:59 Last Admin: 05/14/21 18:50 Dose: 1 mls/min Documented by: Promethazine HCl 12.5 mg/ (Sodium Chloride) 50.5 mls @ 202 mls/hr IV Q6H PRN PRN Reason: Nausea And Vomiting Stop: 06/13/21 11:29 Metoprolol Tartrate (Metoprolol Tartrate 25 Mg Tab) 12.5 mg PO BID GINNY Stop: 06/12/21 08:59 Last Admin: 05/15/21 09:13 Dose: 12.5 mg Documented by: Mirtazapine (Mirtazapine Tab 15 Mg Tab) 15 mg PO DAILY GINNY Stop: 06/11/21 18:21 Last Admin: 05/15/21 09:13 Dose: 15 mg Documented by: Multivitamins/Minerals (Calcium 600mg + Vit D 400 Iu Tab) 1 tab PO DAILY GINNY Stop: 06/11/21 18:21 Last Admin: 05/15/21 09:08 Dose: 1 tab Documented by: Ondansetron HCl (Ondansetron Inj 2 Mg/Ml 2 Ml Vial) 4 mg IV Q4H PRN PRN Reason: Nausea Stop: 06/13/21 11:29 Last Admin: 05/14/21 11:55 Dose: 4 mg Documented by: Sertraline HCl (Sertraline Hcl 100 Mg Tablet) 100 mg PO QPM [facility] Stop: 06/11/21 20:59 Last Admin: 05/14/21 21:04 Dose: 100 mg Documented by: Zinc Sulfate (Zinc Sulfate 220 Mg Capsule) 220 mg PO DAILY GINNY Stop: 06/12/21 08:59 Last Admin: 05/15/21 09:12 Dose: 220 mg Documented by: Zolpidem Tartrate (Zolpidem Tartrate 5 Mg Tab) 5 mg PO HS PRN PRN Reason: Sleep Stop: 06/11/21 18:21 PG Care Time/CCT Total # of Minutes Spent Total Time Spent with Patient: Total time spent is greater than 50% in coordination of care (as documented) at patient's floor/unit and/or counseling patient: Coding Level of Care Code 08374 Subseq Hosp Care Lvl 2 Diagnoses CKD (chronic kidney disease) N18.9 Pneumonia due to COVID-19 virus U07.1; J12.82 CAD (coronary artery disease) I25.10 Coronary Disease-Associated Artery/Lesion type: [place] artery [place] vs. transplanted heart: [place] heart Associated angina: without angina Depression with anxiety F41.8 Seizure disorder G40.909 DVT prophylaxis Z29.9 (1) CAD (coronary artery disease) Coronary Disease-Associated Artery/Lesion type: [place] artery [place] vs. transplanted heart: [place] heart Associated angina: without angina Qualified Code(s): I25.10 - Atherosclerotic heart disease of [place] coronary artery without angina pectoris
[2021-05-15] MEDS: BENZTROPINE MESYLATE 1 MG TAB PO SCH (21:09)
[2021-05-15] MEDS: ARIPiprazole 10 MG TAB PO SCH (21:09)
[2021-05-15] MEDS: SERTRALINE HCL 100 MG TABLET PO SCH (21:10)
[2021-05-15] MEDS: dexAMETHasone 6 MG in SYRINGE 0 ML IV SCH (21:11)
[2021-05-15] MEDS: ACETAMINOPHEN 325 MG TAB PO PRN (23:40)
[2021-05-16 06:17] LABS: BUN Creatinine Ratio 15.5 (10-20); Calcium 8.2 mg/dl (8.5-10.1); Creatinine Clr Calc Pharmacy 32.7 ml/min; Est GFR (African American) 23.8 ml/min; Est GFR (Non-African American) 20.5 ml/min; Potassium 4.3 mmol/L (3.5-5.1)
[2021-05-16 06:59] LABS: Hematocrit (blood only) 38.8 % (42-52); Hemoglobin 12.9 g/dL (14.0-18.0); Mean Corpuscular Hgb Conc 33.2 g/dL (32-36); Mean Corpuscular Volume 90.2 fL (80-100); Mean Platelet Volume 12.8 fL (7.4-10.4); Platelet Count 216 K/uL (130-400); RDW Coefficient of Variation 14.1 % (11.5-14.5); RDW Standard Deviation 46.4 fL (36.4-46.3); White Blood Count 9.67 K/uL (4.8-10.8)
[2021-05-16] MEDS: METOPROLOL TARTRATE 25 MG TAB PO SCH ×2 (10:20→22:25)
[2021-05-16] MEDS: hydrALAZINE HCL 25 MG TAB PO SCH ×3 (10:21→22:24)
[2021-05-16] MEDS: BUMETANIDE 1 MG TAB PO SCH (10:22)
[2021-05-16] MEDS: carBAMazepine 100 MG CHEW TAB PO SCH ×2 (10:24→22:24)
[2021-05-16] MEDS: FERROUS SULFATE 325 MG TAB PO SCH ×2 (10:25→16:33)
[2021-05-16] MEDS: guaiFENesin 600 MG TABCR PO SCH ×2 (10:26→22:24)
[2021-05-16] MEDS: HEPARIN SOD 5,000 UNIT/0.5 ML VIAL SQ SCH ×2 (10:27→22:26)
[2021-05-16] MEDS: ZINC SULFATE 220 MG CAPSULE PO SCH (11:20)
[2021-05-16] MEDS: ASPIRIN 81 MG ECTAB PO SCH (11:21)
[2021-05-16] MEDS: CALCIUM 600MG + VIT D 400 IU TAB PO SCH (11:21)
[2021-05-16] MEDS: ATORVASTATIN 40 MG TAB PO SCH (11:21)
[2021-05-16] MEDS: CYANOCOBALAMIN 500 MCG TABLET (VITAMIN B-12) PO SCH (11:22)
[2021-05-16] MEDS: MIRTAZAPINE TAB 15 MG TAB PO SCH (11:22)
--- NOTE | 2021-05-16 15:04 | Hospitalist Progress Note ---
Date of Service May 16, 2021 Assessment & Plan (1) CKD (chronic kidney disease): Plan: Acute kidney injury on CKD Cr is 3.0, improved from 4.3 on admission, his baseline is around 3.0 still not eating or drinking very well resumed Bumex 2mg PO this morning, he is making more urine check BMP tomorrow (2) Pneumonia due to COVID-19 virus: Plan: mild hypoxemia, he is on 7L mask, no distress Codeine PRN for cough continue dexamethasone 6,g IV daily wean oxygen as tolerated incentive spirometer, flutter valve stopped fluids 05/15 resumed Bumex 2mg PO daily this morning (3) CAD (coronary artery disease): Plan: Patient had his pacemaker checked continues on aspirin atorvastatin Norvasc continues as well as his metoprolol did have elevation of troponin, no upward trend, ecg now is paced with some t wave changes but no corroboarting sx or chest pain, no new ECHO changes, suspect is demand ischemia also influenced by renal function resume Bumex (4) Depression with anxiety: Plan: Patient remains on mirtazapine and sertraline (5) Seizure disorder: Plan: Patient is on Tegretol level therapeutic (6) DVT prophylaxis: Plan: Heparin Admission and Anticipated Discharge Date Admission Date: May 12, 2021 Subjective patient says he is breathing okay, he is on 7L mask but no distress, laying on right side he still cannot eat much, 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, 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 he says he has a lot of nausea, no abdominal pain, had a BM yesterday, he said it was loose Review of Systems Review of Systems: All systems reviewed & are unremarkable except as noted in Subjective Respiratory: + cough and + dyspnea on exertion; no sputum production Gastrointestinal: + nausea and + diarrhea/loose stools; no abdominal pain, no vomiting and no constipation Physical Exam Physical Exam: General: well developed, well nourished, ill appearing, male, no distress Neck: supple, trachea midline, normal thyroid Lungs: clear to auscultation bilaterally, normal respiratory effort, no accessory muscle use, no distress Heart: regular S1 and S2, no murmur, peripheral pulses normal, capillary refill normal, no edema Abdomen: soft, NT, ND, + BS, no hepatomegaly, normal to percussion Extremities: normal in appearance, no cyanosis, no petechiae, strength is 5/5 bilaterally Neuro: awake, cooperative, moves all extremities, no focal motor deficits, CN II-XII intact, sensation in extremities intact, normal speech Skin: warm, dry, no rash, normal turgor Psych: Awake, alert oriented x 3, euthymic affect Results & Data Results & Data ([facility]) Vital Signs (Past 12 Hours) Vital Signs Temp Pulse Resp BP Pulse Ox 05/16/21 13:56 72 20 144/89 H 93 05/16/21 07:00 37 C 74 22 120/57 L 94 05/16/21 06:20 91 H 30 H 118/70 90 05/16/21 03:01 74 30 H 121/72 93 Laboratory Results Laboratory Results - last 24 hr 05/16/21 05/16/21 04:20 04:21 WBC 9.67 RBC 4.30 L Hgb 12.9 L Hct 38.8 L MCV 90.2 MCH 30.0 MCHC 33.2 RDW Std Deviation 46.4 H RDW Coeff of Love 14.1 Plt Count 216 MPV 12.8 H Sodium 138 Potassium 4.3 Chloride 109 H Carbon Dioxide 22 Anion Gap 7.0 BUN 48 H Creatinine 3.09 H Est Cr Clr Drug Dosing 32.7 Est GFR ( Amer) 23.8 Est GFR (Non-Af Amer) 20.5 BUN/Creatinine Ratio 15.5 Glucose 116 H Calcium 8.2 L Specimen Hemolysis Medications Administered Current Inpatient Medications Acetaminophen (Acetaminophen 325 Mg Tab) 650 mg PO Q4H PRN PRN Reason: Pain or Fever Stop: 06/11/21 18:21 Last Admin: 05/15/21 23:40 Dose: 650 mg Documented by: Al Hydrox/Mg Hydrox/Simethicone (Aluminum/Magnesium Susp 30 Ml Udc) 15 ml PO Q4 H PRN PRN Reason: Dyspepsia Stop: 06/11/21 18:21 Last Admin: 05/14/21 07:52 Dose: 15 ml Documented by: Albuterol (Albut/Ipratrop 3mg/0.5mg Neb 3 Ml Vial) 3 ml NEB Q4R PRN PRN Reason: Wheezing Stop: 06/14/21 04:49 Aripiprazole (Aripiprazole 10 Mg Tab) 10 mg PO QPM GINNY Stop: 06/11/21 20:59 Last Admin: 05/15/21 21:09 Dose: 10 mg Documented by: Aspirin (Aspirin 81 Mg Ectab) 81 mg PO QAM [facility] Stop: 06/11/21 18:21 Last Admin: 05/16/21 11:21 Dose: 81 mg Documented by: Atorvastatin Calcium (Atorvastatin 40 Mg Tab) 40 mg PO DAILY GINNY Stop: 06/11/21 18:21 Last Admin: 05/16/21 11:21 Dose: 40 mg Documented by: Benztropine Mesylate (Benztropine Mesylate 1 Mg Tab) 1 mg PO QPM GINNY Stop: 06/11/21 20:59 Last Admin: 05/15/21 21:09 Dose: 1 mg Documented by: Bumetanide (Bumetanide 1 Mg Tab) 2 mg PO DAILY GINNY Stop: 06/15/21 08:59 Last Admin: 05/16/21 10:22 Dose: 2 mg Documented by: Carbamazepine (Carbamazepine 100 Mg Chew Tab) 100 mg PO BID [facility] Stop: 06/11/21 18:21 Last Admin: 05/16/21 10:24 Dose: 100 mg Documented by: Cyanocobalamin (Cyanocobalamin 500 Mcg Tablet (Vitamin B-12)) 500 mcg PO DAILY [facility] Stop: 06/11/21 18:21 Last Admin: 05/16/21 11:22 Dose: 500 mcg Documented by: Diphenhydramine HCl (Diphenhydramine Capsule 25 Mg Cap) 25 mg PO Q6H PRN PRN Reason: itching Stop: 06/11/21 18:21 Ferrous Sulfate (Ferrous Sulfate 325 Mg Tab) 325 mg PO BIDM GINNY Stop: 06/11/21 18:21 Last Admin: 05/16/21 10:25 Dose: 325 mg Documented by: Finasteride (Finasteride 5 Mg Tab) 5 mg PO DAILY [facility] Stop: 06/12/21 08:59 Last Admin: 05/15/21 09:11 Dose: 5 mg Documented by: Guaifenesin (Guaifenesin 600 Mg Tabcr) 1,200 mg PO BID [facility] Stop: 06/11/21 20:59 Last Admin: 05/16/21 10:26 Dose: 1,200 mg Documented by: Guaifenesin/Codeine Phosphate (Guaifenesin/Codeine 200mg/20mg 10ml Udc) 10 ml PO Q6H PRN PRN Reason: Cough Stop: 06/14/21 14:19 Last Admin: 05/16/21 06:15 Dose: 10 ml Documented by: Heparin Sodium (Porcine) (Heparin Sod 5,000 Unit/0.5 Ml Vial) 5,000 units SQ Q12 GINNY Stop: 06/11/21 20:59 Last Admin: 05/16/21 10:27 Dose: 5,000 units Documented by: Hydralazine HCl (Hydralazine Hcl 25 Mg Tab) 25 mg PO TID GINNY Stop: 06/11/21 18:21 Last Admin: 05/16/21 13:57 Dose: 25 mg Documented by: Dexamethasone 6 mg/ Syringe 1.5 mls @ 1 mls/min IV Q24H GINNY Stop: 06/11/21 17:59 Last Admin: 05/15/21 21:11 Dose: 1 mls/min Documented by: Promethazine HCl 12.5 mg/ (Sodium Chloride) 50.5 mls @ 202 mls/hr IV Q6H PRN PRN Reason: Nausea And Vomiting Stop: 06/13/21 11:29 Metoprolol Tartrate (Metoprolol Tartrate 25 Mg Tab) 12.5 mg PO BID GINNY Stop: 06/12/21 08:59 Last Admin: 05/16/21 10:20 Dose: 12.5 mg Documented by: Mirtazapine (Mirtazapine Tab 15 Mg Tab) 15 mg PO DAILY GINNY Stop: 06/11/21 18:21 Last Admin: 05/16/21 11:22 Dose: 15 mg Documented by: Multivitamins/Minerals (Calcium 600mg + Vit D 400 Iu Tab) 1 tab PO DAILY GINNY Stop: 06/11/21 18:21 Last Admin: 05/16/21 11:21 Dose: 1 tab Documented by: Ondansetron HCl (Ondansetron Inj 2 Mg/Ml 2 Ml Vial) 4 mg IV Q4H PRN PRN Reason: Nausea Stop: 06/13/21 11:29 Last Admin: 05/14/21 11:55 Dose: 4 mg Documented by: Sertraline HCl (Sertraline Hcl 100 Mg Tablet) 100 mg PO QPM GINNY Stop: 06/11/21 20:59 Last Admin: 05/15/21 21:10 Dose: 100 mg Documented by: Zinc Sulfate (Zinc Sulfate 220 Mg Capsule) 220 mg PO DAILY GINNY Stop: 06/12/21 08:59 Last Admin: 05/16/21 11:20 Dose: 220 mg Documented by: Zolpidem Tartrate (Zolpidem Tartrate 5 Mg Tab) 5 mg PO HS PRN PRN Reason: Sleep Stop: 06/11/21 18:21 PG Care Time/CCT Total # of Minutes Spent Total Time Spent with Patient: Total time spent is greater than 50% in coordination of care (as documented) at patient's floor/unit and/or counseling patient: Coding Level of Care Code 94412 Subseq Hosp Care Lvl 2 Diagnoses CKD (chronic kidney disease) N18.9 Pneumonia due to COVID-19 virus U07.1; J12.82 CAD (coronary artery disease) I25.10 Coronary Disease-Associated Artery/Lesion type: [place] artery [place] vs. transplanted heart: [place] heart Associated angina: without angina Depression with anxiety F41.8 Seizure disorder G40.909 DVT prophylaxis Z29.9 (1) CAD (coronary artery disease) Coronary Disease-Associated Artery/Lesion type: [place] artery [place] vs. transplanted heart: [place] heart Associated angina: without angina Qualified Code(s): I25.10 - Atherosclerotic heart disease of [place] coronary artery without angina pectoris
[2021-05-16] MEDS: FINASTERIDE 5 MG TAB PO SCH (17:59)
[2021-05-16] MEDS: dexAMETHasone 6 MG in SYRINGE 0 ML IV SCH (19:16)
[2021-05-16] MEDS: SERTRALINE HCL 100 MG TABLET PO SCH (22:24)
[2021-05-16] MEDS: BENZTROPINE MESYLATE 1 MG TAB PO SCH (22:24)
[2021-05-16] MEDS: ARIPiprazole 10 MG TAB PO SCH (22:24)
[2021-05-17 07:11] LABS: BUN Creatinine Ratio 14.2 (10-20); C Reactive Protein 18.4 mg/dl (0-0.29); Calcium 8.1 mg/dl (8.5-10.1); Creatinine Clr Calc Pharmacy 30.5 ml/min; Est GFR (African American) 21.9 ml/min; Est GFR (Non-African American) 18.9 ml/min; Potassium 3.7 mmol/L (3.5-5.1)
--- NOTE | 2021-05-17 08:48 | Hospitalist Progress Note ---
Date of Service May 17, 2021 Assessment & Plan (1) Pneumonia due to COVID-19 virus: Plan: Patient with acute respiratory failure with hypoxemia secondary to Covid pneumonia on 9 L oxymask Codeine PRN for cough continue dexamethasone 6,g IV daily out of time window for baricitinib incentive spirometer, flutter valve stopped fluids 05/15 resumed Bumex 2mg PO daily this morning (2) CKD (chronic kidney disease): Plan: Acute kidney injury on CKD stage 3 Cr is 3.0, improved from 4.3 on admission, his baseline is around 3.0 resumed Bumex 2mg PO 05/16,slight bump in Cr will follow may need lower dose with decreased intake (3) CAD (coronary artery disease): Plan: Patient had his pacemaker checked continues on aspirin atorvastatin Norvasc continues as well as his metoprolol did have elevation of troponin, no upward trend, ecg now is paced with some t wave changes but no corroboarting sx or chest pain, no new ECHO changes, suspect is demand ischemia also influenced by renal function resume Bumex (4) Depression with anxiety: Plan: Patient remains on mirtazapine and sertraline (5) Seizure disorder: Plan: Patient is on Tegretol level therapeutic (6) DVT prophylaxis: Plan: Heparin Admission and Anticipated Discharge Date Admission Date: May 12, 2021 Subjective Patient says is not much better he is lying in bed bundled up with the blankets he is not laying on his abdomen anything on his back is nonproductive cough Review of Systems Review of Systems: moderate distress and fatigue no headache, no visual changes no speech or swallowing issues no chest pain, pressure or palpitations mild shortness of breath, non productive cough or wheezes no abdominal pain, nausea or vomiting, diarrhea or constipation no dysuria, hematuria or frequency no focal joint pain or swelling no back pain, CVA tenderness or radicular pain no bruising, bleeding or rashes no focal signs of weakness or numbness or altered sensation no complaints of anxiety or depression.. Physical Exam Physical Exam: The patient appeared well nourished and normally developed. Vital signs as documented. Head exam is normocephalic atraumatic Neck is without JVD, thyromegaly, or carotid bruits. Lungs remain diminished at bases mild rales to examination Cardiac exam, Rhythm is regular.. No murmurs, rubs or gallops. Abdominal exam reveals normal bowel sounds, soft non tender, no masses Extremities are chronically trace edematous bilaterally and both pedal pulses are present Neurologic exam is alert and oriented, no focal loss of strength or sensation Skin is without bruises or rashes Psychologically is without concerns for anxiety or depression.. Results & Data Results & Data ([facility]) Vital Signs (Past 12 Hours) Vital Signs Temp Pulse Pulse Resp BP BP Pulse Ox 05/17/21 05:39 75 05/17/21 05:33 98.4 F 16 116/76 93 05/17/21 03:32 98.8 F 72 36 H 134/75 93 05/16/21 23:34 98.2 F 75 33 H 126/65 95 PG Care Time/CCT Total # of Minutes Spent Total Time Spent with Patient: Total time spent is greater than 50% in coordination of care (as documented) at patient's floor/unit and/or counseling patient: Coding Level of Care Code 37172 Subseq Hosp Care Lvl 2 Diagnoses CKD (chronic kidney disease) N18.9 Pneumonia due to COVID-19 virus U07.1; J12.82 CAD (coronary artery disease) I25.10 Associated angina: without angina Coronary Disease-Associated Artery/Lesion type: [place] artery [place] vs. transplanted heart: [place] heart Depression with anxiety F41.8 Seizure disorder G40.909 DVT prophylaxis Z29.9 (1) CAD (coronary artery disease) Associated angina: without angina Coronary Disease-Associated Artery/Lesion type: [place] artery [place] vs. transplanted heart: [place] heart Qualified Code(s): I25.10 - Atherosclerotic heart disease of [place] coronary artery without angina pectoris
[2021-05-17] MEDS: BUMETANIDE 1 MG TAB PO SCH (08:53)
[2021-05-17] MEDS: ATORVASTATIN 40 MG TAB PO SCH (08:54)
[2021-05-17] MEDS: guaiFENesin 600 MG TABCR PO SCH ×2 (08:54→20:41)
[2021-05-17] MEDS: CALCIUM 600MG + VIT D 400 IU TAB PO SCH (08:55)
[2021-05-17] MEDS: FINASTERIDE 5 MG TAB PO SCH (08:55)
[2021-05-17] MEDS: METOPROLOL TARTRATE 25 MG TAB PO SCH ×2 (08:56→20:37)
[2021-05-17] MEDS: hydrALAZINE HCL 25 MG TAB PO SCH ×3 (08:57→20:40)
[2021-05-17] MEDS: carBAMazepine 100 MG CHEW TAB PO SCH ×2 (08:58→20:39)
[2021-05-17] MEDS: CYANOCOBALAMIN 500 MCG TABLET (VITAMIN B-12) PO SCH (08:58)
[2021-05-17] MEDS: ASPIRIN 81 MG ECTAB PO SCH (08:58)
[2021-05-17] MEDS: FERROUS SULFATE 325 MG TAB PO SCH ×2 (08:59→16:28)
[2021-05-17] MEDS: ZINC SULFATE 220 MG CAPSULE PO SCH (08:59)
[2021-05-17] MEDS: MIRTAZAPINE TAB 15 MG TAB PO SCH (09:00)
[2021-05-17] MEDS: HEPARIN SOD 5,000 UNIT/0.5 ML VIAL SQ SCH ×2 (09:00→20:40)
[2021-05-17] MEDS: ONDANSETRON INJ 2 MG/ML 2 ML VIAL IV PRN (14:51)
[2021-05-17] MEDS: dexAMETHasone 6 MG in SYRINGE 0 ML IV SCH (16:28)
[2021-05-17] MEDS: ACETAMINOPHEN 325 MG TAB PO PRN ×2 (16:37→20:40)
[2021-05-17] MEDS: SERTRALINE HCL 100 MG TABLET PO SCH (20:40)
[2021-05-17] MEDS: ARIPiprazole 10 MG TAB PO SCH (20:41)
[2021-05-17] MEDS: BENZTROPINE MESYLATE 1 MG TAB PO SCH (20:41)
[2021-05-17] MEDS: ALBUT/IPRATROP 3MG/0.5MG NEB 3 ML VIAL NEB PRN (21:59)
[2021-05-18] MEDS: ACETAMINOPHEN 325 MG TAB PO PRN ×3 (02:54→20:10)
[2021-05-18] MEDS: ASPIRIN 81 MG ECTAB PO SCH (08:00)
[2021-05-18] MEDS: CALCIUM 600MG + VIT D 400 IU TAB PO SCH (08:00)
[2021-05-18] MEDS: FINASTERIDE 5 MG TAB PO SCH (08:00)
[2021-05-18] MEDS: ZINC SULFATE 220 MG CAPSULE PO SCH (08:00)
[2021-05-18] MEDS: MIRTAZAPINE TAB 15 MG TAB PO SCH (08:01)
[2021-05-18] MEDS: ATORVASTATIN 40 MG TAB PO SCH (08:01)
[2021-05-18] MEDS: carBAMazepine 100 MG CHEW TAB PO SCH ×2 (08:01→20:12)
[2021-05-18] MEDS: hydrALAZINE HCL 25 MG TAB PO SCH ×3 (08:01→20:11)
[2021-05-18] MEDS: CYANOCOBALAMIN 500 MCG TABLET (VITAMIN B-12) PO SCH (08:01)
[2021-05-18] MEDS: BUMETANIDE 1 MG TAB PO SCH (08:01)
[2021-05-18] MEDS: FERROUS SULFATE 325 MG TAB PO SCH ×2 (08:01→17:11)
[2021-05-18] MEDS: guaiFENesin 600 MG TABCR PO SCH ×2 (08:02→20:11)
[2021-05-18] MEDS: METOPROLOL TARTRATE 25 MG TAB PO SCH ×2 (08:02→20:12)
[2021-05-18] MEDS: HEPARIN SOD 5,000 UNIT/0.5 ML VIAL SQ SCH ×2 (08:02→20:10)
[2021-05-18 08:18] LABS: Hematocrit (blood only) 38.9 % (42-52); Hemoglobin 12.9 g/dL (14.0-18.0); Mean Corpuscular Hemoglobin 29.9 pg (25-34); Mean Corpuscular Hgb Conc 33.2 g/dL (32-36); Mean Corpuscular Volume 90.3 fL (80-100); Mean Platelet Volume 11.5 fL (7.4-10.4); Platelet Count 369 K/uL (130-400); RDW Standard Deviation 46.2 fL (36.4-46.3); Red Blood Count 4.31 M/uL (4.7-6.1); White Blood Count 11.63 K/uL (4.8-10.8)
[2021-05-18 08:50] LABS: BUN Creatinine Ratio 15.2 (10-20); Calcium 8.4 mg/dl (8.5-10.1); Est GFR (African American) 21.4 ml/min; Est GFR (Non-African American) 18.5 ml/min; Potassium 3.4 mmol/L (3.5-5.1)
[2021-05-18] MEDS: ALBUT/IPRATROP 3MG/0.5MG NEB 3 ML VIAL NEB PRN (16:24)
[2021-05-18] MEDS: dexAMETHasone 6 MG in SYRINGE 0 ML IV SCH (17:11)
[2021-05-18] MEDS ORDERED: MoRPHine SULFATE 2 MG/ML CARP IV PRN (17:39)
[2021-05-18] MEDS ORDERED: MoRPHine SULFATE 4 MG/ML 1 ML CARP\\VIAL IV PRN (17:39)
--- NOTE | 2021-05-18 17:46 | Hospitalist Progress Note ---
Date of Service May 18, 2021 Assessment & Plan (1) Pneumonia due to COVID-19 virus: Plan: Patient with acute respiratory failure with hypoxemia secondary to Covid pneumonia on 9 L oxymask Codeine PRN for cough continue dexamethasone 6,g IV daily out of time window for baricitinib incentive spirometer, flutter valve stopped fluids 05/15 resumed Bumex 2mg PO daily this morning (2) Left flank pain: Plan: Patient with left flank pain having some frequency says he has a history of kidney stones patient did not have imaging of his abdomen on admission. His creatinine prohibits intravenous contrast use will avoid oral contrast to look for renal stones. CT ordered for the evening of 05/18/2021 escalation of parenteral opiate pain medications to control his discomfort (3) CKD (chronic kidney disease): Plan: Acute kidney injury on CKD stage 3 Cr is 3.0, improved from 4.3 on admission, his baseline is around 3.0 resumed Bumex 2mg PO 05/16,slight bump in Cr creatinine has remained stable continue dosing with Bumex 2 (4) CAD (coronary artery disease): Plan: Patient had his pacemaker checked continues on aspirin atorvastatin Norvasc continues as well as his metoprolol did have elevation of troponin, no upward trend, ecg now is paced with some t wa ve changes but no corroborating sx or chest pain, no new ECHO changes, suspect is demand ischemia also influenced by renal function Continue Bumex (5) Depression with anxiety: Plan: Patient remains on mirtazapine and sertraline (6) Seizure disorder: Plan: Patient is on Tegretol level therapeutic (7) DVT prophylaxis: Plan: Heparin Admission and Anticipated Discharge Date Admission Date: May 12, 2021 Subjective Patient says is not much better he is lying in bed, c/o pain in left flank and abdomen states he does have history of kidney stones in the past, has had stable but poor renal function Review of Systems Review of Systems: moderate distress and fatigue no headache, no visual changes no speech or swallowing issues no chest pain, pressure or palpitations mild shortness of breath, non productive cough or wheezes Left sided abdominal pain,no nausea or vomiting, diarrhea or constipation no dysuria, hematuria or does have frequency no focal joint pain or swelling no back pain, CVA tenderness or radicular pain no bruising, bleeding or rashes no focal signs of weakness or numbness or altered sensation no complaints of anxiety or depression.. Physical Exam Physical Exam: The patient appeared well nourished and normally developed. Vital signs as documented. Head exam is normocephalic atraumatic Neck is without JVD, thyromegaly, or carotid bruits. Lungs remain diminished at bases mild rales to examination Cardiac exam, Rhythm is regular.. No murmurs, rubs or gallops. Abdominal exam reveals normal bowel sounds, soft left abdomen and CVA tenderness Extremities are chronically trace edematous bilaterally and both pedal pulses are present Neurologic exam is alert and oriented, no focal loss of strength or sensation Skin is without bruises or rashes Psychologically is without concerns for anxiety or depression.. Results & Data Results & Data ([facility]) Vital Signs (Past 12 Hours) Vital Signs Temp Pulse Pulse Resp BP BP Pulse Ox 05/18/21 16:25 77 19 91 05/18/21 15:49 81 05/18/21 15:00 98.2 F 78 18 121/72 90 05/18/21 11:00 98.2 F 68 18 128/68 92 05/18/21 07:32 71 05/18/21 07:00 98.2 F 75 18 151/72 H 92 PG Care Time/CCT Total # of Minutes Spent Total Time Spent with Patient: Total time spent is greater than 50% in coordination of care (as documented) at patient's floor/unit and/or counseling patient: Coding Level of Care Code 73504 Subseq Hosp Care Lvl 3 Diagnoses Pneumonia due to COVID-19 virus U07.1; J12.82 CKD (chronic kidney disease) N18.9 CAD (coronary artery disease) I25.10 Coronary Disease-Associated Artery/Lesion type: [place] artery [place] vs. transplanted heart: [place] heart Associated angina: without angina Depression with anxiety F41.8 Seizure disorder G40.909 DVT prophylaxis Z29.9 Left flank pain R10.9 (1) CAD (coronary artery disease) Coronary Disease-Associated Artery/Lesion type: [place] artery [place] vs. transplanted heart: [place] heart Associated angina: without angina Qualified Code(s): I25.10 - Atherosclerotic heart disease of [place] coronary artery without angina pectoris
--- NOTE | 2021-05-18 18:50 | CT Scan Report ---
CT abd pelvis wo con CLINICAL HISTORY: eval for left kidney stone . Left flank pain COMPARISON STUDY: No previous studies for comparison. CT DOSE: 902.18 mGy.cm TECHNIQUE: Standard CT of the Abdomen and Pelvis was performed without IV contrast. The patient did not receive oral contrast. A dose lowering technique was utilized adhering to the principles of DAVID Cabral FINDINGS: Lung base: Extensive groundglass opacities are present throughout both lung bases characteristic of a viral type pneumonitis and Covid 19 pneumonia. Abdominal cavity: There is no evidence for abdominal mass, adenopathy or ascites. Liver: The liver is homogeneous in attenuation on these limited noncontrast images.. Spleen: The spleen is homogeneous in attenuation on these limited noncontrast images. Pancreas: The pancreas is homogeneous in attenuation on these limited noncontrast images. Gall Bladder: The gallbladder is partially contracted due to the patient's nonfasting state. Adrenal glands: The adrenal glands are normal in size and attenuation on these limited noncontrast im ages. Kidneys: The kidneys are homogeneous in attenuation on these limited noncontrast images. There is no evidence for gross renal mass, calculus or hydronephrosis bilaterally. Bowel: There is surgical suture material seen in the region of the GE junction upper stomach. The fin dings may relate to hiatal hernia surgery versus gastric bypass surgery. The bowel loops are otherwis e normally placed within the abdomen and pelvis without evidence for dilatation or obstruction. There is no evidence for mass lesion. There are no inflammatory changes present. There is no evidence for free air. The appendix is not visualized. Bladder: There is mild distention of the bladder with no evidence for focal bladder wall thickening, calculus or diverticulum. There is also mild diffuse thickening of the bladder wall characteristic of chronic bladder outlet obstruction. : There is no evidence for pelvic mass or adenopathy. Prostate is mildly enlarged. Vasculature: There is no evidence for focal aneurysmal dilatation of the abdominal aorta. Atheroscler otic calcification is present. Osseous structures: There is no acute osseous pathology. Degenerative changes are seen within the spi ne. IMPRESSION: 1. Extensive groundglass opacities are present throughout both lung bases characteristic of a viral t ype pneumonitis and Covid 19 pneumonia. 2. Otherwise, no acute intra-abdominal or pelvic abnormality on these limited noncontrast images. 3. Nonacute findings are delineated above. ACT 112: Negative or not required by law. Electronically signed by: Merlin James M.D. 05/18/2021 6:49 PM
[2021-05-18] MEDS: ARIPiprazole 10 MG TAB PO SCH (20:11)
[2021-05-18] MEDS: BENZTROPINE MESYLATE 1 MG TAB PO SCH (20:11)
[2021-05-18] MEDS: SERTRALINE HCL 100 MG TABLET PO SCH (20:11)
[2021-05-19 03:43] LABS: Appearance Urine Clear (Clear); Bilirubin Urine Negative (Negative); Blood Urine Negative (Negative); Color Urine Yellow; Glucose Urine UA Negative (Negative); Ketones Urine Negative (Negative); Leukocyte Esterase Urine Negative (Negative); Nitrite Urine Negative (Negative); Protein Urine 1+ (Negative); RBC Urine Automated 0-4 /hpf (0-4); Urobilinogen Urine Negative (Negative)
[2021-05-19 03:54] LABS: Bacteria Urine Automated 2+ (Negative)
[2021-05-19] MEDS: ALBUT/IPRATROP 3MG/0.5MG NEB 3 ML VIAL NEB PRN (06:18)
[2021-05-19 08:41] LABS: BUN Creatinine Ratio 15.8 (10-20); Calcium 8.7 mg/dl (8.5-10.1); Creatinine Clr Calc Pharmacy 30.9 ml/min; Est GFR (African American) 22.2 ml/min; Est GFR (Non-African American) 19.2 ml/min; Potassium 3.4 mmol/L (3.5-5.1)
[2021-05-19] MEDS: ACETAMINOPHEN 325 MG TAB PO PRN ×2 (09:06→15:20)
[2021-05-19] MEDS: carBAMazepine 100 MG CHEW TAB PO SCH ×2 (09:07→21:19)
[2021-05-19] MEDS: ASPIRIN 81 MG ECTAB PO SCH (09:08)
[2021-05-19] MEDS: CALCIUM 600MG + VIT D 400 IU TAB PO SCH (09:08)
[2021-05-19] MEDS: guaiFENesin 600 MG TABCR PO SCH ×2 (09:08→21:20)
[2021-05-19] MEDS: hydrALAZINE HCL 25 MG TAB PO SCH ×3 (09:08→21:25)
[2021-05-19] MEDS: METOPROLOL TARTRATE 25 MG TAB PO SCH ×2 (09:08→21:24)
[2021-05-19] MEDS: CYANOCOBALAMIN 500 MCG TABLET (VITAMIN B-12) PO SCH (09:08)
[2021-05-19] MEDS: FINASTERIDE 5 MG TAB PO SCH (09:08)
[2021-05-19] MEDS: HEPARIN SOD 5,000 UNIT/0.5 ML VIAL SQ SCH ×2 (09:09→21:22)
[2021-05-19] MEDS: FERROUS SULFATE 325 MG TAB PO SCH ×2 (09:09→17:26)
[2021-05-19] MEDS: ZINC SULFATE 220 MG CAPSULE PO SCH (09:09)
[2021-05-19] MEDS: MIRTAZAPINE TAB 15 MG TAB PO SCH (09:09)
[2021-05-19] MEDS: ATORVASTATIN 40 MG TAB PO SCH (09:09)
[2021-05-19] MEDS: BUMETANIDE 1 MG TAB PO SCH (09:10)
[2021-05-19] MEDS: dexAMETHasone 6 MG in SYRINGE 0 ML IV SCH (17:27)
[2021-05-19] MEDS ORDERED: SENNOSIDES 8.8 MG/5 ML UDC PO ONE (19:12)
--- NOTE | 2021-05-19 19:16 | Hospitalist Progress Note ---
Date of Service May 19, 2021 Assessment & Plan (1) Pneumonia due to COVID-19 virus: Plan: Patient with acute respiratory failure with hypoxemia secondary to Covid pneumonia on 9 L oxymask Codeine PRN for cough continue dexamethasone 6,g IV daily out of time window for baricitinib incentive spirometer, flutter valve stopped fluids 05/15 resumed Bumex 2mg PO daily this morning (2) Left flank pain: Plan: CT ordered for the evening of 05/18/2021 negative for stones or intra abdominal pathology (3) CKD (chronic kidney disease): Plan: Acute kidney injury on CKD stage 3 Cr is 3.0, improved from 4.3 on admission, his baseline is around 3.0 resumed Bumex 2mg PO 05/16,slight bump in Cr creatinine has remained stable continue dosing with Bumex 2 (4) CAD (coronary artery disease): Plan: Patient had his pacemaker checked continues on aspirin atorvastatin Norvasc continues as well as his metoprolol did have elevation of troponin, no upward trend, ecg now is paced with some t wave changes but no corroborating sx or chest pain, no new ECHO changes, suspect is demand ischemia also influenced by renal function Continue Bumex (5) Depression with anxiety: Plan: Patient remains on mirtazapine and sertraline (6) Seizure disorder: Plan: Patient is on Tegretol level therapeutic (7) DVT prophylaxis: Plan: Heparin Admission and Anticipated Discharge Date Admission Date: May 12, 2021 Subjective Difficult patient to evaluate frequently laying in bed does not seem to have motivation. Says his flank pain is improved CT scan last night did not show any abnormalities with renal stones were abnormalities of parenchyma of the kidneys or abdomen pelvis to corroborate his left flank pain Review of Systems Review of Systems: moderate distress and fatigue no headache, no visual changes no speech or swallowing issues no chest pain, pressure or palpitations mild shortness of breath, non productive cough or wheezes Left sided abdominal pain,no nausea or vomiting, diarrhea or constipation no dysuria, hematuria or does have frequency no focal joint pain or swelling no back pain, CVA tenderness or radicular pain no bruising, bleeding or rashes no focal signs of weakness or numbness or altered sensation no complaints of anxiety or depression.. Physical Exam Physical Exam: The patient appeared well nourished and normally developed. Vital signs as documented. Head exam is normocephalic atraumatic Neck is without JVD, thyromegaly, or carotid bruits. Lungs remain diminished at bases mild rales to examination Cardiac exam, Rhythm is regular.. No murmurs, rubs or gallops. Abdominal exam reveals normal bowel sounds, soft left abdomen and CVA tenderness Extremities are chronically trace edematous bilaterally and both pedal pulses are present Neurologic exam is alert and oriented, no focal loss of strength or sensation Skin is without bruises or rashes Psychologically is without concerns for anxiety or depression.. Results & Data Results & Data ([facility]) Vital Signs (Past 12 Hours) Vital Signs Temp Pulse Pulse Resp BP Pulse Ox 05/19/21 15:56 75 05/19/21 15:00 98.2 F 68 18 128/72 91 05/19/21 11:00 98.2 F 82 18 114/68 92 05/19/21 07:47 78 PG Care Time/CCT Total # of Minutes Spent Total Time Spent with Patient: Total time spent is greater than 50% in coordination of care (as documented) at patient's floor/unit and/or counseling patient: Coding Level of Care Code 33330 Subseq Hosp Care Lvl 2 Diagnoses Pneumonia due to COVID-19 virus U07.1; J12.82 Left flank pain R10.9 CKD (chronic kidney disease) N18.9 CAD (coronary artery disease) I25.10 Coronary Disease-Associated Artery/Lesion type: [place] artery [place] vs. transplanted heart: [place] heart Associated angina: without angina Depression with anxiety F41.8 Seizure disorder G40.909 DVT prophylaxis Z29.9 (1) CAD (coronary artery disease) Coronary Disease-Associated Artery/Lesion type: [place] artery [place] vs. transplanted heart: [place] heart Associated angina: without angina Qualified Code(s): I25.10 - Atherosclerotic heart disease of [place] coronary artery without angina pectoris
[2021-05-19] MEDS: ARIPiprazole 10 MG TAB PO SCH (21:18)
[2021-05-19] MEDS: BENZTROPINE MESYLATE 1 MG TAB PO SCH (21:19)
[2021-05-19] MEDS: SERTRALINE HCL 100 MG TABLET PO SCH (21:21)
[2021-05-20] MEDS ORDERED: SENNA 8.6 MG TAB PO SCH (09:00)
[2021-05-20] MEDS: guaiFENesin 600 MG TABCR PO SCH (09:09)
[2021-05-20] MEDS: METOPROLOL TARTRATE 25 MG TAB PO SCH (09:09)
[2021-05-20] MEDS: hydrALAZINE HCL 25 MG TAB PO SCH ×2 (09:09→13:36)
[2021-05-20] MEDS: carBAMazepine 100 MG CHEW TAB PO SCH (09:10)
[2021-05-20] MEDS: CYANOCOBALAMIN 500 MCG TABLET (VITAMIN B-12) PO SCH (09:10)
[2021-05-20] MEDS: FINASTERIDE 5 MG TAB PO SCH (09:10)
[2021-05-20] MEDS: FERROUS SULFATE 325 MG TAB PO SCH ×2 (09:10→16:45)
[2021-05-20] MEDS: ATORVASTATIN 40 MG TAB PO SCH (09:11)
[2021-05-20] MEDS: BUMETANIDE 1 MG TAB PO SCH (09:11)
[2021-05-20] MEDS: ASPIRIN 81 MG ECTAB PO SCH (09:11)
[2021-05-20] MEDS: CALCIUM 600MG + VIT D 400 IU TAB PO SCH (09:12)
[2021-05-20] MEDS: MIRTAZAPINE TAB 15 MG TAB PO SCH (09:12)
[2021-05-20] MEDS: HEPARIN SOD 5,000 UNIT/0.5 ML VIAL SQ SCH (09:12)
[2021-05-20] MEDS: ZINC SULFATE 220 MG CAPSULE PO SCH (09:13)
--- NOTE | 2021-05-20 19:34 | Discharge Summary ---
Date of Service May 20, 2021 Admission HPI Per Admitting Provider 60-year-old male brought in by EMS with [facility] guards accompanying due to concern for syncope versus seizure. Patient states he got up to use the restroom, felt very lightheaded and dizzy and felt as though he was going to pass out. Patient states he tried to sit down but ended up blacking out in his and floor. Patient believes he struck his head on the floor. He is uncertain how long he may have been unconscious. Patient denies concern for injury. Patient recently diagnosed with Covid, diagnosis confirmed here at [facility],. He states he has a cough, and gets winded with exertion. Is not hypoxic but has oxygen saturations <94% on room air. Patient does have cardiac history and does have a pacemaker. Pacemaker was interrogated in the ER and was felt to be ok . cxr looks wet but renal funciton up, clincally dry and syncope, was give ivf for first 12 hours of hospital stay Principal Diagnosis Acute respiratory failure with hypoxia COVID-19 positive test (U07.1, COVID-19) with Acute Pneumonia (J12.89, Other viral pneumonia) (If respiratory failure or sepsis present, add as separate assessment) Chronic kidney disease stage IV Discharge Exam The patient appeared well he was not too thrilled to be discharged back to the [facility] Vital signs as documented. Lungs are basilar crackles are still present Cardiac exam, Rhythm is regular.. No murmurs, rubs or gallops. Abdominal exam reveals normal bowel sounds, soft non tender, no masses no abdominal bruits are heard Extremities are chronically trace edematous and both pedal pulses are normal. Neurologic exam is alert and oriented, no focal loss of strength or sensation Skin is without bruises or rashes Psychologically is without concerns for anxiety or depression. Discharge Data Allergies Allergy/AdvReac Type Severity Reaction Status Date / Time VIK Inhibitors Allergy Severe Rash and Verified 05/12/21 08:38 Itching Cephalosporins Allergy Severe Rash and Verified 05/12/21 08:38 Itching Penicillins Allergy Severe Rash and Verified 05/12/21 08:38 Itching sulfamethoxazole Allergy Severe Rash and Verified 05/12/21 08:38 [From Bactrim] Itching trimethoprim [From Bactrim] Allergy Severe Rash and Verified 05/12/21 08:38 Itching clindamycin Allergy Intermediate Hives Verified 05/12/21 08:38 Consultations 05/12/21 08:30 ED Decision to Admit Stat Ordered Studies 05/12/21 04:13 CT head/brain wo con Urgent 05/18/21 17:35 CT abd pelvis wo con Routine Hospital Course (1) Pneumonia due to COVID-19 virus: Patient with acute respiratory failure with hypoxemia secondary to Covid pneumonia patient titrated to room air I spoke to the [facility] they said even if he needs oxygen with exertion though are willing to take him back on room air at rest as they have a fairly significant Covid presence and [facility] continue dexamethasone 6,g IV daily out of time window for baricitinib incentive spirometer, flutter valve stopped fluids 05/15 resumed Bumex 2mg PO daily (2) Left flank pain: CT ordered for the evening of 05/18/2021 negative for stones or intra abdominal pathology (3) CKD (chronic kidney disease): Acute kidney injury on CKD stage 3 Cr is 3.0, improved from 4.3 on admission, his baseline is around 3.0 resumed Bumex 2mg PO 05/16,slight bump in Cr creatinine has remained stable continue dosing with Bumex 2 (4) CAD (coronary artery disease): Patient had his pacemaker checked continues on aspirin atorvastatin Norvasc continues as well as his metoprolol did have elevation of troponin, no upward trend, ecg now is paced with some t wave changes but no corroborating sx or chest pain, no new ECHO changes, suspect is demand ischemia also influenced by renal function Continue Bumex (5) Depression with anxiety: Patient remains on mirtazapine and sertraline (6) Seizure disorder: Patient is on Tegretol level therapeutic Total Time Total Time Spent Total Time Spent (In Minutes): It required greater than 30 minutes to prepare this patient for discharge Discharge Plan Discharge Items [facility] Reason For Visit: SYNCOPE, STEPHANIE Discharge Diagnosis: covid pneumonia with low oxygen level chronic kidney diseases stage 4 Activity: Per Instructions section Activity Comment: slowly increase activity Non-emergency contact: Primary Care Provider and Product Analyst Call non-emergency contact if: your symptoms worsen and you have a fever Follow-up/Referrals: Kelsey DIAZ [Primary Care Provider] - Diet: Low Sodium (2gm) Addtl Attending Provider Instructions: please continue your institution covid protocol once the inmate returns to you for his chronic kidney disease please consider follow up with a managing consultant clinical professor Pending Studies at Discharge: No Stand-Alone Forms: My [facility] Skilled Items Patient informed of condition?: Yes Discharge Level of Care: Other Communicable Disease: Yes Discharge Prognosis: Stable Lines: None Urinary Catheter: No Medications and DC Order Prescriptions: New sennosides [Senokot] 8.6 mg Tablet 17.2 mg PO QAM Qty: 60 RF: 0 Continued bumetanide 2 mg tablet 2 mg PO DAILY RF: 0 hydrochlorothiazide 25 mg tablet 25 mg PO DAILY RF: 0 mirtazapine 15 mg tablet 15 mg PO HS RF: 0 atorvastatin 40 mg tablet 40 mg PO DAILY RF: 0 aspirin [Aspirin Low Dose] 81 mg Tablet,Delayed Release (Dr/Ec) 81 mg PO QAM RF: 0 amlodipine [Norvasc] 10 mg Tablet 10 mg PO QAM RF: 0 carbamazepine 100 mg Tablet,Chewable 100 mg PO BID RF: 0 calcium carbonate-vitamin D3 [Calcium 600 + D(3)] 600 mg(1,500mg) -400 unit Tablet 1 tab PO DAILY RF: 0 metoprolol tartrate 25 mg Tablet 37.5 mg PO BID Qty: 0 RF: 0 sertraline 100 mg Tablet 100 mg PO QPM RF: 0 acetaminophen [Tylenol Extra Strength] 500 mg Tablet 500 mg PO TID PRN (Reason: Pain) RF: 0 ondansetron 4 mg Tablet,Disintegrating 4 mg PO TID PRN (Reason: nausea/ vomiting) RF: 0 losartan 100 mg Tablet 100 mg PO DAILY RF: 0 finasteride 5 mg Tablet 5 mg PO DAILY RF: 0 guaifenesin [Mucosa] 400 mg Tablet 400 mg PO TID PRN (Reason: mucus relief) RF: 0 zinc sulfate [Orazinc] 50 mg zinc (220 mg) Capsule 50 mg PO DAILY RF: 0 Discontinued levofloxacin 250 mg Tablet 250 mg PO DAILY RF: 0 Discharge Orders: Discharge Order (Routine); Ordered 05/20/21 Ordered By: Fabio Rivera Admission Data Admit Date/Time: 05/12/21 08:38 Attending Provider: Fabio Rivera Admit Provider: Fabio Rivera Primary Care Provider: Kelsey DIAZ Other Providers: Fabio Rivera ; Edy Alvarez Other Interventions: Discharge Summary Assessment (RN) Last Done: 05/20/21 13:39 Coding Level of Care Code D/C DAY MANAGEMENT >30 MINS Diagnoses Pneumonia due to COVID-19 virus U07.1; J12.82 Left flank pain R10.9 CKD (chronic kidney disease) N18.9 CAD (coronary artery disease) I25.10 Coronary Disease-Associated Artery/Lesion type: [place] artery [place] vs. transplanted heart: [place] heart Associated angina: without angina Depression with anxiety F41.8 Seizure disorder G40.909
== END 2021-05-20 17:35 | DRG 177 ==
LOC: ED 03:25 → EDINP 08:38 → SUATTDRO 08:38 → EDINP 12:38 → 2W 05-17 05:25